=== PATIENT | male | born 1955 | race Caucasian/White ===

== ENCOUNTER 2023-03-21 18:02 | Inpatient (IN) | payer MEDICARE, OTHER ==
[2023-03-21] MEDS ORDERED: HYDROmorphone 0.5 MG/0.5 ML SYRINGE IVP STA (18:25)
--- NOTE | 2023-03-21 18:42 | ED ---
General Adult HPI - General Source: patient, EMS, RN notes reviewed Mode of arrival: EMS <Autumn Monroe - Last Filed: 03/21/23 23:21> <Kwaku Brooks - Last Filed: 03/22/23 00:31> - General Chief complaint: Fall Stated complaint: fall-back pain Time Seen by Provider: 03/21/23 18:05 - History of Present Illness Initial comments: Patient is 67-year-old male presenting to the ER with chief complaint of back pain. Patient states the past couple months she has been having increasing back pain. He states that the pain gets so bad that his legs gave out and he falls to the floor. Patient states he has been having to crawl to get around. He is also reporting weakness and the only way for him to be comfortable is to lay flat on his back. He does report radiating distally. He also reports neuropathy in his feet which is also causing him to fall to the pain. He does have a history of heroin use. Patient does not follow up with a instrument specialist. Patient denies any bowel or bladder incontinence, saddle paresthesias, fevers. (Autumn Monroe) 67-year-old male with a past medical history significant for chronic back pain presenting to the ED with a chief complaint of back pain. Patient states over the past few months has had increasing of his back pain. With history of back pain causing weakness to his lower legs history of neuropathy reports that he falls. States recently with increased pain and weakness to his legs has had even more frequent falls. Does have a history of A. fib however is not on blood thinners. He denies chest pain or shortness of breath. (Kwaku Brooks) - Related Data Home Medications Medication Instructions Recorded Confirmed Albuterol Sulfate [Ventolin HFA] 2 puff INHALATION RT-QID PRN 03/21/23 03/21/23 Aspirin EC [Ecotrin Low Dose] 81 mg PO DAILY 03/21/23 03/21/23 DULoxetine HCL [Cymbalta] 30 mg PO DAILY 03/21/23 03/21/23 Dulaglutide [Trulicity] 0.75 mg SQ TU 03/21/23 03/21/23 Empagliflozin [Jardiance] 10 mg PO DAILY 03/21/23 03/21/23 Furosemide [Lasix] 40 mg PO DAILY 03/21/23 03/21/23 Gabapentin 800 mg PO TID 03/21/23 03/21/23 Ibuprofen [Motrin] 800 mg PO TID 03/21/23 03/21/23 carvediloL [Coreg] 6.25 mg PO BID 03/21/23 03/21/23 lisinopriL [Zestril] 10 mg PO DAILY 03/21/23 03/21/23 metFORMIN HCL 1,000 mg PO BID 03/21/23 03/21/23 Allergies Allergy/AdvReac Type Severity Reaction Status Date / Time No Known Allergies Allergy Verified 03/21/23 23:03 Review of Systems ROS Other: All systems not noted in ROS Statement are negative. <Autumn Monroe - Last Filed: 03/21/23 23:21> ROS Other: All systems not noted in ROS Statement are negative. <Kwaku Brooks - Last Filed: 03/22/23 00:31> ROS Statement: Those systems with pertinent positive or pertinent negative responses have been documented in the HPI. Past Medical History Past Medical History: Atrial Fibrillation, COPD, Diabetes Mellitus, Hypertension Additional Past Medical History / Comment(s): herniated discs, TIA History of Any Multi-Drug Resistant Organisms: None Reported Past Surgical History: Orthopedic Surgery Additional Past Surgical History / Comment(s): Knee surgery Past Psychological History: Depression Smoking Status: Current every day smoker Past Alcohol Use History: Daily Past Drug Use History: Heroin <Autumn Monroe - Last Filed: 03/21/23 23:21> General Exam Limitations: physical limitation General appearance: alert, other (uncomfortable) Head exam: Present: atraumatic, normocephalic, normal inspection Eye exam: Present: normal appearance, PERRL, EOMI. Absent: scleral icterus, conjunctival injection, periorbital swelling Pupils: Present: normal accommodation ENT exam: Present: normal exam, normal oropharynx, mucous membranes moist Neck exam: Present: normal inspection. Absent: tenderness, meningismus, lymphadenopathy Respiratory exam: Present: normal lung sounds bilaterally. Absent: respiratory distress, wheezes, rales, rhonchi, stridor Cardiovascular Exam: Present: regular rate, irregular rhythm, normal heart sounds. Absent: systolic murmur, diastolic murmur, rubs, gallop, clicks GI/Abdominal exam: Present: soft, tenderness (mild generalized), normal bowel sounds. Absent: distended, guarding, rebound, rigid Extremities exam: Present: normal inspection, full ROM, normal capillary refill. Absent: tenderness, pedal edema, joint swelling, calf tenderness Back exam: Present: tenderness (tenderness to lumbar spine. bilaterally weakness to leg hold due to pain. straight leg raise positive bilaterally.) Neurological exam: Present: alert, oriented X3, CN II-XII intact Psychiatric exam: Present: normal affect, normal mood Skin exam: Present: warm, dry, intact, normal color. Absent: rash <Autumn Monroe - Last Filed: 03/21/23 23:21> General appearance: alert, in no apparent distress, obese Neck exam: Present: normal inspection Extremities exam: Present: other (Lower extremities show good DP/PT pulses however poor strength) Neurological exam: Present: alert, oriented X3 Skin exam: Present: warm, dry <Kwaku Brooks - Last Filed: 03/22/23 00:31> Course <Autumn Monroe - Last Filed: 03/21/23 23:21> Vital Signs 03/21/23 03/21/23 18:07 23:34 Temperature 98.1 F Pulse Rate 90 104 H Respiratory 20 18 Rate Blood Pressure 172/105 156/95 O2 Sat by Pulse 98 100 Oximetry - Reevaluation(s) Reevaluation #1: 03/21/23 21:49 On reevaluation, patient states that he has also been having blackouts. He describes waking up in the morning and walking into the kitchen and blacking out. He finds himself waking up to his dogs licking his face. He is unaware of how long he is unconscious or any head injury. He denies any dizziness, lightheadedness, chest pain, shortness of breath prior to these blackouts. (Autumn Monroe) Medical Decision Making - Lab Data Result diagrams: 03/21/23 21:42 03/21/23 21:42 - EKG Data -: EKG Interpreted by Me - Radiology Data Radiology results: report reviewed, image reviewed <Autumn Monroe - Last Filed: 03/21/23 23:21> - Lab Data Result diagrams: 03/21/23 21:42 03/21/23 21:42 <Kwaku Brooks - Last Filed: 03/22/23 00:31> - Medical Decision Making Was pt. sent in by a medical professional or institution (NIKKY Godfrey, HEEL [employer]ITTER, urgent care, hospital, or long-term...) When possible be specific @ -No Did you speak to anyone other than the patient for history (EMS, parent, family, police, friend...)? What history was obtained from this source @ -No Did you review nursing and triage notes (agree or disagree)? Why? @ -I reviewed and agree with nursing and triage notes Were old charts reviewed (outside hosp., previous admission, EMS record, old EKG, old radiological studies, urgent care reports/EKG's, long-term records)? Report findings @ -No old charts were reviewed Differential Diagnosis (chest pain, altered mental status, abdominal pain women, abdominal pain men, vaginal bleeding, weakness, fever, dyspnea, syncope, headache, dizziness, GI bleed, back pain, seizure, CVA, palpatations, mental health, musculoskeletal)? @ -Differential Back Pain: Strain, zoster, cauda equina syndrome, epidural abscess, vertebral osteomyelitis, discitis, fracture, subluxation, disc herniation, DJD, spinal stenosis, dissection, AAA, pancreatitis, peptic ulcer disease, pyelonephritis, kidney stone, this is not meant to be an all-inclusive list. EKG interpreted by me (3pts min.). @ -As above X-rays interpreted by me (1pt min.). @ -None done CT interpreted by me (1pt min.). @ -CT lumbar spine shows multilevel foraminal stenosis. There is also spinal canal stenosis at L3 through 4 secondary to bulging disc, endplate spurring, and facet hypertrophy. Degenerative disc changes L3-4 and L5-S1. CT brain/cspine results pending. U/S interpreted by me (1pt. min.). @ -None done What testing was considered but not performed or refused? (CT, X-rays, U/S, labs)? Why? @ -None What meds were considered but not given or refused? Why? @ -None Did you discuss the management of the patient with other professionals (professionals i.e. NIKKY Godfrey, HEEL [employer] SPLITTER, lab, RT, psych nurse, social worker school, ways operator, teacher, chief operating officer, case reviewer)? Give summary @ -No Was smoking cessation discussed for >3mins.? @ -No Was critical care preformed (if so, how long)? @ -No Were there social determinants of health that impacted care today? How? (Homelessness, low income, unemployed, alcoholism, drug addiction, transportation, low edu. Level, literacy, decrease access to med. care, long term, rehab)? @ -No Was there de-escalation of care discussed even if they declined (Discuss DNR or withdrawal of care, Hospice)? DNR status @ -No What co-morbidities impacted this encounter? (DM, HTN, Smoking, COPD, CAD, Cancer, CVA, ARF, Chemo, Hep., AIDS, mental health diagnosis, sleep apnea, morbid obesity)? @ -atrial fibrillation, COPD, diabetes mellitus, hypertension, herniated disc, dementia Was patient admitted / discharged? Hospital course, mention meds given and route, prescriptions, significant lab abnormalities, going to OR and other pertinent info. @ -Patient is a 67 year old male presenting to the ER via EMS with a chief complaint of back pain. Vitals stable. Physical exam was significant for positive straight leg raise and weakness in leg hold due to pain. Patient does have a history of heroin use. He also reports recently losing consciousness with unknown down time.CT lumbar spine spine shows multilevel foraminal stenosis. There is also spinal canal stenosis at L3 through 4 secondary to bulging disc, endplate spurring, and facet hypertrophy. Degenerative disc changes L3-4 and L5- S1. Labs obtained show JEAN MARIE BUN 36, Cr 1.39, Plt 135, otherwise unremarkable. Cephid negative. UA without signs of infection. EKG shows atrial fibrillation with RVR, ventricular rate 122. CT brain pending. Patient received IV fluids, pain medication, carvedilol. Case signed out to Janusz Brooks PA-C pending ct res ults and admission. (Autumn Monroe) Signed out to me. Patient is a 67-year-old male with a history of back pain. With history of back pain notes weakness with this. Notes history of neuropathy as well. Secondary to worsening back pain and worsening weakness has been having very frequent falls. CT did show multilevel foraminal stenosis. CT brain showed no evidence of bleed or other acute process. Secondary to increasing falls with increasing back pain and weakness patient will be admitted with consults to social worker school for possible placement and consult to orthopedics. Of note, patient was noted to be tachycardic at 110. Did not take his home dose of coreg. This was ordered for the patient. Occasionally review shows no history of blood thinner use the patient denies blood thinner use. Although patient is in A. fib with history of frequent falls felt patient is at high risk of bleed with thinner use. Case discussed with Y[facility]asta who accepted admission for [facility] (Kwaku Brooks) - Lab Data Lab Results 03/21/23 03/21/23 03/21/23 Range/Units 21:42 21:42 21:42 WBC 10.4 (3.8-10.6) k/uL RBC 4.89 (4.30-5.90) m/uL Hgb 15.5 (13.0-17.5) gm/dL Hct 45.7 (39.0-53.0) % MCV 93.5 (80.0-100.0) fL MCH 31.8 (25.0-35.0) pg MCHC 34.0 (31.0-37.0) g/dL RDW 13.0 (11.5-15.5) % Plt Count 135 L (150-450) k/uL MPV 8.7 PT 11.2 (10.0-12.5) sec INR 1.0 (<1.2) APTT 21.0 L (22.0-30.0) sec Sodium 137 (137-145) mmol/L Potassium 4.3 (3.5-5.1) mmol/L Chloride 101 (98-107) mmol/L Carbon Dioxide 18 L (22-30) mmol/L Anion Gap 18 mmol/L BUN 36 H (9-20) mg/dL Creatinine 1.39 H (0.66-1.25) mg/dL Est GFR (CKD-EPI)AfAm 61 (>60 ml/min/1.73 sqM) Est GFR (CKD-EPI)NonAf 53 (>60 ml/min/1.73 sqM) Glucose 131 H (74-99) mg/dL Calcium 9.0 (8.4-10.2) mg/dL Total Bilirubin 1.1 (0.2-1.3) mg/dL AST 21 (17-59) U/L ALT 15 (4-49) U/L Alkaline Phosphatase 80 (38-126) U/L Troponin I (0.000-0.034) ng/mL Total Protein 7.2 (6.3-8.2) g/dL Albumin 3.7 (3.5-5.0) g/dL Urine Color Urine Appearance (Clear) Urine pH (5.0-8.0) Ur Specific [place] (1.001-1.035) Urine Protein (Negative) Urine Glucose (UA) (Negative) Urine Ketones (Negative) Urine Blood (Negative) Urine Nitrite (Negative) Urine Bilirubin (Negative) Urine Urobilinogen (<2.0) mg/dL Ur Leukocyte Esterase (Negative) Influenza Type A (PCR) (Not Detectd) Influenza Type B (PCR) (Not Detectd) RSV (PCR) (Not Detectd) SARS-CoV-2 (PCR) (Not Detectd) 03/21/23 03/21/23 03/21/23 Range/Units 21:42 21:42 21:42 WBC (3.8-10.6) k/uL RBC (4.30-5.90) m/uL Hgb (13.0-17.5) gm/dL Hct (39.0-53.0) % MCV (80.0-100.0) fL MCH (25.0-35.0) pg MCHC (31.0-37.0) g/dL RDW (11.5-15.5) % Plt Count (150-450) k/uL MPV PT (10.0-12.5) sec INR (<1.2) APTT (22.0-30.0) sec Sodium (137-145) mmol/L Potassium (3.5-5.1) mmol/L Chloride (98-107) mmol/L Carbon Dioxide (22-30) mmol/L Anion Gap mmol/L BUN (9-20) mg/dL Creatinine (0.66-1.25) mg/dL Est GFR (CKD-EPI)AfAm (>60 ml/min/1.73 sqM) Est GFR (CKD-EPI)NonAf (>60 ml/min/1.73 sqM) Glucose (74-99) mg/dL Calcium (8.4-10.2) mg/dL Total Bilirubin (0.2-1.3) mg/dL AST (17-59) U/L ALT (4-49) U/L Alkaline Phosphatase (38-126) U/L Troponin I <0.012 (0.000-0.034) ng/mL Total Protein (6.3-8.2) g/dL Albumin (3.5-5.0) g/dL Urine Color Light Yellow Urine Appearance Clear (Clear) Urine pH 5.5 (5.0-8.0) Ur Specific [place] 1.021 (1.001-1.035) Urine Protein Trace H (Negative) Urine Glucose (UA) 4+ H (Negative) Urine Ketones 1+ H (Negative) Urine Blood Negative (Negative) Urine Nitrite Negative (Negative) Urine Bilirubin Negative (Negative) Urine Urobilinogen <2.0 (<2.0) mg/dL Ur Leukocyte Esterase Negative (Negative) Influenza Type A (PCR) Not Detected (Not Detectd) Influenza Type B (PCR) Not Detected (Not Detectd) RSV (PCR) Not Detected (Not Detectd) SARS-CoV-2 (PCR) Not Detected (Not Detectd) - EKG Data EKG Comments: EKG taken at 11:53 shows atrial fibrillation with RVR. Ventricular rate 122, QRS duration 98, QT/QTc to 84/356. (Autumn Monroe) Disposition <Autumn Monroe - Last Filed: 03/21/23 23:21> <Kwaku Brooks - Last Filed: 03/22/23 00:31> Clinical Impression: Falls, Back pain Disposition: ADMITTED IP TO THIS HOSP Referrals: Devon Gurrola MD [Primary Care Provider] - 1-2 days
--- NOTE | 2023-03-21 19:52 | CT ---
EXAMINATION TYPE: CT lumbar spine wo con DATE OF EXAM: 03/21/2023 COMPARISON: None HISTORY: FALL, severe low back pain CT DLP: 2140.6 mGycm CONTRAST: None TECHNIQUE: CT of the lumbar spine is performed on a spiral scan at 3 mm thick sections. Reconstructed images are performed in the coronal and sagittal planes. FINDINGS: T10-T11: No focal disc herniation or significant disc bulge is evident. No spinal canal stenosis or neural foraminal stenosis is present. T11-T12: No focal disc herniation or significant disc bulge is evident. No spinal canal stenosis or neural foraminal stenosis is present. T12-L1: Minimal disc bulges anterior thecal sac flattening. No AP spinal canal stenosis present. Neur al foramen are patent. L1-L2: Broad-based disc bulge with mild anterior thecal sac compression. No AP spinal canal stenosis is present. Neural foramen are patent. Facet hypertrophy is present. L2-L3: Broad-based disc bulge is present with moderate anterior thecal sac flattening. No AP spinal c anal stenosis is present. Moderate right and mild left foraminal narrowing is present. L3-L4: There is loss of disc height with vacuum disc phenomenon present. Endplate spurring and residu al disc material is moderate anterior thecal sac compression. Facet hypertrophy and ligamentum flavum laxity is present. These are contributing to spinal canal narrowing. L4-L5: There is loss of disc height is level. Residual disc bulge is present. Endplate spurring is pr esent slightly greater to the left paracentral region. AP spinal canal narrowing is present. There is severe left and moderate to severe right foraminal stenosis L5-S1: No focal disc herniation or significant disc bulge is evident. No spinal canal stenosis. Sev ere bilateral foraminal narrowing present. Vertebral alignment appears normal. IMPRESSION: 1 Multilevel foraminal stenosis more severe in the lower lumbar spine. 2. Spinal canal stenosis at L3-4 secondary to disc bulge and endplate spurring and facet hypertrophy. 3. Degenerative disc changes L3-4 through L5-S1.
[2023-03-21] MEDS ORDERED: HYDROmorphone 1 MG/ML 1 ML SYRINGE IVP STA (20:02)
[2023-03-21 22:09] LABS: HCT 45.7 % (39.0-53.0); HGB 15.5 gm/dL (13.0-17.5); MCH 31.8 pg (25.0-35.0); MCV 93.5 fL (80.0-100.0); Mean Platelet Volume 8.7; Platelet Count 135 k/uL (150-450); RBC 4.89 m/uL (4.30-5.90); WBC 10.4 k/uL (3.8-10.6)
[2023-03-21 22:32] LABS: ALT 15 U/L (4-49); AST 21 U/L (17-59); African American GFR (CKD) 61 (>60 ml/min/1.73 sqM); Albumin 3.7 g/dL (3.5-5.0); Alkaline Phosphatase 80 U/L (38-126); Anion Gap 18 mmol/L; Blood Urea Nitrogen 36 mg/dL (9-20); Carbon Dioxide 18 mmol/L (22-30); Chloride 101 mmol/L (98-107); Glucose 131 mg/dL (74-99); Non-African American GFR(CKD) 53 (>60 ml/min/1.73 sqM); Potassium 4.3 mmol/L (3.5-5.1); Sodium 137 mmol/L (137-145); Total Bilirubin 1.1 mg/dL (0.2-1.3); Total Protein 7.2 g/dL (6.3-8.2)
[2023-03-21 22:34] LABS: Appearance,Urine Clear (Clear); Bilirubin,Urine Negative (Negative); Blood,Urine Negative (Negative); Color,Urine Light Yellow; Glucose,Urine (UA) 4+ (Negative); Ketones,Urine 1+ (Negative); Leukocyte Esterase,Urine Negative (Negative); Nitrite,Urine Negative (Negative); PH, Urine 5.5 (5.0-8.0); Protein,Urine Trace (Negative); Specific Gravity,Urine 1.021 (1.001-1.035); Urobilinogen,Urine <2.0 mg/dL (<2.0)
[2023-03-21] MEDS ORDERED: SODIUM CHLORIDE 0.9% 1,000 ML IV STA (22:34)
[2023-03-21 22:38] LABS: Prothrombin Time 11.2 sec (10.0-12.5)
[2023-03-21] MEDS ORDERED: carvediloL 6.25 MG TAB PO STA (23:20)
--- NOTE | 2023-03-21 23:44 | CT ---
EXAMINATION TYPE: CT brain maggieine wo con DATE OF EXAM: 03/21/2023 COMPARISON: NONE HISTORY: chronic back pain. Headache and neck pain. CT DLP: 1658.8 mGycm. Automated Exposure Control for Dose Reduction was Utilized. TECHNIQUE: CT scan of the head and cervical spine are performed without contrast. FINDINGS: There is no acute intracranial hemorrhage or midline shift identified. Mild ventricular a nd sulcal prominence. Mild low attenuation in the periventricular white matter. The calvarium is inta ct. Nasal septum is deviated to right of midline. The globes are intact and the visualized sinuses ar e clear. Cervical spine is visualized in its entirety from C1 through upper thoracic levels and demonstrates s atisfactory alignment without evidence of acute fracture or dislocation. Prevertebral soft tissue ap pears within normal limits. The C1-C2 articulation is within normal limits on the coronal images. V ertebral body heights are maintained. Moderate multilevel spurring and disc space narrowing is seen. Multilevel spurring and/or spur disc complexes efface the anterior thecal sac in the cervical spine. Axial images show some multilevel uncovertebral facet degenerative changes. Thyroid gland is somewhat small in size. Lung apices show no evidence of pneumothorax. IMPRESSION: 1. There is no acute fracture or dislocation evident in the cervical spine. 2. No acute intracranial hemorrhage or midline shift is seen.
[2023-03-22] MEDS ORDERED: HYDROmorphone 1 MG/ML 1 ML SYRINGE IVP STA (00:22)
[2023-03-22] MEDS ORDERED: NALOXONE 0.4 MG/ML 1 ML VIAL IV PRN (00:32)
[2023-03-22] MEDS: SODIUM CHLORIDE 0.9% 1,000 ML IV SCH ×3 (00:56→22:37)
[2023-03-22] MEDS: HYDROmorphone 1 MG/ML 1 ML SYRINGE IVP PRN ×6 (03:46→21:59)
[2023-03-22] MEDS ORDERED: FUROSEMIDE 40 MG TAB PO SCH (09:00)
[2023-03-22] MEDS: lisinopriL 10 MG TAB PO SCH (09:14)
[2023-03-22] MEDS: metFORMIN 500 MG TAB PO SCH ×2 (09:14→21:42)
[2023-03-22] MEDS: carvediloL 6.25 MG TAB PO SCH ×2 (09:14→21:42)
[2023-03-22] MEDS: ASPIRIN 81 MG PO SCH (09:14)
[2023-03-22] MEDS: DULoxetine HCL 30 MG CAPSULE.DR PO SCH (09:14)
[2023-03-22] MEDS ORDERED: ACETAMINOPHEN TAB 325 MG TAB PO PRN (10:19)
[2023-03-22] MEDS ORDERED: DEXTROSE 50% SYRINGE 50 ML IVP PRN ×2 (10:25)
[2023-03-22 12:33] LABS: Glucose,Whole Blood 225 mg/dL (70-110)
[2023-03-22] MEDS: INSULIN ASPART (NovoLOG) 100 UNIT/ML VIAL SQ SCH ×3 (12:37→22:03)
[2023-03-22] MEDS: DAPAGLIFLOZIN PROPANEDIOL 5 MG TABLET PO SCH (12:39)
--- NOTE | 2023-03-22 14:32 | P.CNOR ---
History of Present Illness - [facility] Consult date: 03/22/23 Consult reason: low back pain History of present illness: Patient is a 67-year-old male who presented to [facility] evaluation of low back pain. Apparently the patient is been dealing with low ba ck pain for many years, seems to come and go. Over the last 2 weeks, patient is noticed a severe increase in his pain. Patient has had a very difficult time with ambulation. He's been falling quite frequently at home. Patient states that he does live alone. Patient denies any previous surgery to his lumbar spine. He was examined today in the emergency room, he he does look to be in quite a bit of pain on exam. Patient denies any loss of bowel or bladder function at this time. He denies a ny numbness or tingling to the genital or perineal region. He does state he has significant neuropathy which affects the bilateral feet. He occasionally will get numbness and tingling and shooting pain down the back of the legs but nothing consistent. Patient does take gabapentin 800 mg 3 times a day for his neuropathy. He states that he's never been evaluated by an orthopedic surgeon or neurosurgeon with regards to his spine. Computed tomography scan of the lumbar spine has been done, report and images were reviewed with my attending Dr. Zimmerman. Review of Systems Constitutional: Reports as per [facility] Past Medical History Past Medical History: Atrial Fibrillation, COPD, Diabetes Mellitus, Hypertension Additional Past Medical History / Comment(s): herniated discs, TIA History of Any Multi-Drug Resistant Organisms: None Reported Past Surgical History: Orthopedic Surgery Additional Past Surgical History / Comment(s): Knee surgery Past Psychological History: Depression Smoking Status: Current every day smoker Past Alcohol Use History: Daily Past Drug Use History: Heroin Medications and Allergies Home Medications Medication Instructions Recorded Confirmed Type Albuterol Sulfate [Ventolin HFA] 2 puff INHALATION RT-QID PRN 03/21/23 03/21/23 History Aspirin EC [Ecotrin Low Dose] 81 mg PO DAILY 03/21/23 03/21/23 History DULoxetine HCL [Cymbalta] 30 mg PO DAILY 03/21/23 03/21/23 History Dulaglutide [Trulicity] 0.75 mg SQ TU 03/21/23 03/21/23 History Empagliflozin [Jardiance] 10 mg PO DAILY 03/21/23 03/21/23 History Furosemide [Lasix] 40 mg PO DAILY 03/21/23 03/21/23 History Gabapentin 800 mg PO TID 03/21/23 03/21/23 History Ibuprofen [Motrin] 800 mg PO TID 03/21/23 03/21/23 History carvediloL [Coreg] 6.25 mg PO BID 03/21/23 03/21/23 History lisinopriL [Zestril] 10 mg PO DAILY 03/21/23 03/21/23 History metFORMIN HCL 1,000 mg PO BID 03/21/23 03/21/23 History Allergies Allergy/AdvReac Type Severity Reaction Status Date / Time No Known Allergies Allergy Verified 03/21/23 23:03 Physical Examination Gen: AOx3, NAD VSS stable at this time Integument: No obvious open lesions or sores are present throughout the lower thoracic and lumbar spine Palpation: As an irrigant tenderness is appreciated on exam of the paraspinal or midline region of the lower thoracic and lumbar region ROM: Full range of motion in all major muscle groups of bilateral upper extremities, no focal deficits Patient had very difficult time with hip flexion, along with knee extension and knee flexion due to pain reproduced in his back, plantar flexion, dorsiflexion, EHL and FHL are intact Sensory Exam: Senory exam to light touch is intact C5-T1 Senosry exam to light touch is intact L2-S1 Motor: 5/5 strength appreciated in the bilateral upper extremities with shoulder elev ation, shoulder abduction, elbow extension, elbow flexion, wrist extension, wrist flexion, babysitter 3/5 strength of patient's bilateral lower extremities with hip flexion, pain likely causing acute change 3+/5 strength appreciated in the bilateral lower extremities with knee extension and knee flexion pain likely causing acute change 4/5 strength appreciated in the bilateral lower extremities with plantar flexion, FHL 4-/5 strength appreciated in the bilateral lower extremities with dorsiflexion and EHL Reflexes: Negative Tiesha's bilaterally Negative Babinski bilaterally Positive clonus bilaterally, very mild in both lower extremities Special Test: Positive straight leg raise bilateral lower extremities Results - Labs Labs: Abnormal Lab Results - Last 24 Hours (Table) 03/21/23 03/21/23 03/21/23 Range/Units 21:42 21:42 21:42 Plt Count 135 L (150-450) k/uL APTT 21.0 L (22.0-30.0) sec Carbon Dioxide 18 L (22-30) mmol/L BUN 36 H (9-20) mg/dL Creatinine 1.39 H (0.66-1.25) mg/dL Glucose 131 H (74-99) mg/dL POC Glucose (mg/dL) (70-110) mg/dL Urine Protein (Negative) Urine Glucose (UA) (Negative) Urine Ketones (Negative) 03/21/23 03/22/23 Range/Units 21:42 12:31 Plt Count (150-450) k/uL APTT (22.0-30.0) sec Carbon Dioxide (22-30) mmol/L BUN (9-20) mg/dL Creatinine (0.66-1.25) mg/dL Glucose (74-99) mg/dL POC Glucose (mg/dL) 225 H (70-110) mg/dL Urine Protein Trace H (Negative) Urine Glucose (UA) 4+ H (Negative) Urine Ketones 1+ H (Negative) H & H 03/21/23 Range/Units 21:42 Hgb 15.5 (13.0-17.5) gm/dL Hct 45.7 (39.0-53.0) % Coagulation 03/21/23 Range/Units 21:42 INR 1.0 (<1.2) Result Diagrams: 03/21/23 21:42 03/21/23 21:42 - Diagnostic results CT Scan - lumbar: report reviewed, image reviewed Assessment and Plan Assessment: Low back pain Bilateral lower extremity weakness Neuropathy bilateral lower extremities Multilevel lumbar spondylosis Other medical comorbidities Plan: I was able to discuss the case, this including both physical exam findings and imaging studies might attending Dr. Zimmerman. Patient not demonstrating any acute cauda symptoms, he has some slight neuropathic signs with the clonus the lower extremities. Due to the severe pain and lack of strength in the lower extremities, along with findings in the CT scan of the lumbar spine I will order MRI lumbar spine without contrast for further evaluation pain control, recommend restarting patient's gabapentin at this time. Pain control, resume gabapentin, could consider muscle relaxer or narcotic pain medication if needed DVT prophylaxis per medical/cardiology recommendations Weight-bear as tolerated, recommend use of a walker and assistance when ambulating PT/OT Other medical recommendations appreciated. Further recommendations to follow Time with Patient: Less than 30
--- NOTE | 2023-03-22 15:57 | P.HPIM ---
History of Present Illness H&P Date: 03/22/23 Chief Complaint: Back pain syncope * 67-year-old gentleman with past medical history significant for atrial fibrillation, diabetes mellitus, COPD, hypertension, degenerative disks/joint disease presents to the emergency department with complains of increasing back pain. Patient stated his back pain is getting worse to the point he is unable to move around freely and has multiple falls at home he had been complaining of lower extremity weakness and neuropathic pain bilaterally and feet as well. Upon admission patient denies history of bladder or bowel incontinence, den ies fever or perianal numbness * Workup initiated in ER including CT lumbar spine which showed multilevel degenerative changes and stenosis, L3-L4 disc bulge and spinal canal stenosis noted, L5-S1 degenerative disc changes noted * Patient had a CT brain done which was negative for acute fracture or di slocation of cervical spine no intracranial hemorrhage was noted * EKG obtained in ER showed atrial fibrillation with heart rate of 122 and the time of admission * Serum chemistry obtained showed WBC 10.4 hemoglobin 15 platelet count of 135 INR of 1 * Serum chemistry shows sodium 137 potassium 4.2 BU and 36 at 1.39 * Patient tested negative for influenza RSV and Covid * While in ER patient was given 1 dose of oral Coreg IV fluid bolus and IV pain medications and admitted to medical floor with back surgery consultation for evaluation REVIEW OF SYSTEMS: Back pain, lower extremity weakness, syncope CONSTITUTIONAL: No fever, no malaise, no fatigue. HEENT: No recent visual problems or hearing problems. Denied any sore throat. CARDIOVASCULAR: No chest pain, orthopnea, PND, no palpitations, no syncope. PULMONARY: No shortness of breath, no cough, no hemoptysis. GASTROINTESTINAL: No diarrhea, no nausea, no vomiting, no abdominal pain. NEUROLOGICAL: No headaches, no weakness, no numbness. HEMATOLOGICAL: Denies any bleeding or petechiae. GENITOURINARY: Denies any burning micturition, frequency, or urgency. MUSCULOSKELETAL/RHEUMATOLOGICAL: Denies any joint pain, swelling, or any muscle pain. ENDOCRINE: Denies any polyuria or polydipsia. PHYSICAL EXAMINATION: GENERAL: The patient is alert and oriented x3, Well developed, well nourished. HEENT: Pupils are round and equally reacting to light. EOMI. CARDIOVASCULAR: Irregular rhythm, tachycardia PULMONARY: Chest is clear to auscultation, no wheezing or crackles. ABDOMEN: Soft, nontender, nondistended, normoactive bowel sounds. No palpable organomegaly. MUSCULOSKELETAL: No joint swelling or deformity. EXTREMITIES: No cyanosis, clubbing, or pedal edema. NEUROLOGICAL: Gross neurological examination did not reveal any focal deficits. Past Medical History Past Medical History: Atrial Fibrillation, COPD, Diabetes Mellitus, Hypertension Additional Past Medical History / Comment(s): herniated discs, TIA History of Any Multi-Drug Resistant Organisms: None Reported Past Surgical History: Orthopedic Surgery Additional Past Surgical History / Comment(s): Knee surgery Past Psychological History: Depression Smoking Status: Current every day smoker Past Alcohol Use History: Daily Past Drug Use History: Heroin Medications and Allergies Home Medications Medication Instructions Recorded Confirmed Type Albuterol Sulfate [Ventolin HFA] 2 puff INHALATION RT-QID PRN 03/21/23 03/21/23 History Aspirin EC [Ecotrin Low Dose] 81 mg PO DAILY 03/21/23 03/21/23 History DULoxetine HCL [Cymbalta] 30 mg PO DAILY 03/21/23 03/21/23 History Dulaglutide [Trulicity] 0.75 mg SQ TU 03/21/23 03/21/23 History Empagliflozin [Jardiance] 10 mg PO DAILY 03/21/23 03/21/23 History Furosemide [Lasix] 40 mg PO DAILY 03/21/23 03/21/23 History Gabapentin 800 mg PO TID 03/21/23 03/21/23 History Ibuprofen [Motrin] 800 mg PO TID 03/21/23 03/21/23 History carvediloL [Coreg] 6.25 mg PO BID 03/21/23 03/21/23 History lisinopriL [Zestril] 10 mg PO DAILY 03/21/23 03/21/23 History metFORMIN HCL 1,000 mg PO BID 03/21/23 03/21/23 History Allergies Allergy/AdvReac Type Severity Reaction Status Date / Time No Known Allergies Allergy Verified 03/21/23 23:03 Physical Exam Vitals: Vital Signs Temp Pulse Resp BP Pulse Ox 03/22/23 06:00 89 16 125/78 94 L 03/22/23 03:00 98 18 127/74 93 L 03/21/23 23:34 104 H 18 156/95 100 03/21/23 18:07 98.1 F 90 20 172/105 98 Intake and Output 03/21/23 03/22/23 03/22/23 22:59 06:59 14:59 Other: Weight 117.934 kg Results CBC & Chem 7: 03/21/23 21:42 03/21/23 21:42 Labs: Abnormal Lab Results - Last 24 Hours (Table) 03/21/23 03/21/23 03/21/23 Range/Units 21:42 21:42 21:42 Plt Count 135 L (150-450) k/uL APTT 21.0 L (22.0-30.0) sec Carbon Dioxide 18 L (22-30) mmol/L BUN 36 H (9-20) mg/dL Creatinine 1.39 H (0.66-1.25) mg/dL Glucose 131 H (74-99) mg/dL Urine Protein (Negative) Urine Glucose (UA) (Negative) Urine Ketones (Negative) 03/21/23 Range/Units 21:42 Plt Count (150-450) k/uL APTT (22.0-30.0) sec Carbon Dioxide (22-30) mmol/L BUN (9-20) mg/dL Creatinine (0.66-1.25) mg/dL Glucose (74-99) mg/dL Urine Protein Trace H (Negative) Urine Glucose (UA) 4+ H (Negative) Urine Ketones 1+ H (Negative) Thrombosis Risk Factor Assmnt - DVT/VTE Prophylaxis DVT/VTE Prophylaxis: Mechanical Prophylaxis ordered Assessment and Plan Assessment: Assessment and plan * Acute on chronic back pain with lower extremity weakness with degenerative disease of lumbar spine * Atrial fibrillation with rapid ventricular response * Hypertension * Diabetes mellitus type 2 * Acute renal failure with mild metabolic acidosis * In regards to acute and chronic back pain and lower extremity weakness, back surgery consulted, CT lumbar spine reviewed degenerative changes noted spinal stenosis stenosis noted * In regards to atrial fibrillation, cardiology consulted continue Coreg, continue aspirin, * In regards to diabetes mellitus continue patient on Trulicity, continue correctional insulin, continue metformin monitor for hypoglycemia * Regards to hypertension continue patient on Coreg and lisinopril * Physical therapy occupational therapy consulted * CODE STATUS is full code Time with Patient: Greater than 30
[2023-03-22 20:31] LABS: Glucose,Whole Blood 180 mg/dL (70-110)
[2023-03-22] MEDS: HYDROcodone/APAP 5-325MG 1 EACH TAB PO PRN (23:08)
[2023-03-23] MEDS: HYDROmorphone 1 MG/ML 1 ML SYRINGE IVP PRN ×4 (01:09→21:35)
[2023-03-23] MEDS: HYDROcodone/APAP 5-325MG 1 EACH TAB PO PRN ×5 (03:52→22:36)
[2023-03-23 06:10] LABS: Glucose,Whole Blood 200 mg/dL (70-110)
[2023-03-23] MEDS: INSULIN ASPART (NovoLOG) 100 UNIT/ML VIAL SQ SCH ×4 (06:50→21:32)
[2023-03-23] MEDS: SODIUM CHLORIDE 0.9% 1,000 ML IV SCH ×2 (06:51→15:58)
[2023-03-23] MEDS: carvediloL 6.25 MG TAB PO SCH ×2 (08:38→20:23)
[2023-03-23] MEDS: lisinopriL 10 MG TAB PO SCH (08:38)
[2023-03-23] MEDS: DAPAGLIFLOZIN PROPANEDIOL 5 MG TABLET PO SCH (08:38)
[2023-03-23] MEDS: ASPIRIN 81 MG PO SCH (08:38)
[2023-03-23] MEDS: metFORMIN 500 MG TAB PO SCH ×2 (08:38→20:23)
[2023-03-23] MEDS: DULoxetine HCL 30 MG CAPSULE.DR PO SCH (09:33)
[2023-03-23 10:12] LABS: BUN/Creat Ratio 23.94 Ratio (12.00-20.00); Blood Urea Nitrogen 38.3 mg/dL (9.0-27.0); Calcium 8.7 mg/dL (8.7-10.3); Chloride 102 mmol/L (96-109); Glucose 198 mg/dL (70-110); Magnesium 1.7 mg/dL (1.5-2.4); Potassium 4.5 mmol/L (3.5-5.5); Sodium 138 mmol/L (135-145)
[2023-03-23 10:36] LABS: Basophils # (A) 0.04 X 10*3/uL (0.00-0.10); Basophils % (A) 0.6 %; Eosinophils # (A) 0.19 X 10*3/uL (0.04-0.35); Eosinophils % (A) 2.8 %; HCT 41.6 % (39.6-50.0); HGB 13.9 g/dL (13.0-17.0); Lymphocytes # (A) 1.08 X 10*3/uL (0.90-5.00); MCH 31.2 pg (27.0-32.0); MCHC 33.4 g/dL (32.0-37.0); MCV 93.3 FL (80.0-97.0); Mean Platelet Volume 12.1 FL (9.5-12.2); Monocytes # (A) 1.13 X 10*3/uL (0.20-1.00); Monocytes % (A) 16.7 %; NRBC Per 100 WBC 0 X 10*3/uL (0.00-0.01); Neutrophils # (A) 4.29 X 10*3/uL (1.80-7.70); Neutrophils % (A) 63.6 %; Platelet Count 89 X 10*3/uL (140-440); RBC 4.46 X 10*6/uL (4.40-5.60); RBC Morphology Normal (Normal); RDW 12.6 % (11.5-14.5); WBC 6.75 X 10*3/uL (4.50-10.00)
[2023-03-23] MEDS: GABAPENTIN 400 MG CAP PO SCH ×3 (11:44→20:23)
[2023-03-23] MEDS: INSULIN DETEMIR (LEVEMIR) 100 UNIT/ML SYR SQ SCH (11:46)
[2023-03-23 11:48] LABS: Glucose,Whole Blood 232 mg/dL (70-110)
[2023-03-23 12:15] LABS: Amphetamine Screen,Urine Not Detected (NotDetected); Barbiturate Screen,Urine Not Detected (NotDetected); Benzodiazepines Screen,Urine Not Detected (NotDetected); Cocaine Screen,Urine Not Detected (NotDetected); Methadone Screen, Urine Not Detected (NotDetected); Opiate Screen,Urine Detected (NotDetected); Oxycodone Screen, Urine Not Detected (NotDetected); Phencyclidine Screen,Urine Not Detected (NotDetected); Tricyclic Antidepressant,Urine Not Detected (NotDetected); Urn Cannabinoid Scrn Detected (NotDetected)
--- NOTE | 2023-03-23 12:38 | P.CRDCN ---
History of Present Illness Consult date: 03/23/23 Chief complaint: Low back pain History of present illness: The patient is a 67-year-old gentleman who is a somewhat poor historian with a past medical history significant for atrial fibrillation of unknown etiology at this point as well as diabetes and hypertension and dyslipidemia and overweight and low back pain. He presented to the emergency department mainly because of low back pain. He underwent a computed tomography scan of the lower back and that revealed degenerative changes he was seen by orthopedic surgical team and he is in process to get an MRI. We consulted to see the patient because of atrial fibrillation. The patient underwent an EKG and that showed atrial fibrillation. He is not aware of any prior diagnosis of atrial fibrillation currently is not on any oral anticoagulation. No pain in the chest and no shortness of breath and no feeling of heart racing or fluttering and no dizziness or lightheadedness and no presyncope or syncope. On examination he does have an irregular rhythm with distant heart sounds and clear breathing sounds bilaterally and mild bilateral lower extremity edema and tender abdomen as well. The patient is not aware of any prior history of gastrointestinal bleeding and isn't know exactly why he is not on any oral anticoagulation. His vital signs are stable. The atrial fibrillation appeared to be under good control on the current dose of beta parrish. Assessment Lower back pain related to degenerative changes in the back Atrial fibrillation with controlled heart rate. The atrial fibrillation is unknown etiology, paroxysmal versus permanent Multiple comorbid conditions including diabetes and hypertension and dyslipidemia and overweight Plan Rule out intra-abdominal process Rule out gastrointestinal bleeding by speaking with his daughter who is a nurse and knows his medical records according to him Positive starting the patient on heparin IV Further risk stratification including an echocardiogram was Doppler Further recommendation to follow Past Medical History Past Medical History: Atrial Fibrillation, COPD, Diabetes Mellitus, Hypertension Additional Past Medical History / Comment(s): herniated discs, TIA History of Any Multi-Drug Resistant Organisms: None Reported Past Surgical History: Orthopedic Surgery Additional Past Surgical History / Comment(s): Knee surgery Past Psychological History: Depression Smoking Status: Current every day smoker Past Alcohol Use History: Daily Past Drug Use History: Heroin Medications and Allergies Home Medications Medication Instructions Recorded Confirmed Type Albuterol Sulfate [Ventolin HFA] 2 puff INHALATION RT-QID PRN 03/21/23 03/21/23 History Aspirin EC [Ecotrin Low Dose] 81 mg PO DAILY 03/21/23 03/21/23 History DULoxetine HCL [Cymbalta] 30 mg PO DAILY 03/21/23 03/21/23 History Dulaglutide [Trulicity] 0.75 mg SQ TU 03/21/23 03/21/23 History Empagliflozin [Jardiance] 10 mg PO DAILY 03/21/23 03/21/23 History Furosemide [Lasix] 40 mg PO DAILY 03/21/23 03/21/23 History Gabapentin 800 mg PO TID 03/21/23 03/21/23 History Ibuprofen [Motrin] 800 mg PO TID 03/21/23 03/21/23 History carvediloL [Coreg] 6.25 mg PO BID 03/21/23 03/21/23 History lisinopriL [Zestril] 10 mg PO DAILY 03/21/23 03/21/23 History metFORMIN HCL 1,000 mg PO BID 03/21/23 03/21/23 History Allergies Allergy/AdvReac Type Severity Reaction Status Date / Time No Known Allergies Allergy Verified 03/21/23 23:03 Physical Exam Vitals: Vital Signs Temp Pulse Pulse Resp BP BP Pulse Ox 03/23/23 07:00 97.7 F 100 20 158/83 100 03/23/23 01:41 98.3 F 90 16 108/52 92 L 03/22/23 20:00 98.2 F 87 18 131/78 95 03/22/23 18:00 72 18 94/59 98 03/22/23 16:00 72 18 110/72 98 Intake and Output 03/22/23 03/23/23 03/23/23 22:59 06:59 14:59 Output Total 0 400 400 Balance 0 -400 -400 Output: Urine 0 400 400 Other: Voiding Method External Catheter Weight 117.934 kg Results 03/23/23 05:38 03/23/23 05:38 CBC 03/23/23 Range/Units 05:38 WBC 6.75 (4.50-10.00) X 10*3/uL RBC 4.46 (4.40-5.60) X 10*6/uL Hgb 13.9 (13.0-17.0) g/dL Hct 41.6 (39.6-50.0) % Plt Count 89 L (140-440) X 10*3/uL Comprehensive Metabolic Panel 03/23/23 Range/Units 05:38 Sodium 138 (135-145) mmol/L Potassium 4.5 (3.5-5.5) mmol/L Chloride 102 (96-109) mmol/L Carbon Dioxide 26.0 (21.6-31.8) mmol/L BUN 38.3 H (9.0-27.0) mg/dL Creatinine 1.6 H (0.6-1.5) mg/dL Glucose 198 H (70-110) mg/dL Calcium 8.7 (8.7-10.3) mg/dL Current Medications Generic Name Dose Route Start Last Admin Trade Name Freq PRN Reason Stop Dose Admin Acetaminophen 650 mg 03/22/23 10:19 Acetaminophen Tab 325 Mg Tab PO Q6HR PRN Mild Pain or Fever > 100.5 Hydrocodone Bitart/Acetaminophen 1 each 03/22/23 10:19 03/23/23 08:36 Hydrocodone/Apap 5-325mg 1 Each Tab PO 1 each Q4HR PRN Administration Moderate Pain (Scale 4 to 6) Albuterol Sulfate 2.5 mg 03/23/23 10:43 Albuterol Nebulized 2.5 Mg/3 Ml INHALATION RT-QID PRN Shortness Of Breath Aspirin 81 mg 03/22/23 09:00 03/23/23 08:38 Aspirin 81 Mg PO 81 mg DAILY SILKE Administration Carvedilol 6.25 mg 03/22/23 09:00 03/23/23 08:38 Carvedilol 6.25 Mg Tab PO 6.25 mg BID SLIKE Administration Dapagliflozin 5 mg 03/22/23 09:00 03/23/23 08:38 Dapagliflozin Propanediol 5 Mg Tablet PO 5 mg DAILY SILKE Administration Dextrose/Water 25 ml 03/22/23 10:25 Dextrose 50% Syringe 50 Ml IVP PER PROTOCOL PRN Hypoglycemia Protocol Dextrose/Water 50 ml 03/22/23 10:25 Dextrose 50% Syringe 50 Ml IVP PER PROTOCOL PRN Hypoglycemia Protocol Duloxetine HCl 30 mg 03/22/23 09:00 03/23/23 09:33 Duloxetine Hcl 30 Mg Capsule.Dr PO 30 mg DAILY SILKE Administration Gabapentin 800 mg 03/23/23 10:45 03/23/23 11:44 Gabapentin 400 Mg Cap PO 800 mg TID SILKE Administration Hydromorphone HCl 1 mg 03/22/23 00:32 03/23/23 09:33 Hydromorphone 1 Mg/Ml 1 Ml Syringe IVP 1 mg Q3HR PRN Administration Severe Pain (Scale 7 to 10) Hydromorphone HCl 0.5 mg 03/22/23 00:32 Hydromorphone 0.5 Mg/0.5 Ml Syringe IVP Q3HR PRN Moderate Pain (Scale 4 to 6) Sodium Chloride 1,000 mls @ 100 mls/hr 03/22/23 00:45 03/23/23 06:51 Saline 0.9% IV 100 mls/hr .Q10H SILKE Administration Insulin Aspart 0 unit 03/22/23 12:30 03/23/23 06:50 Insulin Aspart (Novolog) 100 Unit/Ml Vial SQ 1 unit ACHS SILKE Administration Protocol Insulin Detemir 10 unit 03/23/23 11:30 03/23/23 11:46 Insulin Detemir (Levemir) 100 Unit/Ml Syr SQ 10 unit DAILY@0700 SILKE Administration Lisinopril 10 mg 03/22/23 09:00 03/23/23 08:38 Lisinopril 10 Mg Tab PO 10 mg DAILY SILKE Administration Metformin HCl 1,000 mg 03/22/23 09:00 03/23/23 08:38 Metformin 500 Mg Tab PO 1,000 mg BID SILKE Administration Naloxone HCl 0.2 mg 03/22/23 00:32 Naloxone 0.4 Mg/Ml 1 Ml Vial IV Q2M PRN Opioid Reversal Non-Formulary Medication 0.75 mg 03/25/23 09:00 Dulaglutide [Trulicity] SQ TU [facility] Ondansetron HCl 4 mg 03/22/23 00:32 Ondansetron 4 Mg/2 Ml Vial IVP Q8HR PRN Nausea And Vomiting Intake and Output 03/22/23 03/23/23 03/23/23 22:59 06:59 14:59 Output Total 0 400 400 Balance 0 -400 -400 Output: Urine 0 400 400 Other: Voiding Method External Catheter Weight 117.934 kg 03/23/23 05:38 03/23/23 05:38
--- NOTE | 2023-03-23 13:09 | P.PN ---
Subjective Progress Note Date: 03/23/23 Principal diagnosis: Back pain Patient was evaluated today at bedside, he is resting in his hospital bed. Patient continues to have significant pain in his low back difficulty with range of motion and strength in the lower extremities. MRI of the lumbar spine has been ordered, this has not been done at this time. He is been followed by other medical specialties at this time. Objective - Vital Signs Vital signs: Vital Signs Temp 97.7 F 03/23/23 07:00 Pulse 100 03/23/23 07:00 Resp 20 03/23/23 07:00 BP 158/83 03/23/23 07:00 Pulse Ox 100 03/23/23 07:00 FiO2 Intake & Output 03/22/23 03/23/23 03/23/23 18:59 06:59 18:59 Output Total 400 400 Balance -400 -400 Weight 117.934 kg Output: Urine 400 400 Other: Voiding Method External Catheter - Exam Gen: AOx3, NAD VSS stable at this time Integument: No obvious open lesions or sores are present throughout the lower thoracic and lumbar spine Palpation: As an irrigant tenderness is appreciated on exam of the paraspinal or midline region of the lower thoracic and lumbar region ROM: Full range of motion in all major muscle groups of bilateral upper extremities, no focal deficits Patient had very difficult time with hip flexion, along with knee extension and knee flexion due to pain reproduced in his back, plantar flexion, dorsiflexion, EHL and FHL are intact Sensory Exam: Senory exam to light touch is intact C5-T1 Senosry exam to light touch is intact L2-S1 Motor: 5/5 strength appreciated in the bilateral upper extremities with shoulder gus vation, shoulder abduction, elbow extension, elbow flexion, wrist extension, wrist flexion, assisted living director 3/5 strength of patient's bilateral lower extremities with hip flexion, pain likely causing acute change 3+/5 strength appreciated in the bilateral lower extremities with knee extension and knee flexion pain likely causing acute change 4/5 strength appreciated in the bilateral lower extremities with plantar flexion, FHL 4-/5 strength appreciated in the bilateral lower extremities with dorsiflexion a nd EHL Reflexes: Negative Tiesha's bilaterally Negative Babinski bilaterally Positive clonus bilaterally, very mild in both lower extremities Special Test: Positive straight leg raise bilateral lower extremities - Labs CBC & Chem 7: 03/23/23 05:38 03/23/23 05:38 Labs: Abnormal Lab Results - Last 24 Hours (Table) 03/22/23 03/23/23 03/23/23 Range/Units 20:30 05:38 05:38 Plt Count 89 L (140-440) X 10*3/uL Monocytes # 1.13 H (0.20-1.00) X 10*3/uL BUN (9.0-27.0) mg/dL Creatinine (0.6-1.5) mg/dL Est GFR (CKD-EPI) (>=60) BUN/Creatinine Ratio (12.00-20.00) Ratio Glucose (70-110) mg/dL POC Glucose (mg/dL) 180 H (70-110) mg/dL Hemoglobin A1c 10.8 H (<=6.0) % Urine Opiates Screen (NotDetected) U Marijuana (THC) Screen (NotDetected) 03/23/23 03/23/23 03/23/23 Range/Units 05:38 06:08 11:33 Plt Count (140-440) X 10*3/uL Monocytes # (0.20-1.00) X 10*3/uL BUN 38.3 H (9.0-27.0) mg/dL Creatinine 1.6 H (0.6-1.5) mg/dL Est GFR (CKD-EPI) 48 L (>=60) BUN/Creatinine Ratio 23.94 H (12.00-20.00) Ratio Glucose 198 H (70-110) mg/dL POC Glucose (mg/dL) 200 H (70-110) mg/dL Hemoglobin A1c (<=6.0) % Urine Opiates Screen Detected H (NotDetected) U Marijuana (THC) Screen Detected H (NotDetected) 03/23/23 Range/Units 11:46 Plt Count (140-440) X 10*3/uL Monocytes # (0.20-1.00) X 10*3/uL BUN (9.0-27.0) mg/dL Creatinine (0.6-1.5) mg/dL Est GFR (CKD-EPI) (>=60) BUN/Creatinine Ratio (12.00-20.00) Ratio Glucose (70-110) mg/dL POC Glucose (mg/dL) 232 H (70-110) mg/dL Hemoglobin A1c (<=6.0) % Urine Opiates Screen (NotDetected) U Marijuana (THC) Screen (NotDetected) Assessment and Plan Assessment: Low back pain Bilateral lower extremity weakness Neuropathy bilateral lower extremities Multilevel lumbar spondylosis Other medical comorbidities Plan: Await MRI lumbar spine results Pain control, resume gabapentin, could consider muscle relaxer or narcotic pain medication if needed DVT prophylaxis per medical/cardiology recommendations Weight-bear as tolerated, recommend use of a walker and assistance when ambulating PT/OT Other medical recommendations appreciated. Further recommendations to follow Time with Patient: Less than 30
[2023-03-23] MEDS: HYDROmorphone 0.5 MG/0.5 ML SYRINGE IVP PRN (15:01)
--- NOTE | 2023-03-23 15:04 | P.PN ---
Subjective Progress Note Date: 03/23/23 * 67-year-old gentleman with past medical history significant for atrial fibrillation, diabetes mellitus, COPD, hypertension, degenerative disks/joint disease presents to the emergency department with complains of increasing back pain. Patient stated his back pain is getting worse to the point he is unable to move around freely and has multiple falls at home he had been complaining of lower extremity weakness and neuropathic pain bilaterally and feet as well. Upon admission patient denies history of bladder or bowel incontinence, denies fever or perianal numbness * Workup initiated in ER including CT lumbar spine which showed multilevel degenerative changes and stenosis, L3-L4 disc bulge and spinal canal stenosis noted, L5-S1 degenerative disc changes noted * Patient had a CT brain done which was negative for acute fracture or dislocation of cervical spine no intracranial hemorrhage was noted * EKG obtained in ER showed atrial fibrillation with heart rate of 122 and the time of admission * Serum chemistry obtained showed WBC 10.4 hemoglobin 15 platelet count of 135 INR of 1 * Serum chemistry shows sodium 137 potassium 4.2 BU and 36 at 1.39 * Patient tested negative for influenza RSV and Covid * While in ER patient was given 1 dose of oral Coreg IV fluid bolus and IV pain medications and admitted to medical floor with back surgery consultation for evaluation 03/23/2023: Patient seen and evaluated at bedside, abdomen examined nontender no episodes of gastrointestinal bleed. Previously patient was on Coumadin patient to be started back on IV heparin low dose continue to monitor while patient is known to be on heparin we will discontinue aspirin continue to monitor H&H while patient is on heparin cardiology recommendations appreciated echocardiogram ordered continue with rate control medication REVIEW OF SYSTEMS: Back pain, lower extremity weakness, syncope CONSTITUTIONAL: No fever, no malaise, no fatigue. HEENT: No recent visual problems or hearing problems. Denied any sore throat. CARDIOVASCULAR: No chest pain, orthopnea, PND, no palpitations, no syncope. PULMONARY: No shortness of breath, no cough, no hemoptysis. GASTROINTESTINAL: No abdominal pain. NEUROLOGICAL: No headaches, no weakness, no numbness. HEMATOLOGICAL: Denies any bleeding or petechiae. GENITOURINARY: Denies any burning micturition, frequency, or urgency. MUSCULOSKELETAL/RHEUMATOLOGICAL: Back pain, lower extremity weakness, syncope ENDOCRINE: Denies any polyuria or polydipsia. PHYSICAL EXAMINATION: GENERAL: The patient is alert and oriented x3, Well developed, well nourished. HEENT: Pupils are round and equally reacting to light. EOMI. CARDIOVASCULAR: Irregular rhythm, rate improved PULMONARY: Chest is clear to auscultation, no wheezing or crackles. ABDOMEN: Soft, nontender, nondistended, normoactive bowel sounds. No palpable organomegaly. MUSCULOSKELETAL: No joint swelling or deformity. EXTREMITIES: No cyanosis, clubbing, or pedal edema. NEUROLOGICAL: Gross neurological examination did not reveal any focal deficits. Objective - Vital Signs Vital signs: Vital Signs Temp 97.7 F 03/23/23 07:00 Pulse 100 03/23/23 07:00 Resp 20 03/23/23 07:00 BP 158/83 03/23/23 07:00 Pulse Ox 100 03/23/23 07:00 FiO2 Intake & Output 03/22/23 03/23/23 03/23/23 18:59 06:59 18:59 Output Total 400 400 Balance -400 -400 Weight 117.934 kg Output: Urine 400 400 Other: Voiding Method External Catheter - Labs CBC & Chem 7: 03/23/23 05:38 03/23/23 05:38 Labs: Abnormal Lab Results - Last 24 Hours (Table) 03/22/23 03/23/23 03/23/23 Range/Units 20:30 05:38 05:38 Plt Count 89 L (140-440) X 10*3/uL Monocytes # 1.13 H (0.20-1.00) X 10*3/uL BUN (9.0-27.0) mg/dL Creatinine (0.6-1.5) mg/dL Est GFR (CKD-EPI) (>=60) BUN/Creatinine Ratio (12.00-20.00) Ratio Glucose (70-110) mg/dL POC Glucose (mg/dL) 180 H (70-110) mg/dL Hemoglobin A1c 10.8 H (<=6.0) % Urine Opiates Screen (NotDetected) U Marijuana (THC) Screen (NotDetected) 03/23/23 03/23/23 03/23/23 Range/Units 05:38 06:08 11:33 Plt Count (140-440) X 10*3/uL Monocytes # (0.20-1.00) X 10*3/uL BUN 38.3 H (9.0-27.0) mg/dL Creatinine 1.6 H (0.6-1.5) mg/dL Est GFR (CKD-EPI) 48 L (>=60) BUN/Creatinine Ratio 23.94 H (12.00-20.00) Ratio Glucose 198 H (70-110) mg/dL POC Glucose (mg/dL) 200 H (70-110) mg/dL Hemoglobin A1c (<=6.0) % Urine Opiates Screen Detected H (NotDetected) U Marijuana (THC) Screen Detected H (NotDetected) 03/23/23 Range/Units 11:46 Plt Count (140-440) X 10*3/uL Monocytes # (0.20-1.00) X 10*3/uL BUN (9.0-27.0) mg/dL Creatinine (0.6-1.5) mg/dL Est GFR (CKD-EPI) (>=60) BUN/Creatinine Ratio (12.00-20.00) Ratio Glucose (70-110) mg/dL POC Glucose (mg/dL) 232 H (70-110) mg/dL Hemoglobin A1c (<=6.0) % Urine Opiates Screen (NotDetected) U Marijuana (THC) Screen (NotDetected) Assessment and Plan Assessment: Assessment and plan * Acute on chronic back pain with lower extremity weakness with degenerative disease of lumbar spine * Atrial fibrillation with rapid ventricular response * Hypertension * Diabetes mellitus type 2 * Acute renal failure with mild metabolic acidosis * Thrombocytopenia * In regards to acute and chronic back pain and lower extremity weakness, back surgery consulted, CT lumbar spine reviewed degenerative changes noted spinal stenosis stenosis noted MRI lumbar spine ordered also team following * In regards to atrial fibrillation, cardiology consulted continue Coreg, aspirin discontinued, started on IV heparin continue to monitor H&H * In regards to diabetes mellitus continue patient on Trulicity, continue correctional insulin, continue Levemir continue metformin monitor for hypoglycemia * Regards to hypertension continue patient on Coreg and lisinopril * Physical therapy occupational therapy consulted * CODE STATUS is full code
[2023-03-23] MEDS ORDERED: HEPARIN SODIUM 1,000 UN/ML (10ML VL) IV ONE (15:15)
[2023-03-23] MEDS: HEPARIN SOD,PORK IN 0.45% NACL 25,000 UNIT in 0.45% NACL 1 250ML.BAG IV SCH (15:55)
[2023-03-23 17:38] LABS: Partial Thromboplastin Time 23.9 sec (22.0-30.0); Prothrombin Time 11.4 sec (10.0-12.5)
[2023-03-23 17:57] LABS: Glucose,Whole Blood 218 mg/dL (70-110)
[2023-03-23] MEDS: ALBUTEROL NEBULIZED 2.5 MG/3 ML INHALATION PRN (18:47)
[2023-03-23 21:00] LABS: Glucose,Whole Blood 215 mg/dL (70-110)
[2023-03-23] MEDS: HEPARIN SODIUM 1,000 UN/ML (10ML VL) IV PRN (22:30)
[2023-03-24] MEDS: HYDROmorphone 1 MG/ML 1 ML SYRINGE IVP PRN ×3 (01:46→09:56)
[2023-03-24] MEDS: INSULIN DETEMIR (LEVEMIR) 100 UNIT/ML SYR SQ SCH (06:08)
[2023-03-24] MEDS: SODIUM CHLORIDE 0.9% 1,000 ML IV SCH ×2 (06:08→14:12)
[2023-03-24 06:35] LABS: Glucose,Whole Blood 188 mg/dL (70-110)
[2023-03-24] MEDS: INSULIN ASPART (NovoLOG) 100 UNIT/ML VIAL SQ SCH ×4 (06:50→20:53)
[2023-03-24] MEDS: ALBUTEROL NEBULIZED 2.5 MG/3 ML INHALATION PRN ×3 (08:16→15:19)
[2023-03-24] MEDS: DULoxetine HCL 30 MG CAPSULE.DR PO SCH (08:45)
[2023-03-24] MEDS: GABAPENTIN 400 MG CAP PO SCH ×3 (08:45→21:05)
[2023-03-24] MEDS: HYDROcodone/APAP 5-325MG 1 EACH TAB PO PRN ×2 (08:45→12:45)
[2023-03-24] MEDS: metFORMIN 500 MG TAB PO SCH ×2 (08:45→20:52)
[2023-03-24] MEDS: lisinopriL 20 MG TAB PO SCH (08:45)
[2023-03-24] MEDS: carvediloL 6.25 MG TAB PO SCH ×2 (08:45→20:52)
[2023-03-24] MEDS: DAPAGLIFLOZIN PROPANEDIOL 5 MG TABLET PO SCH (08:46)
[2023-03-24] MEDS: HEPARIN SODIUM 1,000 UN/ML (10ML VL) IV PRN ×2 (09:07→16:29)
--- NOTE | 2023-03-24 11:02 | MR ---
EXAMINATION TYPE: MR lumbar spine wo con DATE OF EXAM: 03/24/2023 10:47 AM CLINICAL INDICATION:Male, 67 years old with history of lumbar stenosis, lower extremity weakness; PHH , Fall, Pain, leg weakness, hx of lumbar stenosis COMPARISON: 03/21/2023 TECHNIQUE: Multi planar, multi sequence imaging was performed utilizing: T1-weighted, T2-weighted, a nd turbo inversion recovery imaging of the lumbar spine. IV Contrast: (None if empty) FINDINGS: Alignment: The lumbar vertebral bodies have preserved heights and alignment. Cord: The conus medullaris and the distal spinal cord appear unremarkable with regards to their signa l intensity and morphology. Bones/Discs: Multilevel disc degeneration changes with osteophyte formation, disc space narrowing, Sc hmorl's nodes, and facet joint arthropathy. Reactive bony edema of the adjoining endplates most prono unced at L5-S1, L3-L4 and superior endplate of L2. Edema. Intervertebral disc signal is maintained. T12-L1: Right central disc extrusion with 6 mm inferior migration. Spinal canal is patent. The neural foramen are patent. L1-L2: Right foraminal disc extrusion/sequestration series 301 image 11. This results in moderate spi nal canal neural foraminal stenosis. The spinal canal is patent. L2-L3: Disc bulge with disc extrusion with superior migration up to 16 mm. Series 301 image 10. Facet joint arthropathy result in severe spinal canal and moderate bilateral neural foraminal stenosis. L3-L4: Disc bulge and facet joint arthropathy result in moderate to severe spinal canal and moderate to severe bilateral neural foraminal stenosis. L4-L5: Disc bulge and facet joint arthropathy result in moderate to severe spinal canal and moderate to severe bilateral left greater than right. Neural foraminal stenosis. L5-S1: The disc is rounded posterior morphology without significant spinal canal stenosis. Facet join t arthropathy with severe right and moderate to severe left. Neural foraminal stenosis. No significant spinal canal or neural foraminal stenosis in the remainder of the visualized levels. Other findings: None. IMPRESSION: 1. L2-L3 severe spinal canal stenosis secondary to disc bulging with disc extrusion with superior mi gration. 2. L3-L4 moderate to severe spinal canal stenosis secondary disc bulge and facet joint arthropathy. 3. T12-L1 right central disc extrusion with inferior migration up to 6 mm. Sequestered disc material also posterior to the L1 vertebral body near the right foramen of L1-L2.. 4. Moderate to severe degeneration changes throughout the spine with varying degrees of neural zaid inal stenosis as described above.
[2023-03-24 11:24] LABS: BUN/Creat Ratio 21.79 Ratio (12.00-20.00); Blood Urea Nitrogen 30.5 mg/dL (9.0-27.0); Calcium 8.6 mg/dL (8.7-10.3); Carbon Dioxide 23.3 mmol/L (21.6-31.8); Chloride 103 mmol/L (96-109); Glucose 184 mg/dL (70-110); Potassium 4.7 mmol/L (3.5-5.5); Sodium 138 mmol/L (135-145)
[2023-03-24 11:44] LABS: Basophils # (A) 0.03 X 10*3/uL (0.00-0.10); Basophils % (A) 0.4 %; Eosinophils # (A) 0.19 X 10*3/uL (0.04-0.35); Eosinophils % (A) 2.8 %; HCT 41.6 % (39.6-50.0); HGB 13.6 g/dL (13.0-17.0); Immature Platelet Fraction 9.3 % (1.1-6.1); Lymphocytes # (A) 1.17 X 10*3/uL (0.90-5.00); Lymphocytes % (A) 17.3 %; MCHC 32.7 g/dL (32.0-37.0); MCV 94.8 FL (80.0-97.0); Mean Platelet Volume 12.4 FL (9.5-12.2); Monocytes # (A) 0.72 X 10*3/uL (0.20-1.00); Monocytes % (A) 10.6 %; NRBC Per 100 WBC 0 X 10*3/uL (0.00-0.01); Neutrophils # (A) 4.63 X 10*3/uL (1.80-7.70); Neutrophils % (A) 68.5 %; Platelet Count 92 X 10*3/uL (140-440); RBC 4.39 X 10*6/uL (4.40-5.60); RDW 12.5 % (11.5-14.5); WBC 6.77 X 10*3/uL (4.50-10.00)
[2023-03-24 12:12] LABS: Glucose,Whole Blood 205 mg/dL (70-110)
--- NOTE | 2023-03-24 12:25 | P.PN ---
Subjective HISTORY OF PRESENT ILLNESS: The patient is a 67-year-old gentleman who is a somewhat poor historian with a past medical history significant for atrial fibrillation of unknown etiology at this point as well as diabetes and hypertension and dyslipidemia and overweight and low back pain. He presented to the emergency department mainly because of low back pain. He underwent a computed tomography scan of the lower back and that revealed degenerative changes he was seen by orthopedic surgical team and he is in process to get an MRI. We consulted to see the patient because of atrial fibrillation. The patient underwent an EKG and that showed atrial fibrillation. He is not aware of any prior diagnosis of atrial fibrillation currently is not on any oral anticoagulation. No pain in the chest and no shortness of breath and no feeling of heart racing or fluttering and no dizziness or lightheadedness and no presyncope or syncope. On examination he does have an irregular rhythm with distant heart sounds and clear breathing sounds bilaterally and mild bilateral lower extremity edema and tender abdomen as well. The patient is not aware of any prior history of gastrointestinal bleeding and isn't know exactly why he is not on any oral anticoagulation. His vital signs are stable. The atrial fibrillation appeared to be under good control on the current dose of beta parrish. 03/24/2023 Patient examined this morning at the bedside. Patient currently denies chest pain or pressure. He denies shortness of breath. Telemetry reveals atrial fibrillation with controlled ventricular rate. He remains on IV heparin. 2-D echo is currently pending. PHYSICAL EXAM: VITAL SIGNS: Reviewed. GENERAL: Well-developed in no acute distress. NECK: Supple. No JVD or thyromegaly LUNGS: Respirations even and unlabored. Lungs essentially clear to auscultation bilaterally. HEART: Irregular rate and rhythm. S1 and S2 heard. EXTREMITIES: Normal range of motion. No clubbing or cyanosis. Peripheral pulses intact. No lower extremity edema ASSESSMENT: Lower back pain Degenerative disc disease, orthopedics following Atrial fibrillation with controlled ventricular rate, paroxysmal versus permanent Hypertension Hyperlipidemia Diabetes PLAN: 2-D echo has been ordered. Await results Continue IV heparin. If no procedures are scheduled to be performed from consulting providers, switch patient to Eliquis Continue current cardiac medications Continue telemetry monitoring Further recommendations pending patient's course Nurse practitioner note has been reviewed by physician. Signing provider agrees with the documented findings, assessment, and plan of care. Objective - Vital Signs Vital signs: Vital Signs Temp 98.0 F 03/24/23 07:00 Pulse 92 03/24/23 11:28 Resp 18 03/24/23 07:00 BP 157/94 03/24/23 07:00 Pulse Ox 96 03/24/23 07:00 FiO2 Intake & Output 03/23/23 03/24/23 03/24/23 18:59 06:59 18:59 Intake Total 240 65.84 202.288 Output Total 1628 1400 200 Balance -1388 -1334.16 2.288 Intake: Intake, IV Titration 65.84 143.288 Amount Heparin Sod,Pork in 0.45% 65.84 143.288 NaCl 25,000 unit In 0.45 % NaCl 1 250ml.bag @ 8.48 UNITS/KG/HR 10.001 mls/ hr IV .Q24H [facility] Rx#: [id number] Oral 240 59 Output: Urine 1500 1400 200 Post Void Residual 128 Other: Voiding Method Urinal Urinal - Labs CBC & Chem 7: 03/24/23 06:55 03/24/23 06:55 Labs: Abnormal Lab Results - Last 24 Hours (Table) 03/23/23 03/23/23 03/24/23 Range/Units 17:47 20:59 06:33 RBC (4.40-5.60) X 10*6/uL Plt Count (140-440) X 10*3/uL MPV (9.5-12.2) FL Immature Plt Fraction (1.1-6.1) % APTT (22.0-30.0) sec BUN (9.0-27.0) mg/dL Est GFR (CKD-EPI) (>=60) BUN/Creatinine Ratio (12.00-20.00) Ratio Glucose (70-110) mg/dL POC Glucose (mg/dL) 218 H 215 H 188 H (70-110) mg/dL Calcium (8.7-10.3) mg/dL 03/24/23 03/24/23 03/24/23 Range/Units 06:55 06:55 06:55 RBC 4.39 L (4.40-5.60) X 10*6/uL Plt Count 92 L (140-440) X 10*3/uL MPV 12.4 H (9.5-12.2) FL Immature Plt Fraction 9.3 H (1.1-6.1) % APTT 34.4 H (22.0-30.0) sec BUN 30.5 H (9.0-27.0) mg/dL Est GFR (CKD-EPI) 56 L (>=60) BUN/Creatinine Ratio 21.79 H (12.00-20.00) Ratio Glucose 184 H (70-110) mg/dL POC Glucose (mg/dL) (70-110) mg/dL Calcium 8.6 L (8.7-10.3) mg/dL 03/24/23 Range/Units 12:10 RBC (4.40-5.60) X 10*6/uL Plt Count (140-440) X 10*3/uL MPV (9.5-12.2) FL Immature Plt Fraction (1.1-6.1) % APTT (22.0-30.0) sec BUN (9.0-27.0) mg/dL Est GFR (CKD-EPI) (>=60) BUN/Creatinine Ratio (12.00-20.00) Ratio Glucose (70-110) mg/dL POC Glucose (mg/dL) 205 H (70-110) mg/dL Calcium (8.7-10.3) mg/dL
--- NOTE | 2023-03-24 12:48 | P.PN ---
Subjective Progress Note Date: 03/24/23 * 67-year-old gentleman with past medical history significant for atrial fibrillation, diabetes mellitus, COPD, hypertension, degenerative disks/joint disease presents to the emergency department with complains of increasing back pain. Patient stated his back pain is getting worse to the point he is unable to move around freely and has multiple falls at home he had been complaining of lower extremity weakness and neuropathic pain bilaterally and feet as well. Upon admission patient denies history of bladder or bowel incontinence, denies fever or perianal numbness * Workup initiated in ER including CT lumbar spine which showed multilevel degenerative changes and stenosis, L3-L4 disc bulge and spinal canal stenosis noted, L5-S1 degenerative disc changes noted * Patient had a CT brain done which was negative for acute fracture or dislocation of cervical spine no intracranial hemorrhage was noted * EKG obtained in ER showed atrial fibrillation with heart rate of 122 and the time of admission * Serum chemistry obtained showed WBC 10.4 hemoglobin 15 platelet count of 135 INR of 1 * Serum chemistry shows sodium 137 potassium 4.2 BU and 36 at 1.39 * Patient tested negative for influenza RSV and Covid * While in ER patient was given 1 dose of oral Coreg IV fluid bolus and IV pain medications and admitted to medical floor with back surgery consultation for evaluation 03/23/2023: Patient seen and evaluated at bedside, abdomen examined nontender no episodes of gastrointestinal bleed. Previously patient was on Coumadin patient to be started back on IV heparin low dose continue to monitor while patient is known to be on heparin we will discontinue aspirin continue to monitor H&H while patient is on heparin cardiology recommendations appreciated echocardiogram ordered continue with rate control medication 03/24/2023: Patient seen and evaluated bedside, during my evaluation patient is awake and alert patient come back from MRI does complain of back pain moving lower extremities, on IV heparin no blood in stool noted no hematemesis no hematuria. Continue to monitor appreciate input from cardiology REVIEW OF SYSTEMS: Back pain, lower extremity weakness, syncope resolved CONSTITUTIONAL: No fever, no malaise, no fatigue. HEENT: No recent visual problems or hearing problems. Denied any sore throat. CARDIOVASCULAR: No chest pain, orthopnea, PND, no palpitations, no syncope. PULMONARY: No shortness of breath, no cough, no hemoptysis. GASTROINTESTINAL: No abdominal pain. NEUROLOGICAL: No headaches, no weakness, no numbness. HEMATOLOGICAL: Denies any bleeding or petechiae. GENITOURINARY: Denies any burning micturition, frequency, or urgency. MUSCULOSKELETAL/RHEUMATOLOGICAL: Back pain, lower extremity weakness, syncope ENDOCRINE: Denies any polyuria or polydipsia. PHYSICAL EXAMINATION: GENERAL: The patient is alert and oriented x3, Well developed, well nourished. HEENT: Pupils are round and equally reacting to light. EOMI. CARDIOVASCULAR: Irregular rhythm, rate improved PULMONARY: Chest is clear to auscultation, no wheezing or crackles. ABDOMEN: Soft, nontender, nondistended, normoactive bowel sounds. No palpable organomegaly. MUSCULOSKELETAL: No joint swelling or deformity. EXTREMITIES: No cyanosis, clubbing, or pedal edema. NEUROLOGICAL: Gross neurological examination did not reveal any focal deficits. Objective - Vital Signs Vital signs: Vital Signs Temp 98.0 F 03/24/23 07:00 Pulse 92 03/24/23 11:28 Resp 18 03/24/23 07:00 BP 157/94 03/24/23 07:00 Pulse Ox 96 03/24/23 07:00 FiO2 Intake & Output 03/23/23 03/24/23 03/24/23 18:59 06:59 18:59 Intake Total 240 65.84 202.288 Output Total 1628 1400 200 Balance -1388 -1334.16 2.288 Intake: Intake, IV Titration 65.84 143.288 Amount Heparin Sod,Pork in 0.45% 65.84 143.288 NaCl 25,000 unit In 0.45 % NaCl 1 250ml.bag @ 8.48 UNITS/KG/HR 10.001 mls/ hr IV .Q24H [facility] Rx#: [id number] Oral 240 59 Output: Urine 1500 1400 200 Post Void Residual 128 Other: Voiding Method Urinal Urinal - Labs CBC & Chem 7: 03/24/23 06:55 03/24/23 06:55 Labs: Abnormal Lab Results - Last 24 Hours (Table) 03/23/23 03/23/23 03/24/23 Range/Units 17:47 20:59 06:33 RBC (4.40-5.60) X 10*6/uL Plt Count (140-440) X 10*3/uL MPV (9.5-12.2) FL Immature Plt Fraction (1.1-6.1) % APTT (22.0-30.0) sec BUN (9.0-27.0) mg/dL Est GFR (CKD-EPI) (>=60) BUN/Creatinine Ratio (12.00-20.00) Ratio Glucose (70-110) mg/dL POC Glucose (mg/dL) 218 H 215 H 188 H (70-110) mg/dL Calcium (8.7-10.3) mg/dL 03/24/23 03/24/23 03/24/23 Range/Units 06:55 06:55 06:55 RBC 4.39 L (4.40-5.60) X 10*6/uL Plt Count 92 L (140-440) X 10*3/uL MPV 12.4 H (9.5-12.2) FL Immature Plt Fraction 9.3 H (1.1-6.1) % APTT 34.4 H (22.0-30.0) sec BUN 30.5 H (9.0-27.0) mg/dL Est GFR (CKD-EPI) 56 L (>=60) BUN/Creatinine Ratio 21.79 H (12.00-20.00) Ratio Glucose 184 H (70-110) mg/dL POC Glucose (mg/dL) (70-110) mg/dL Calcium 8.6 L (8.7-10.3) mg/dL 03/24/23 Range/Units 12:10 RBC (4.40-5.60) X 10*6/uL Plt Count (140-440) X 10*3/uL MPV (9.5-12.2) FL Immature Plt Fraction (1.1-6.1) % APTT (22.0-30.0) sec BUN (9.0-27.0) mg/dL Est GFR (CKD-EPI) (>=60) BUN/Creatinine Ratio (12.00-20.00) Ratio Glucose (70-110) mg/dL POC Glucose (mg/dL) 205 H (70-110) mg/dL Calcium (8.7-10.3) mg/dL Assessment and Plan Assessment: Assessment and plan * Acute on chronic back pain with lower extremity weakness with degenerative disease of lumbar spine, lumbar spine stenosis L2-L3 with this bulge, L3-L4 T12-L2 * Atrial fibrillation with rapid ventricular response * Hypertension * Diabetes mellitus type 2 * Acute renal failure with mild metabolic acidosis * Thrombocytopenia * In regards to acute and chronic back pain and lower extremity weakness, back surgery consulted, CT lumbar spine reviewed degenerative changes noted spinal stenosis stenosis noted MRI lumbar spine completed., Continue with pain control * In regards to atrial fibrillation, cardiology consulted continue Coreg, aspirin discontinued secondary to thrombocytopenia, started on IV heparin continue to monitor H&H * In regards to diabetes mellitus continue patient on Trulicity, continue correctional insulin, continue Levemir continue metformin monitor for hypoglycemia * Regards to hypertension continue patient on Coreg and lisinopril * Physical therapy occupational therapy consulted * CODE STATUS is full code Time with Patient: Greater than 30
--- NOTE | 2023-03-24 14:11 | P.PN ---
Progress Note - Text Progress Note Date: 03/24/23 Patient will require a walker on discharge in order to manage ADLs assist with walking due to frequent falls and back pain
[2023-03-24] MEDS: HEPARIN SOD,PORK IN 0.45% NACL 25,000 UNIT in 0.45% NACL 1 250ML.BAG IV SCH (14:13)
[2023-03-24 15:30] LABS: INR 1.12 sec (0.93-1.11)
--- NOTE | 2023-03-24 15:50 | P.PN ---
Subjective Progress Note Date: 03/24/23 Principal diagnosis: Back pain Patient was evaluated today at bedside, he is resting in his hospital bed. Patient continues to have significant pain in his low back difficulty with range of motion and strength in the lower extremities. Patient's pain seems a little bit better controlled today. He has not been out of bed working with physical therapy at this time. MRI was done earlier this morning, we were able to review both the images and results. Objective - Vital Signs Vital signs: Vital Signs Temp 97.8 F 03/24/23 15:00 Pulse 86 03/24/23 15:31 Resp 18 03/24/23 15:00 BP 127/78 03/24/23 15:00 Pulse Ox 97 03/24/23 15:00 FiO2 Intake & Output 03/23/23 03/24/23 03/24/23 18:59 06:59 18:59 Intake Total 240 65.84 361.160 Output Total 1628 1400 1050 Balance -1388 -1334.16 -688.840 Intake: Intake, IV Titration 65.84 184.160 Amount Heparin Sod,Pork in 0.45% 65.84 184.160 NaCl 25,000 unit In 0.45 % NaCl 1 250ml.bag @ 8.48 UNITS/KG/HR 10.001 mls/ hr IV .Q24H [facility] Rx#: [id number] Oral 240 177 Output: Urine 1500 1400 1050 Post Void Residual 128 Other: Voiding Method Urinal Urinal - Exam Gen: AOx3, NAD VSS stable at this time Integument: No obvious open lesions or sores are present throughout the lower thoracic and lumbar spine Palpation: As an irrigant tenderness is appreciated on exam of the paraspinal or midline region of the lower thoracic and lumbar region ROM: Full range of motion in all major muscle groups of bilateral upper extremities, no focal deficits Patient had very difficult time with hip flexion, along with knee extension and knee flexion due to pain reproduced in his back, plantar flexion, dorsiflexion, EHL and FHL are intact Sensory Exam: Senory exam to light touch is intact C5-T1 Senosry exam to light touch is intact L2-S1 Motor: 5/5 strength appreciated in the bilateral upper extremities with shoulder elevation, shoulder abduction, elbow extension, elbow flexion, wrist extension, wrist flexion, extension service advisor 3/5 strength of patient's bilateral lower extremities with hip flexion, pain likely causing acute change 3+/5 strength appreciated in the bilateral lower extremities with knee extension and knee flexion pain likely causing acute change 4/5 strength appreciated in the bilateral lower extremities with plantar flexion, FHL 4-/5 strength appreciated in the bilateral lower extremities with dorsiflexion and EHL Reflexes: Negative Tiesha's bilaterally Negative Babinski bilaterally Positive clonus bilaterally, very mild in both lower extremities Special Test: Positive straight leg raise bilateral lower extremities - Labs CBC & Chem 7: 03/24/23 06:55 03/24/23 06:55 Labs: Abnormal Lab Results - Last 24 Hours (Table) 03/23/23 03/23/23 03/24/23 Range/Units 17:47 20:59 06:33 RBC (4.40-5.60) X 10*6/uL Plt Count (140-440) X 10*3/uL MPV (9.5-12.2) FL Immature Plt Fraction (1.1-6.1) % PT (9.9-11.9) sec INR (0.93-1.11) sec APTT (22.0-30.0) sec BUN (9.0-27.0) mg/dL Est GFR (CKD-EPI) (>=60) BUN/Creatinine Ratio (12.00-20.00) Ratio Glucose (70-110) mg/dL POC Glucose (mg/dL) 218 H 215 H 188 H (70-110) mg/dL Calcium (8.7-10.3) mg/dL 03/24/23 03/24/23 03/24/23 Range/Units 06:55 06:55 06:55 RBC 4.39 L (4.40-5.60) X 10*6/uL Plt Count 92 L (140-440) X 10*3/uL MPV 12.4 H (9.5-12.2) FL Immature Plt Fraction 9.3 H (1.1-6.1) % PT 12.0 H (9.9-11.9) sec INR 1.12 H (0.93-1.11) sec APTT (22.0-30.0) sec BUN 30.5 H (9.0-27.0) mg/dL Est GFR (CKD-EPI) 56 L (>=60) BUN/Creatinine Ratio 21.79 H (12.00-20.00) Ratio Glucose 184 H (70-110) mg/dL POC Glucose (mg/dL) (70-110) mg/dL Calcium 8.6 L (8.7-10.3) mg/dL 03/24/23 03/24/23 Range/Units 06:55 12:10 RBC (4.40-5.60) X 10*6/uL Plt Count (140-440) X 10*3/uL MPV (9.5-12.2) FL Immature Plt Fraction (1.1-6.1) % PT (9.9-11.9) sec INR (0.93-1.11) sec APTT 34.4 H (22.0-30.0) sec BUN (9.0-27.0) mg/dL Est GFR (CKD-EPI) (>=60) BUN/Creatinine Ratio (12.00-20.00) Ratio Glucose (70-110) mg/dL POC Glucose (mg/dL) 205 H (70-110) mg/dL Calcium (8.7-10.3) mg/dL Assessment and Plan Assessment: Low back pain Bilateral lower extremity weakness Neuropathy bilateral lower extremities Multilevel lumbar spondylosis Multilevel lumbar neural foraminal and central canal stenosis Other medical comorbidities Plan: MRI results and reports were reviewed with medicine Dr. Zimmerman. Patient has tearing degrees of both neural foraminal and central canal stenosis throughout most the lumbar spine. There are a few areas where this is severe. Dr. Selby will be available to discuss his results and surgical options and further detail on 03/25/2023. We discussed other options, this including more conservative. At this time the patient has a very high risk for surgery due to his medical comorbidities, more specifically his uncontrolled diabetes. A consult will be placed for our pain management team to evaluate him to consider conservative options. PT/OT evaluation Pain control, resume gabapentin, could consider muscle relaxer or narcotic pain medication if needed DVT prophylaxis per medical/cardiology recommendations Weight-bear as tolerated, recommend use of a walker and assistance when ambulating Other medical recommendations appreciated. We'll continue to follow during hospital stay Time with Patient: Less than 30
[2023-03-24] MEDS: SENNOSIDES 8.6 MG TAB PO SCH (16:27)
[2023-03-24] MEDS: HYDROmorphone 0.5 MG/0.5 ML SYRINGE IVP PRN ×2 (16:27→21:37)
[2023-03-24 16:48] VITALS: BMI 35.2
[2023-03-24 17:03] LABS: Glucose,Whole Blood 167 mg/dL (70-110)
[2023-03-24 20:47] LABS: Glucose,Whole Blood 176 mg/dL (70-110)
[2023-03-24] MEDS: MAGNESIUM HYDROXIDE 2,400 MG/30 ML CUP PO SCH (20:52)
[2023-03-25] MEDS: SODIUM CHLORIDE 0.9% 1,000 ML IV SCH ×3 (00:30→17:37)
[2023-03-25] MEDS: HEPARIN SOD,PORK IN 0.45% NACL 25,000 UNIT in 0.45% NACL 1 250ML.BAG IV SCH (02:53)
[2023-03-25] MEDS: HYDROmorphone 0.5 MG/0.5 ML SYRINGE IVP PRN ×3 (02:54→21:56)
[2023-03-25] MEDS: INSULIN ASPART (NovoLOG) 100 UNIT/ML VIAL SQ SCH ×4 (06:07→21:41)
[2023-03-25] MEDS: INSULIN DETEMIR (LEVEMIR) 100 UNIT/ML SYR SQ SCH (06:07)
[2023-03-25 06:23] LABS: Glucose,Whole Blood 165 mg/dL (70-110)
--- NOTE | 2023-03-25 07:38 | CA ---
Transthoracic Echo Report Name: Devon Nails Age: 67 Gender: M : 1955 Exam Date: 03/24/2023 08:49 Exam Location: [place] [facility] Ht (in): 72 Wt (lb): 260 Ordering Physician: Sommer Villalobos MD Attending/Referring Phys: Boat Worker Latrice Roman RDCS Procedure CPT: Indications: afib Cardiac Hx: Technical Quality: Technically difficult study Contrast 1: Definity Total Dose (mL): 2 Contrast 2: Total Dose (mL): MEASUREMENTS (Male / Female) Normal Values 2D ECHO LV Diastolic Diameter PLAX 5.0 cm 4.2 - 5.9 / 3.9 - 5.3 cm LV Systolic Diameter PLAX 2.9 cm IVS Diastolic Thickness 1.5 cm 0.6 - 1.0 / 0.6 - 0.9 cm LVPW Diastolic Thickness 1.4 cm 0.6 - 1.0 / 0.6 - 0.9 cm LV Relative Wall Thickness 0.6 RV Internal Dim ED PLAX 2.9 cm LA Volume 104.2 cm??? 18 - 58 / 22 - 52 cm??? LA Volume Index 41.9 cm???/m??? 16 - 28 cm???/m??? M-MODE Aortic Root Diameter MM 3.8 cm LA Systolic Diameter MM 5.7 cm LA Ao Ratio MM 1.5 AV Cusp Separation MM 2.0 cm DOPPLER AV Peak Velocity 106.7 cm/s AV Peak Gradient 4.6 mmHg AV Mean Velocity 70.0 cm/s AV Mean Gradient 2.2 mmHg AV Velocity Time Integral 18.6 cm LVOT Peak Velocity 57.5 cm/s LVOT Peak Gradient 1.3 mmHg LVOT Velocity Time Integral 11.7 cm MV E' Velocity 9.9 cm/s TR Peak Velocity 165.4 cm/s TR Peak Gradient 10.9 mmHg Right Ventricular Systolic Press 15.9 mmHg FINDINGS Left Ventricle Moderately increased left ventricular wall thickness. Left ventricular cavity size normal. Normal left ventricular systolic function with no obvious regional wall motion abnormalities. Left ventricular ejection fraction is estimated at 55-60 %. Right Ventricle Normal right ventricular size and function. Right ventricular systolic pressure within normal limits. Right Atrium Mild right atrial dilatation. Left Atrium Severely increased left atrial volume. Mildly increased left atrial area. Mitral Valve Structurally normal mitral valve. Mild mitral annular calcification. Mild-to- moderate mitral regurgitation. Aortic Valve No aortic valve stenosis or regurgitation. Tricuspid Valve Structurally normal tricuspid valve. Mild tricuspid regurgitation. Pulmonic Valve Trace pulmonic regurgitation. Pericardium No pericardial effusion. Aorta Normal size aortic root and proximal ascending aorta. CONCLUSIONS Distal septal and apical akinesis Overall LV systolic function is preserved at 55% Previewed by: Dr. Johnie Cook MD (Electronically Signed) Final Date: 25 March 2023 07:38
[2023-03-25] MEDS: ALBUTEROL NEBULIZED 2.5 MG/3 ML INHALATION PRN (08:35)
[2023-03-25 09:02] LABS: HCT 37.9 % (39.6-50.0); HGB 12.6 g/dL (13.0-17.0); MCH 30.9 pg (27.0-32.0); MCHC 33.2 g/dL (32.0-37.0); MCV 92.9 FL (80.0-97.0); Mean Platelet Volume 12.2 FL (9.5-12.2); NRBC Per 100 WBC 0 X 10*3/uL (0.00-0.01); Platelet Count 99 X 10*3/uL (140-440); RBC 4.08 X 10*6/uL (4.40-5.60); RDW 12.6 % (11.5-14.5); WBC 6.64 X 10*3/uL (4.50-10.00)
[2023-03-25] MEDS: DAPAGLIFLOZIN PROPANEDIOL 5 MG TABLET PO SCH (09:51)
[2023-03-25] MEDS: lisinopriL 20 MG TAB PO SCH (09:51)
[2023-03-25] MEDS: HYDROcodone/APAP 5-325MG 1 EACH TAB PO PRN (09:51)
[2023-03-25] MEDS: DULoxetine HCL 30 MG CAPSULE.DR PO SCH (09:51)
[2023-03-25] MEDS: metFORMIN 500 MG TAB PO SCH ×2 (09:51→21:40)
[2023-03-25] MEDS: GABAPENTIN 400 MG CAP PO SCH ×3 (09:52→21:41)
[2023-03-25] MEDS: NON FORMULARY DRUG (Dulaglutide [Trulicity] 0.75 MG/0.5 ML Each) SQ SCH (09:52)
[2023-03-25] MEDS: carvediloL 6.25 MG TAB PO SCH ×2 (09:53→21:40)
--- NOTE | 2023-03-25 10:00 | P.PAINCN ---
History of Present Illness - Reason for Consult Consult date: 03/25/23 - History of Present Illness This is 67 years old male who was admitted to [facility] secondary to severe intractable low back pain, patient reported that he had back pain issues for several years but the intensity of the pain increased since August 2022, denies any initiating event, and he reported that he is not able to ambulate secondary to an intensity of the pain, patient currently on Dilaudid 0.5-1 mg every 3 hours, and [place] 5/325 every 4 hours when necessary, and Neurontin 800 mg 3 times a day and these medication is not helping enough to control the pain he reported that he had severe low back pain with radiation to the lower extremity bilaterally associated with numbness and tingling sensation, after the admission,it found out that the patient had A. fib and he is currently on IV heparin Past Medical History Past Medical History: Atrial Fibrillation, COPD, Diabetes Mellitus, Hypertension Additional Past Medical History / Comment(s): herniated discs, TIA History of Any Multi-Drug Resistant Organisms: None Reported Past Surgical History: Orthopedic Surgery Additional Past Surgical History / Comment(s): Knee surgery Past Psychological History: Depression Smoking Status: Current every day smoker Past Alcohol Use History: Daily Past Drug Use History: Heroin Medications and Allergies Home Medications Medication Instructions Recorded Confirmed Type Albuterol Sulfate [Ventolin HFA] 2 puff INHALATION RT-QID PRN 03/21/23 03/21/23 History Aspirin EC [Ecotrin Low Dose] 81 mg PO DAILY 03/21/23 03/21/23 History DULoxetine HCL [Cymbalta] 30 mg PO DAILY 03/21/23 03/21/23 History Dulaglutide [Trulicity] 0.75 mg SQ TU 03/21/23 03/21/23 History Empagliflozin [Jardiance] 10 mg PO DAILY 03/21/23 03/21/23 History Furosemide [Lasix] 40 mg PO DAILY 03/21/23 03/21/23 History Gabapentin 800 mg PO TID 03/21/23 03/21/23 History Ibuprofen [Motrin] 800 mg PO TID 03/21/23 03/21/23 History carvediloL [Coreg] 6.25 mg PO BID 03/21/23 03/21/23 History lisinopriL [Zestril] 10 mg PO DAILY 03/21/23 03/21/23 History metFORMIN HCL 1,000 mg PO BID 03/21/23 03/21/23 History Allergies Allergy/AdvReac Type Severity Reaction Status Date / Time No Known Allergies Allergy Verified 03/21/23 23:03 Physical Exam Vitals: Vital Signs Temp Pulse Pulse Resp BP Pulse Ox 03/25/23 09:04 84 03/25/23 08:37 83 03/25/23 07:10 98.6 F 83 15 158/89 93 L 03/25/23 02:00 98.2 F 90 16 154/90 94 L 03/24/23 15:31 86 03/24/23 15:19 85 03/24/23 15:00 97.8 F 87 18 127/78 97 03/24/23 11:28 92 03/24/23 11:16 92 Intake and Output 03/24/23 03/25/23 03/25/23 22:59 06:59 14:59 Intake Total 274.992 201.810 Output Total 1000 1999 Balance -725.008 -1798.190 Intake: Intake, IV Titration 38.992 201.810 Amount Heparin Sod,Pork in 0.45% 38.992 201.810 NaCl 25,000 unit In 0.45 % NaCl 1 250ml.bag @ 8.48 UNITS/KG/HR 10.001 mls/ hr IV .Q24H [facility] Rx#: [id number] Oral 236 Output: Urine 1000 2000 Other: Voiding Method Urinal # Bowel Movements 1 Weight 117.934 kg Physical Examinations : -Constitutiona : Cooperative , not in acute distress . -HEENT : nech : supple , no Lymphadenopathy , normal thyroid size . : eyes : no ptosis , no icterus, no photophobia . - neurologic : Cranial nerve II to XII intact , no focal neurological deffecit . -psychatric : alert , oriented X 3 , appropriate affect , intact judgment and insight . -Lymphatic : no Lymphadenopathy . - musculoskeltal : Lumber spine moter stegnth lower extremities ,thigh and legs 3/5 Right side , 3/5 Left side deep tendon reflexes : normal Knee Jerk , normal ankle Jerk lumber facet Loading Test =positive Right , positive Left Range of motion of the lumbar spine Flexion 30 degrees, extension 10 degrees strait leg raising test = positive at 30 degree Fabere test= positive Right , and positive LT . Sever tenderness over the Sacroiliac joint on the Right , and Left sides Results CBC & Chem 7: 03/25/23 05:52 03/24/23 06:55 Labs: Abnormal Lab Results - Last 24 Hours (Table) 03/24/23 03/24/23 03/24/23 Range/Units 06:55 06:55 06:55 RBC 4.39 L (4.40-5.60) X 10*6/uL Hgb (13.0-17.0) g/dL Hct (39.6-50.0) % Plt Count 92 L (140-440) X 10*3/uL MPV 12.4 H (9.5-12.2) FL Immature Plt Fraction 9.3 H (1.1-6.1) % PT 12.0 H (9.9-11.9) sec INR 1.12 H (0.93-1.11) sec APTT (22.0-30.0) sec BUN 30.5 H (9.0-27.0) mg/dL Est GFR (CKD-EPI) 56 L (>=60) BUN/Creatinine Ratio 21.79 H (12.00-20.00) Ratio Glucose 184 H (70-110) mg/dL POC Glucose (mg/dL) (70-110) mg/dL Calcium 8.6 L (8.7-10.3) mg/dL 03/24/23 03/24/23 03/24/23 Range/Units 12:10 15:39 17:01 RBC (4.40-5.60) X 10*6/uL Hgb (13.0-17.0) g/dL Hct (39.6-50.0) % Plt Count (140-440) X 10*3/uL MPV (9.5-12.2) FL Immature Plt Fraction (1.1-6.1) % PT (9.9-11.9) sec INR (0.93-1.11) sec APTT 41.0 H (22.0-30.0) sec BUN (9.0-27.0) mg/dL Est GFR (CKD-EPI) (>=60) BUN/Creatinine Ratio (12.00-20.00) Ratio Glucose (70-110) mg/dL POC Glucose (mg/dL) 205 H 167 H (70-110) mg/dL Calcium (8.7-10.3) mg/dL 03/24/23 03/24/23 03/25/23 Range/Units 20:45 22:14 05:52 RBC 4.08 L (4.40-5.60) X 10*6/uL Hgb 12.6 L (13.0-17.0) g/dL Hct 37.9 L (39.6-50.0) % Plt Count 99 L (140-440) X 10*3/uL MPV (9.5-12.2) FL Immature Plt Fraction (1.1-6.1) % PT (9.9-11.9) sec INR (0.93-1.11) sec APTT 70.4 H (22.0-30.0) sec BUN (9.0-27.0) mg/dL Est GFR (CKD-EPI) (>=60) BUN/Creatinine Ratio (12.00-20.00) Ratio Glucose (70-110) mg/dL POC Glucose (mg/dL) 176 H (70-110) mg/dL Calcium (8.7-10.3) mg/dL 03/25/23 03/25/23 Range/Units 06:01 07:02 RBC (4.40-5.60) X 10*6/uL Hgb (13.0-17.0) g/dL Hct (39.6-50.0) % Plt Count (140-440) X 10*3/uL MPV (9.5-12.2) FL Immature Plt Fraction (1.1-6.1) % PT (9.9-11.9) sec INR (0.93-1.11) sec APTT 69.0 H (22.0-30.0) sec BUN (9.0-27.0) mg/dL Est GFR (CKD-EPI) (>=60) BUN/Creatinine Ratio (12.00-20.00) Ratio Glucose (70-110) mg/dL POC Glucose (mg/dL) 165 H (70-110) mg/dL Calcium (8.7-10.3) mg/dL Comments: MRI of the lumbar spine= severe lumbar canal stenosis and lumbar bulging disc at L2-3 and L3 4 Assessment and Plan Plan: Assessment and plan=1-lumbar spinal stenosis. 2-lumbar radiculopathy. 3-Lumbar degenerative disc disease. 4-lumbar spondylosis with lumbar facet arthropathy. Patient failed conservative treatment. ([place], Neurontin, Dilaudid, Cymbalta ). Physical therapy evaluation and treatment. he could benefit from epidural steroid injection at L4 5. We will hold heparin IV for 4 hours would check PTT if the level within normal limits, we will proceed with the procedure. Time with Patient: Less than 30 PQRS Measure Charge Sheet - Pain Location Lower Back Non-Pharmacological Interventions: Position/Reposition Pharmacological Interventions: Discuss Pain Med Options, PRN Medication Pain Comment: see MAR PQRS Narrative: Blood Pressure [Left Arm] 158/89 Blood Pressure [Right Arm] 145/73 Blood Pressure 94/59 Pain Intensity [Lower Back] 6 Pain Intensity 0 Pain Scale Used Numeric (1 - 10) Scale Used Numeric (1 - 10) Home Medications: Ambulatory Orders Albuterol Sulfate [Ventolin HFA] 2 puff INHALATION RT-QID PRN 03/21/23 Aspirin EC [Ecotrin Low Dose] 81 mg PO DAILY 03/21/23 DULoxetine HCL [Cymbalta] 30 mg PO DAILY 03/21/23 Dulaglutide [Trulicity] 0.75 mg SQ TU 03/21/23 Empagliflozin [Jardiance] 10 mg PO DAILY 03/21/23 Furosemide [Lasix] 40 mg PO DAILY 03/21/23 Gabapentin 800 mg PO TID 03/21/23 Ibuprofen [Motrin] 800 mg PO TID 03/21/23 carvediloL [Coreg] 6.25 mg PO BID 03/21/23 lisinopriL [Zestril] 10 mg PO DAILY 03/21/23 metFORMIN HCL 1,000 mg PO BID 03/21/23
[2023-03-25 11:14] LABS: BUN/Creat Ratio 21.67 Ratio (12.00-20.00); Calcium 8.4 mg/dL (8.7-10.3); Carbon Dioxide 20.2 mmol/L (21.6-31.8); Chloride 104 mmol/L (96-109); Glucose 179 mg/dL (70-110); Potassium 4.3 mmol/L (3.5-5.5); Sodium 137 mmol/L (135-145)
--- NOTE | 2023-03-25 11:21 | P.PN ---
Subjective HISTORY OF PRESENT ILLNESS: The patient is a 67-year-old gentleman who is a somewhat poor historian with a past medical history significant for atrial fibrillation of unknown etiology at this point as well as diabetes and hypertension and dyslipidemia and overweight and low back pain. He presented to the emergency department mainly because of low back pain. He underwent a computed tomography scan of the lower back and that revealed degenerative changes he was seen by orthopedic surgical team and he is in process to get an MRI. We consulted to see the patient because of atrial fibrillation. The patient underwent an EKG and that showed atrial fibrillation. He is not aware of any prior diagnosis of atrial fibrillation currently is not on any oral anticoagulation. No pain in the chest and no shortness of breath and no feeling of heart racing or fluttering and no dizziness or lightheadedness and no presyncope or syncope. On examination he does have an irregular rhythm with distant heart sounds and clear breathing sounds bilaterally and mild bilateral lower extremity edema and tender abdomen as well. The patient is not aware of any prior history of gastrointestinal bleeding and isn't know exactly why he is not on any oral anticoagulation. His vital signs are stable. The atrial fibrillation appeared to be under good control on the current dose of beta parrish. 03/24/2023 Patient examined this morning at the bedside. Patient currently denies chest pain or pressure. He denies shortness of breath. Telemetry reveals atrial fibrillation with controlled ventricular rate. He remains on IV heparin. 2-D echo is currently pending. 03/25/2023 Patient examined this morning at the bedside. Patient denies chest pain or pressure. He denies shortness of breath. Vital signs are stable. He remains in atrial fibrillation with controlled ventricular rate. Echocardiogram compl eted revealing ejection fraction 55-60%, mild to moderate mitral regurgitation, and mild tricuspid regurgitation. PHYSICAL EXAM: VITAL SIGNS: Reviewed. GENERAL: Well-developed in no acute distress. NECK: Supple. No JVD or thyromegaly LUNGS: Respirations even and unlabored. Lungs essentially clear to auscultation bilaterally. HEART: Irregular rate and rhythm. S1 and S2 heard. EXTREMITIES: Normal range of motion. No clubbing or cyanosis. Peripheral pulses intact. No lower extremity edema ASSESSMENT: Lower back pain Degenerative disc disease, orthopedics following Atrial fibrillation with controlled ventricular rate, paroxysmal versus permanent Hypertension Hyperlipidemia Diabetes PLAN: Continue IV heparin. If no procedures are scheduled to be performed from consulting providers, switch patient to Eliquis Continue current cardiac medications Continue telemetry monitoring We will sign off. Please reconsult if needed Nurse practitioner note has been reviewed by physician. Signing provider agrees with the documented findings, assessment, and plan of care. Objective - Vital Signs Vital signs: Vital Signs Temp 98.6 F 03/25/23 07:10 Pulse 84 03/25/23 09:04 Resp 15 03/25/23 07:10 BP 158/89 03/25/23 07:10 Pulse Ox 93 L 03/25/23 07:10 FiO2 Intake & Output 03/24/23 03/25/23 03/25/23 18:59 06:59 18:59 Intake Total 636.152 201.810 122.123 Output Total 1350 2700 Balance -713.848 -2498.190 122.123 Weight 117.934 kg Intake: Intake, IV Titration 223.152 201.810 122.123 Amount Heparin Sod,Pork in 0.45% 223.152 201.810 122.123 NaCl 25,000 unit In 0.45 % NaCl 1 250ml.bag @ 8.48 UNITS/KG/HR 10.001 mls/ hr IV .Q24H [facility] Rx#: [id number] Oral 413 Output: Urine 1350 2700 Other: Voiding Method Urinal Urinal # Bowel Movements 1 - Labs CBC & Chem 7: 03/25/23 05:52 03/25/23 05:52 Labs: Abnormal Lab Results - Last 24 Hours (Table) 03/24/23 03/24/23 03/24/23 Range/Units 06:55 06:55 06:55 RBC 4.39 L (4.40-5.60) X 10*6/uL Hgb (13.0-17.0) g/dL Hct (39.6-50.0) % Plt Count 92 L (140-440) X 10*3/uL MPV 12.4 H (9.5-12.2) FL Immature Plt Fraction 9.3 H (1.1-6.1) % PT 12.0 H (9.9-11.9) sec INR 1.12 H (0.93-1.11) sec APTT (22.0-30.0) sec Carbon Dioxide (21.6-31.8) mmol/L Anion Gap (4.00-12.00) mmol/L BUN 30.5 H (9.0-27.0) mg/dL Est GFR (CKD-EPI) 56 L (>=60) BUN/Creatinine Ratio 21.79 H (12.00-20.00) Ratio Glucose 184 H (70-110) mg/dL POC Glucose (mg/dL) (70-110) mg/dL Calcium 8.6 L (8.7-10.3) mg/dL 03/24/23 03/24/23 03/24/23 Range/Units 12:10 15:39 17:01 RBC (4.40-5.60) X 10*6/uL Hgb (13.0-17.0) g/dL Hct (39.6-50.0) % Plt Count (140-440) X 10*3/uL MPV (9.5-12.2) FL Immature Plt Fraction (1.1-6.1) % PT (9.9-11.9) sec INR (0.93-1.11) sec APTT 41.0 H (22.0-30.0) sec Carbon Dioxide (21.6-31.8) mmol/L Anion Gap (4.00-12.00) mmol/L BUN (9.0-27.0) mg/dL Est GFR (CKD-EPI) (>=60) BUN/Creatinine Ratio (12.00-20.00) Ratio Glucose (70-110) mg/dL POC Glucose (mg/dL) 205 H 167 H (70-110) mg/dL Calcium (8.7-10.3) mg/dL 03/24/23 03/24/23 03/25/23 Range/Units 20:45 22:14 05:52 RBC 4.08 L (4.40-5.60) X 10*6/uL Hgb 12.6 L (13.0-17.0) g/dL Hct 37.9 L (39.6-50.0) % Plt Count 99 L (140-440) X 10*3/uL MPV (9.5-12.2) FL Immature Plt Fraction (1.1-6.1) % PT (9.9-11.9) sec INR (0.93-1.11) sec APTT 70.4 H (22.0-30.0) sec Carbon Dioxide (21.6-31.8) mmol/L Anion Gap (4.00-12.00) mmol/L BUN (9.0-27.0) mg/dL Est GFR (CKD-EPI) (>=60) BUN/Creatinine Ratio (12.00-20.00) Ratio Glucose (70-110) mg/dL POC Glucose (mg/dL) 176 H (70-110) mg/dL Calcium (8.7-10.3) mg/dL 03/25/23 03/25/23 03/25/23 Range/Units 05:52 06:01 07:02 RBC (4.40-5.60) X 10*6/uL Hgb (13.0-17.0) g/dL Hct (39.6-50.0) % Plt Count (140-440) X 10*3/uL MPV (9.5-12.2) FL Immature Plt Fraction (1.1-6.1) % PT (9.9-11.9) sec INR (0.93-1.11) sec APTT 69.0 H (22.0-30.0) sec Carbon Dioxide 20.2 L (21.6-31.8) mmol/L Anion Gap 12.80 H (4.00-12.00) mmol/L BUN (9.0-27.0) mg/dL Est GFR (CKD-EPI) (>=60) BUN/Creatinine Ratio 21.67 H (12.00-20.00) Ratio Glucose 179 H (70-110) mg/dL POC Glucose (mg/dL) 165 H (70-110) mg/dL Calcium 8.4 L (8.7-10.3) mg/dL
[2023-03-25 12:14] LABS: Glucose,Whole Blood 154 mg/dL (70-110)
[2023-03-25] MEDS: methocarbamoL 750 MG TAB PO SCH ×4 (12:59→21:40)
[2023-03-25 13:06] LABS: Basophils % (A) 0 %; Eosinophils # (A) 0.1 k/uL (0-0.7); Eosinophils % (A) 2 %; HCT 38.6 % (39.0-53.0); HGB 13.3 gm/dL (13.0-17.5); Lymphocytes # (A) 0.9 k/uL (1.0-4.8); Lymphocytes % (A) 16 %; MCH 32.5 pg (25.0-35.0); MCHC 34.6 g/dL (31.0-37.0); MCV 93.9 fL (80.0-100.0); Mean Platelet Volume 8.7; Monocytes # (A) 0.4 k/uL (0-1.0); Monocytes % (A) 8 %; Neutrophils # (A) 4.1 k/uL (1.3-7.7); Neutrophils % (A) 72 %; Platelet Count 106 k/uL (150-450); RBC 4.11 m/uL (4.30-5.90); RDW 12.9 % (11.5-15.5); WBC 5.6 k/uL (3.8-10.6)
--- NOTE | 2023-03-25 13:38 | P.PN ---
Subjective Progress Note Date: 03/25/23 * 67-year-old gentleman with past medical history significant for atrial fibrillation, diabetes mellitus, COPD, hypertension, degenerative disks/joint disease presents to the emergency department with complains of increasing back pain. Patient stated his back pain is getting worse to the point he is unable to move around freely and has multiple falls at home he had been complaining of lower extremity weakness and neuropathic pain bilaterally and feet as well. Upon admission patient denies history of bladder or bowel incontinence, denies fever or perianal numbness * Workup initiated in ER including CT lumbar spine which showed multilevel degenerative changes and stenosis, L3-L4 disc bulge and spinal canal stenosis noted, L5-S1 degenerative disc changes noted * Patient had a CT brain done which was negative for acute fracture or dislocation of cervical spine no intracranial hemorrhage was noted * EKG obtained in ER showed atrial fibrillation with heart rate of 122 and the time of admission * Serum chemistry obtained showed WBC 10.4 hemoglobin 15 platelet count of 135 INR of 1 * Serum chemistry shows sodium 137 potassium 4.2 BU and 36 at 1.39 * Patient tested negative for influenza RSV and Covid * While in ER patient was given 1 dose of oral Coreg IV fluid bolus and IV pain medications and admitted to medical floor with back surgery consultation for evaluation 03/23/2023: Patient seen and evaluated at bedside, abdomen examined nontender no episodes of gastrointestinal bleed. Previously patient was on Coumadin patient to be started back on IV heparin low dose continue to monitor while patient is known to be on heparin we will discontinue aspirin continue to monitor H&H while patient is on heparin cardiology recommendations appreciated echocardiogram ordered continue with rate control medication 03/24/2023: Patient seen and evaluated bedside, during my evaluation patient is awake and alert patient come back from MRI does complain of back pain moving lower extremities, on IV heparin no blood in stool noted no hematemesis no hematuria. Continue to monitor appreciate input from cardiology 03/25/2023: Patient seen and evaluated bedside, patient is status post MRI completion does show severe degenerative disease in lumbar spine, orthopedic not planning intervention during this hospitalization hence we'll transition to Eliquis. First dose to be given on 03/25 p.m. IV heparin discontinued patient also started on robaxin and lidocaine patch REVIEW OF SYSTEMS: Back pain, lower extremity weakness, syncope resolved CONSTITUTIONAL: No fever, no malaise, no fatigue. HEENT: No recent visual problems or hearing problems. Denied any sore throat. CARDIOVASCULAR: No chest pain, orthopnea, PND, no palpitations, no syncope. PULMONARY: No shortness of breath, no cough, no hemoptysis. GASTROINTESTINAL: No abdominal pain. NEUROLOGICAL: No headaches, no weakness, no numbness. HEMATOLOGICAL: Denies any bleeding or petechiae. GENITOURINARY: Denies any burning micturition, frequency, or urgency. MUSCULOSKELETAL/RHEUMATOLOGICAL: Back pain, lower extremity weakness, syncope ENDOCRINE: Denies any polyuria or polydipsia. PHYSICAL EXAMINATION: GENERAL: The patient is alert and oriented x3, Well developed, well nourished. HEENT: Pupils are round and equally reacting to light. EOMI. CARDIOVASCULAR: Irregular rhythm, rate improved PULMONARY: Chest is clear to auscultation, no wheezing or crackles. ABDOMEN: Soft, nontender, nondistended, normoactive bowel sounds. No palpable organomegaly. MUSCULOSKELETAL: No joint swelling or deformity. EXTREMITIES: No cyanosis, clubbing, or pedal edema. NEUROLOGICAL: Gross neurological examination did not reveal any focal deficits. Range of motion limited lotion to sit due to back pain Objective - Vital Signs Vital signs: Vital Signs Temp 98.6 F 03/25/23 07:10 Pulse 84 03/25/23 09:04 Resp 15 03/25/23 07:10 BP 158/89 03/25/23 07:10 Pulse Ox 93 L 03/25/23 07:10 FiO2 Intake & Output 03/24/23 03/25/23 03/25/23 18:59 06:59 18:59 Intake Total 636.152 201.810 122.123 Output Total 1350 2700 Balance -713.848 -2498.190 122.123 Weight 117.934 kg Intake: Intake, IV Titration 223.152 201.810 122.123 Amount Heparin Sod,Pork in 0.45% 223.152 201.810 122.123 NaCl 25,000 unit In 0.45 % NaCl 1 250ml.bag @ 8.48 UNITS/KG/HR 10.001 mls/ hr IV .Q24H [facility] Rx#: [id number] Oral 413 Output: Urine 1350 2700 Other: Voiding Method Urinal Urinal Urinal # Bowel Movements 1 - Labs CBC & Chem 7: 03/25/23 12:41 03/25/23 05:52 Labs: Abnormal Lab Results - Last 24 Hours (Table) 03/24/23 03/24/23 03/24/23 Range/Units 06:55 15:39 17:01 RBC (4.40-5.60) X 10*6/uL Hgb (13.0-17.0) g/dL Hct (39.6-50.0) % Plt Count (140-440) X 10*3/uL Lymphocytes # (1.0-4.8) k/uL PT 12.0 H (9.9-11.9) sec INR 1.12 H (0.93-1.11) sec APTT 41.0 H (22.0-30.0) sec Carbon Dioxide (21.6-31.8) mmol/L Anion Gap (4.00-12.00) mmol/L BUN/Creatinine Ratio (12.00-20.00) Ratio Glucose (70-110) mg/dL POC Glucose (mg/dL) 167 H (70-110) mg/dL Calcium (8.7-10.3) mg/dL 03/24/23 03/24/23 03/25/23 Range/Units 20:45 22:14 05:52 RBC 4.08 L (4.40-5.60) X 10*6/uL Hgb 12.6 L (13.0-17.0) g/dL Hct 37.9 L (39.6-50.0) % Plt Count 99 L (140-440) X 10*3/uL Lymphocytes # (1.0-4.8) k/uL PT (9.9-11.9) sec INR (0.93-1.11) sec APTT 70.4 H (22.0-30.0) sec Carbon Dioxide (21.6-31.8) mmol/L Anion Gap (4.00-12.00) mmol/L BUN/Creatinine Ratio (12.00-20.00) Ratio Glucose (70-110) mg/dL POC Glucose (mg/dL) 176 H (70-110) mg/dL Calcium (8.7-10.3) mg/dL 03/25/23 03/25/23 03/25/23 Range/Units 05:52 06:01 07:02 RBC (4.40-5.60) X 10*6/uL Hgb (13.0-17.0) g/dL Hct (39.6-50.0) % Plt Count (140-440) X 10*3/uL Lymphocytes # (1.0-4.8) k/uL PT (9.9-11.9) sec INR (0.93-1.11) sec APTT 69.0 H (22.0-30.0) sec Carbon Dioxide 20.2 L (21.6-31.8) mmol/L Anion Gap 12.80 H (4.00-12.00) mmol/L BUN/Creatinine Ratio 21.67 H (12.00-20.00) Ratio Glucose 179 H (70-110) mg/dL POC Glucose (mg/dL) 165 H (70-110) mg/dL Calcium 8.4 L (8.7-10.3) mg/dL 03/25/23 03/25/23 Range/Units 12:12 12:41 RBC 4.11 L (4.40-5.60) X 10*6/uL Hgb (13.0-17.0) g/dL Hct 38.6 L (39.6-50.0) % Plt Count 106 L (140-440) X 10*3/uL Lymphocytes # 0.9 L (1.0-4.8) k/uL PT (9.9-11.9) sec INR (0.93-1.11) sec APTT (22.0-30.0) sec Carbon Dioxide (21.6-31.8) mmol/L Anion Gap (4.00-12.00) mmol/L BUN/Creatinine Ratio (12.00-20.00) Ratio Glucose (70-110) mg/dL POC Glucose (mg/dL) 154 H (70-110) mg/dL Calcium (8.7-10.3) mg/dL Assessment and Plan Assessment: Assessment and plan * Acute on chronic back pain with lower extremity weakness with degenerative disease of lumbar spine, lumbar spine stenosis L2-L3 with this bulge, L3-L4 T12-L2 * Atrial fibrillation with rapid ventricular response * Hypertension * Diabetes mellitus type 2 * Acute renal failure with mild metabolic acidosis * Thrombocytopenia * In regards to acute and chronic back pain and lower extremity weakness, back surgery consulted, CT lumbar spine reviewed degenerative changes noted spinal stenosis stenosis noted MRI lumbar spine completed., Continue with pain control * In regards to atrial fibrillation, cardiology consulted continue Coreg, aspirin discontinued secondary to thrombocytopenia, IV heparin discontinued transition to Eliquis * In regards to diabetes mellitus continue patient on Trulicity, continue correctional insulin, continue Levemir continue metformin monitor for hypoglycemia * Regards to hypertension continue patient on Coreg and lisinopril * Physical therapy occupational therapy consulted * CODE STATUS is full code
[2023-03-25 14:23] LABS: Glucose,Whole Blood 122 mg/dL (70-110)
[2023-03-25] MEDS ORDERED: IV FLUID CONTINUATION 1,000 ML IV ONE (14:28)
[2023-03-25] MEDS ORDERED: IOPAMIDOL M200 10 ML VIAL ONE (14:41)
[2023-03-25] MEDS ORDERED: methylPREDNISolone ACETATE 40 MG/ML 1 ML VIAL ONE (14:41)
--- NOTE | 2023-03-25 14:50 | P.PCN ---
Date of Procedure: 03/25/23 Procedure(s) Performed: PREOPERATIVE DIAGNOSIS: 1- Lumbar Degenerative Disc Diseases 2-Lumbar spondylosis with Facet arthropathy without myelopathy. 3-lumbar spinal stenosis POSTOPERATIVE DIAGNOSIS: 1-lumbar degenerative disc disease. 2-lumbar spondylosis with facet arthropathy without myelopathy. 3-lumbar spinal stenosis. PROCEDURE 1. Lumbar epidural steroid injection under fluoroscopic guidance at the L4-5 level. (Fluoroscopy imaging was available in radiology department) 2. Lumbar epidurogram. ANESTHESIA: Lidocaine 1% 3 and then only. EBL: Minimal PROCEDURE INDICATION: The patient with low back pain and radiculitis symptoms unresponsive to conservative treatment. Fluoroscopy was used to optimize visualization of the needle placement and to maximize safety. PROCEDURE DESCRIPTION / TECHNIQUE: The patient was seen and identified in the preoperative area. Risks, benefits, complications including but not limited to infections ,bleeding ,allergic reaction to the medications ,nerve damage and not complete pain releife , and alternatives were discussed with the patient. The patient agreed to proceed with the procedure and signed the consent, and vital signs were stable. Patient was taken to the OR and time out was completed. The patient was placed in the prone position on procedure table and a pillow was placed under the abdomen to reduce lumbar lordosis. The lumbosacral area was prepped and draped in the usual sterile fashion.ere closely monitored during the procedure. Vital signs was monitered during the entire procedure. Using anterior-posterior fluoroscopy, the L4-5 interlaminar space was identified and the skin over this site was marked and then infiltrated with 1% lidocaine subcutaneously. Subsequently, a 20-gauge Tuohy epidural needle was inserted and advanced toward the epidural space using the ``Loss of resistance technique and guided by AP and lateral fluoroscopy. The correct needle position in the epidural space was verified with the injection of 2 mL of the water soluble contrast dye Isovue 200 contrast and observing an excellent epidurogram with the epidural spread of the dye, after negative aspiration for blood and CSF and in the absence of paresthesias. Again after negative aspiration, a 6 ml mixture containing 40 mg of Depo-medrol ( Preservetive Free ), and 2 ml of preservative free Normal Saline, and 2 ml of preservative free lidocaine 1% solution was injected and a washout of epidurogram was seen. Needle was withdrawn intact, skin was cleansed, and bandages were applied. COMPLICATIONS: None DISPOSITION / PLANS: The patient was placed in a supine position and transferred to the recovery area in a stable condition for observation. There was no evidence of lower extremity motor or sensory deficit after the procedure. Patient was discharged from the recovery room after meeting discharge criteria. Home discharge instructions were given to the patient by the staff. The patient was reexamined prior to discharge. The patient will schedule a follow up in the clinic in 2-4 weeks.
[2023-03-25] MEDS: APIXABAN 5 MG TAB PO SCH (15:18)
--- NOTE | 2023-03-25 15:49 | FL ---
EXAMINATION TYPE: FL guided pain mgmt statistic Intraoperative/procedural fluoroscopic services were provided. Total fluoroscopy time is 2.1 seconds with a total of 1 submitted images to PACS. Please se e the operative/procedural note for further details. DAP: [id number] mGym2
[2023-03-25 17:24] LABS: Glucose,Whole Blood 145 mg/dL (70-110)
[2023-03-25] MEDS: LIDOCAINE 4% PATCH TOPICAL SCH (17:36)
--- NOTE | 2023-03-25 17:36 | P.PN ---
Subjective Progress Note Date: 03/25/23 Principal diagnosis: Lumbar stenosis Increasing back pain Bilateral lower extremity weakness Patient seen and examined this afternoon. Patient is resting comfortably in bed. Patient reports that he just returned from having lumbar injections performed by pain management. He does report that he notices significant relief of pain. Patient has not been out of bed since the procedure. Discussed the results of the MRI of the lumbar spine, informed patient that he would need surgery due to severe spinal stenosis. Dr. Zimmerman has reviewed the imaging and is recommending an [id number] decompression and fusion. Patient states that he is interested in proceeding with the procedure but it would need to be discussed with his daughter. His daughter, Shira, was called and discussed the surgical intervention and risk and benefits. She reports that she is more concerned at this time that her father is scheduled for oral surgery on , 03/27/2023. She states he has missed this procedure 2 and continues with oral infections. Patient's daughter would like him to follow through with the oral surgery that is scheduled for and follow up in our office on Friday to discuss and schedule surgery. Patient is concerned due to living alone in an apartment and possibly not having help. Daughter states she will be reaching out to case management to discuss her plans. RN was present in room and during all discussion, she did inform the patient is going to start Eliquis due to atrial fibrillation tomorrow 03/26/2023. He has been on a heprin drip. Informed patient he would need to discuss his oral surgery with cardiology. Patient would like to assess his physical activity after receiving his injections today to determine if he is able to be up and about and proceed with his daughter's wishes. He reports that if his pain is not managed he would like to proceed with surgical intervention of the lumbar spine pending medical and cardiac clearance. We will follow up with the patient tomorrow morning. No acute concerns at this time. Objective - Vital Signs Vital signs: Vital Signs Temp 98.1 F 03/25/23 15:00 Pulse 80 03/25/23 15:00 Resp 15 03/25/23 15:00 BP 149/89 03/25/23 15:00 Pulse Ox 95 03/25/23 15:00 FiO2 Intake & Output 03/24/23 03/25/23 03/25/23 18:59 06:59 18:59 Intake Total 636.152 201.810 122.123 Output Total 1350 2700 350 Balance -713.848 -2498.190 -227.877 Weight 117.934 kg Intake: Intake, IV Titration 223.152 201.810 122.123 Amount Heparin Sod,Pork in 0.45% 223.152 201.810 122.123 NaCl 25,000 unit In 0.45 % NaCl 1 250ml.bag @ 8.48 UNITS/KG/HR 10.001 mls/ hr IV .Q24H [facility] Rx#: [id number] Oral 413 Output: Urine 1350 2700 350 Other: Voiding Method Urinal Urinal Urinal # Voids 2 # Bowel Movements 1 - Exam Inspection: Negative for any open fractures, ecchymosis, significant erythema/ulcers. Sensation: Sensation is equal, symmetric, bilaterally intact throughout the upper and lower extremities Palpation: Nontender to palpation throughout bilateral upper and lower extremities and throughout spine exam Range of motion: Patient does have full range of motion bilateral upper and lower extremities on exam Motor: 5/5 in all major motor groups in the bilateral upper extremities 3+/5 strength of patient's bilateral lower extremities with hip flexion 4/5 strength appreciated in the bilateral lower extremities with knee extension and knee flexion 4/5 strength appreciated in the bilateral lower extremities with plantar flexion, FHL 4-/5 strength appreciated in the bilateral lower extremities with dorsiflexion and EHL Special tests: Negative Homans bilaterally. Negative Tiesha bilaterally. Negative clonus bilaterally. Neurovascular: Radial pulse intact, 2+ bilaterally. Cap refill under 3 seconds in digits upper extremities. - Labs CBC & Chem 7: 03/25/23 12:41 03/25/23 05:52 Labs: Abnormal Lab Results - Last 24 Hours (Table) 03/24/23 03/24/23 03/25/23 Range/Units 20:45 22:14 05:52 RBC 4.08 L (4.40-5.60) X 10*6/uL Hgb 12.6 L (13.0-17.0) g/dL Hct 37.9 L (39.6-50.0) % Plt Count 99 L (140-440) X 10*3/uL Lymphocytes # (1.0-4.8) k/uL APTT 70.4 H (22.0-30.0) sec Carbon Dioxide (21.6-31.8) mmol/L Anion Gap (4.00-12.00) mmol/L BUN/Creatinine Ratio (12.00-20.00) Ratio Glucose (70-110) mg/dL POC Glucose (mg/dL) 176 H (70-110) mg/dL Calcium (8.7-10.3) mg/dL 03/25/23 03/25/23 03/25/23 Range/Units 05:52 06:01 07:02 RBC (4.40-5.60) X 10*6/uL Hgb (13.0-17.0) g/dL Hct (39.6-50.0) % Plt Count (140-440) X 10*3/uL Lymphocytes # (1.0-4.8) k/uL APTT 69.0 H (22.0-30.0) sec Carbon Dioxide 20.2 L (21.6-31.8) mmol/L Anion Gap 12.80 H (4.00-12.00) mmol/L BUN/Creatinine Ratio 21.67 H (12.00-20.00) Ratio Glucose 179 H (70-110) mg/dL POC Glucose (mg/dL) 165 H (70-110) mg/dL Calcium 8.4 L (8.7-10.3) mg/dL 03/25/23 03/25/23 03/25/23 Range/Units 12:12 12:41 14:21 RBC 4.11 L (4.40-5.60) X 10*6/uL Hgb (13.0-17.0) g/dL Hct 38.6 L (39.6-50.0) % Plt Count 106 L (140-440) X 10*3/uL Lymphocytes # 0.9 L (1.0-4.8) k/uL APTT (22.0-30.0) sec Carbon Dioxide (21.6-31.8) mmol/L Anion Gap (4.00-12.00) mmol/L BUN/Creatinine Ratio (12.00-20.00) Ratio Glucose (70-110) mg/dL POC Glucose (mg/dL) 154 H 122 H (70-110) mg/dL Calcium (8.7-10.3) mg/dL Assessment and Plan Assessment: Low back pain Bilateral lower extremity weakness Neuropathy bilateral lower extremities Severe lumbar spondylosis Multilevel lumbar neural foraminal and central canal stenosis Other medical comorbidities Plan: At this time we do recommend surgical intervention of [id number] decompression and fusion. We will follow up with patient tomorrow morning to discuss his options again and discuss his decision. 2. Appreciate medical management 3. Continue with pain management, oral medication of [place], gabapentin, and methocarbomal 4. PT/OT - weightbearing as tolerated with a walker as needed. 7. Appreciate consult
[2023-03-25 21:30] LABS: Glucose,Whole Blood 205 mg/dL (70-110)
[2023-03-25] MEDS: SENNOSIDES 8.6 MG TAB PO SCH (21:40)
[2023-03-25] MEDS: MAGNESIUM HYDROXIDE 2,400 MG/30 ML CUP PO SCH (21:40)
[2023-03-26 06:16] LABS: Glucose,Whole Blood 205 mg/dL (70-110)
[2023-03-26] MEDS: INSULIN ASPART (NovoLOG) 100 UNIT/ML VIAL SQ SCH ×4 (06:38→22:00)
[2023-03-26] MEDS: INSULIN DETEMIR (LEVEMIR) 100 UNIT/ML SYR SQ SCH (06:38)
[2023-03-26] MEDS: SODIUM CHLORIDE 0.9% 1,000 ML IV SCH ×2 (06:41→20:09)
[2023-03-26] MEDS: APIXABAN 5 MG TAB PO SCH (08:38)
[2023-03-26] MEDS: HYDROmorphone 0.5 MG/0.5 ML SYRINGE IVP PRN ×2 (08:39→13:42)
[2023-03-26] MEDS: carvediloL 6.25 MG TAB PO SCH ×2 (08:40→20:10)
[2023-03-26] MEDS: GABAPENTIN 400 MG CAP PO SCH ×3 (08:41→21:59)
[2023-03-26] MEDS: DAPAGLIFLOZIN PROPANEDIOL 5 MG TABLET PO SCH (08:41)
[2023-03-26] MEDS: DULoxetine HCL 30 MG CAPSULE.DR PO SCH (08:41)
[2023-03-26] MEDS: LIDOCAINE 4% PATCH TOPICAL SCH (08:41)
[2023-03-26] MEDS: methocarbamoL 750 MG TAB PO SCH ×4 (08:42→21:59)
[2023-03-26] MEDS: lisinopriL 20 MG TAB PO SCH (08:42)
[2023-03-26] MEDS: metFORMIN 500 MG TAB PO SCH ×2 (08:42→22:00)
[2023-03-26 08:51] LABS: HCT 39.7 % (39.6-50.0); HGB 13.6 g/dL (13.0-17.0); MCHC 34.3 g/dL (32.0-37.0); MCV 90.4 FL (80.0-97.0); Mean Platelet Volume 11.4 FL (9.5-12.2); NRBC Per 100 WBC 0 X 10*3/uL (0.00-0.01); Platelet Count 127 X 10*3/uL (140-440); RBC 4.39 X 10*6/uL (4.40-5.60); RDW 12.4 % (11.5-14.5); WBC 7.15 X 10*3/uL (4.50-10.00)
[2023-03-26 09:02] LABS: BUN/Creat Ratio 25.83 Ratio (12.00-20.00); Calcium 8.8 mg/dL (8.7-10.3); Carbon Dioxide 19.2 mmol/L (21.6-31.8); Chloride 104 mmol/L (96-109); Glucose 226 mg/dL (70-110); Potassium 4.7 mmol/L (3.5-5.5); Sodium 135 mmol/L (135-145)
--- NOTE | 2023-03-26 09:49 | P.PN ---
Subjective Progress Note Date: 03/26/23 Principal diagnosis: Lumbar stenosis Increasing back pain Bilateral lower extremity weakness Patient seen and examined this morning. Patient is resting in bed. Patient did have injections performed by pain management yesterday, he reports that he had immediate relief of his symptoms at that time. Patient continues to report significant low back pain with inability to ambulate. Patient states that he would like to move forward with surgical intervention of the lumbar spine. He states that he will reach out to his daughter to inform her of this. Informed patient that he has been scheduled for surgical procedure for 03/28/2023. Risks and benefits have been discussed and patient verbalizes understanding and would like to proceed. Continue to encourage patient to perform bed exercises and use of incentive spirometer. Objective - Vital Signs Vital signs: Vital Signs Temp 97.8 F 03/26/23 08:00 Pulse 83 03/26/23 08:00 Resp 16 03/26/23 08:00 BP 172/97 03/26/23 08:00 Pulse Ox 95 03/26/23 08:00 FiO2 Intake & Output 03/25/23 03/26/23 03/26/23 18:59 06:59 18:59 Intake Total 240.123 Output Total 350 1250 Balance -109.877 -1250 Intake: Intake, IV Titration 122.123 Amount Heparin Sod,Pork in 0.45% 122.123 NaCl 25,000 unit In 0.45 % NaCl 1 250ml.bag @ 8.48 UNITS/KG/HR 10.001 mls/ hr IV .Q24H [facility] Rx#: [id number] Oral 118 Output: Urine 350 1250 Other: Voiding Method Urinal Urinal # Voids 4 # Bowel Movements 1 - Exam Inspection: Negative for any open fractures, ecchymosis, significant erythema/ulcers. Sensation: Sensation is equal, symmetric, bilaterally intact throughout the upp er and lower extremities Palpation: Nontender to palpation throughout bilateral upper and lower ext remities and throughout spine exam Range of motion: Patient does have full range of motion bilateral upper and lower extremities on exam Motor: 5/5 in all major motor groups in the bilateral upper extremities 3+/5 strength of patient's bilateral lower extremities with hip flexion 4/5 strength appreciated in the bilateral lower extremities with knee extension and knee flexion 4/5 strength appreciated in the bilateral lower extremities with plantar flexion, FHL 4-/5 strength appreciated in the bilateral lower extremities with dorsiflexion and EHL Special tests: Negative Homans bilaterally. Negative Tiesha bilaterally. Negative clonus bilaterally. Neurovascular: Radial pulse intact, 2+ bilaterally. Cap refill under 3 seconds in digits upper extremities. - Labs CBC & Chem 7: 03/26/23 06:06 03/26/23 06:06 Labs: Abnormal Lab Results - Last 24 Hours (Table) 03/25/23 03/25/23 03/25/23 Range/Units 05:52 05:52 12:12 RBC 4.08 L (4.40-5.60) X 10*6/uL Hgb 12.6 L (13.0-17.0) g/dL Hct 37.9 L (39.6-50.0) % Plt Count 99 L (140-440) X 10*3/uL Lymphocytes # (1.0-4.8) k/uL Carbon Dioxide 20.2 L (21.6-31.8) mmol/L Anion Gap 12.80 H (4.00-12.00) mmol/L BUN/Creatinine Ratio 21.67 H (12.00-20.00) Ratio Glucose 179 H (70-110) mg/dL POC Glucose (mg/dL) 154 H (70-110) mg/dL Calcium 8.4 L (8.7-10.3) mg/dL 03/25/23 03/25/23 03/25/23 Range/Units 12:41 14:21 17:22 RBC 4.11 L (4.40-5.60) X 10*6/uL Hgb (13.0-17.0) g/dL Hct 38.6 L (39.6-50.0) % Plt Count 106 L (140-440) X 10*3/uL Lymphocytes # 0.9 L (1.0-4.8) k/uL Carbon Dioxide (21.6-31.8) mmol/L Anion Gap (4.00-12.00) mmol/L BUN/Creatinine Ratio (12.00-20.00) Ratio Glucose (70-110) mg/dL POC Glucose (mg/dL) 122 H 145 H (70-110) mg/dL Calcium (8.7-10.3) mg/dL 03/25/23 03/26/23 03/26/23 Range/Units 21:29 06:06 06:12 RBC 4.39 L (4.40-5.60) X 10*6/uL Hgb (13.0-17.0) g/dL Hct (39.6-50.0) % Plt Count 127 L (140-440) X 10*3/uL Lymphocytes # (1.0-4.8) k/uL Carbon Dioxide (21.6-31.8) mmol/L Anion Gap (4.00-12.00) mmol/L BUN/Creatinine Ratio (12.00-20.00) Ratio Glucose (70-110) mg/dL POC Glucose (mg/dL) 205 H 205 H (70-110) mg/dL Calcium (8.7-10.3) mg/dL Assessment and Plan Assessment: Low back pain Bilateral lower extremity weakness Neuropathy bilateral lower extremities Severe lumbar spondylosis Multilevel lumbar neural foraminal and central canal stenosis Other medical comorbidities Plan: At this time we do recommend surgical intervention of L1-S1 decompressive laminectomy with possible fusion, this has been scheduled for 03/28/2023 pending medical and cardiac clearance. 2. Appreciate medical management 3. Anticoagulation per cardiology, hold prior to procedure. 3. Continue with pain management, oral medication of [place], gabapentin, and methocarbomal 4. PT/OT - weightbearing as tolerated with a walker as needed. 7. Appreciate consult
[2023-03-26] MEDS: ALBUTEROL NEBULIZED 2.5 MG/3 ML INHALATION PRN ×2 (11:56→20:23)
[2023-03-26 12:29] LABS: Glucose,Whole Blood 214 mg/dL (70-110)
--- NOTE | 2023-03-26 13:00 | P.PN ---
Subjective Progress Note Date: 03/26/23 * 67-year-old gentleman with past medical history significant for atrial fibrillation, diabetes mellitus, COPD, hypertension, degenerative disks/joint disease presents to the emergency department with complains of increasing back pain. Patient stated his back pain is getting worse to the point he is unable to move around freely and has multiple falls at home he had been complaining of lower extremity weakness and neuropathic pain bilaterally and feet as well. Upon admission patient denies history of bladder or bowel incontinence, denies fever or perianal numbness * Workup initiated in ER including CT lumbar spine which showed multilevel degenerative changes and stenosis, L3-L4 disc bulge and spinal canal stenosis noted, L5-S1 degenerative disc changes noted * Patient had a CT brain done which was negative for acute fracture or dislocation of cervical spine no intracranial hemorrhage was noted * EKG obtained in ER showed atrial fibrillation with heart rate of 122 and the time of admission * Serum chemistry obtained showed WBC 10.4 hemoglobin 15 platelet count of 135 INR of 1 * Serum chemistry shows sodium 137 potassium 4.2 BU and 36 at 1.39 * Patient tested negative for influenza RSV and Covid * While in ER patient was given 1 dose of oral Coreg IV fluid bolus and IV pain medications and admitted to medical floor with back surgery consultation for evaluation 03/23/2023: Patient seen and evaluated at bedside, abdomen examined nontender no episodes of gastrointestinal bleed. Previously patient was on Coumadin patient to be started back on IV heparin low dose continue to monitor while patient is known to be on heparin we will discontinue aspirin continue to monitor H&H while patient is on heparin cardiology recommendations appreciated echocardiogram ordered continue with rate control medication 03/24/2023: Patient seen and evaluated bedside, during my evaluation patient is awake and alert patient come back from MRI does complain of back pain moving lower extremities, on IV heparin no blood in stool noted no hematemesis no hematuria. Continue to monitor appreciate input from cardiology 03/25/2023: Patient seen and evaluated bedside, patient is status post MRI completion does show severe degenerative disease in lumbar spine, orthopedic not planning intervention during this hospitalization hence we'll transition to Eliquis. First dose to be given on 03/25 p.m. IV heparin discontinued patient also started on robaxin and lidocaine patch 03/26/2023: Patient seen and evaluated bedside, patient had lumbar LIANNE, does state pain has improved. Patient still undecided about surgery. Patient has been tentatively scheduled for 03/28 for 24 for lumbar spine intervention. We will continue to hold Lantus coagulation anticipation of surgery REVIEW OF SYSTEMS: Back pain, lower extremity weakness, syncope resolved CONSTITUTIONAL: No fever, no malaise, no fatigue. HEENT: No recent visual problems or hearing problems. Denied any sore throat. CARDIOVASCULAR: No chest pain, orthopnea, PND, no palpitations, no syncope. PULMONARY: No shortness of breath, no cough, no hemoptysis. GASTROINTESTINAL: No abdominal pain. NEUROLOGICAL: No headaches, no weakness, no numbness. HEMATOLOGICAL: Denies any bleeding or petechiae. GENITOURINARY: Denies any burning micturition, frequency, or urgency. MUSCULOSKELETAL/RHEUMATOLOGICAL: Back pain, lower extremity weakness, syncope ENDOCRINE: Denies any polyuria or polydipsia. PHYSICAL EXAMINATION: GENERAL: The patient is alert and oriented x3, Well developed, well nourished. HEENT: Pupils are round and equally reacting to light. EOMI. CARDIOVASCULAR: Irregular rhythm, rate improved PULMONARY: Chest is clear to auscultation, no wheezing or crackles. ABDOMEN: Soft, nontender, nondistended, normoactive bowel sounds. No palpable organomegaly. MUSCULOSKELETAL: No joint swelling or deformity. EXTREMITIES: No cyanosis, clubbing, or pedal edema. NEUROLOGICAL: Gross neurological examination did not reveal any focal deficits. Range of motion limited lotion to sit due to back pain Objective - Vital Signs Vital signs: Vital Signs Temp 97.8 F 03/26/23 08:00 Pulse 82 03/26/23 12:10 Resp 16 03/26/23 08:00 BP 172/97 03/26/23 08:00 Pulse Ox 95 03/26/23 08:00 FiO2 Intake & Output 03/25/23 03/26/23 03/26/23 18:59 06:59 18:59 Intake Total 240.123 500 Output Total 350 1250 300 Balance -109.877 -1250 200 Intake: Intake, IV Titration 122.123 Amount Heparin Sod,Pork in 0.45% 122.123 NaCl 25,000 unit In 0.45 % NaCl 1 250ml.bag @ 8.48 UNITS/KG/HR 10.001 mls/ hr IV .Q24H [facility] Rx#: [id number] Oral 118 500 Output: Urine 350 1250 300 Other: Voiding Method Urinal Urinal # Voids 4 # Bowel Movements 1 1 - Labs CBC & Chem 7: 03/26/23 06:06 03/26/23 06:06 Labs: Abnormal Lab Results - Last 24 Hours (Table) 03/25/23 03/25/23 03/25/23 Range/Units 12:41 14:21 17:22 RBC 4.11 L (4.30-5.90) m/uL Hct 38.6 L (39.0-53.0) % Plt Count 106 L (150-450) k/uL Lymphocytes # 0.9 L (1.0-4.8) k/uL Carbon Dioxide (21.6-31.8) mmol/L BUN (9.0-27.0) mg/dL BUN/Creatinine Ratio (12.00-20.00) Ratio Glucose (70-110) mg/dL POC Glucose (mg/dL) 122 H 145 H (70-110) mg/dL 03/25/23 03/26/23 03/26/23 Range/Units 21:29 06:06 06:06 RBC 4.39 L (4.30-5.90) m/uL Hct (39.0-53.0) % Plt Count 127 L (150-450) k/uL Lymphocytes # (1.0-4.8) k/uL Carbon Dioxide 19.2 L (21.6-31.8) mmol/L BUN 31.0 H (9.0-27.0) mg/dL BUN/Creatinine Ratio 25.83 H (12.00-20.00) Ratio Glucose 226 H (70-110) mg/dL POC Glucose (mg/dL) 205 H (70-110) mg/dL 03/26/23 03/26/23 Range/Units 06:12 12:27 RBC (4.30-5.90) m/uL Hct (39.0-53.0) % Plt Count (150-450) k/uL Lymphocytes # (1.0-4.8) k/uL Carbon Dioxide (21.6-31.8) mmol/L BUN (9.0-27.0) mg/dL BUN/Creatinine Ratio (12.00-20.00) Ratio Glucose (70-110) mg/dL POC Glucose (mg/dL) 205 H 214 H (70-110) mg/dL Assessment and Plan Assessment: Assessment and plan * Acute on chronic back pain with lower extremity weakness with degenerative disease of lumbar spine, lumbar spine stenosis L2-L3 with this bulge, L3-L4 T12-L2 * Atrial fibrillation with rapid ventricular response * Status post lumbar LIANNE * Hypertension * Diabetes mellitus type 2 * Acute renal failure with mild metabolic acidosis * Thrombocytopenia * In regards to acute and chronic back pain and lower extremity weakness, back surgery consulted, CT lumbar spine reviewed degenerative changes noted spinal stenosis stenosis noted MRI lumbar spine completed., Continue with pain control * In regards to atrial fibrillation, cardiology consulted continue Coreg, a spirin discontinued secondary to thrombocytopenia, IV heparin discontinued , holding Eliquis since patient scheduled for surgery 03/28/23 * In regards to diabetes mellitus continue patient on Trulicity, continue correctional insulin, continue Levemir continue metformin monitor for hypoglycemia * Regards to hypertension continue patient on Coreg and lisinopril * Physical therapy occupational therapy consulted * CODE STATUS is full code Time with Patient: Greater than 30
[2023-03-26 17:35] LABS: Glucose,Whole Blood 182 mg/dL (70-110)
[2023-03-26] MEDS: HYDROmorphone 1 MG/ML 1 ML SYRINGE IVP PRN ×2 (18:59→22:12)
[2023-03-26] MEDS: MAGNESIUM HYDROXIDE 2,400 MG/30 ML CUP PO SCH (20:11)
[2023-03-26] MEDS: HYDROcodone/APAP 5-325MG 1 EACH TAB PO PRN (20:15)
[2023-03-26] MEDS: SENNOSIDES 8.6 MG TAB PO SCH (20:16)
[2023-03-26 21:00] LABS: Glucose,Whole Blood 243 mg/dL (70-110)
[2023-03-26] MEDS ORDERED: hydrALAZINE HCL 25 MG TAB PO STA (21:36)
[2023-03-27 06:14] LABS: Glucose,Whole Blood 202 mg/dL (70-110)
[2023-03-27] MEDS: SODIUM CHLORIDE 0.9% 1,000 ML IV SCH ×3 (06:20→19:48)
[2023-03-27] MEDS: INSULIN DETEMIR (LEVEMIR) 100 UNIT/ML SYR SQ SCH (06:21)
[2023-03-27] MEDS: INSULIN ASPART (NovoLOG) 100 UNIT/ML VIAL SQ SCH ×4 (06:21→21:02)
--- NOTE | 2023-03-27 08:14 | P.PN ---
Subjective Progress Note Date: 03/27/23 Principal diagnosis: Lumbar stenosis Increasing back pain Bilateral lower extremity weakness Patient seen and examined this morning. Patient is resting in bed. Patient continues to report significant aching and sharp low back pain that is exacerbated with any activity. Patient states that he spoke with his daughter yesterday and discussed the surgical intervention, he states that he is in agreement with this plan and is looking forward to his progress and recovery. Informed patient that he will be NPO at [facility]. Continue to encourage patient use of incentive spirometer. Objective - Vital Signs Vital signs: Vital Signs Temp 97.7 F 03/27/23 07:14 Pulse 83 03/27/23 07:14 Resp 21 03/27/23 07:14 BP 136/84 03/27/23 07:14 Pulse Ox 95 03/27/23 07:14 FiO2 Intake & Output 03/26/23 03/27/23 03/27/23 18:59 06:59 18:59 Intake Total 500 Output Total 1700 1050 Balance -1200 -1050 Intake: Oral 500 Output: Urine 1700 1050 Other: Voiding Method Urinal # Bowel Movements 3 - Exam Inspection: Negative for any open fractures, ecchymosis, significant erythema/ulcers. Sensation: Sensation is equal, symmetric, bilaterally intact throughout the upper and lower extremities Palpation: Nontender to palpation throughout bilateral upper and lower extremities and throughout spine exam Range of motion: Patient does have full range of motion bilateral upper and lower extremities on exam Motor: 5/5 in all major motor groups in the bilateral upper extremities 3+/5 strength of patient's bilateral lower extremities with hip flexion 4/5 strength appreciated in the bilateral lower extremities with knee extension and knee flexion 4/5 strength appreciated in the bilateral lower extremities with plantar flexion, FHL 4-/5 strength appreciated in the bilateral lower extremities with dorsiflexion and EHL Special tests: Negative Homans bilaterally. Negative Tiesha bilaterally. Negative clonus bilaterally. Neurovascular: Radial pulse intact, 2+ bilaterally. Cap refill under 3 seconds in digits upper extremities. - Labs CBC & Chem 7: 03/26/23 06:06 03/26/23 06:06 Labs: Abnormal Lab Results - Last 24 Hours (Table) 03/26/23 03/26/23 03/26/23 Range/Units 06:06 06:06 12:27 RBC 4.39 L (4.40-5.60) X 10*6/uL Plt Count 127 L (140-440) X 10*3/uL Carbon Dioxide 19.2 L (21.6-31.8) mmol/L BUN 31.0 H (9.0-27.0) mg/dL BUN/Creatinine Ratio 25.83 H (12.00-20.00) Ratio Glucose 226 H (70-110) mg/dL POC Glucose (mg/dL) 214 H (70-110) mg/dL 03/26/23 03/26/23 03/27/23 Range/Units 17:33 20:59 06:11 RBC (4.40-5.60) X 10*6/uL Plt Count (140-440) X 10*3/uL Carbon Dioxide (21.6-31.8) mmol/L BUN (9.0-27.0) mg/dL BUN/Creatinine Ratio (12.00-20.00) Ratio Glucose (70-110) mg/dL POC Glucose (mg/dL) 182 H 243 H 202 H (70-110) mg/dL Assessment and Plan Assessment: Low back pain Bilateral lower extremity weakness Neuropathy bilateral lower extremities Severe lumbar spondylosis Multilevel lumbar neural foraminal and central canal stenosis Other medical comorbidities Plan: Surgical intervention of L1-S1 decompressive laminectomy with possible fusion, this has been scheduled for 03/28/2023 pending medical and cardiac clearance. 1. NPO at [facility] 2. Appreciate medical management 3. Anticoagulation per cardiology, hold prior to procedure. 3. Continue with pain management, oral medication of [place], gabapentin, and methocarbomal 4. PT/OT - weightbearing as tolerated with a walker as needed. 7. Appreciate consult
[2023-03-27 08:55] LABS: HCT 38.6 % (39.6-50.0); MCH 30.7 pg (27.0-32.0); MCHC 33.7 g/dL (32.0-37.0); MCV 91.3 FL (80.0-97.0); Mean Platelet Volume 10.9 FL (9.5-12.2); NRBC Per 100 WBC 0 X 10*3/uL (0.00-0.01); Platelet Count 141 X 10*3/uL (140-440); RBC 4.23 X 10*6/uL (4.40-5.60); RDW 12.6 % (11.5-14.5)
[2023-03-27] MEDS: HYDROmorphone 1 MG/ML 1 ML SYRINGE IVP PRN ×4 (09:07→19:45)
[2023-03-27] MEDS: methocarbamoL 750 MG TAB PO SCH ×4 (09:07→21:02)
[2023-03-27] MEDS: carvediloL 6.25 MG TAB PO SCH ×2 (09:07→19:46)
[2023-03-27] MEDS: lisinopriL 20 MG TAB PO SCH (09:07)
[2023-03-27] MEDS: DAPAGLIFLOZIN PROPANEDIOL 5 MG TABLET PO SCH (09:08)
[2023-03-27] MEDS: metFORMIN 500 MG TAB PO SCH ×2 (09:08→19:47)
[2023-03-27] MEDS: DULoxetine HCL 30 MG CAPSULE.DR PO SCH (09:08)
[2023-03-27] MEDS: GABAPENTIN 400 MG CAP PO SCH ×3 (09:08→21:01)
[2023-03-27 09:44] LABS: BUN/Creat Ratio 30.64 Ratio (12.00-20.00); Blood Urea Nitrogen 33.7 mg/dL (9.0-27.0); Calcium 8.9 mg/dL (8.7-10.3); Carbon Dioxide 18.8 mmol/L (21.6-31.8); Chloride 104 mmol/L (96-109); Glucose 216 mg/dL (70-110); Potassium 4.5 mmol/L (3.5-5.5); Sodium 136 mmol/L (135-145)
[2023-03-27] MEDS: LIDOCAINE 4% PATCH TOPICAL SCH (09:52)
[2023-03-27] MEDS: ALBUTEROL NEBULIZED 2.5 MG/3 ML INHALATION PRN (11:46)
[2023-03-27 12:22] LABS: Glucose,Whole Blood 207 mg/dL (70-110)
--- NOTE | 2023-03-27 13:28 | P.PN ---
Subjective Progress Note Date: 03/27/23 * 67-year-old gentleman with past medical history significant for atrial fibrillation, diabetes mellitus, COPD, hypertension, degenerative disks/joint disease presents to the emergency department with complains of increasing back pain. Patient stated his back pain is getting worse to the point he is unable to move around freely and has multiple falls at home he had been complaining of lower extremity weakness and neuropathic pain bilaterally and feet as well. Upon admission patient denies history of bladder or bowel incontinence, denies fever or perianal numbness * Workup initiated in ER including CT lumbar spine which showed multilevel degenerative changes and stenosis, L3-L4 disc bulge and spinal canal stenosis noted, L5-S1 degenerative disc changes noted * Patient had a CT brain done which was negative for acute fracture or dislocation of cervical spine no intracranial hemorrhage was noted * EKG obtained in ER showed atrial fibrillation with heart rate of 122 and the time of admission * Serum chemistry obtained showed WBC 10.4 hemoglobin 15 platelet count of 135 INR of 1 * Serum chemistry shows sodium 137 potassium 4.2 BU and 36 at 1.39 * Patient tested negative for influenza RSV and Covid * While in ER patient was given 1 dose of oral Coreg IV fluid bolus and IV pain medications and admitted to medical floor with back surgery consultation for evaluation 03/23/2023: Patient seen and evaluated at bedside, abdomen examined nontender no episodes of gastrointestinal bleed. Previously patient was on Coumadin patient to be started back on IV heparin low dose continue to monitor while patient is known to be on heparin we will discontinue aspirin continue to monitor H&H while patient is on heparin cardiology recommendations appreciated echocardiogram ordered continue with rate control medication 03/24/2023: Patient seen and evaluated bedside, during my evaluation patient is awake and alert patient come back from MRI does complain of back pain moving lower extremities, on IV heparin no blood in stool noted no hematemesis no hematuria. Continue to monitor appreciate input from cardiology 03/25/2023: Patient seen and evaluated bedside, patient is status post MRI completion does show severe degenerative disease in lumbar spine, orthopedic not planning intervention during this hospitalization hence we'll transition to Eliquis. First dose to be given on 03/25 p.m. IV heparin discontinued patient also started on robaxin and lidocaine patch 03/26/2023: Patient seen and evaluated bedside, patient had lumbar LIANNE, does state pain has improved. Patient still undecided about surgery. Patient has been tentatively scheduled for 03/28 for 24 for lumbar spine intervention. We will continue to hold Lantus coagulation anticipation of surgery 03/27/2023: Patient seen and evaluated bedside, patient continued to complain of back pain, going for surgery tomorrow, patient was resting comfortably on my assessment, requesting more pain medications. Patient explained the risk of excessive use of pain medication. Seen by cardiology continue to hold anticoagulation in anticipation of surgery REVIEW OF SYSTEMS: Back pain intermittent improved, lower extremity weakness, syncope resolved CONSTITUTIONAL: No fever, no malaise, no fatigue. HEENT: No recent visual problems or hearing problems. Denied any sore throat. CARDIOVASCULAR: No chest pain, orthopnea, PND, no palpitations, no syncope. PULMONARY: No shortness of breath, no cough, no hemoptysis. GASTROINTESTINAL: No abdominal pain. NEUROLOGICAL: No headaches, no weakness, no numbness. HEMATOLOGICAL: Denies any bleeding or petechiae. GENITOURINARY: Denies any burning micturition, frequency, or urgency. MUSCULOSKELETAL/RHEUMATOLOGICAL: Back pain, lower extremity weakness, syncope ENDOCRINE: Denies any polyuria or polydipsia. PHYSICAL EXAMINATION: GENERAL: The patient is alert and oriented x3, Well developed, well nourished. HEENT: Pupils are round and equally reacting to light. EOMI. CARDIOVASCULAR: Irregular rhythm, rate improved PULMONARY: Chest is clear to auscultation, no wheezing or crackles. ABDOMEN: Soft, nontender, nondistended, normoactive bowel sounds. No palpable organomegaly. MUSCULOSKELETAL: No joint swelling or deformity. EXTREMITIES: No cyanosis, clubbing, or pedal edema. NEUROLOGICAL: Gross neurological examination did not reveal any focal deficits. Range of motion limited lotion to sit due to back pain Objective - Vital Signs Vital signs: Vital Signs Temp 97.7 F 03/27/23 07:14 Pulse 80 03/27/23 11:56 Resp 21 03/27/23 07:14 BP 136/84 03/27/23 07:14 Pulse Ox 95 03/27/23 07:14 FiO2 Intake & Output 03/26/23 03/27/23 03/27/23 18:59 06:59 18:59 Intake Total 500 118 Output Total 1700 1050 Balance -1200 -1050 118 Intake: Oral 500 118 Output: Urine 1700 1050 Other: Voiding Method Urinal # Bowel Movements 3 - Labs CBC & Chem 7: 03/27/23 04:53 03/27/23 04:53 Labs: Abnormal Lab Results - Last 24 Hours (Table) 03/26/23 03/26/23 03/27/23 Range/Units 17:33 20:59 04:53 RBC 4.23 L (4.40-5.60) X 10*6/uL Hct 38.6 L (39.6-50.0) % Carbon Dioxide (21.6-31.8) mmol/L Anion Gap (4.00-12.00) mmol/L BUN (9.0-27.0) mg/dL BUN/Creatinine Ratio (12.00-20.00) Ratio Glucose (70-110) mg/dL POC Glucose (mg/dL) 182 H 243 H (70-110) mg/dL 03/27/23 03/27/23 03/27/23 Range/Units 04:53 06:11 12:19 RBC (4.40-5.60) X 10*6/uL Hct (39.6-50.0) % Carbon Dioxide 18.8 L (21.6-31.8) mmol/L Anion Gap 13.20 H (4.00-12.00) mmol/L BUN 33.7 H (9.0-27.0) mg/dL BUN/Creatinine Ratio 30.64 H (12.00-20.00) Ratio Glucose 216 H (70-110) mg/dL POC Glucose (mg/dL) 202 H 207 H (70-110) mg/dL Assessment and Plan Assessment: Assessment and plan * Acute on chronic back pain with lower extremity weakness with degenerative disease of lumbar spine, lumbar spine stenosis L2-L3 with this bulge, L3-L4 T12-L2 * Atrial fibrillation with rapid ventricular response * Status post lumbar LIANNE * Hypertension * Diabetes mellitus type 2 * Acute renal failure with mild metabolic acidosis * Thrombocytopenia * In regards to acute and chronic back pain and lower extremity weakness, back surgery consulted, CT lumbar spine reviewed degenerative changes noted spinal stenosis stenosis noted MRI lumbar spine completed., Continue with pain control, patient scheduled for surgery 03/28/23 * In regards to atrial fibrillation, cardiology consulted continue Coreg, aspirin discontinued secondary to thrombocytopenia, IV heparin discontinued , holding Eliquis since patient scheduled for surgery 03/28/23 * In regards to diabetes mellitus continue patient on Trulicity, continue correctional insulin, continue Levemir continue metformin monitor for hypoglycemia * Regards to hypertension continue patient on Coreg and lisinopril * Physical therapy occupational therapy consulted, will need postoperative assessment patient will likely need to be discharged to rehab * CODE STATUS is full code
[2023-03-27 17:21] LABS: Glucose,Whole Blood 173 mg/dL (70-110)
[2023-03-27] MEDS: SENNOSIDES 8.6 MG TAB PO SCH (19:47)
[2023-03-27] MEDS: MAGNESIUM HYDROXIDE 2,400 MG/30 ML CUP PO SCH (19:47)
[2023-03-27 20:15] LABS: Glucose,Whole Blood 195 mg/dL (70-110)
[2023-03-28] MEDS: HYDROmorphone 1 MG/ML 1 ML SYRINGE IVP PRN ×4 (01:38→22:51)
[2023-03-28 06:07] LABS: Glucose,Whole Blood 214 mg/dL (70-110)
[2023-03-28] MEDS: INSULIN ASPART (NovoLOG) 100 UNIT/ML VIAL SQ SCH ×5 (06:14→23:27)
[2023-03-28] MEDS: methocarbamoL 750 MG TAB PO SCH ×4 (08:21→23:26)
[2023-03-28] MEDS: DAPAGLIFLOZIN PROPANEDIOL 5 MG TABLET PO SCH (08:22)
[2023-03-28] MEDS: GABAPENTIN 400 MG CAP PO SCH ×3 (08:22→23:26)
[2023-03-28] MEDS: DULoxetine HCL 30 MG CAPSULE.DR PO SCH (08:22)
[2023-03-28] MEDS: lisinopriL 20 MG TAB PO SCH (08:22)
[2023-03-28] MEDS: INSULIN DETEMIR (LEVEMIR) 100 UNIT/ML SYR SQ SCH (08:23)
[2023-03-28] MEDS: metFORMIN 500 MG TAB PO SCH ×2 (08:24→23:26)
[2023-03-28] MEDS: carvediloL 6.25 MG TAB PO SCH (08:27)
[2023-03-28] MEDS: LIDOCAINE 4% PATCH TOPICAL SCH (08:27)
[2023-03-28] MEDS: SODIUM CHLORIDE 0.9% 1,000 ML IV SCH ×3 (08:27→17:41)
[2023-03-28 09:10] LABS: HCT 38.5 % (39.6-50.0); HGB 13.2 g/dL (13.0-17.0); MCH 31.3 pg (27.0-32.0); MCHC 34.3 g/dL (32.0-37.0); MCV 91.2 FL (80.0-97.0); Mean Platelet Volume 10.9 FL (9.5-12.2); NRBC Per 100 WBC 0 X 10*3/uL (0.00-0.01); Platelet Count 157 X 10*3/uL (140-440); RBC 4.22 X 10*6/uL (4.40-5.60); RDW 12.7 % (11.5-14.5); WBC 7.67 X 10*3/uL (4.50-10.00)
[2023-03-28 10:20] LABS: Blood Urea Nitrogen 33.8 mg/dL (9.0-27.0); Calcium 9.2 mg/dL (8.7-10.3); Carbon Dioxide 21.5 mmol/L (21.6-31.8); Chloride 106 mmol/L (96-109); Glucose 208 mg/dL (70-110); Potassium 4.4 mmol/L (3.5-5.5); Sodium 137 mmol/L (135-145)
[2023-03-28 12:26] LABS: Glucose,Whole Blood 142 mg/dL (70-110)
--- NOTE | 2023-03-28 12:33 | P.PN ---
Subjective Progress Note Date: 03/28/23 * 67-year-old gentleman with past medical history significant for atrial fibrillation, diabetes mellitus, COPD, hypertension, degenerative disks/joint disease presents to the emergency department with complains of increasing back pain. Patient stated his back pain is getting worse to the point he is unable to move around freely and has multiple falls at home he had been complaining of lower extremity weakness and neuropathic pain bilaterally and feet as well. Upon admission patient denies history of bladder or bowel incontinence, denies fever or perianal numbness * Workup initiated in ER including CT lumbar spine which showed multilevel degenerative changes and stenosis, L3-L4 disc bulge and spinal canal stenosis noted, L5-S1 degenerative disc changes noted * Patient had a CT brain done which was negative for acute fracture or dislocation of cervical spine no intracranial hemorrhage was noted * EKG obtained in ER showed atrial fibrillation with heart rate of 122 and the time of admission * Serum chemistry obtained showed WBC 10.4 hemoglobin 15 platelet count of 135 INR of 1 * Serum chemistry shows sodium 137 potassium 4.2 BU and 36 at 1.39 * Patient tested negative for influenza RSV and Covid * While in ER patient was given 1 dose of oral Coreg IV fluid bolus and IV pain medications and admitted to medical floor with back surgery consultation for evaluation 03/23/2023: Patient seen and evaluated at bedside, abdomen examined nontender no episodes of gastrointestinal bleed. Previously patient was on Coumadin patient to be started back on IV heparin low dose continue to monitor while patient is known to be on heparin we will discontinue aspirin continue to monitor H&H while patient is on heparin cardiology recommendations appreciated echocardiogram ordered continue with rate control medication 03/24/2023: Patient seen and evaluated bedside, during my evaluation patient is awake and alert patient come back from MRI does complain of back pain moving lower extremities, on IV heparin no blood in stool noted no hematemesis no hematuria. Continue to monitor appreciate input from cardiology 03/25/2023: Patient seen and evaluated bedside, patient is status post MRI completion does show severe degenerative disease in lumbar spine, orthopedic not planning intervention during this hospitalization hence we'll transition to Eliquis. First dose to be given on 03/25 p.m. IV heparin discontinued patient also started on robaxin and lidocaine patch 03/26/2023: Patient seen and evaluated bedside, patient had lumbar LIANNE, does state pain has improved. Patient still undecided about surgery. Patient has been tentatively scheduled for 03/28 for 24 for lumbar spine intervention. We will continue to hold Lantus coagulation anticipation of surgery 03/27/2023: Patient seen and evaluated bedside, patient continued to complain of back pain, going for surgery tomorrow, patient was resting comfortably on my assessment, requesting more pain medications. Patient explained the risk of excessive use of pain medication. Seen by cardiology continue to hold anticoagulation in anticipation of surgery 03/28/2023: Patient seen and evaluated bedside, patient alert and oriented 3, patient moving forward to surgery does complain of off lower extremity weakness prior to surgery as well as back pain. Patient was explained he will need to go to rehab after surgery REVIEW OF SYSTEMS: Back pain intermittent improved, lower extremity weakness, syncope resolved CONSTITUTIONAL: No fever, no malaise, no fatigue. HEENT: No recent visual problems or hearing problems. Denied any sore throat. CARDIOVASCULAR: No chest pain, orthopnea, PND, no palpitations, no syncope. PULMONARY: No shortness of breath, no cough, no hemoptysis. GASTROINTESTINAL: No abdominal pain. NEUROLOGICAL: No headaches, no weakness, no numbness. HEMATOLOGICAL: Denies any bleeding or petechiae. GENITOURINARY: Denies any burning micturition, frequency, or urgency. MUSCULOSKELETAL/RHEUMATOLOGICAL: Back pain, lower extremity weakness, syncope ENDOCRINE: Denies any polyuria or polydipsia. PHYSICAL EXAMINATION: GENERAL: The patient is alert and oriented x3, Well developed, well nourished. HEENT: Pupils are round and equally reacting to light. EOMI. CARDIOVASCULAR: Irregular rhythm, rate improved PULMONARY: Chest is clear to auscultation, no wheezing or crackles. ABDOMEN: Soft, nontender, nondistended, normoactive bowel sounds. No palpable organomegaly. MUSCULOSKELETAL: No joint swelling or deformity. EXTREMITIES: No cyanosis, clubbing, or pedal edema. NEUROLOGICAL: Motor strength is about 3/4 x 5 bilateral lower extremity, Range of motion limited due to back pain Objective - Vital Signs Vital signs: Vital Signs Temp 97.5 F L 03/28/23 07:10 Pulse 81 03/28/23 07:10 Resp 18 03/28/23 08:27 BP 165/92 03/28/23 07:10 Pulse Ox 96 03/28/23 07:10 FiO2 Intake & Output 03/27/23 03/28/23 03/28/23 18:59 06:59 18:59 Intake Total 752 Output Total 1650 1200 Balance 752 -1650 -1200 Intake: Oral 752 Output: Urine 1650 1200 Other: Voiding Method Urinal Urinal # Voids 5 - Labs CBC & Chem 7: 03/28/23 05:45 03/28/23 05:45 Labs: Abnormal Lab Results - Last 24 Hours (Table) 03/27/23 03/27/23 03/28/23 Range/Units 17:20 20:13 05:45 RBC 4.22 L (4.40-5.60) X 10*6/uL Hct 38.5 L (39.6-50.0) % Carbon Dioxide (21.6-31.8) mmol/L BUN (9.0-27.0) mg/dL BUN/Creatinine Ratio (12.00-20.00) Ratio Glucose (70-110) mg/dL POC Glucose (mg/dL) 173 H 195 H (70-110) mg/dL 03/28/23 03/28/23 03/28/23 Range/Units 05:45 06:05 12:14 RBC (4.40-5.60) X 10*6/uL Hct (39.6-50.0) % Carbon Dioxide 21.5 L (21.6-31.8) mmol/L BUN 33.8 H (9.0-27.0) mg/dL BUN/Creatinine Ratio 26.00 H (12.00-20.00) Ratio Glucose 208 H (70-110) mg/dL POC Glucose (mg/dL) 214 H 142 H (70-110) mg/dL Assessment and Plan Assessment: Assessment and plan * Acute on chronic back pain with lower extremity weakness with degenerative disease of lumbar spine, lumbar spine stenosis L2-L3 with this bulge, L3-L4 T12-L2 * Atrial fibrillation with rapid ventricular response * Status post lumbar LIANNE * Hypertension * Diabetes mellitus type 2 * Acute renal failure with mild metabolic acidosis * Thrombocytopenia * In regards to acute and chronic back pain and lower extremity weakness, back surgery consulted, CT lumbar spine reviewed degenerative changes noted spinal stenosis stenosis noted MRI lumbar spine completed., Continue with pain control, patient scheduled for surgery 03/28/23 * In regards to atrial fibrillation, cardiology consulted continue Coreg, aspirin discontinued secondary to thrombocytopenia, IV heparin discontinued , holding Eliquis since patient scheduled for surgery 03/28/23 * In regards to diabetes mellitus continue patient on Trulicity, continue correctional insulin, continue Levemir continue metformin monitor for hypoglycemia * Regards to hypertension continue patient on Coreg and lisinopril * Physical therapy occupational therapy consulted, will need postoperative assessment patient will likely need to be discharged to rehab * CODE STATUS is full code
[2023-03-28] MEDS: ONDANSETRON 4 MG/2 ML VIAL IVP PRN (14:54)
[2023-03-28] MEDS ORDERED: MIDAZOLAM 2 MG/2 ML VIAL IVP ONE (15:30)
[2023-03-28] MEDS ORDERED: TRANEXAMIC 1,000 MG/100ML-NACL PREMIX BAG ONE (17:38)
[2023-03-28] MEDS ORDERED: fentaNYL (PF) 50 MCG/ML 2 ML AMP ONE (17:38)
[2023-03-28] MEDS ORDERED: ROCURONIUM 10 MG/ML (5 ML VIAL) IV ONE (17:38)
[2023-03-28] MEDS ORDERED: PHENYLEPHRINE-0.9% NACL SYG 1,000 MCG/10 ML SYRINGE ONE (17:38)
[2023-03-28] MEDS ORDERED: MIDAZOLAM 2 MG/2 ML VIAL ONE (17:38)
[2023-03-28] MEDS ORDERED: KETAMINE HCL IN 0.9 % NACL 50 MG/5 ML SYRINGE ONE (17:38)
[2023-03-28] MEDS ORDERED: HYDROmorphone (PF) 1 MG/ML ONE (17:38)
[2023-03-28] MEDS ORDERED: PROPOFOL 10 MG/ML 20 ML VIAL IV ONE (17:38)
[2023-03-28] MEDS ORDERED: SUCCINYLCHOLINE CHLORIDE 200 MG/10 ML VIAL IV ONE (17:38)
[2023-03-28] MEDS ORDERED: LACTATED RINGERS 1,000 ML IV ONE ×2 (17:41→20:30)
[2023-03-28] MEDS ORDERED: SENNOSIDES-DOCUSATE SODIUM 1 EACH TAB PO PRN (17:56)
[2023-03-28] MEDS ORDERED: CYCLOBENZAPRINE 5 MG TAB PO PRN (17:56)
[2023-03-28] MEDS ORDERED: GELATIN SPONGE,ABSORB (SMALL) 1 EACH SPONGE TOPICAL ONE (18:29)
[2023-03-28] MEDS ORDERED: THROMBIN (BOVINE) 5,000 UNIT VIAL TOPICAL ONE ×2 (18:30)
[2023-03-28] MEDS ORDERED: TRANEXAMIC 1,000 MG/100ML-NACL 1,000 MG in SALINE 1 100ML.BAG IVPB PRN (18:42)
[2023-03-28] MEDS ORDERED: VANCOMYCIN 1,000 MG VIAL MISCELLANE ONE (21:05)
--- NOTE | 2023-03-28 21:22 | XR ---
EXAMINATION TYPE: XR lumbar spine 2 or 3V DATE OF EXAM: 03/28/2023 CLINICAL HISTORY: pain TECHNIQUE: Multiple fluoroscopic images are submitted. COMPARISON: None. L1-S1 decompression laminectomy. FL time 45.6 seconds. 7 images sent, 3 images scanned into PACS. Dr Zimmerman.
[2023-03-28 21:38] LABS: Glucose,Whole Blood 175 mg/dL (70-110)
[2023-03-28] MEDS: HYDROmorphone 0.5 MG/0.5 ML SYRINGE IVP PRN (22:05)
[2023-03-28 22:39] LABS: Glucose,Whole Blood 204 mg/dL (70-110)
--- NOTE | 2023-03-28 23:01 | XR ---
EXAMINATION TYPE: XR chest 1V portable DATE OF EXAM: 03/28/2023 CLINICAL HISTORY: Central line placement. TECHNIQUE: Single AP portable semiupright view of the chest is obtained. COMPARISON: None FINDINGS: There is right internal jugular central venous catheter terminating in the proximal SVC. N o pneumothorax seen after central line insertion. There is left basilar increased opacity and small t o tiny left pleural effusion. Right lung is clear. Cardiac silhouette size is upper limits of normal with atherosclerotic thoracic aorta. Degenerative change bilateral glenohumeral joints is seen. IMPRESSION: There is right internal jugular central venous catheter terminating in proximal SVC. No p neumothorax is seen. There is small to tiny left pleural effusion with left basilar atelectasis and/o r developing acute infiltrate noted.
[2023-03-28] MEDS: SENNOSIDES 8.6 MG TAB PO SCH (23:26)
[2023-03-28] MEDS: MAGNESIUM HYDROXIDE 2,400 MG/30 ML CUP PO SCH (23:26)
[2023-03-29] MEDS: HYDROcodone/APAP 10-325MG 1 EACH TAB PO PRN ×3 (01:29→16:30)
[2023-03-29] MEDS: carvediloL 6.25 MG TAB PO SCH ×3 (01:29→19:52)
[2023-03-29] MEDS: ONDANSETRON 4 MG/2 ML VIAL IVP PRN (02:01)
[2023-03-29] MEDS: SODIUM CHLORIDE 0.9% 1,000 ML IV SCH ×3 (03:40→20:58)
[2023-03-29] MEDS: HYDROmorphone 1 MG/ML 1 ML SYRINGE IVP PRN ×6 (05:08→23:31)
[2023-03-29 05:43] LABS: Basophils % (A) 0 %; Eosinophils # (A) 0.1 k/uL (0-0.7); Eosinophils % (A) 1 %; HCT 39.5 % (39.0-53.0); Lymphocytes # (A) 0.8 k/uL (1.0-4.8); Lymphocytes % (A) 7 %; MCH 31.5 pg (25.0-35.0); MCHC 32.9 g/dL (31.0-37.0); MCV 95.8 fL (80.0-100.0); Monocytes # (A) 0.9 k/uL (0-1.0); Monocytes % (A) 7 %; Neutrophils # (A) 10.2 k/uL (1.3-7.7); Neutrophils % (A) 84 %; RBC 4.12 m/uL (4.30-5.90); RDW 13.3 % (11.5-15.5); WBC 12.1 k/uL (3.8-10.6)
[2023-03-29 05:46] LABS: Platelet Count 186 k/uL (150-450)
[2023-03-29 06:35] LABS: African American GFR (CKD) >90 (>60 ml/min/1.73 sqM); Anion Gap 5 mmol/L; Blood Urea Nitrogen 29 mg/dL (9-20); Calcium 8.6 mg/dL (8.4-10.2); Carbon Dioxide 20 mmol/L (22-30); Chloride 109 mmol/L (98-107); Glucose 173 mg/dL (74-99); Non-African American GFR(CKD) 81 (>60 ml/min/1.73 sqM); Potassium 4.5 mmol/L (3.5-5.1); Sodium 134 mmol/L (137-145)
[2023-03-29 07:13] LABS: Glucose,Whole Blood 195 mg/dL (70-110)
[2023-03-29] MEDS: INSULIN ASPART (NovoLOG) 100 UNIT/ML VIAL SQ SCH ×4 (07:16→20:00)
[2023-03-29] MEDS: lisinopriL 20 MG TAB PO SCH (08:01)
[2023-03-29] MEDS: GABAPENTIN 400 MG CAP PO SCH ×3 (08:01→19:52)
[2023-03-29] MEDS: metFORMIN 500 MG TAB PO SCH ×2 (08:01→19:52)
[2023-03-29] MEDS: methocarbamoL 750 MG TAB PO SCH ×4 (08:41→20:58)
[2023-03-29] MEDS: DAPAGLIFLOZIN PROPANEDIOL 5 MG TABLET PO SCH (08:41)
[2023-03-29] MEDS: DULoxetine HCL 30 MG CAPSULE.DR PO SCH (08:41)
[2023-03-29] MEDS: INSULIN DETEMIR (LEVEMIR) 100 UNIT/ML SYR SQ SCH (08:49)
--- NOTE | 2023-03-29 09:40 | CT ---
EXAMINATION TYPE: CT lumbar spine wo con DATE OF EXAM: 03/29/2023 9:14 AM COMPARISON: Preoperative CT lumbar spine dated 03/21/2023 HISTORY: post surgical lumbar fusion CT DLP: 2304.6 mGycm Automated exposure control for dose reduction was used. Unenhanced CT of the lumbar spine was performed. Bone and soft tissue window settings are submitted as well as coronal and sagittal reconstructions. Findings: There are recent postsurgical changes of posterior metallic lumbar fusion and laminectomy from L2 thr ough S1. There is intradisc fusion of L5-S1 as well. There is mild disc space narrowing at the L3-4 a nd L4-5 levels. There are multiple soft tissue elizabeth in the midline lumbar region with small droplets of subcutaneo us air indicating recent surgery. There are multiple small droplets of air in the epidural space at the L3-4, L4-5 and L5-S1 level. The integrity of the thecal sac throughout the surgical region from L to 3 through L5-S1 is difficult to evaluate due to metallic artifact. The possibility of abnormal epidural fluid collection/hematoma , inflammation or disc bulge constricting the thecal sac through the surgical region cannot be exclu ded with this technique. The sacrum and SI joints are normal. IMPRESSION: 1. Extensive recent postsurgical changes of laminectomy and lumbar fusion from L2 through S1. 2. Limited evaluation of the thecal sac throughout the surgical region as described above.
--- NOTE | 2023-03-29 09:50 | P.PN ---
Progress Note - Text Progress Note Date: 03/29/23 Diagnosis: Low back pain Bilateral lower extremity weakness Neuropathy bilateral lower extremities Severe lumbar spondylosis Multilevel lumbar neural foraminal and central canal stenosis Other medical comorbidities Subjective: Patient was seen at bedside this morning in ICU lying semirecumbent position drain and dressing in place on low back. Patient says he is in a lot of pain currently as he just got back from CT. Lopez is in place. Patient denies any chest pain, fever, shortness breath, nausea, vomiting, change in vision, loss of bowel/bladder control. Objective: Incision appears to be clean, dry, intact. Dressing is in place elizabeth well aligned and intact. Drain is in place with moderate serosanguineous output. Sensation is equal, symmetric, bilaterally intact at the upper and lower extremities on exam. There is moderate tenderness to palpation diffusely throughout the lumbar spine and midline and paravertebral region. Nontender to palpation throughout rest exam. Patient has limited range of motion the bilateral lower extremities on exam secondary to referred pain in the low back. Patient has good range of motion throughout bilateral upper extremities on exam. 4-/5 in bilateral lower extremities. 4+/5 in all major motor groups in bilateral upper extremities. Radial pulses intact, 2+ bilaterally. Cap refill under 3 seconds in digits of upper extremities. Negative Homans bilaterally . Negative Clonus bilaterally. Negative Tiesha bilaterally. Assessment: Low back pain Bilateral lower extremity weakness Neuropathy bilateral lower extremities Severe lumbar spondylosis Multilevel lumbar neural foraminal and central canal stenosis Other medical comorbidities - Postop day 1 status post [id number] decompression and fusion Plan: 1. Low back pain; bilateral lower extremity weakness; neuropathy bilateral lower extremities; severe lumbar spondylosis; lumbar neural foraminal and central canal stenosis - surgery performed yesterday, Friday, 03/28/[id number] decompression fusion. Patient stable at bedside this morning in ICU. Just says she was computed tomography scan. Pain medication as needed. Plan to work with therapy this weekend. We'll continue to follow patient during stay in hospital. 2. Appreciate medical management 3. Pain management - [facility]; gabapentin; Flexeril; Dilaudid 4. DVT prophylaxis - mechanical 5. GI prophylaxis - senna 6. PT/OT - weightbearing as tolerated with walker and assistance as needed 7. Encourage incentive spirometer use
[2023-03-29 11:35] LABS: Glucose,Whole Blood 201 mg/dL (70-110)
[2023-03-29] MEDS: HYDROcodone/APAP 5-325MG 1 EACH TAB PO PRN (11:47)
[2023-03-29] MEDS: HYDROmorphone 0.5 MG/0.5 ML SYRINGE IVP PRN (11:47)
[2023-03-29] MEDS: LIDOCAINE 4% PATCH TOPICAL SCH (16:31)
[2023-03-29 16:40] LABS: Glucose,Whole Blood 179 mg/dL (70-110)
--- NOTE | 2023-03-29 19:02 | P.PN ---
Progress Note - Text Progress Note Date: 03/29/23 * 67-year-old gentleman with past medical history significant for atrial fibrillation, diabetes mellitus, COPD, hypertension, degenerative disks/joint disease presents to the emergency department with complains of increasing back pain. Patient stated his back pain is getting worse to the point he is unable to move around freely and has multiple falls at home he had been complaining of lower extremity weakness and neuropathic pain bilaterally and feet as well. Upon admission patient denies history of bladder or bowel incontinence, denies fever or perianal numbness * Workup initiated in ER including CT lumbar spine which showed multilevel degenerative changes and stenosis, L3-L4 disc bulge and spinal canal stenosis noted, L5-S1 degenerative disc changes noted * Patient had a CT brain done which was negative for acute fracture or dislocation of cervical spine no intracranial hemorrhage was noted * EKG obtained in ER showed atrial fibrillation with heart rate of 122 and the time of admission * Serum chemistry obtained showed WBC 10.4 hemoglobin 15 platelet count of 135 INR of 1 * Serum chemistry shows sodium 137 potassium 4.2 BU and 36 at 1.39 * Patient tested negative for influenza RSV and Covid * While in ER patient was given 1 dose of oral Coreg IV fluid bolus and IV pain medications and admitted to medical floor with back surgery consultation for evaluation 03/23/2023: Patient seen and evaluated at bedside, abdomen examined nontender no episodes of gastrointestinal bleed. Previously patient was on Coumadin patient to be started back on IV heparin low dose continue to monitor while patient is known to be on heparin we will discontinue aspirin continue to monitor H&H while patient is on heparin cardiology recommendations appreciated echocardiogram ordered continue with rate control medication 03/24/2023: Patient seen and evaluated bedside, during my evaluation patient is awake and alert patient come back from MRI does complain of back pain moving lower extremities, on IV heparin no blood in stool noted no hematemesis no hematuria. Continue to monitor appreciate input from cardiology 03/25/2023: Patient seen and evaluated bedside, patient is status post MRI completion does show severe degenerative disease in lumbar spine, orthopedic not planning intervention during this hospitalization hence we'll transition to Eliquis. First dose to be given on 03/25 p.m. IV heparin discontinued patient also started on robaxin and lidocaine patch 03/26/2023: Patient seen and evaluated bedside, patient had lumbar LIANNE, does state pain has improved. Patient still undecided about surgery. Patient has been tentatively scheduled for 03/28 for lumbar spine intervention. We will continue to hold Lantus coagulation anticipation of surgery 03/27/2023: Patient seen and evaluated bedside, patient continued to complain of back pain, going for surgery tomorrow, patient was resting comfortably on my assessment, requesting more pain medications. Patient explained the risk of excessive use of pain medication. Seen by cardiology continue to hold anticoagulation in anticipation of surgery 03/28/2023: Patient seen and evaluated bedside, patient alert and oriented 3, patient moving forward to surgery does complain of off lower extremity weakness prior to surgery as well as back pain. Patient was explained he will need to go to rehab after surgery 03/29/2023: ICU. Underwent surgery yesterday. Hemovac in place. 220 mL output in last 8 hours. Atrial fibrillation rate without 100. On IV Ancef. Significant lower back pain. Tolerating diet. She feels a bit heavy in the legs. Active Medications Acetaminophen (Acetaminophen Tab 325 Mg Tab) 650 mg PO Q6HR PRN PRN Reason: Mild Pain or Fever > 100.5 Hydrocodone Bitart/Acetaminophen (Hydrocodone/Apap 5-325mg 1 Each Tab) 1 each PO Q4HR PRN PRN Reason: Moderate Pain (Scale 4 to 6) Last Admin: 03/29/23 11:47 Dose: 1 each Hydrocodone Bitart/Acetaminophen (Hydrocodone/Apap 10-325mg 1 Each Tab) 1 each PO Q6H PRN PRN Reason: Pain Scale 7 - 10 Last Admin: 03/29/23 16:30 Dose: 1 each Albuterol Sulfate (Albuterol Nebulized 2.5 Mg/3 Ml) 2.5 mg INHALATION RT-QID PRN PRN Reason: Shortness Of Breath Last Admin: 03/27/23 11:46 Dose: 2.5 mg Carvedilol (Carvedilol 6.25 Mg Tab) 6.25 mg PO BID [facility] Last Admin: 03/29/23 08:01 Dose: 6.25 mg Cyclobenzaprine HCl (Cyclobenzaprine 5 Mg Tab) 5 mg PO TID PRN PRN Reason: Muscle Spasm Dapagliflozin (Dapagliflozin Propanediol 5 Mg Tablet) 5 mg PO DAILY [facility] Last Admin: 03/29/23 08:41 Dose: 5 mg Dextrose/Water (Dextrose 50% Syringe 50 Ml) 25 ml IVP PER PROTOCOL PRN; Protocol PRN Reason: Hypoglycemia Dextrose/Water (Dextrose 50% Syringe 50 Ml) 50 ml IVP PER PROTOCOL PRN; Protocol PRN Reason: Hypoglycemia Duloxetine HCl (Duloxetine Hcl 30 Mg Capsule.Dr) 30 mg PO DAILY [facility] Last Admin: 03/29/23 08:41 Dose: 30 mg Gabapentin (Gabapentin 400 Mg Cap) 800 mg PO TID [facility] Last Admin: 03/29/23 16:39 Dose: 800 mg Hydromorphone HCl (Hydromorphone 1 Mg/Ml 1 Ml Syringe) 1 mg IVP Q3HR PRN PRN Reason: Severe Pain (Scale 7 to 10) Last Admin: 03/29/23 17:14 Dose: 1 mg Hydromorphone HCl (Hydromorphone 0.5 Mg/0.5 Ml Syringe) 0.5 mg IVP Q3HR PRN PRN Reason: Moderate Pain (Scale 4 to 6) Last Admin: 03/29/23 11:47 Dose: 0.5 mg Sodium Chloride (Saline 0.9%) 1,000 mls @ 100 mls/hr IV .Q10H [facility] Last Admin: 03/29/23 16:32 Dose: 100 mls/hr Insulin Aspart (Insulin Aspart (Novolog) 100 Unit/Ml Vial) 0 unit SQ ACHS [facility]; Protocol Last Admin: 03/29/23 16:44 Dose: 1 unit Insulin Detemir (Insulin Detemir (Levemir) 100 Unit/Ml Syr) 10 unit SQ DAILY@0700 [facility] Last Admin: 03/29/23 08:49 Dose: 10 unit Lidocaine (Lidocaine 4% Patch) 1 patch TOPICAL DAILY [facility]; Protocol Last Admin: 03/29/23 16:31 Dose: Not Given Lisinopril (Lisinopril 20 Mg Tab) 20 mg PO DAILY [facility] Last Admin: 03/29/23 08:01 Dose: 20 mg Magnesium Hydroxide (Magnesium Hydroxide 2,400 Mg/30 Ml Cup) 2,400 mg PO HS [facility] Last Admin: 03/28/23 23:26 Dose: Not Given Metformin HCl (Metformin 500 Mg Tab) 1,000 mg PO BID [facility] Last Admin: 03/29/23 08:01 Dose: 1,000 mg Methocarbamol (Methocarbamol 750 Mg Tab) 750 mg PO QID [facility] Last Admin: 03/29/23 17:01 Dose: Not Given Naloxone HCl (Naloxone 0.4 Mg/Ml 1 Ml Vial) 0.2 mg IV Q2M PRN PRN Reason: Opioid Reversal Non-Formulary Medication (Dulaglutide [Trulicity]) 0.75 mg SQ TU [facility] Last Admin: 03/25/23 09:52 Dose: Not Given Ondansetron HCl (Ondansetron 4 Mg/2 Ml Vial) 4 mg IVP Q8HR PRN PRN Reason: Nausea And Vomiting Last Admin: 03/29/23 02:01 Dose: 4 mg Senna (Sennosides 8.6 Mg Tab) 8.6 mg PO HS [facility] Last Admin: 03/28/23 23:26 Dose: Not Given Senna/Docusate Sodium (Sennosides-Docusate Sodium 1 Each Tab) 2 each PO DAILY PRN PRN Reason: Constipation On examination: VITAL SIGNS: [98.4, 94, 20, 1 3881, 90% on room air] GENERAL APPEARANCE: BMI 35, declining but awake slightly uncomfortable HEENT: Normal external appearance of nose and ear. Oral cavity normal EYES: Pupils equal. Conjunctiva normal. NECK: JVD not raised. Mass not palpable. RESPIRATORY: Respiratory effort normal. Lungs decreased breath sounds CARDIOVASCULAR: Sounds irregular No edema. ABDOMEN: Soft. Liver and spleen not palpable. No tenderness. No mass palpable. PSYCHIATRY: Alert and oriented x3. Mood and affect anxious MUSCULAR skeletal: Hemovac in place. Dressing in place. INVESTIGATIONS, reviewed in the clinical context: 03/29/2023: White count 12.1 hemoglobin 13 potassium 4.5 BUN 29 creatinine 0.98 Assessment and plan * Acute on chronic back pain with lower extremity weakness with degenerative disease of lumbar spine, lumbar spine stenosis L2-L3 with this bulge, L3-L4 T12-L2 * Persistent Atrial fibrillation currently rate controlled. Hold anticoagulation because of postop. Coreg * Status post lumbar LIANNE * Essential Hypertension: Coreg. Zestril. * Diabetes mellitus type 2 on oral hypoglycemic. Levemir. Follow Accu-Cheks and sliding scale. Glucophage. Trulicity. * Acute renal failure with mild metabolic acidosis: Corrected * Thrombocytopenia: Resolved -COPD in a current smoker: DuoNeb 3 times a day -Obesity BMI 35.0: Weight loss measures
[2023-03-29] MEDS: SENNOSIDES 8.6 MG TAB PO SCH (19:52)
[2023-03-29 20:01] LABS: Glucose,Whole Blood 217 mg/dL (70-110)
[2023-03-29] MEDS: IPRATROPIUM-ALBUTEROL 3 ML NEB INHALATION SCH (20:30)
[2023-03-29] MEDS: MAGNESIUM HYDROXIDE 2,400 MG/30 ML CUP PO SCH (21:23)
[2023-03-30 05:36] LABS: Glucose,Whole Blood 259 mg/dL (70-110)
[2023-03-30] MEDS: INSULIN ASPART (NovoLOG) 100 UNIT/ML VIAL SQ SCH ×4 (06:41→20:38)
[2023-03-30] MEDS: ONDANSETRON 4 MG/2 ML VIAL IVP PRN (06:42)
[2023-03-30] MEDS: HYDROmorphone 1 MG/ML 1 ML SYRINGE IVP PRN ×4 (06:42→20:39)
[2023-03-30 06:56] LABS: Basophils % (A) 0 %; Eosinophils # (A) 0.1 k/uL (0-0.7); Eosinophils % (A) 1 %; HCT 38.6 % (39.0-53.0); HGB 12.7 gm/dL (13.0-17.5); Lymphocytes # (A) 1.1 k/uL (1.0-4.8); Lymphocytes % (A) 10 %; MCH 31.7 pg (25.0-35.0); MCV 95.9 fL (80.0-100.0); Mean Platelet Volume 8.5; Monocytes # (A) 0.7 k/uL (0-1.0); Monocytes % (A) 7 %; Neutrophils # (A) 9.1 k/uL (1.3-7.7); Neutrophils % (A) 82 %; Platelet Count 154 k/uL (150-450); RBC 4.03 m/uL (4.30-5.90); RDW 13.1 % (11.5-15.5); WBC 11.1 k/uL (3.8-10.6)
[2023-03-30] MEDS: INSULIN DETEMIR (LEVEMIR) 100 UNIT/ML SYR SQ SCH (06:56)
[2023-03-30 07:10] LABS: African American GFR (CKD) 69 (>60 ml/min/1.73 sqM); Anion Gap 4 mmol/L; Blood Urea Nitrogen 32 mg/dL (9-20); Calcium 8.7 mg/dL (8.4-10.2); Carbon Dioxide 24 mmol/L (22-30); Chloride 109 mmol/L (98-107); Glucose 228 mg/dL (74-99); Magnesium 1.6 mg/dL (1.6-2.3); Non-African American GFR(CKD) 59 (>60 ml/min/1.73 sqM); Potassium 4.6 mmol/L (3.5-5.1); Sodium 137 mmol/L (137-145)
[2023-03-30] MEDS: IPRATROPIUM-ALBUTEROL 3 ML NEB INHALATION SCH ×3 (08:15→21:52)
[2023-03-30] MEDS: HYDROcodone/APAP 10-325MG 1 EACH TAB PO PRN (09:03)
[2023-03-30] MEDS: GABAPENTIN 400 MG CAP PO SCH ×3 (09:15→20:37)
[2023-03-30] MEDS: LIDOCAINE 4% PATCH TOPICAL SCH ×2 (09:15→09:16)
[2023-03-30] MEDS: carvediloL 6.25 MG TAB PO SCH ×2 (09:15→20:38)
[2023-03-30] MEDS: lisinopriL 20 MG TAB PO SCH (09:15)
[2023-03-30] MEDS: metFORMIN 500 MG TAB PO SCH ×2 (09:15→20:37)
[2023-03-30] MEDS: methocarbamoL 750 MG TAB PO SCH ×4 (10:07→20:38)
[2023-03-30] MEDS: DAPAGLIFLOZIN PROPANEDIOL 5 MG TABLET PO SCH (10:07)
[2023-03-30] MEDS: DULoxetine HCL 30 MG CAPSULE.DR PO SCH (10:07)
--- NOTE | 2023-03-30 10:52 | P.PN ---
Progress Note - Text Progress Note Date: 03/30/23 Diagnosis: Low back pain Bilateral lower extremity weakness Neuropathy bilateral lower extremities Severe lumbar spondylosis Multilevel lumbar neural foraminal and central canal stenosis Other medical comorbidities Subjective: Patient was seen at bedside this morning on 4S lying semirecumbent position with drain and dressing in place on low back. Patient says he is still having a lot of pain to low back. Cronin is in place. Patient denies any chest pain, fever, shortness breath, nausea, vomiting, change in vision, loss of bowel/bladder control. Objective: Incision appears to be clean, dry, intact. Dressing is in place elizabeth well aligned and intact. Drain is in place with moderate serosanguineous output. Sensation is equal, symmetric, bilaterally intact at the upper and lower extremities on exam. There is moderate tenderness to palpation diffusely throughout the lumbar spine and midline and paravertebral region. Nontender to palpation throughout rest exam. Patient has limited range of motion the bilateral lower extremities on exam secondary to referred pain in the low back. Patient has good range of motion throughout bilateral upper extremities on exam. 4-/5 in bilateral lower extremities. 4+/5 in all major motor groups in bilateral upper extremities. Radial pulses intact, 2+ bilaterally. Cap refill under 3 seconds in digits of upper extremities. Negative Homans bilaterally . Negative Clonus bilaterally. Negative Tiesha bilaterally. Assessment: Low back pain Bilateral lower extremity weakness Neuropathy bilateral lower extremities Severe lumbar spondylosis Multilevel lumbar neural foraminal and central canal stenosis Other medical comorbidities - Postop day 2 status post [id number] decompression and fusion Plan: 1. Low back pain; bilateral lower extremity weakness; neuropathy bilateral lower extremities; severe lumbar spondylosis; lumbar neural foraminal and central canal stenosis - surgery performed Friday, 03/28/[id number] decompression fusion. Patient stable at bedside this morning on 4S. Pain m edication as needed. maintain drain to suction. continue cronin. Plan to work with therapy today. We'll continue to follow patient during stay in hospital. 2. Appreciate medical management 3. Pain management - [place]; gabapentin; Flexeril; Dilaudid 4. DVT prophylaxis - mechanical 5. GI prophylaxis - senna 6. PT/OT - weightbearing as tolerated with walker and assistance as needed 7. Encourage incentive spirometer use
[2023-03-30] MEDS: SODIUM CHLORIDE 0.9% 1,000 ML IV SCH ×3 (12:02→22:31)
[2023-03-30 12:03] LABS: Glucose,Whole Blood 185 mg/dL (70-110)
--- NOTE | 2023-03-30 14:31 | FL ---
EXAMINATION TYPE: FL guidance operating room DATE OF EXAM: 03/28/2023 9:16 PM CLINICAL INDICATION:Male, 67 years old with history of PLDF; [facility] COMPARISON: None TECHNIQUE: FL guidance operating room , no images are available on PACS.. FINDINGS: Fluoroscopic guidance was provided in the operating room for the referring clinician. Fluoroscopy time 45.6 seconds, DAP [id number] Please refer to operative note for full details. IMPRESSION: Documentation of fluoroscopy.
[2023-03-30 16:52] LABS: Glucose,Whole Blood 247 mg/dL (70-110)
[2023-03-30 20:14] LABS: Glucose,Whole Blood 295 mg/dL (70-110)
[2023-03-30] MEDS: MAGNESIUM HYDROXIDE 2,400 MG/30 ML CUP PO SCH (20:37)
[2023-03-30] MEDS: SENNOSIDES 8.6 MG TAB PO SCH (20:38)
--- NOTE | 2023-03-30 21:33 | P.PN ---
Progress Note - Text Progress Note Date: 03/30/23 67-year-old gentleman with past medical history significant for atrial fibrillation, diabetes mellitus, COPD, hypertension, degenerative disks/joint disease presents to the emergency department with complains of increasing back pain. Patient stated his back pain is getting worse to the point he is unable to move around freely and has multiple falls at home he had been complaining of lower extremity weakness and neuropathic pain bilaterally and feet as well. Upon admission patient denies history of bladder or bowel incontinence, denies fever or perianal numbness * Workup initiated in ER including CT lumbar spine which showed multilevel degenerative changes and stenosis, L3-L4 disc bulge and spinal canal stenosis noted, L5-S1 degenerative disc changes noted * Patient had a CT brain done which was negative for acute fracture or dislocation of cervical spine no intracranial hemorrhage was noted * EKG obtained in ER showed atrial fibrillation with heart rate of 122 and the time of admission * Serum chemistry obtained showed WBC 10.4 hemoglobin 15 platelet count of 135 INR of 1 * Serum chemistry shows sodium 137 potassium 4.2 BU and 36 at 1.39 * Patient tested negative for influenza RSV and Covid * While in ER patient was given 1 dose of oral Coreg IV fluid bolus and IV pain medications and admitted to medical floor with back surgery consultation for evaluation 03/23/2023: Patient seen and evaluated at bedside, abdomen examined nontender no episodes of gastrointestinal bleed. Previously patient was on Coumadin patient to be started back on IV heparin low dose continue to monitor while patient is known to be on heparin we will discontinue aspirin continue to monitor H&H while patient is on heparin cardiology recommendations appreciated echocardiogram ordered continue with rate control medication 03/24/2023: Patient seen and evaluated bedside, during my evaluation patient is a wake and alert patient come back from MRI does complain of back pain moving lower extremities, on IV heparin no blood in stool noted no hematemesis no hematuria. Continue to monitor appreciate input from cardiology 03/25/2023: Patient seen and evaluated bedside, patient is status post MRI completion does show severe degenerative disease in lumbar spine, orthopedic not planning intervention during this hospitalization hence we'll transition to Eliquis. First dose to be given on 03/25 p.m. IV heparin discontinued patient also started on robaxin and lidocaine patch 03/26/2023: Patient seen and evaluated bedside, patient had lumbar LIANNE, does state pain has improved. Patient still undecided about surgery. Patient has been tentatively scheduled for 03/28 for lumbar spine intervention. We will continue to hold Lantus coagulation anticipation of surgery 03/27/2023: Patient seen and evaluated bedside, patient continued to complain of back pain, going for surgery tomorrow, patient was resting comfortably on my assessment, requesting more pain medications. Patient explained the risk of excessive use of pain medication. Seen by cardiology continue to hold anticoagulation in anticipation of surgery 03/28/2023: Patient seen and evaluated bedside, patient alert and oriented 3, patient moving forward to surgery does complain of off lower extremity weakness prior to surgery as well as back pain. Patient was explained he will need to go to rehab after surgery 03/29/2023: ICU. Underwent surgery yesterday. Hemovac in place. 220 mL output in last 8 hours. Atrial fibrillation rate without 100. On IV Ancef. Significant lower back pain. Tolerating diet. She feels a bit heavy in the legs. 03/30/2023: Hemovac in place. Lopez catheter. Had a bowel movement yesterday. Back pain persist. Blood pressure running on the lower side. Some bump in creatinine. Hold lisinopril. Active Medications Acetaminophen (Acetaminophen Tab 325 Mg Tab) 650 mg PO Q6HR PRN PRN Reason: Mild Pain or Fever > 100.5 Hydrocodone Bitart/Acetaminophen (Hydrocodone/Apap 5-325mg 1 Each Tab) 1 each PO Q4HR PRN PRN Reason: Moderate Pain (Scale 4 to 6) Last Admin: 03/29/23 11:47 Dose: 1 each Hydrocodone Bitart/Acetaminophen (Hydrocodone/Apap 10-325mg 1 Each Tab) 1 each PO Q6H PRN PRN Reason: Pain Scale 7 - 10 Last Admin: 03/30/23 09:03 Dose: 1 each Albuterol Sulfate (Albuterol Nebulized 2.5 Mg/3 Ml) 2.5 mg INHALATION RT-QID PRN PRN Reason: Shortness Of Breath Last Admin: 03/27/23 11:46 Dose: 2.5 mg Albuterol/Ipratropium (Ipratropium-Albuterol 3 Ml Neb) 3 ml INHALATION TID [place] Last Admin: 03/30/23 15:26 Dose: 3 ml Carvedilol (Carvedilol 6.25 Mg Tab) 6.25 mg PO BID [facility] Last Admin: 03/30/23 20:38 Dose: 6.25 mg Cyclobenzaprine HCl (Cyclobenzaprine 5 Mg Tab) 5 mg PO TID PRN PRN Reason: Muscle Spasm Dapagliflozin (Dapagliflozin Propanediol 5 Mg Tablet) 5 mg PO DAILY [facility] Last Admin: 03/30/23 10:07 Dose: 5 mg Dextrose/Water (Dextrose 50% Syringe 50 Ml) 25 ml IVP PER PROTOCOL PRN; Protocol PRN Reason: Hypoglycemia Dextrose/Water (Dextrose 50% Syringe 50 Ml) 50 ml IVP PER PROTOCOL PRN; Protocol PRN Reason: Hypoglycemia Duloxetine HCl (Duloxetine Hcl 30 Mg Capsule.Dr) 30 mg PO DAILY [facility] Last Admin: 03/30/23 10:07 Dose: 30 mg Gabapentin (Gabapentin 400 Mg Cap) 800 mg PO TID [facility] Last Admin: 03/30/23 20:37 Dose: 800 mg Hydromorphone HCl (Hydromorphone 1 Mg/Ml 1 Ml Syringe) 1 mg IVP Q3HR PRN PRN Reason: Severe Pain (Scale 7 to 10) Last Admin: 03/30/23 20:39 Dose: 1 mg Hydromorphone HCl (Hydromorphone 0.5 Mg/0.5 Ml Syringe) 0.5 mg IVP Q3HR PRN PRN Reason: Moderate Pain (Scale 4 to 6) Last Admin: 03/29/23 11:47 Dose: 0.5 mg Sodium Chloride (Saline 0.9%) 1,000 mls @ 100 mls/hr IV .Q10H [facility] Last Admin: 03/30/23 19:56 Dose: Not Given Insulin Aspart (Insulin Aspart (Novolog) 100 Unit/Ml Vial) 0 unit SQ ACHS [facility]; Protocol Last Admin: 03/30/23 20:38 Dose: 3 unit Insulin Detemir (Insulin Detemir (Levemir) 100 Unit/Ml Syr) 10 unit SQ DAILY@0700 [facility] Last Admin: 03/30/23 06:56 Dose: 10 unit Lidocaine (Lidocaine 4% Patch) 1 patch TOPICAL DAILY [facility]; Protocol Last Admin: 03/30/23 09:16 Dose: Not Given Lisinopril (Lisinopril 20 Mg Tab) 20 mg PO DAILY [facility] Last Admin: 03/30/23 09:15 Dose: 20 mg Magnesium Hydroxide (Magnesium Hydroxide 2,400 Mg/30 Ml Cup) 2,400 mg PO [facility] Last Admin: 03/30/23 20:37 Dose: 2,400 mg Metformin HCl (Metformin 500 Mg Tab) 1,000 mg PO BID [facility] Last Admin: 03/30/23 20:37 Dose: 1,000 mg Methocarbamol (Methocarbamol 750 Mg Tab) 750 mg PO QID [facility] Last Admin: 03/30/23 20:38 Dose: 750 mg Naloxone HCl (Naloxone 0.4 Mg/Ml 1 Ml Vial) 0.2 mg IV Q2M PRN PRN Reason: Opioid Reversal Non-Formulary Medication (Dulaglutide [Trulicity]) 0.75 mg SQ TU [facility] Last Admin: 03/25/23 09:52 Dose: Not Given Ondansetron HCl (Ondansetron 4 Mg/2 Ml Vial) 4 mg IVP Q8HR PRN PRN Reason: Nausea And Vomiting Last Admin: 03/30/23 06:42 Dose: 4 mg Senna (Sennosides 8.6 Mg Tab) 8.6 mg PO [facility] Last Admin: 03/30/23 20:38 Dose: 8.6 mg Senna/Docusate Sodium (Sennosides-Docusate Sodium 1 Each Tab) 2 each PO DAILY PRN PRN Reason: Constipation On examination: VITAL SIGNS: [97.5, 92, 18, 11 7 x 68, 97% on 2 L] GENERAL APPEARANCE: BMI 35, laying in bed but awake slightly uncomfortable HEENT: Normal external appearance of nose and ear. Oral cavity normal EYES: Pupils equal. Conjunctiva normal. NECK: JVD not raised. Mass not palpable. RESPIRATORY: Respiratory effort normal. Lungs decreased breath sounds CARDIOVASCULAR: Sounds irregular No edema. ABDOMEN: Soft. Liver and spleen not palpable. No tenderness. No mass palpable. PSYCHIATRY: Alert and oriented x3. Mood and affect anxious MUSCULAR skeletal: Hemovac in place. Dressing in place. INVESTIGATIONS, reviewed in the clinical context: 03/30/2023: White count 9.1 in globin 12.7 potassium 4.6 BUN 32 creatinine 1.26 03/29/2023: White count 12.1 hemoglobin 13 potassium 4.5 BUN 29 creatinine 0.98 Assessment and plan * Acute on chronic back pain with lower extremity weakness with degenerative disease of lumbar spine, lumbar spine stenosis L2-L3 with this bulge, L3-L4 T12-L2 * Persistent Atrial fibrillation currently rate controlled. Hold anticoagulation because of postop. Coreg * Status post lumbar LIANNE * Essential Hypertension: Coreg. Zestril. * Diabetes mellitus type 2 on oral hypoglycemic. Levemir. Follow Accu-Cheks and sliding scale. Glucophage. Trulicity. * Acute renal failure with mild metabolic acidosis: Corrected * Thrombocytopenia: Resolved -COPD in a current smoker: DuoNeb 3 times a day -Obesity BMI 35.0: Weight loss measures
[2023-03-31] MEDS: HYDROmorphone 1 MG/ML 1 ML SYRINGE IVP PRN ×4 (01:43→22:04)
[2023-03-31 06:06] LABS: Glucose,Whole Blood 213 mg/dL (70-110)
[2023-03-31] MEDS: INSULIN DETEMIR (LEVEMIR) 100 UNIT/ML SYR SQ SCH (06:14)
[2023-03-31] MEDS: INSULIN ASPART (NovoLOG) 100 UNIT/ML VIAL SQ SCH ×4 (06:14→22:03)
[2023-03-31 06:33] LABS: African American GFR (CKD) 68 (>60 ml/min/1.73 sqM); Anion Gap 3 mmol/L; Blood Urea Nitrogen 33 mg/dL (9-20); Calcium 8.8 mg/dL (8.4-10.2); Carbon Dioxide 24 mmol/L (22-30); Chloride 108 mmol/L (98-107); Glucose 199 mg/dL (74-99); Non-African American GFR(CKD) 58 (>60 ml/min/1.73 sqM); Potassium 4.5 mmol/L (3.5-5.1); Sodium 135 mmol/L (137-145)
[2023-03-31] MEDS: IPRATROPIUM-ALBUTEROL 3 ML NEB INHALATION SCH ×3 (08:01→21:45)
[2023-03-31] MEDS: metFORMIN 500 MG TAB PO SCH ×2 (08:45→22:02)
[2023-03-31] MEDS: DULoxetine HCL 30 MG CAPSULE.DR PO SCH (08:45)
[2023-03-31] MEDS: LIDOCAINE 4% PATCH TOPICAL SCH (08:45)
[2023-03-31] MEDS: HYDROcodone/APAP 10-325MG 1 EACH TAB PO PRN ×2 (08:45→18:24)
[2023-03-31] MEDS: GABAPENTIN 400 MG CAP PO SCH ×3 (08:45→22:03)
[2023-03-31] MEDS: carvediloL 6.25 MG TAB PO SCH ×2 (08:45→22:03)
[2023-03-31] MEDS: DAPAGLIFLOZIN PROPANEDIOL 5 MG TABLET PO SCH (08:46)
[2023-03-31] MEDS: methocarbamoL 750 MG TAB PO SCH ×4 (08:46→22:03)
[2023-03-31 11:19] LABS: Glucose,Whole Blood 280 mg/dL (70-110)
[2023-03-31] MEDS: SODIUM CHLORIDE 0.9% 1,000 ML IV SCH ×2 (12:15→23:13)
--- NOTE | 2023-03-31 14:45 | P.PN ---
Progress Note - Text Progress Note Date: 03/31/23 Diagnosis: Low back pain Bilateral lower extremity weakness Neuropathy bilateral lower extremities Severe lumbar spondylosis Multilevel lumbar neural foraminal and central canal stenosis Other medical comorbidities Subjective: Patient was seen at bedside this morning on 4S lying semirecumbent position with drain and dressing in place on low back. Patient says he is still having a lot of pain to low back. Cronin is in place. Patient denies any chest pain, fever, shortness breath, nausea, vomiting, change in vision, loss of bowel/bladder control. Objective: Dressing is in place and saturation present. elizabeth well aligned and intact. New dressign placed over incision. Drain is in place with moderate serosanguineous output. Sensation is equal, symmetric, bilaterally intact at the upper and lower extremities on exam. There is moderate tenderness to palp ation diffusely throughout the lumbar spine and midline and paravertebral region. Nontender to palpation throughout rest exam. Patient has limited range of motion the bilateral lower extremities on exam secondary to referred pain in the low back. Patient has good range of motion throughout bilateral upper extremities on exam. 4-/5 in bilateral lower extremities. 4+/5 in all major motor groups in bilateral upper extremities. Radial pulses intact, 2+ bilaterally. Cap refill under 3 seconds in digits of upper extremities. Negative Homans bilaterally . Negative Clonus bilaterally. Negative Tiesha bilaterally. Assessment: Low back pain Bilateral lower extremity weakness Neuropathy bilateral lower extremities Severe lumbar spondylosis Multilevel lumbar neural foraminal and central canal stenosis Other medical comorbidities - Postop day 3 status post [id number] decompression and fusion Plan: 1. Low back pain; bilateral lower extremity weakness; neuropathy bilateral lower extremities; severe lumbar spondylosis; lumbar neural foraminal and central canal stenosis - surgery performed Friday, 03/28/[id number] decompression fusion. Patient stable at bedside this morning on 4S. New dressing placed over incision. Pain medication as needed. maintain drain to suction. continue cronin. Plan to work with therapy today. We'll continue to follow patient during stay in hospital. 2. Appreciate medical management 3. Pain management - [place]; gabapentin; Flexeril; Dilaudid 4. DVT prophylaxis - mechanical 5. GI prophylaxis - senna 6. PT/OT - weightbearing as tolerated with walker and assistance as needed 7. Encourage incentive spirometer use
--- NOTE | 2023-03-31 16:39 | P.PN ---
Progress Note - Text Progress Note Date: 03/31/23 67-year-old gentleman with past medical history significant for atrial fibrillation, diabetes mellitus, COPD, hypertension, degenerative disks/joint disease presents to the emergency department with complains of increasing back pain. Patient stated his back pain is getting worse to the point he is unable to move around freely and has multiple falls at home he had been complaining of lower extremity weakness and neuropathic pain bilaterally and feet as well. Upon admission patient denies history of bladder or bowel incontinence, denies fever or perianal numbness * Workup initiated in ER including CT lumbar spine which showed multilevel degenerative changes and stenosis, L3-L4 disc bulge and spinal canal stenosis noted, L5-S1 degenerative disc changes noted * Patient had a CT brain done which was negative for acute fracture or dislocation of cervical spine no intracranial hemorrhage was noted * EKG obtained in ER showed atrial fibrillation with heart rate of 122 and the time of admission * Serum chemistry obtained showed WBC 10.4 hemoglobin 15 platelet count of 135 INR of 1 * Serum chemistry shows sodium 137 potassium 4.2 BU and 36 at 1.39 * Patient tested negative for influenza RSV and Covid * While in ER patient was given 1 dose of oral Coreg IV fluid bolus and IV pain medications and admitted to medical floor with back surgery consultation for evaluation 03/23/2023: Patient seen and evaluated at bedside, abdomen examined nontender no episodes of gastrointestinal bleed. Previously patient was on Coumadin patient to be started back on IV heparin low dose continue to monitor while patient is known to be on heparin we will discontinue aspirin continue to monitor H&H while patient is on heparin cardiology recommendations appreciated echocardiogram ordered continue with rate control medication 03/24/2023: Patient seen and evaluated bedside, during my evaluation patient is a wake and alert patient come back from MRI does complain of back pain moving lower extremities, on IV heparin no blood in stool noted no hematemesis no hematuria. Continue to monitor appreciate input from cardiology 03/25/2023: Patient seen and evaluated bedside, patient is status post MRI completion does show severe degenerative disease in lumbar spine, orthopedic not planning intervention during this hospitalization hence we'll transition to Eliquis. First dose to be given on 03/25 p.m. IV heparin discontinued patient also started on robaxin and lidocaine patch 03/26/2023: Patient seen and evaluated bedside, patient had lumbar LIANNE, does state pain has improved. Patient still undecided about surgery. Patient has been tentatively scheduled for 03/28 for 24 for lumbar spine intervention. We will continue to hold Lantus coagulation anticipation of surgery 03/27/2023: Patient seen and evaluated bedside, patient continued to complain of back pain, going for surgery tomorrow, patient was resting comfortably on my assessment, requesting more pain medications. Patient explained the risk of excessive use of pain medication. Seen by cardiology continue to hold anticoagulation in anticipation of surgery 03/28/2023: Patient seen and evaluated bedside, patient alert and oriented 3, patient moving forward to surgery does complain of off lower extremity weakness prior to surgery as well as back pain. Patient was explained he will need to go to rehab after surgery 03/29/2023: ICU. Underwent surgery yesterday. Hemovac in place. 220 mL output in last 8 hours. Atrial fibrillation rate without 100. On IV Ancef. Significant lower back pain. Tolerating diet. She feels a bit heavy in the legs. 03/30/2023: Hemovac in place. Lopez catheter. Had a bowel movement yesterday. Back pain persist. Blood pressure running on the lower side. Some bump in creatinine. Hold lisinopril. March 31, 2023: Good appetite. Pain still present. Has been out of bed. Had a bowel movement yesterday. Patient is concerned about falls. Hemovac put out about 70 cc in the last shift. Active Medications Acetaminophen (Acetaminophen Tab 325 Mg Tab) 650 mg PO Q6HR PRN PRN Reason: Mild Pain or Fever > 100.5 Hydrocodone Bitart/Acetaminophen (Hydrocodone/Apap 5-325mg 1 Each Tab) 1 each PO Q4HR PRN PRN Reason: Moderate Pain (Scale 4 to 6) Last Admin: 03/29/23 11:47 Dose: 1 each Hydrocodone Bitart/Acetaminophen (Hydrocodone/Apap 10-325mg 1 Each Tab) 1 each PO Q4H PRN PRN Reason: Pain Scale 7 - 10 Albuterol Sulfate (Albuterol Nebulized 2.5 Mg/3 Ml) 2.5 mg INHALATION RT-QID PRN PRN Reason: Shortness Of Breath Last Admin: 03/27/23 11:46 Dose: 2.5 mg Albuterol/Ipratropium (Ipratropium-Albuterol 3 Ml Neb) 3 ml INHALATION TID [facility] Last Admin: 03/31/23 15:55 Dose: 3 ml Carvedilol (Carvedilol 6.25 Mg Tab) 6.25 mg PO BID [facility] Last Admin: 03/31/23 08:45 Dose: 6.25 mg Cyclobenzaprine HCl (Cyclobenzaprine 10 Mg Tab) 10 mg PO TID PRN PRN Reason: Muscle Spasm Dapagliflozin (Dapagliflozin Propanediol 5 Mg Tablet) 5 mg PO DAILY [facility] Last Admin: 03/31/23 08:46 Dose: 5 mg Dextrose/Water (Dextrose 50% Syringe 50 Ml) 25 ml IVP PER PROTOCOL PRN; Protocol PRN Reason: Hypoglycemia Dextrose/Water (Dextrose 50% Syringe 50 Ml) 50 ml IVP PER PROTOCOL PRN; Protocol PRN Reason: Hypoglycemia Duloxetine HCl (Duloxetine Hcl 30 Mg Capsule.Dr) 30 mg PO DAILY [facility] Last Admin: 03/31/23 08:45 Dose: 30 mg Gabapentin (Gabapentin 400 Mg Cap) 800 mg PO TID [facility] Last Admin: 03/31/23 15:09 Dose: 800 mg Hydromorphone HCl (Hydromorphone 1 Mg/Ml 1 Ml Syringe) 1 mg IVP Q3HR PRN PRN Reason: Severe Pain (Scale 7 to 10) Last Admin: 03/31/23 11:06 Dose: 1 mg Hydromorphone HCl (Hydromorphone 0.5 Mg/0.5 Ml Syringe) 0.5 mg IVP Q3HR PRN PRN Reason: Moderate Pain (Scale 4 to 6) Last Admin: 03/29/23 11:47 Dose: 0.5 mg Sodium Chloride (Saline 0.9%) 1,000 mls @ 100 mls/hr IV .Q10H [facility] Last Admin: 03/31/23 12:15 Dose: Not Given Insulin Aspart (Insulin Aspart (Novolog) 100 Unit/Ml Vial) 0 unit SQ ACHS [facility]; Protocol Last Admin: 03/31/23 12:06 Dose: 3 unit Insulin Detemir (Insulin Detemir (Levemir) 100 Unit/Ml Syr) 10 unit SQ [place] Y@0700 [facility] Last Admin: 03/31/23 06:14 Dose: 10 unit Lidocaine (Lidocaine 4% Patch) 1 patch TOPICAL DAILY [facility]; Protocol Last Admin: 03/31/23 08:45 Dose: 1 patch Magnesium Hydroxide (Magnesium Hydroxide 2,400 Mg/30 Ml Cup) 2,400 mg PO [facility] Last Admin: 03/30/23 20:37 Dose: 2,400 mg Metformin HCl (Metformin 500 Mg Tab) 1,000 mg PO BID [facility] Last Admin: 03/31/23 08:45 Dose: 1,000 mg Methocarbamol (Methocarbamol 750 Mg Tab) 750 mg PO QID [facility] Last Admin: 03/31/23 12:05 Dose: 750 mg Naloxone HCl (Naloxone 0.4 Mg/Ml 1 Ml Vial) 0.2 mg IV Q2M PRN PRN Reason: Opioid Reversal Non-Formulary Medication (Dulaglutide [Trulicity]) 0.75 mg SQ TU [facility] Last Admin: 03/25/23 09:52 Dose: Not Given Ondansetron HCl (Ondansetron 4 Mg/2 Ml Vial) 4 mg IVP Q8HR PRN PRN Reason: Nausea And Vomiting Last Admin: 03/30/23 06:42 Dose: 4 mg Senna (Sennosides 8.6 Mg Tab) 8.6 mg PO [facility] Last Admin: 03/30/23 20:38 Dose: 8.6 mg Senna/Docusate Sodium (Sennosides-Docusate Sodium 1 Each Tab) 2 each PO DAILY PRN PRN Reason: Constipation On examination: VITAL SIGNS: 98.3, 96, 18, 110% 1, 95% on 2 L GENERAL APPEARANCE: Sitting up in bed, eating lunch HEENT: Normal external appearance of nose and ear. Oral cavity normal EYES: Pupils equal. Conjunctiva normal. NECK: JVD not raised. Mass not palpable. RESPIRATORY: Respiratory effort normal. Lungs decreased breath sounds CARDIOVASCULAR: Sounds irregular No edema. ABDOMEN: Soft. Liver and spleen not palpable. No tenderness. No mass palpable. PSYCHIATRY: Alert and oriented x3. Mood and affect anxious MUSCULAR skeletal: Hemovac in place. Dressing in place. INVESTIGATIONS, reviewed in the clinical context: March 31, 2023: Potassium 4.5 creatinine 1.28 03/30/2023: White count 9.1 in globin 12.7 potassium 4.6 BUN 32 creatinine 1.26 03/29/2023: White count 12.1 hemoglobin 13 potassium 4.5 BUN 29 creatinine 0.98 Assessment and plan * Acute on chronic back pain with lower extremity weakness with degenerative disease of lumbar spine, lumbar spine stenosis L2-L3 with this bulge, L3-L4 T12-L2 Significant pain present. Has been out of bed. Follow-up with Ortho. * Persistent Atrial fibrillation currently rate controlled. Start Eliquis if okay with Ortho. Coreg * Status post lumbar LIANNE * Essential Hypertension: Coreg. * Diabetes mellitus type 2 on oral hypoglycemic. Levemir. Follow Accu-Cheks and sliding scale. Glucophage. Trulicity-we will check with pharmacy fees getting this from home. * Acute renal failure with mild metabolic acidosis: Corrected * Evaluated for CK D Ultrasound. UA. * Thrombocytopenia: Resolved -COPD in a current smoker: DuoNeb 3 times a day -Obesity BMI 35.0: Weight loss measures
[2023-03-31 16:42] LABS: Glucose,Whole Blood 198 mg/dL (70-110)
--- NOTE | 2023-03-31 18:47 | US ---
EXAMINATION TYPE: US kidneys/renal and bladder DATE OF EXAM: 03/31/2023 COMPARISON: NONE CLINICAL INDICATION: Male, 67 years old with history of Evaluate for CK D; Eval for CKD Limited due to pt sitting upright and unable to roll onto either side EXAM MEASUREMENTS: Right Kidney: 10.2 x 6.0 x 5.7 cm Left Kidney: 12.2 x 7.0 x 6.4 cm Right Kidney: No hydronephrosis or masses seen Left Kidney: Hyperechoic focus seen measuring 1.8cm at mid pole Bladder: Appears wnl Bilateral Jets seen: Not seen due to bladder being mostly contracted and gas artifact Vessels adjacent to spleen appear dilated and tortuous. IMPRESSION: 1. No evidence of renal atrophy or medical renal disease. 2. No solid renal mass or hydronephrosis. 3. Cannot exclude left mid pole calculus.
[2023-03-31 20:29] LABS: Glucose,Whole Blood 223 mg/dL (70-110)
[2023-03-31 20:57] LABS: Appearance,Urine Clear (Clear); Bilirubin,Urine Negative (Negative); Blood,Urine Negative (Negative); Color,Urine Colorless; Glucose,Urine (UA) 4+ (Negative); Ketones,Urine Negative (Negative); Leukocyte Esterase,Urine Negative (Negative); Nitrite,Urine Negative (Negative); PH, Urine 5.5 (5.0-8.0); Protein,Urine Negative (Negative); Specific Gravity,Urine 1.021 (1.001-1.035); Urobilinogen,Urine <2.0 mg/dL (<2.0)
[2023-03-31] MEDS: MAGNESIUM HYDROXIDE 2,400 MG/30 ML CUP PO SCH (22:02)
[2023-03-31] MEDS: SENNOSIDES 8.6 MG TAB PO SCH (22:03)
[2023-04-01] MEDS: HYDROmorphone 1 MG/ML 1 ML SYRINGE IVP PRN (02:21)
[2023-04-01 06:08] LABS: Glucose,Whole Blood 236 mg/dL (70-110)
[2023-04-01] MEDS: INSULIN DETEMIR (LEVEMIR) 100 UNIT/ML SYR SQ SCH (06:22)
[2023-04-01] MEDS: INSULIN ASPART (NovoLOG) 100 UNIT/ML VIAL SQ SCH ×4 (06:22→21:27)
[2023-04-01] MEDS: HYDROcodone/APAP 10-325MG 1 EACH TAB PO PRN ×4 (06:23→22:58)
[2023-04-01 06:51] LABS: Basophils % (A) 0 %; Eosinophils # (A) 0.3 k/uL (0-0.7); Eosinophils % (A) 3 %; HCT 37.3 % (39.0-53.0); HGB 12.2 gm/dL (13.0-17.5); Lymphocytes # (A) 1.1 k/uL (1.0-4.8); Lymphocytes % (A) 12 %; MCH 31.6 pg (25.0-35.0); MCHC 32.7 g/dL (31.0-37.0); MCV 96.7 fL (80.0-100.0); Mean Platelet Volume 8.6; Monocytes # (A) 0.6 k/uL (0-1.0); Monocytes % (A) 6 %; Neutrophils # (A) 7.4 k/uL (1.3-7.7); Neutrophils % (A) 78 %; Platelet Count 178 k/uL (150-450); RBC 3.86 m/uL (4.30-5.90); RDW 13.3 % (11.5-15.5); WBC 9.5 k/uL (3.8-10.6)
[2023-04-01 07:08] LABS: African American GFR (CKD) 64 (>60 ml/min/1.73 sqM); Anion Gap 5 mmol/L; Blood Urea Nitrogen 33 mg/dL (9-20); Carbon Dioxide 26 mmol/L (22-30); Chloride 105 mmol/L (98-107); Glucose 217 mg/dL (74-99); Non-African American GFR(CKD) 56 (>60 ml/min/1.73 sqM); Potassium 4.8 mmol/L (3.5-5.1); Sodium 136 mmol/L (137-145)
[2023-04-01] MEDS: NON FORMULARY DRUG (Dulaglutide [Trulicity] 0.75 MG/0.5 ML Each) SQ SCH (07:56)
[2023-04-01] MEDS: LIDOCAINE 4% PATCH TOPICAL SCH (08:02)
[2023-04-01] MEDS: carvediloL 6.25 MG TAB PO SCH ×2 (08:02→20:10)
[2023-04-01] MEDS: metFORMIN 500 MG TAB PO SCH ×2 (08:02→20:09)
[2023-04-01] MEDS: GABAPENTIN 400 MG CAP PO SCH ×3 (08:02→21:27)
[2023-04-01] MEDS: DAPAGLIFLOZIN PROPANEDIOL 5 MG TABLET PO SCH (08:03)
[2023-04-01] MEDS: methocarbamoL 750 MG TAB PO SCH ×4 (08:03→21:27)
[2023-04-01] MEDS: DULoxetine HCL 30 MG CAPSULE.DR PO SCH (08:03)
[2023-04-01] MEDS: SODIUM CHLORIDE 0.9% 1,000 ML IV SCH ×2 (08:04→23:20)
[2023-04-01] MEDS: CYCLOBENZAPRINE 10 MG TAB PO PRN ×2 (08:07→20:09)
[2023-04-01] MEDS: IPRATROPIUM-ALBUTEROL 3 ML NEB INHALATION SCH ×3 (08:51→20:53)
--- NOTE | 2023-04-01 10:40 | P.PN ---
Progress Note - Text Progress Note Date: 04/01/23 Diagnosis: Low back pain Bilateral lower extremity weakness Neuropathy bilateral lower extremities Severe lumbar spondylosis Multilevel lumbar neural foraminal and central canal stenosis Other medical comorbidities Subjective: Patient was seen at bedside this morning on 4S sitting up in chair with drain and dressing in place on low back. Patient says he is still having a lot of pain to low back. Patient denies any chest pain, fever, shortness breath, nausea, vomiting, change in vision, loss of bowel/bladder control. Objective: Dressing is in place with minimal spotting. elizabeth well aligned and intact. Drain is in place with moderate serosanguineous output. drain removed at bedside. Sensation is equal, symmetric, bilaterally intact at the upper and lower extremities on exam. There is moderate tenderness to palpation diffusely throughout the lumbar spine and midline and paravertebral region. Nontender to palpation throughout rest exam. Patient has limited range of motion the bilateral lower extremities on exam secondary to referred pain in the low back. Patient has good range of motion throughout bilateral upper extremities on exam. 4-/5 in bilateral lower extremities. 4+/5 in all major motor groups in bilateral upper extremities. Radial pulses intact, 2+ bilaterally. Cap refill under 3 seconds in digits of upper extremities. Negative Homans bilaterally . Negative Clonus bilaterally. Negative Tiesha bilaterally. Assessment: Low back pain Bilateral lower extremity weakness Neuropathy bilateral lower extremities Severe lumbar spondylosis Multilevel lumbar neural foraminal and central canal stenosis Other medical comorbidities - Postop day 4 status post [id number] decompression and fusion Plan: 1. Low back pain; bilateral lower extremity weakness; neuropathy bilateral lower extremities; severe lumbar spondylosis; lumbar neural foraminal and central canal stenosis - surgery performed Friday, 03/28/[id number] decompression fusion. Patient stable at bedside this morning on 4S. drain removed at bedside. dressing placed over drain incision. Pain medication as needed. Plan to work with therapy today. Patient stable from ortho standpoint for discharge to [facility]. We'll continue to follow patient during stay in hospital. 2. Appreciate medical management 3. Pain management - Taswell; gabapentin; Flexeril; wean off dilaudid 4. DVT prophylaxis - mechanical 5. GI prophylaxis - senna 6. PT/OT - weightbearing as tolerated with walker and assistance as needed 7. Encourage incentive spirometer use
[2023-04-01 11:16] LABS: Glucose,Whole Blood 209 mg/dL (70-110)
[2023-04-01] MEDS: HYDROmorphone 0.5 MG/0.5 ML SYRINGE IVP PRN (12:15)
[2023-04-01 16:19] LABS: Glucose,Whole Blood 180 mg/dL (70-110)
--- NOTE | 2023-04-01 16:33 | P.PN ---
Progress Note - Text Progress Note Date: 04/01/23 67-year-old gentleman with past medical history significant for atrial fibrillation, diabetes mellitus, COPD, hypertension, degenerative disks/joint disease presents to the emergency department with complains of increasing back pain. Patient stated his back pain is getting worse to the point he is unable to move around freely and has multiple falls at home he had been complaining of lower extremity weakness and neuropathic pain bilaterally and feet as well. Upon admission patient denies history of bladder or bowel incontinence, denies fever or perianal numbness * Workup initiated in ER including CT lumbar spine which showed multilevel degenerative changes and stenosis, L3-L4 disc bulge and spinal canal stenosis noted, L5-S1 degenerative disc changes noted * Patient had a CT brain done which was negative for acute fracture or dislocation of cervical spine no intracranial hemorrhage was noted * EKG obtained in ER showed atrial fibrillation with heart rate of 122 and the time of admission * Serum chemistry obtained showed WBC 10.4 hemoglobin 15 platelet count of 135 INR of 1 * Serum chemistry shows sodium 137 potassium 4.2 BU and 36 at 1.39 * Patient tested negative for influenza RSV and Covid * While in ER patient was given 1 dose of oral Coreg IV fluid bolus and IV pain medications and admitted to medical floor with back surgery consultation for evaluation 03/23/2023: Patient seen and evaluated at bedside, abdomen examined nontender no episodes of gastrointestinal bleed. Previously patient was on Coumadin patient to be started back on IV heparin low dose continue to monitor while patient is known to be on heparin we will discontinue aspirin continue to monitor H&H while patient is on heparin cardiology recommendations appreciated echocardiogram ordered continue with rate control medication 03/24/2023: Patient seen and evaluated bedside, during my evaluation patient is a wake and alert patient come back from MRI does complain of back pain moving lower extremities, on IV heparin no blood in stool noted no hematemesis no hematuria. Continue to monitor appreciate input from cardiology 03/25/2023: Patient seen and evaluated bedside, patient is status post MRI completion does show severe degenerative disease in lumbar spine, orthopedic not planning intervention during this hospitalization hence we'll transition to Eliquis. First dose to be given on 03/25 p.m. IV heparin discontinued patient also started on robaxin and lidocaine patch 03/26/2023: Patient seen and evaluated bedside, patient had lumbar LIANNE, does state pain has improved. Patient still undecided about surgery. Patient has been tentatively scheduled for 03/28 for 24 for lumbar spine intervention. We will continue to hold Lantus coagulation anticipation of surgery 03/27/2023: Patient seen and evaluated bedside, patient continued to complain of back pain, going for surgery tomorrow, patient was resting comfortably on my assessment, requesting more pain medications. Patient explained the risk of excessive use of pain medication. Seen by cardiology continue to hold anticoagulation in anticipation of surgery 03/28/2023: Patient seen and evaluated bedside, patient alert and oriented 3, patient moving forward to surgery does complain of off lower extremity weakness prior to surgery as well as back pain. Patient was explained he will need to go to rehab after surgery 03/29/2023: ICU. Underwent surgery yesterday. Hemovac in place. 220 mL output in last 8 hours. Atrial fibrillation rate without 100. On IV Ancef. Significant lower back pain. Tolerating diet. She feels a bit heavy in the legs. 03/30/2023: Hemovac in place. Lopez catheter. Had a bowel movement yesterday. Back pain persist. Blood pressure running on the lower side. Some bump in creatinine. Hold lisinopril. March 31, 2023: Good appetite. Pain still present. Has been out of bed. Had a bowel movement yesterday. Patient is concerned about falls. Hemovac put out about 70 cc in the last shift. April 01, 2023: Patient sat in the chair for about 2 hours. Up to the bathroom with therapy. Hemovac was discontinued. Eating well. Pain better. Per orthopedics bertrand Torre today. Active Medications Acetaminophen (Acetaminophen Tab 325 Mg Tab) 650 mg PO Q6HR PRN PRN Reason: Mild Pain or Fever > 100.5 Hydrocodone Bitart/Acetaminophen (Hydrocodone/Apap 5-325mg 1 Each Tab) 1 each PO Q4HR PRN PRN Reason: Moderate Pain (Scale 4 to 6) Last Admin: 03/29/23 11:47 Dose: 1 each Hydrocodone Bitart/Acetaminophen (Hydrocodone/Apap 10-325mg 1 Each Tab) 1 each PO Q4H PRN PRN Reason: Pain Scale 7 - 10 Last Admin: 04/01/23 09:59 Dose: 1 each Albuterol Sulfate (Albuterol Nebulized 2.5 Mg/3 Ml) 2.5 mg INHALATION RT-QID PRN PRN Reason: Shortness Of Breath Last Admin: 03/27/23 11:46 Dose: 2.5 mg Albuterol/Ipratropium (Ipratropium-Albuterol 3 Ml Neb) 3 ml INHALATION TID [facility] Last Admin: 04/01/23 08:51 Dose: 3 ml Carvedilol (Carvedilol 6.25 Mg Tab) 6.25 mg PO BID [facility] Last Admin: 04/01/23 08:02 Dose: 6.25 mg Cyclobenzaprine HCl (Cyclobenzaprine 10 Mg Tab) 10 mg PO TID PRN PRN Reason: Muscle Spasm Last Admin: 04/01/23 08:07 Dose: 10 mg Dapagliflozin (Dapagliflozin Propanediol 5 Mg Tablet) 5 mg PO DAILY [facility] Last Admin: 04/01/23 08:03 Dose: 5 mg Dextrose/Water (Dextrose 50% Syringe 50 Ml) 25 ml IVP PER PROTOCOL PRN; Protocol PRN Reason: Hypoglycemia Dextrose/Water (Dextrose 50% Syringe 50 Ml) 50 ml IVP PER PROTOCOL PRN; Protocol PRN Reason: Hypoglycemia Duloxetine HCl (Duloxetine Hcl 30 Mg Capsule.Dr) 30 mg PO DAILY [facility] Last Admin: 04/01/23 08:03 Dose: 30 mg Gabapentin (Gabapentin 400 Mg Cap) 800 mg PO TID [facility] Last Admin: 04/01/23 08:02 Dose: 800 mg Hydromorphone HCl (Hydromorphone 0.5 Mg/0.5 Ml Syringe) 0.5 mg IVP Q4HR PRN PRN Reason: Pain Scale 7 to 10 Last Admin: 04/01/23 12:15 Dose: 0.5 mg Sodium Chloride (Saline 0.9%) 1,000 mls @ 100 mls/hr IV .Q10H [facility] Last Admin: 04/01/23 08:04 Dose: Not Given Insulin Aspart (Insulin Aspart (Novolog) 100 Unit/Ml Vial) 0 unit SQ ACHS [facility]; Protocol Last Admin: 04/01/23 12:07 Dose: 2 unit Insulin Detemir (Insulin Detemir (Levemir) 100 Unit/Ml Syr) 10 unit SQ DAILY@0700 [facility] Last Admin: 04/01/23 06:22 Dose: 10 unit Lidocaine (Lidocaine 4% Patch) 1 patch TOPICAL DAILY [facility]; Protocol Last Admin: 04/01/23 08:02 Dose: 1 patch Magnesium Hydroxide (Magnesium Hydroxide 2,400 Mg/30 Ml Cup) 2,400 mg PO [facility] Last Admin: 03/31/23 22:02 Dose: 2,400 mg Metformin HCl (Metformin 500 Mg Tab) 1,000 mg PO BID [facility] Last Admin: 04/01/23 08:02 Dose: 1,000 mg Methocarbamol (Methocarbamol 750 Mg Tab) 750 mg PO QID [facility] Last Admin: 04/01/23 12:06 Dose: 750 mg Naloxone HCl (Naloxone 0.4 Mg/Ml 1 Ml Vial) 0.2 mg IV Q2M PRN PRN Reason: Opioid Reversal Non-Formulary Medication (Dulaglutide [Trulicity]) 0.75 mg SQ TU [facility] Last Admin: 04/01/23 07:56 Dose: Not Given Ondansetron HCl (Ondansetron 4 Mg/2 Ml Vial) 4 mg IVP Q8HR PRN PRN Reason: Nausea And Vomiting Last Admin: 03/30/23 06:42 Dose: 4 mg Senna (Sennosides 8.6 Mg Tab) 8.6 mg PO [facility] Last Admin: 03/31/23 22:03 Dose: 8.6 mg Senna/Docusate Sodium (Sennosides-Docusate Sodium 1 Each Tab) 2 each PO DAILY PRN PRN Reason: Constipation On examination: VITAL SIGNS: 98.2, 89, 19, 1 one 6 x 76, 94% room air GENERAL APPEARANCE: Sitting up in bed, comfortable HEENT: Normal external appearance of nose and ear. Oral cavity normal EYES: Pupils equal. Conjunctiva normal. NECK: JVD not raised. Mass not palpable. RESPIRATORY: Respiratory effort normal. Lungs decreased breath sounds CARDIOVASCULAR: Sounds irregular No edema. ABDOMEN: Soft. Liver and spleen not palpable. No tenderness. No mass palpable. PSYCHIATRY: Alert and oriented x3. Mood and affect anxious MUSCULAR skeletal: Hemovac discontinued. Dressing in place. INVESTIGATIONS, reviewed in the clinical context: Renal ultrasound: No evidence of renal atrophy of medical renal disease. Right kidney 10.2 x 6 x 5.7 cm. Left kidney 12.2 x 7 x 6.4 cm. UA: Glucose 4+. Negative for protein April 01: White count 9.5 hemoglobin 12.2 March 31, 2023: Potassium 4.5 creatinine 1.28 03/30/2023: White count 9.1 in globin 12.7 potassium 4.6 BUN 32 creatinine 1.26 03/29/2023: White count 12.1 hemoglobin 13 potassium 4.5 BUN 29 creatinine 0.98 Assessment and plan * Acute on chronic back pain with lower extremity weakness with degenerative disease of lumbar spine, lumbar spine stenosis L2-L3 with this bulge, L3-L4 T12-L2 Significant pain present. Sit to sit up in the chair for 2 hours and up to the bathroom with therapy.. Follow-up with Ortho. * Persistent Atrial fibrillation currently rate controlled. Per orthopedics Eliquis to start today.. Coreg * Status post lumbar LIANNE * Essential Hypertension: Coreg. * Diabetes mellitus type 2 on oral hypoglycemic. Levemir. Follow Accu-Cheks and sliding scale. Glucophage. Trulicity-we will check with pharmacy fees getting this from home. * Acute renal failure with mild metabolic acidosis: Corrected * Probable CKD, likely nephrosclerosis. Stage II Ultrasound and UA. Unremarkable. Patient to follow-up with nephrology outpatient * Thrombocytopenia: Resolved -COPD in a current smoker: DuoNeb 3 times a day -Obesity BMI 35.0: Weight loss measures Discussed with patient. Start Eliquis today-okay per Ortho. DC IV fluids
[2023-04-01] MEDS: MAGNESIUM HYDROXIDE 2,400 MG/30 ML CUP PO SCH (20:09)
[2023-04-01] MEDS: APIXABAN 5 MG TAB PO SCH (20:09)
[2023-04-01] MEDS: SENNOSIDES 8.6 MG TAB PO SCH (20:09)
[2023-04-01 21:03] LABS: Glucose,Whole Blood 166 mg/dL (70-110)
[2023-04-02] MEDS: HYDROmorphone 0.5 MG/0.5 ML SYRINGE IVP PRN (01:21)
[2023-04-02] MEDS: SODIUM CHLORIDE 0.9% 1,000 ML IV SCH ×2 (02:22→17:28)
[2023-04-02 05:57] LABS: Glucose,Whole Blood 192 mg/dL (70-110)
[2023-04-02] MEDS: HYDROcodone/APAP 10-325MG 1 EACH TAB PO PRN (06:31)
[2023-04-02] MEDS: INSULIN ASPART (NovoLOG) 100 UNIT/ML VIAL SQ SCH ×4 (06:31→21:38)
[2023-04-02] MEDS: CYCLOBENZAPRINE 10 MG TAB PO PRN (06:31)
[2023-04-02] MEDS: INSULIN DETEMIR (LEVEMIR) 100 UNIT/ML SYR SQ SCH (06:31)
[2023-04-02] MEDS: IPRATROPIUM-ALBUTEROL 3 ML NEB INHALATION SCH ×3 (07:51→21:26)
[2023-04-02] MEDS: methocarbamoL 750 MG TAB PO SCH ×4 (09:03→21:36)
[2023-04-02] MEDS: carvediloL 6.25 MG TAB PO SCH ×2 (09:03→21:37)
[2023-04-02] MEDS: GABAPENTIN 400 MG CAP PO SCH ×3 (09:03→21:36)
[2023-04-02] MEDS: DAPAGLIFLOZIN PROPANEDIOL 5 MG TABLET PO SCH (09:03)
[2023-04-02] MEDS: LIDOCAINE 4% PATCH TOPICAL SCH (09:04)
[2023-04-02] MEDS: DULoxetine HCL 30 MG CAPSULE.DR PO SCH (09:04)
[2023-04-02] MEDS: metFORMIN 500 MG TAB PO SCH ×2 (09:04→21:37)
[2023-04-02] MEDS: APIXABAN 5 MG TAB PO SCH ×2 (09:04→21:37)
[2023-04-02] MEDS: HYDROcodone/APAP 10-325MG 1 EACH TAB PO SCH ×4 (09:08→21:37)
--- NOTE | 2023-04-02 09:44 | P.PN ---
Subjective Progress Note Date: 04/02/23 Principal diagnosis: Lumbar stenosis Increasing back pain Bilateral lower extremity weakness Patient seen and examined this morning. Patient is resting comfortably in bed. He does have report of increased pain with movement, medications have been adjusted. Surgical incision to the lumbar spine, dressing is clean dry and intact. Patient needs strong encouragement to be up in chair with all meals and to be working with physical therapy. Patient needs to be ambulating to restroom only using urinal if needed. Prescription for LSO brace has been placed in chart. Patient denies any radicular symptoms or numbness/tingling to the bilateral lower extremities. Patient progressing towards discharge to [facility]. Objective - Vital Signs Vital signs: Vital Signs Temp 98 F 04/02/23 02:00 Pulse 96 04/02/23 02:00 Resp 16 04/02/23 02:00 BP 151/89 04/02/23 02:00 Pulse Ox 96 04/02/23 02:00 FiO2 Intake & Output 04/01/23 04/02/23 04/02/23 18:59 06:59 18:59 Intake Total 550 Output Total 600 850 Balance -50 -850 Intake: Oral 550 Output: Urine 600 850 Other: Voiding Method Urinal # Voids 4 - Exam Inspection: Surgical incision to the lumbar spine, dressing is CDI. Sensation: Sensation is equal, symmetric, bilaterally intact throughout the upper and lower extremities Palpation: Nontender to palpation throughout bilateral upper and lower extremities and throughout spine exam Range of motion: Patient does have full range of motion bilateral upper and lower extremities on exam Motor: 5/5 in all major motor groups in the bilateral upper extremities 4-/5 strength of patient's bilateral lower extremities with hip flexion 4/5 strength appreciated in the bilateral lower extremities with knee extension and knee flexion 4/5 strength appreciated in the bilateral lower extremities with plantar flexion, FHL 4-/5 strength appreciated in the bilateral lower extremities with dorsiflexion and EHL Special tests: Negative Homans bilaterally. Negative Tiesha bilaterally. Negative clonus bilaterally. Neurovascular: Radial pulse intact, 2+ bilaterally. Cap refill under 3 seconds in digits upper extremities. - Labs CBC & Chem 7: 04/01/23 05:59 04/01/23 05:59 Labs: Abnormal Lab Results - Last 24 Hours (Table) 04/01/23 04/01/23 04/01/23 Range/Units 05:59 11:14 16:18 Sodium 136 L (137-145) mmol/L BUN 33 H (9-20) mg/dL Creatinine 1.34 H (0.66-1.25) mg/dL Glucose 217 H (74-99) mg/dL POC Glucose (mg/dL) 209 H 180 H (70-110) mg/dL 04/01/23 04/02/23 Range/Units 21:01 05:55 Sodium (137-145) mmol/L BUN (9-20) mg/dL Creatinine (0.66-1.25) mg/dL Glucose (74-99) mg/dL POC Glucose (mg/dL) 166 H 192 H (70-110) mg/dL Assessment and Plan Assessment: Postop day 4: [id number] decompression and fusion Low back pain Bilateral lower extremity weakness Neuropathy bilateral lower extremities Severe lumbar spondylosis Multilevel lumbar neural foraminal and central canal stenosis Other medical comorbidities Plan: -Appreciate campaign consultant and team management. -Prescription for LSO brace placed in chart. -Activity: Ambulate QID, OOB all meals, up and about, limit lifting bending twisting to less than 5 lbs. Use walker or cane if needed for stability. -Daily PT/OT, increase ambulation strength and balance. -Brace when up and about, not needed in bed or chair -Pain control: Adequate at this time -Meds: reviewed -GI ppx: senna, Miralax -DVT PPX: Eliquis -Hygiene: Shower today. Maintain dressing clean and dry. Meticulous cleaning after BMs away from the incision site -Encourage IS 10x/hr -Dispo: Anticipate discharge to [facility] within the next 24hrs *I reviewed and discussed this case with my attending Dr. Zimmerman, whom has reviewed this chart and films and is in agreement with assessment and plan of care as outlined above. I have personally seen and examined the patient, performed the documentation and the assessment and plan as written. Number of minutes spent on the visit: 20m.
[2023-04-02 11:09] LABS: Glucose,Whole Blood 231 mg/dL (70-110)
[2023-04-02 16:01] LABS: Glucose,Whole Blood 190 mg/dL (70-110)
--- NOTE | 2023-04-02 16:19 | P.PN ---
Progress Note - Text Progress Note Date: 04/02/23 67-year-old gentleman with past medical history significant for atrial fibrillation, diabetes mellitus, COPD, hypertension, degenerative disks/joint disease presents to the emergency department with complains of increasing back pain. Patient stated his back pain is getting worse to the point he is unable to move around freely and has multiple falls at home he had been complaining of lower extremity weakness and neuropathic pain bilaterally and feet as well. Upon admission patient denies history of bladder or bowel incontinence, denies fever or perianal numbness * Workup initiated in ER including CT lumbar spine which showed multilevel degenerative changes and stenosis, L3-L4 disc bulge and spinal canal stenosis noted, L5-S1 degenerative disc changes noted * Patient had a CT brain done which was negative for acute fracture or dislocation of cervical spine no intracranial hemorrhage was noted * EKG obtained in ER showed atrial fibrillation with heart rate of 122 and the time of admission * Serum chemistry obtained showed WBC 10.4 hemoglobin 15 platelet count of 135 INR of 1 * Serum chemistry shows sodium 137 potassium 4.2 BU and 36 at 1.39 * Patient tested negative for influenza RSV and Covid * While in ER patient was given 1 dose of oral Coreg IV fluid bolus and IV pain medications and admitted to medical floor with back surgery consultation for evaluation 03/23/2023: Patient seen and evaluated at bedside, abdomen examined nontender no episodes of gastrointestinal bleed. Previously patient was on Coumadin patient to be started back on IV heparin low dose continue to monitor while patient is known to be on heparin we will discontinue aspirin continue to monitor H&H while patient is on heparin cardiology recommendations appreciated echocardiogram ordered continue with rate control medication 03/24/2023: Patient seen and evaluated bedside, during my evaluation patient is a wake and alert patient come back from MRI does complain of back pain moving lower extremities, on IV heparin no blood in stool noted no hematemesis no hematuria. Continue to monitor appreciate input from cardiology 03/25/2023: Patient seen and evaluated bedside, patient is status post MRI completion does show severe degenerative disease in lumbar spine, orthopedic not planning intervention during this hospitalization hence we'll transition to Eliquis. First dose to be given on 03/25 p.m. IV heparin discontinued patient also started on robaxin and lidocaine patch 03/26/2023: Patient seen and evaluated bedside, patient had lumbar LIANNE, does state pain has improved. Patient still undecided about surgery. Patient has been tentatively scheduled for 03/28 for 24 for lumbar spine intervention. We will continue to hold Lantus coagulation anticipation of surgery 03/27/2023: Patient seen and evaluated bedside, patient continued to complain of back pain, going for surgery tomorrow, patient was resting comfortably on my assessment, requesting more pain medications. Patient explained the risk of excessive use of pain medication. Seen by cardiology continue to hold anticoagulation in anticipation of surgery 03/28/2023: Patient seen and evaluated bedside, patient alert and oriented 3, patient moving forward to surgery does complain of off lower extremity weakness prior to surgery as well as back pain. Patient was explained he will need to go to rehab after surgery 03/29/2023: ICU. Underwent surgery yesterday. Hemovac in place. 220 mL output in last 8 hours. Atrial fibrillation rate without 100. On IV Ancef. Significant lower back pain. Tolerating diet. She feels a bit heavy in the legs. 03/30/2023: Hemovac in place. Lopez catheter. Had a bowel movement yesterday. Back pain persist. Blood pressure running on the lower side. Some bump in creatinine. Hold lisinopril. March 31, 2023: Good appetite. Pain still present. Has been out of bed. Had a bowel movement yesterday. Patient is concerned about falls. Hemovac put out about 70 cc in the last shift. April 01, 2023: Patient sat in the chair for about 2 hours. Up to the bathroom with therapy. Hemovac was discontinued. Eating well. Pain better. Per orthopedics start Eliquis today. April 02, 2023: Sitting up in a chair. Pain still present. Did walk with some therapy. On Eliquis. Active Medications Acetaminophen (Acetaminophen Tab 325 Mg Tab) 650 mg PO Q6HR PRN PRN Reason: Mild Pain or Fever > 100.5 Hydrocodone Bitart/Acetaminophen (Hydrocodone/Apap 5-325mg 1 Each Tab) 1 each PO Q4HR PRN PRN Reason: Moderate Pain (Scale 4 to 6) Last Admin: 03/29/23 11:47 Dose: 1 each Hydrocodone Bitart/Acetaminophen (Hydrocodone/Apap 10-325mg 1 Each Tab) 1 each PO Q4H [facility] Last Admin: 04/02/23 13:19 Dose: 1 each Albuterol Sulfate (Albuterol Nebulized 2.5 Mg/3 Ml) 2.5 mg INHALATION RT-QID PRN PRN Reason: Shortness Of Breath Last Admin: 03/27/23 11:46 Dose: 2.5 mg Albuterol/Ipratropium (Ipratropium-Albuterol 3 Ml Neb) 3 ml INHALATION TID [facility] Last Admin: 04/02/23 12:46 Dose: 3 ml Apixaban (Apixaban 5 Mg Tab) 5 mg PO BID [facility]; Protocol Last Admin: 04/02/23 09:04 Dose: 5 mg Carvedilol (Carvedilol 6.25 Mg Tab) 6.25 mg PO BID [facility] Last Admin: 04/02/23 09:03 Dose: 6.25 mg Cyclobenzaprine HCl (Cyclobenzaprine 10 Mg Tab) 10 mg PO TID PRN PRN Reason: Muscle Spasm Last Admin: 04/02/23 06:31 Dose: 10 mg Dapagliflozin (Dapagliflozin Propanediol 5 Mg Tablet) 5 mg PO DAILY [facility] Last Admin: 04/02/23 09:03 Dose: 5 mg Dextrose/Water (Dextrose 50% Syringe 50 Ml) 25 ml IVP PER PROTOCOL PRN; Protocol PRN Reason: Hypoglycemia Dextrose/Water (Dextrose 50% Syringe 50 Ml) 50 ml IVP PER PROTOCOL PRN; Protocol PRN Reason: Hypoglycemia Duloxetine HCl (Duloxetine Hcl 30 Mg Capsule.Dr) 30 mg PO DAILY [facility] Last Admin: 04/02/23 09:04 Dose: 30 mg Gabapentin (Gabapentin 400 Mg Cap) 800 mg PO TID [facility] Last Admin: 04/02/23 09:03 Dose: 800 mg Sodium Chloride (Saline 0.9%) 1,000 mls @ 100 mls/hr IV .Q10H [facility] Last Admin: 04/02/23 02:22 Dose: Not Given Insulin Aspart (Insulin Aspart (Novolog) 100 Unit/Ml Vial) 0 unit SQ ACHS [facility]; Protocol Last Admin: 04/02/23 12:27 Dose: 2 unit Insulin Detemir (Insulin Detemir (Levemir) 100 Unit/Ml Syr) 10 unit SQ DAILY@0700 [facility] Last Admin: 04/02/23 06:31 Dose: 10 unit Lidocaine (Lidocaine 4% Patch) 1 patch TOPICAL DAILY [facility]; Protocol Last Admin: 04/02/23 09:04 Dose: 1 patch Magnesium Hydroxide (Magnesium Hydroxide 2,400 Mg/30 Ml Cup) 2,400 mg PO [facility] Last Admin: 04/01/23 20:09 Dose: 2,400 mg Metformin HCl (Metformin 500 Mg Tab) 1,000 mg PO BID [facility] Last Admin: 04/02/23 09:04 Dose: 1,000 mg Methocarbamol (Methocarbamol 750 Mg Tab) 750 mg PO QID [facility] Last Admin: 04/02/23 12:26 Dose: 750 mg Naloxone HCl (Naloxone 0.4 Mg/Ml 1 Ml Vial) 0.2 mg IV Q2M PRN PRN Reason: Opioid Reversal Non-Formulary Medication (Dulaglutide [Trulicity]) 0.75 mg SQ TU [facility] Last Admin: 04/01/23 07:56 Dose: Not Given Ondansetron HCl (Ondansetron 4 Mg/2 Ml Vial) 4 mg IVP Q8HR PRN PRN Reason: Nausea And Vomiting Last Admin: 03/30/23 06:42 Dose: 4 mg Senna (Sennosides 8.6 Mg Tab) 8.6 mg PO [facility] Last Admin: 04/01/23 20:09 Dose: 8.6 mg Senna/Docusate Sodium (Sennosides-Docusate Sodium 1 Each Tab) 2 each PO DAILY PRN PRN Reason: Constipation On examination: VITAL SIGNS: 98.2, 87, 19, 108 x 73, 96% room air GENERAL APPEARANCE: Sitting up in bed, comfortable HEENT: Normal external appearance of nose and ear. Oral cavity normal EYES: Pupils equal. Conjunctiva normal. NECK: JVD not raised. Mass not palpable. RESPIRATORY: Respiratory effort normal. Lungs decreased breath sounds CARDIOVASCULAR: Sounds irregular No edema. ABDOMEN: Soft. Liver and spleen not palpable. No tenderness. No mass palpable. PSYCHIATRY: Alert and oriented x3. Mood and affect anxious MUSCULAR skeletal: Dressing in place. INVESTIGATIONS, reviewed in the clinical context: Renal ultrasound: No evidence of renal atrophy of medical renal disease. Right kidney 10.2 x 6 x 5.7 cm. Left kidney 12.2 x 7 x 6.4 cm. UA: Glucose 4+. Negative for protein April 01: White count 9.5 hemoglobin 12.2 March 31, 2023: Potassium 4.5 creatinine 1.28 03/30/2023: White count 9.1 in globin 12.7 potassium 4.6 BUN 32 creatinine 1.26 03/29/2023: White count 12.1 hemoglobin 13 potassium 4.5 BUN 29 creatinine 0.98 Assessment and plan * Acute on chronic back pain with lower extremity weakness with degenerative disease of lumbar spine, lumbar spine stenosis L2-L3 with this bulge, L3-L4 T12-L2 Significant pain present. Increase activity as per Ortho. Follow-up with Ortho. * Persistent Atrial fibrillation currently rate controlled. Eliquis.. Coreg * Status post lumbar LIANNE * Essential Hypertension: Coreg. * Diabetes mellitus type 2 on oral hypoglycemic. Levemir. Follow Accu-Cheks and sliding scale. Glucophage. Trulicity- * Acute renal failure with mild metabolic acidosis: Corrected * Probable CKD, likely nephrosclerosis. Stage II Ultrasound and UA. Unremarkable. Patient to follow-up with nephrology outpatient * Thrombocytopenia: Resolved -COPD in a current smoker: DuoNeb 3 times a day -Obesity BMI 35.0: Weight loss measures Continue current medication treatment plan.
[2023-04-02 19:46] LABS: Glucose,Whole Blood 181 mg/dL (70-110)
[2023-04-02] MEDS: SENNOSIDES 8.6 MG TAB PO SCH (21:38)
[2023-04-02] MEDS: MAGNESIUM HYDROXIDE 2,400 MG/30 ML CUP PO SCH (21:38)
[2023-04-03] MEDS: HYDROcodone/APAP 10-325MG 1 EACH TAB PO SCH ×6 (01:01→20:44)
[2023-04-03] MEDS: CYCLOBENZAPRINE 10 MG TAB PO PRN ×2 (01:01→13:09)
[2023-04-03 06:04] LABS: Glucose,Whole Blood 215 mg/dL (70-110)
[2023-04-03] MEDS: INSULIN ASPART (NovoLOG) 100 UNIT/ML VIAL SQ SCH ×4 (06:11→20:43)
[2023-04-03] MEDS: INSULIN DETEMIR (LEVEMIR) 100 UNIT/ML SYR SQ SCH (06:12)
[2023-04-03] MEDS: APIXABAN 5 MG TAB PO SCH ×2 (09:02→20:43)
[2023-04-03] MEDS: metFORMIN 500 MG TAB PO SCH ×2 (09:03→20:43)
[2023-04-03] MEDS: methocarbamoL 750 MG TAB PO SCH ×4 (09:03→20:43)
[2023-04-03] MEDS: DAPAGLIFLOZIN PROPANEDIOL 5 MG TABLET PO SCH (09:04)
[2023-04-03] MEDS: GABAPENTIN 400 MG CAP PO SCH ×3 (09:04→20:44)
[2023-04-03] MEDS: DULoxetine HCL 30 MG CAPSULE.DR PO SCH (09:04)
[2023-04-03] MEDS: carvediloL 6.25 MG TAB PO SCH ×2 (09:04→20:43)
[2023-04-03] MEDS: LIDOCAINE 4% PATCH TOPICAL SCH (09:08)
[2023-04-03] MEDS: IPRATROPIUM-ALBUTEROL 3 ML NEB INHALATION SCH ×3 (09:47→20:55)
--- NOTE | 2023-04-03 10:03 | P.PN ---
Subjective Progress Note Date: 04/03/23 Principal diagnosis: Lumbar stenosis Increasing back pain Bilateral lower extremity weakness Patient seen and examined this morning. Patient is resting comfortably in bed. He continues to have complaint of low back pain. Surgical incision to the lumbar spine, edges are well approximated with elizabeth intact. New dressing applied. Patient needs strong encouragement to be up in chair with all meals. Patient needs to be ambulating to restroom only using urinal if needed. Prescription for LSO brace is in chart. Patient denies any radicular symptoms or numbness/tingling to the bilateral lower extremities. Patient is cleared from Orthopedic standpoint for discharge when bed available. Objective - Vital Signs Vital signs: Vital Signs Temp 97.6 F 04/03/23 08:00 Pulse 84 04/03/23 08:00 Resp 18 04/03/23 08:00 BP 117/77 04/03/23 08:00 Pulse Ox 95 04/03/23 08:00 FiO2 Intake & Output 04/02/23 04/03/23 04/03/23 18:59 06:59 18:59 Intake Total 100 800 Output Total 780 Balance -680 800 Intake: Intake, IV Titration 100 Amount Sodium Chloride 0.9% 1, 100 000 ml @ 100 mls/hr IV . Q10H [facility] Rx#:[id number] Oral 800 Output: Urine 780 Other: # Voids 1,000 - Exam Inspection: Surgical incision to the lumbar spine, edges are well approximated with elizabeth intact. New dressing applied. Sensation: Sensation is equal, symmetric, bilaterally intact throughout the upper and lower extremities Palpation: Nontender to palpation throughout bilateral upper and lower extremities and throughout spine exam Range of motion: Patient does have full range of motion bilateral upper and lower extremities on exam Motor: 5/5 in all major motor groups in the bilateral upper extremities 4-/5 strength of patient's bilateral lower extremities with hip flexion 4/5 strength appreciated in the bilateral lower extremities with knee extension and knee flexion 4/5 strength appreciated in the bilateral lower extremities with plantar flexion, FHL 4-/5 strength appreciated in the bilateral lower extremities with dorsiflexion and EHL Special tests: Negative Homans bilaterally. Negative Tiesha bilaterally. Negative clonus bilaterally. Neurovascular: Radial pulse intact, 2+ bilaterally. Cap refill under 3 seconds in digits upper extremities. - Labs CBC & Chem 7: 04/01/23 05:59 04/01/23 05:59 Labs: Abnormal Lab Results - Last 24 Hours (Table) 04/02/23 04/02/23 04/02/23 Range/Units 11:07 15:59 19:38 POC Glucose (mg/dL) 231 H 190 H 181 H (70-110) mg/dL 04/03/23 Range/Units 06:03 POC Glucose (mg/dL) 215 H (70-110) mg/dL Assessment and Plan Assessment: Postop day 5: [id number] decompression and fusion Low back pain Bilateral lower extremity weakness Neuropathy bilateral lower extremities Severe lumbar spondylosis Multilevel lumbar neural foraminal and central canal stenosis Other medical comorbidities Plan: -Appreciate enterprise resource planning consultant and team management. -Prescription for LSO brace is in chart. -Activity: Ambulate QID, OOB all meals, up and about, limit lifting bending twisting to less than 5 lbs. Use walker or cane if needed for stability. -Daily PT/OT, increase ambulation strength and balance. -Brace when up and about, not needed in bed or chair -Pain control: Adequate at this time -Meds: reviewed -GI ppx: senna, Miralax -DVT PPX: Eliquis -Hygiene: Shower today. Maintain dressing clean and dry. Meticulous cleaning after BMs away from the incision site -Encourage IS 10x/hr -Dispo: Patient is cleared from Orthopedic standpoint for discharge to [facility] when bed available. *I reviewed and discussed this case with my attending Dr. Zimmerman, whom has reviewed this chart and films and is in agreement with assessment and plan of care as outlined above. I have personally seen and examined the patient, performed the documentation and the assessment and plan as written. Number of minutes spent on the visit: 20m.
[2023-04-03 11:12] LABS: Glucose,Whole Blood 182 mg/dL (70-110)
--- NOTE | 2023-04-03 16:51 | P.PN ---
Progress Note - Text Progress Note Date: 04/03/23 67-year-old gentleman with past medical history significant for atrial fibrillation, diabetes mellitus, COPD, hypertension, degenerative disks/joint disease presents to the emergency department with complains of increasing back pain. Patient stated his back pain is getting worse to the point he is unable to move around freely and has multiple falls at home he had been complaining of lower extremity weakness and neuropathic pain bilaterally and feet as well. Upon admission patient denies history of bladder or bowel incontinence, denies fever or perianal numbness * Workup initiated in ER including CT lumbar spine which showed multilevel degenerative changes and stenosis, L3-L4 disc bulge and spinal canal stenosis noted, L5-S1 degenerative disc changes noted * Patient had a CT brain done which was negative for acute fracture or dislocation of cervical spine no intracranial hemorrhage was noted * EKG obtained in ER showed atrial fibrillation with heart rate of 122 and the time of admission * Serum chemistry obtained showed WBC 10.4 hemoglobin 15 platelet count of 135 INR of 1 * Serum chemistry shows sodium 137 potassium 4.2 BU and 36 at 1.39 * Patient tested negative for influenza RSV and Covid * While in ER patient was given 1 dose of oral Coreg IV fluid bolus and IV pain medications and admitted to medical floor with back surgery consultation for evaluation 03/23/2023: Patient seen and evaluated at bedside, abdomen examined nontender no episodes of gastrointestinal bleed. Previously patient was on Coumadin patient to be started back on IV heparin low dose continue to monitor while patient is known to be on heparin we will discontinue aspirin continue to monitor H&H while patient is on heparin cardiology recommendations appreciated echocardiogram ordered continue with rate control medication 03/24/2023: Patient seen and evaluated bedside, during my evaluation patient is a wake and alert patient come back from MRI does complain of back pain moving lower extremities, on IV heparin no blood in stool noted no hematemesis no hematuria. Continue to monitor appreciate input from cardiology 03/25/2023: Patient seen and evaluated bedside, patient is status post MRI completion does show severe degenerative disease in lumbar spine, orthopedic not planning intervention during this hospitalization hence we'll transition to Eliquis. First dose to be given on 03/25 p.m. IV heparin discontinued patient also started on robaxin and lidocaine patch 03/26/2023: Patient seen and evaluated bedside, patient had lumbar LIANNE, does state pain has improved. Patient still undecided about surgery. Patient has been tentatively scheduled for 03/28 for 24 for lumbar spine intervention. We will continue to hold Lantus coagulation anticipation of surgery 03/27/2023: Patient seen and evaluated bedside, patient continued to complain of back pain, going for surgery tomorrow, patient was resting comfortably on my assessment, requesting more pain medications. Patient explained the risk of excessive use of pain medication. Seen by cardiology continue to hold anticoagulation in anticipation of surgery 03/28/2023: Patient seen and evaluated bedside, patient alert and oriented 3, patient moving forward to surgery does complain of off lower extremity weakness prior to surgery as well as back pain. Patient was explained he will need to go to rehab after surgery 03/29/2023: ICU. Underwent surgery yesterday. Hemovac in place. 220 mL output in last 8 hours. Atrial fibrillation rate without 100. On IV Ancef. Significant lower back pain. Tolerating diet. She feels a bit heavy in the legs. 03/30/2023: Hemovac in place. Lopez catheter. Had a bowel movement yesterday. Back pain persist. Blood pressure running on the lower side. Some bump in creatinine. Hold lisinopril. March 31, 2023: Good appetite. Pain still present. Has been out of bed. Had a bowel movement yesterday. Patient is concerned about falls. Hemovac put out about 70 cc in the last shift. April 01, 2023: Patient sat in the chair for about 2 hours. Up to the bathroom with therapy. Hemovac was discontinued. Eating well. Pain better. Per orthopedics start Eliquis today. April 02, 2023: Sitting up in a chair. Pain still present. Did walk with some therapy. On Eliquis. April 03, 2023: Still complaining of pain. Tolerating diet. Had a bowel movement. Making urine. Plan for patient to go to subacute rehab. Active Medications Acetaminophen (Acetaminophen Tab 325 Mg Tab) 650 mg PO Q6HR PRN PRN Reason: Mild Pain or Fever > 100.5 Hydrocodone Bitart/Acetaminophen (Hydrocodone/Apap 5-325mg 1 Each Tab) 1 each PO Q4HR PRN PRN Reason: Moderate Pain (Scale 4 to 6) Last Admin: 03/29/23 11:47 Dose: 1 each Hydrocodone Bitart/Acetaminophen (Hydrocodone/Apap 10-325mg 1 Each Tab) 1 each PO Q4H [facility] Last Admin: 04/03/23 13:07 Dose: 1 each Albuterol Sulfate (Albuterol Nebulized 2.5 Mg/3 Ml) 2.5 mg INHALATION RT-QID PRN PRN Reason: Shortness Of Breath Last Admin: 03/27/23 11:46 Dose: 2.5 mg Albuterol/Ipratropium (Ipratropium-Albuterol 3 Ml Neb) 3 ml INHALATION TID [facility] Last Admin: 04/03/23 15:09 Dose: 3 ml Apixaban (Apixaban 5 Mg Tab) 5 mg PO BID [facility]; Protocol Last Admin: 04/03/23 09:02 Dose: 5 mg Carvedilol (Carvedilol 6.25 Mg Tab) 6.25 mg PO BID [facility] Last Admin: 04/03/23 09:04 Dose: 6.25 mg Cyclobenzaprine HCl (Cyclobenzaprine 10 Mg Tab) 10 mg PO TID PRN PRN Reason: Muscle Spasm Last Admin: 04/03/23 13:09 Dose: 10 mg Dapagliflozin (Dapagliflozin Propanediol 5 Mg Tablet) 5 mg PO DAILY [facility] Last Admin: 04/03/23 09:04 Dose: 5 mg Dextrose/Water (Dextrose 50% Syringe 50 Ml) 25 ml IVP PER PROTOCOL PRN; Shana col PRN Reason: Hypoglycemia Dextrose/Water (Dextrose 50% Syringe 50 Ml) 50 ml IVP PER PROTOCOL PRN; Protocol PRN Reason: Hypoglycemia Duloxetine HCl (Duloxetine Hcl 30 Mg Capsule.Dr) 30 mg PO DAILY [facility] Last Admin: 04/03/23 09:04 Dose: 30 mg Gabapentin (Gabapentin 400 Mg Cap) 800 mg PO TID [facility] Last Admin: 04/03/23 09:04 Dose: 800 mg Insulin Aspart (Insulin Aspart (Novolog) 100 Unit/Ml Vial) 0 unit SQ ACHS [facility]; Protocol Last Admin: 04/03/23 12:24 Dose: 1 unit Insulin Detemir (Insulin Detemir (Levemir) 100 Unit/Ml Syr) 10 unit SQ DAILY@0700 [facility] Last Admin: 04/03/23 06:12 Dose: 10 unit Lidocaine (Lidocaine 4% Patch) 1 patch TOPICAL DAILY [facility]; Protocol Last Admin: 04/03/23 09:08 Dose: 1 patch Magnesium Hydroxide (Magnesium Hydroxide 2,400 Mg/30 Ml Cup) 2,400 mg PO [facility] Last Admin: 04/02/23 21:38 Dose: 2,400 mg Metformin HCl (Metformin 500 Mg Tab) 1,000 mg PO BID [facility] Last Admin: 04/03/23 09:03 Dose: 500 mg Methocarbamol (Methocarbamol 750 Mg Tab) 750 mg PO QID [facility] Last Admin: 04/03/23 12:24 Dose: 750 mg Naloxone HCl (Naloxone 0.4 Mg/Ml 1 Ml Vial) 0.2 mg IV Q2M PRN PRN Reason: Opioid Reversal Non-Formulary Medication (Dulaglutide [Trulicity]) 0.75 mg SQ TU [facility] Last Admin: 04/01/23 07:56 Dose: Not Given Ondansetron HCl (Ondansetron 4 Mg/2 Ml Vial) 4 mg IVP Q8HR PRN PRN Reason: Nausea And Vomiting Last Admin: 03/30/23 06:42 Dose: 4 mg Senna (Sennosides 8.6 Mg Tab) 8.6 mg PO [facility] Last Admin: 04/02/23 21:38 Dose: 8.6 mg Senna/Docusate Sodium (Sennosides-Docusate Sodium 1 Each Tab) 2 each PO DAILY PRN PRN Reason: Constipation On examination: VITAL SIGNS: 97.9, 84, 18, 149 x 77, 93% room air GENERAL APPEARANCE: Sitting up in chair. HEENT: Normal external appearance of nose and ear. Oral cavity normal EYES: Pupils equal. Conjunctiva normal. NECK: JVD not raised. Mass not palpable. RESPIRATORY: Respiratory effort normal. Lungs decreased breath sounds CARDIOVASCULAR: Sounds irregular No edema. ABDOMEN: Soft. Liver and spleen not palpable. No tenderness. No mass palpable. PSYCHIATRY: Alert and oriented x3. Mood and affect anxious MUSCULAR skeletal: Dressing in place. INVESTIGATIONS, reviewed in the clinical context: Renal ultrasound: No evidence of renal atrophy of medical renal disease. Right kidney 10.2 x 6 x 5.7 cm. Left kidney 12.2 x 7 x 6.4 cm. UA: Glucose 4+. Negative for protein April 01: White count 9.5 hemoglobin 12.2 March 31, 2023: Potassium 4.5 creatinine 1.28 03/30/2023: White count 9.1 in globin 12.7 potassium 4.6 BUN 32 creatinine 1.26 03/29/2023: White count 12.1 hemoglobin 13 potassium 4.5 BUN 29 creatinine 0.98 Assessment and plan * Acute on chronic back pain with lower extremity weakness with degenerative disease of lumbar spine, lumbar spine stenosis L2-L3 with this bulge, L3-L4 T12-L2 Significant pain present. Increase activity as per Ortho. Follow-up with Ortho. * Persistent Atrial fibrillation currently rate controlled. Eliquis.. Coreg * Status post lumbar LIANNE * Essential Hypertension: Coreg. * Diabetes mellitus type 2 on oral hypoglycemic. Levemir. Follow Accu-Cheks and sliding scale. Glucophage. Trulicity- * Acute renal failure with mild metabolic acidosis: Corrected * Probable CKD, likely nephrosclerosis. Stage II Ultrasound and UA. Unremarkable. Patient to follow-up with nephrology outpatient * Thrombocytopenia: Resolved -COPD in a current smoker: DuoNeb 3 times a day -Obesity BMI 35.0: Weight loss measures Pending discharge to subacute rehab. Pain medications being adjusted by orthopedics. Repeat labs tomorrow.
[2023-04-03 17:09] LABS: Glucose,Whole Blood 206 mg/dL (70-110)
[2023-04-03 20:32] LABS: Glucose,Whole Blood 156 mg/dL (70-110)
[2023-04-03] MEDS: MAGNESIUM HYDROXIDE 2,400 MG/30 ML CUP PO SCH (20:44)
[2023-04-03] MEDS: SENNOSIDES 8.6 MG TAB PO SCH (20:44)
[2023-04-04] MEDS: HYDROcodone/APAP 10-325MG 1 EACH TAB PO SCH ×4 (01:15→15:15)
[2023-04-04] MEDS: CYCLOBENZAPRINE 10 MG TAB PO PRN ×2 (01:16→11:31)
[2023-04-04 06:16] LABS: Glucose,Whole Blood 198 mg/dL (70-110)
[2023-04-04] MEDS: INSULIN ASPART (NovoLOG) 100 UNIT/ML VIAL SQ SCH ×2 (06:24→12:54)
[2023-04-04] MEDS: INSULIN DETEMIR (LEVEMIR) 100 UNIT/ML SYR SQ SCH (06:24)
[2023-04-04 06:28] LABS: Basophils % (A) 0 %; Eosinophils # (A) 0.2 k/uL (0-0.7); Eosinophils % (A) 2 %; HCT 35.8 % (39.0-53.0); HGB 11.7 gm/dL (13.0-17.5); Lymphocytes # (A) 0.9 k/uL (1.0-4.8); Lymphocytes % (A) 11 %; MCHC 32.7 g/dL (31.0-37.0); MCV 94.8 fL (80.0-100.0); Mean Platelet Volume 8.1; Monocytes # (A) 0.6 k/uL (0-1.0); Monocytes % (A) 7 %; Neutrophils # (A) 6.6 k/uL (1.3-7.7); Neutrophils % (A) 79 %; Platelet Count 194 k/uL (150-450); RBC 3.78 m/uL (4.30-5.90); RDW 13.1 % (11.5-15.5); WBC 8.4 k/uL (3.8-10.6)
[2023-04-04 06:38] LABS: African American GFR (CKD) 66 (>60 ml/min/1.73 sqM); Anion Gap 6 mmol/L; Blood Urea Nitrogen 33 mg/dL (9-20); Calcium 9.2 mg/dL (8.4-10.2); Carbon Dioxide 25 mmol/L (22-30); Chloride 102 mmol/L (98-107); Glucose 197 mg/dL (74-99); Non-African American GFR(CKD) 57 (>60 ml/min/1.73 sqM); Potassium 4.4 mmol/L (3.5-5.1); Sodium 133 mmol/L (137-145)
--- NOTE | 2023-04-04 07:20 | P.OP ---
Date of Procedure: 03/28/23 Preoperative Diagnosis: M48.062 Spinal stenosis, lumbar region with neurogenic claudication M48.08 Spinal stenosis, sacral and sacrococcygeal region M47.26 Other spondylosis with radiculopathy, lumbar region M47.27 Other spondylosis with radiculopathy, lumbosacral region M62.59 Muscle wasting and atrophy, not elsewhere classified, multiple sites Postoperative Diagnosis: M48.062 Spinal stenosis, lumbar region with neurogenic claudication M48.08 Spinal stenosis, sacral and sacrococcygeal region M47.26 Other spondylosis with radiculopathy, lumbar region M47.27 Other spondylosis with radiculopathy, lumbosacral region M62.59 Muscle wasting and atrophy, not elsewhere classified, multiple sites Procedure(s) Performed: 1. L5-S1 POSTERIOLATERAL AND INTERBODY FUSION 2. L4-5 POSTERIOLATERAL INSTRUMENTED FUSION 3. L3-4 POSTERIOLATERAL INSTRUMENTED FUSION 4. L3-4 BILATERAL LAMINECTOMY, COMPLETE FACETECTOMY AND FORAMINOTOMY 5. L4-5 BILATERAL LAMINECTOMY, COMPLETE FACETECTOMY AND FORAMINOTOMY 6. L5-S1 BILATERAL LAMINECTOMY, COMPLETE FACETECTOMY AND FORAMINOTOMY FOR DECOMPRESSION AND CAGE PLACEMENT 7. L2-3 BILATERAL LAMINECTOMY, PARTIAL MEDIAL FACETECTOMY AND FORAMINOTOMY 8. L3-S1 SEGMENTAL INSTRUMENTATION 9. L5-S1 INSERTION OF BIOMECHANICAL INTERBODY DEVICE 10. USE OF [employer] NAVIGATION FOR SCREW PLACEMENT USE OF [facility] CPTMOD 22 THIS CASE TOOK 75% LONGER THAN EXPECTED DUE TO CORMORBID CONDITIONS, HIGH BMI >35, EXTENT OF LUMBAR DISEASE AND HIGH TECHNICALITY OF THE CASE. 75490, 49929/59, 94239, 83671, 77354, 49306, 52173/59; 90007, 33978, 84006 Implants: -[employer] AND SCREW SYSTEM -GLOBUS SABLE CAGE 8 DEG, LONG 12 MM 9-16 -MAGNATOS, VENTRIS ALLOCELL, CONTOUR, IFACTOR, AUTOGRAFT Anesthesia: GETA Surgeon: Gregory Zimmerman Compounding Pharmacy Technician #1: Jc Wilkerson (WAS PRESENT AND ASSISTED WITH ALL ASPECTS OF THE CASE FROM POSITION TO CLOSURE. ) Estimated Blood Loss (ml): 400 IV fluids (ml): 1,700 Urine output (ml): 450 Pathology: none sent Condition: stable Disposition: PACU Indications for Procedure: Spine Surgery Clinical and Risk Review Devon Nails is a 67-year-old male presenting for evaluation of bilateral lower extremity weakness severe low back pain progressive neurologic demise. It was my pleasure to have seen and examined Devon Nails . In our visit today we have had a chance to go over subjective complaints, physic al examination findings and treatments including the natural course history without intervention and various interventional options. The patients imaging demonstrates severe spinal stenosis lumbar L2 through S1 severe spondylosis L3 through S1. Grade 1 spondylolisthesis L3 4 L4 5. Retrolisthesis L5-S1.. On physical exam, Devon Nails demonstrates acute progressive lower extremity weakness paresthesias and radiculopathy with severe low back pain limiting his range of motion and ability to ambulate and current condition. I have explained to the patient that as their condition progresses it will cause further neurological deficits and eventual paralysis. Based on the patients imaging, physical exam, and the rapid progression and disabling nature of their symptoms, at this time I recommend surgery in the form or a: L2 to S1 decompression with L3 to S1 fusion. I discussed the risk and benefits of this procedure at length with Devon Nails . The patient agreed to considered pursuing the procedure abovementioned. Prior to surgery, she should follow up with her PCP (Cardio, ID, IM etc) for clearance. Questions were invited and answered, and the patient wishes to proceed as outlined below. Currently, I am recommendin. L2 S1 decompression with L3 to S1 fusion 2. Follow up with PCP for surgical clearance 3. Review of surgical risks and benefits as well as an educational packet on the proposed surgical procedure. Risks: All surgical procedures come with inherent risks, including those related to positioning, anesthesia, intraoperative findings, and postoperative complications. It is important to understand that surgery does not come with any guarantee of a successful outcome as complications and adverse events are always possible. The patient was given a handout in office today discussing the surgical procedure and risks associated with the intervention, both of which were discussed with the patient. These risks include but are not limited to the following: * Experiencing same, different or even worse symptoms in back, neck, arms, or legs compared to before surgery. * Requiring further surgery or other forms of treatment presently or at some time in the future at same or other levels of the intended spine surgery. * On an extreme but fortunately relatively rare basis severe complication such as blindness, stroke, heart attack, temporary and/or permanent nerve injury, paralysis, coma, or may occur, sometimes without known explanation. * Surgical complications may include but are not limited to risk of infection, fluid accumulation in the surgical dissection site, including a seroma or hematoma, that requires additional surgery, wound drainage, bleeding, new numbness or weakness, vision changes/loss, spinal fluid leakage, non-healing and/or infected incision, headaches, difficulty or inability to swallow, hoarseness, hemopneumothorax, pneumothorax, impotence, retrograde ejaculation, vaginal dryness; injury to nerves, spinal cord, blood vessels, lymphatics or other vital organs (i.e., bowel injury, injury to the great vessels); heterotopic bone formation; complications related to the hardware such as screws, rods, cages including misplaced hardware, device failure, instrumentation at the wrong spine level, hardware fracture/breakage, or hardware loosening; vertebral failure of the spinal column above or below the newly placed hardware; retained surgical instrumentations or devices and the need for further surgery. * Medical risks of the planned spine surgery include but are not limited to generalized Infections to the whole body or local areas outside of the surgical site (sepsis), heart attack, bleeding, anaphylaxis, meningitis, seizure, epilepsy, hearing loss, burn jasso, laceration of the head or other areas of the body, bruising, hypersensitivity of the skin, bladder over distension; allergic reaction; shoulder injury related to positioning; fat, blood and air clots to other areas of the body like heart, lungs, brain; failure of internal organs such as lungs, kidneys, liver and excessive bleeding. If blood transfusions are necessary, note that transfusions may cause intolerance reactions such as anaphylaxis or other complex reactions. * Despite best efforts, the results of spine surgery might not heal in terms of bone, soft tissues such as skin, fascia, ligaments, and joints. Additionally, in order to achieve best possible results, spine surgery may be carried out beyond the initially planned levels and involve decompression, fusion including insertion of hardware at levels other than the original intended area of surgical interest change some portions of the procedure in order to ensure the best possible outcomes. * With spine surgery and spinal fusion, there are different off label uses of instrumentation (devices, implants and hardware) as well as biological substances (bone morphogenic proteins, demineralized bone matrix) as well as using extra bone from allograft sources (i.e. cadaver bone) or autograft (iliac crest bone, ribs, or the spine itself). The patient has been given information about these practices and their inherent risks and benefits. The patient has had a chance to review all the listed information, has been given print outs detailing this information, and has had all his/her questions answered to their satisfaction. It was my pleasure to have seen and examined Devon Nails . In our visit to day we have had a chance to go over my understanding of our patient's current condition, the natural course history without intervention and various interventional options. Questions were invited and answered, and the patient wishes to proceed as outlined above. I have seen and examined the patient for 25 minutes and we have spent more than 50% of the time in repeat and detailed counseling about the patient's condition, its natural course history with out and as much as can be predicted with surgery and re-review of various surgical treatment options. In conclusion,Devon Nails requested we proceed with the above suggested surgery and are willing to accept risks and limitations of the suggested surgery as nature of the disease process and our best attempts at treatment for the condition. Thank you again for allowing us to be part of your patient's care. Please don't hesitate to contact me if you have any further questions. Signed and authenticated by: Gregory Arce [facility] [address] [place] [id number] Description of Procedure: The patient was seen and examined in the preoperative area. All preoperative protocols were followed. Informed consent was obtained risks and benefits of the procedure were discussed at length. Risks including bleeding infection damage to the surrounding tissue and risk of reoperation were discussed with the patient. Risk of anesthesia up to and including was a discussed with the patient. These are outlined in the risk review. They were willing to accept these risks and all of the risks of surgery. The patient was given a weight- based dose of antibiotics in the form of 2 g Ancef and 1 g of TX a. The patient was seen and evaluated by the anesthesia team who deemed them fit for surgery. The site was marked, the patient was willing to proceed with the procedure. The patient was transferred to the operative suite by the Department of anesthesia. They were then drifted off to sleep by the department anesthesia and GETA was performed. The patient tolerated this well. [Lopez catheter was placed by nursing staff, atraumatically]. Once confirmation of lines and ventilation the patient was transferred to a [prone Biju table very carefully]. All bony prominences including wrists, elbows, axilla, chest, hips, and thighs, and feet were padded very well. Special attention was paid to the genitalia and these were padded accordingly. SCDs were placed on bilateral lower extremities and were connected. Arms were well padded and placed [on arm boards up and out in the 90/90 position]. Once in position, again we confirmed good ventilation capabilities and that lines were running appropriately. The patient's lumbosacral spine was then exposed. 1010s were placed outlining the incision site. Standard alcohol was used to clean the incision site and allowed to dry. C-arm was used to biomark the patient and confirm level for incision which was marked with a skin marker. Operative briefing was performed with all teams and everyone in agreement to proceed. The patient was then prepped and draped in a normal sterile fashion. Timeout was then performed and all parties were in agreement with the procedure to be performed. Midline skin incision was made over the previously bowel marked area and dissection taken down midline to the fascia which was identified and cleaned with a Jacinto. Midline fascia was then made over the area of L2 through S1. Subperiosteal dissection was taken out over the lamina of L1 through S1 exposing the facet joints and TPs from L2 through S1. Once exposure was completed we confirmed levels with a [place] 4 placed at the level of L4-L5 and took a lateral image which confirmed. We then placed the spinous process tracker for the [employer] navigation system on S1. A 3-D intraoperative computed tomography scan was then taken and registered. Once it was registered was confirmed to be accurate once confirmed we then placed screws using [place] navigation. A navigated bur all tapped and screwdriver were used to place screws. Navigated bur was used to make a airplane pilot photogrammetry hole followed by a navigated all tapped followed by a navigated and measured screw. A ball-tipped probe in between each step confirmed within the pedicle. Screws were placed bilaterally then from L3 through S1. Once they replaced there were confirmed to be in good position on AP and lateral fluoroscopy. The wound was copiously irrigated we turned our attention to decompression. At L5-S1 I lateral laminectomy complete facetectomy and foraminotomies were performed using high-speed bur Kerrison rongeur and curette. Thecal sac and neural elements were identified and protected. Foraminal stenosis was severe at this level with exuberant amounts of scar tissue and excess bony formation which were removed. Once this was accomplished we protected neural elements and access the disc space using an osteotome followed by a Raptor osteotome. Sequential shaving was then performed including complete discectomy was performed using down-biting curet and pituitaries tiffanie and osteotome. This was all done under lateral fluoroscopic guidance. Once this was accomplished graft was selected and packed anteriorly within the disc space. Good bleeding endplates were noted. Cage was then selected and impacted into place while pr otecting neural elements. Once in good position the cage was expanded to meet the endplates and good expansion in height and lordosis were restored. The case was tested and was stable. Cage was then backfilled with graft. The knot bumper was removed. Area was meticulously inspected and hemostasis was achieved. We then turned our attention to decompression at other levels bilateral laminectomy complete facetectomy and foraminotomies were performed at L3 4 and L4 5 as well for complete decompression in this area. At L2-L3 bilateral laminectomy partial medial facetectomy and foraminotomies were performed as well for decompression in this area. Once this was accomplished the wound was copiously irrigated. We confirmed on AP and lateral hardware placement. High-speed bur was then used to decorticate TPs of L3 through S1. This was done bilaterally. We then sized and selected rods for the area rods were then bent accordingly and placed. There placed bilaterally and S1 and sequentially reduced into L3 to provide reduction of listhesis evangelical of lordosis and height. Set screws were final tightened cross-link was selected and placed and final tightened. Meticulous hemostasis was performed. The wound was then copiously irrigated with 3 L of Ancef solution followed by 3 L of gentamicin irrigation followed by 3 L of normal sterile saline. Surgicel was placed over the dura. In the posterior lateral gutters magna toss was placed along with autograft allograft. The deep drain was placed and secured to the skin with a stitch 2 g of vancomycin powder placed deep within the wound. Checklist was run in all steps of been completed. We then turned to closure layered closure was performed first in the deep fascia with #1 PDS followed by a #1 PDS strata fix in a running fashion. 0 Vicryl was then placed in the deep subcu tissue followed by an 0 PDS strata fix in the subdermal tissue. Skin edges were then approximated with elizabeth. The wound edges approximated very well. The drain held good suction. The wound was then cleaned and dressed sterilely with an operative foam dressing drain sponge and Tegaderm. The patient was transferred back to their hospital bed atraumatically. [Drain continued to hold suction and were in good position]. Patient was then awakened and extubated by the department of anesthesia having tolerated the procedure very well with no complications. They were transferred to the postoperative care unit in stable condition.
[2023-04-04 08:13] VITALS: BP 124/78; PULSE 84; RESP 18; TEMP 98.3
[2023-04-04] MEDS: GABAPENTIN 400 MG CAP PO SCH ×2 (08:48→15:15)
[2023-04-04] MEDS: DULoxetine HCL 30 MG CAPSULE.DR PO SCH (08:48)
[2023-04-04] MEDS: carvediloL 6.25 MG TAB PO SCH (08:48)
[2023-04-04] MEDS: LIDOCAINE 4% PATCH TOPICAL SCH (08:48)
[2023-04-04] MEDS: APIXABAN 5 MG TAB PO SCH (08:48)
[2023-04-04] MEDS: metFORMIN 500 MG TAB PO SCH (08:48)
[2023-04-04] MEDS: DAPAGLIFLOZIN PROPANEDIOL 5 MG TABLET PO SCH (08:48)
[2023-04-04] MEDS: methocarbamoL 750 MG TAB PO SCH (08:48)
[2023-04-04] MEDS: IPRATROPIUM-ALBUTEROL 3 ML NEB INHALATION SCH ×2 (08:54→16:40)
[2023-04-04 11:25] LABS: Glucose,Whole Blood 244 mg/dL (70-110)
--- NOTE | 2023-04-04 13:24 | P.DS ---
Providers Date of admission: 03/24/23 09:22 Expected date of discharge: 04/04/23 Attending physician: Zacarias Liu Consults: 03/22/23 00:32 Consult Physician Urgent Consulting Provider: Gregory Zimmerman Consult Reason/Comments: Lumbar stenosis. Increasing pain and weakness Do you want consulting provider notified?: Yes 03/24/23 15:56 Consult Physician Routine Consulting Provider: Guy Sparks Consult Reason/Comments: Pain management, possible LIANNE Do you want consulting provider notified?: Yes 03/28/23 23:19 Consult Physician Stat Consulting Provider: Gregory Zimmerman Consult Reason/Comments: post op Do you want consulting provider notified?: Already Contacted Primary care physician: [facility] Course: 67-year-old gentleman with past medical history significant for atrial fibrillation, diabetes mellitus, COPD, hypertension, degenerative disks/joint disease presents to the emergency department with complains of increasing back pain. Patient stated his back pain is getting worse to the point he is unable to move around freely and has multiple falls at home he had been complaining of lower extremity weakness and neuropathic pain bilaterally and feet as well. Upon admission patient denies history of bladder or bowel incontinence, denies fever or perianal numbness * Workup initiated in ER including CT lumbar spine which showed multilevel degenerative changes and stenosis, L3-L4 disc bulge and spinal canal stenosis noted, L5-S1 degenerative disc changes noted * Patient had a CT brain done which was negative for acute fracture or di slocation of cervical spine no intracranial hemorrhage was noted * EKG obtained in ER showed atrial fibrillation with heart rate of 122 and the time of admission * Serum chemistry obtained showed WBC 10.4 hemoglobin 15 platelet count of 135 INR of 1 * Serum chemistry shows sodium 137 potassium 4.2 BU and 36 at 1.39 * Patient tested negative for influenza RSV and Covid * While in ER patient was given 1 dose of oral Coreg IV fluid bolus and IV pain medications and admitted to medical floor with back surgery consultation for evaluation 03/23/2023: Patient seen and evaluated at bedside, abdomen examined nontender no episodes of gastrointestinal bleed. Previously patient was on Coumadin patient to be started back on IV heparin low dose continue to monitor while patient is known to be on heparin we will discontinue aspirin continue to monitor H&H while patient is on heparin cardiology recommendations appreciated echocardiogram ordered continue with rate control medication 03/24/2023: Patient seen and evaluated bedside, during my evaluation patient is awake and alert patient come back from MRI does complain of back pain moving lower extremities, on IV heparin no blood in stool noted no hematemesis no hematuria. Continue to monitor appreciate input from cardiology 03/25/2023: Patient seen and evaluated bedside, patient is status post MRI completion does show severe degenerative disease in lumbar spine, orthopedic not planning intervention during this hospitalization hence we'll transition to Eliquis. First dose to be given on 03/25 p.m. IV heparin discontinued patient also started on robaxin and lidocaine patch 03/26/2023: Patient seen and evaluated bedside, patient had lumbar LIANNE, does state pain has improved. Patient still undecided about surgery. Patient has been tentatively scheduled for 03/28 for 24 for lumbar spine intervention. We will continue to hold Lantus coagulation anticipation of surgery 03/27/2023: Patient seen and evaluated bedside, patient continued to complain of back pain, going for surgery tomorrow, patient was resting comfortably on my assessment, requesting more pain medications. Patient explained the risk of excessive use of pain medication. Seen by cardiology continue to hold anticoagulation in anticipation of surgery 03/28/2023: Patient seen and evaluated bedside, patient alert and oriented 3, patient moving forward to surgery does complain of off lower extremity weakness prior to surgery as well as back pain. Patient was explained he will need to go to rehab after surgery 03/29/2023: ICU. Underwent surgery yesterday. Hemovac in place. 220 mL output in last 8 hours. Atrial fibrillation rate without 100. On IV Ancef. Significant lower back pain. Tolerating diet. She feels a bit heavy in the legs. 03/30/2023: Hemovac in place. Lopez catheter. Had a bowel movement yesterday. Back pain persist. Blood pressure running on the lower side. Some bump in creatinine. Hold lisinopril. March 31, 2023: Good appetite. Pain still present. Has been out of bed. Had a bowel movement yesterday. Patient is concerned about falls. Hemovac put out about 70 cc in the last shift. April 01, 2023: Patient sat in the chair for about 2 hours. Up to the bathroom with therapy. Hemovac was discontinued. Eating well. Pain better. Per orthopedics start Eliquis today. April 02, 2023: Sitting up in a chair. Pain still present. Did walk with some therapy. On Eliquis. April 03, 2023: Still complaining of pain. Tolerating diet. Had a bowel movement. Making urine. Plan for patient to go to subacute rehab. April 04, 2023: Patient sitting in the edge of the bed. Some improvement in pain though still significant pain present. Seen by orthopedics Dr. Zimmerman's team and cleared for discharge. Patient advised tolerating a diet. Pain medications per Ortho. Discussion and discharge planning more than 35 minutes On examination: VITAL SIGNS: 98.3, 84, 18, 120/78, 94% room air GENERAL APPEARANCE: Sitting at the edge of the bed, HEENT: Normal external appearance of nose and ear. Oral cavity normal EYES: Pupils equal. Conjunctiva normal. NECK: JVD not raised. Mass not palpable. RESPIRATORY: Respiratory effort normal. Lungs decreased breath sounds CARDIOVASCULAR: Sounds irregular No edema. ABDOMEN: Soft. Liver and spleen not palpable. No tenderness. No mass palpable. PSYCHIATRY: Alert and oriented x3. Mood and affect anxious MUSCULAR skeletal: Dressing in place. INVESTIGATIONS, reviewed in the clinical context: April 04: White count 8.4 hemoglobin 9.7 platelets 194 potassium 4.4 BUN 33 creatinine 1.3 Renal ultrasound: No evidence of renal atrophy of medical renal disease. Right kidney 10.2 x 6 x 5.7 cm. Left kidney 12.2 x 7 x 6.4 cm. UA: Glucose 4+. Negative for protein April 01: White count 9.5 hemoglobin 12.2 March 31, 2023: Potassium 4.5 creatinine 1.28 03/30/2023: White count 9.1 in globin 12.7 potassium 4.6 BUN 32 creatinine 1.26 03/29/2023: White count 12.1 hemoglobin 13 potassium 4.5 BUN 29 creatinine 0.98 Assessment and plan * Acute on chronic back pain with lower extremity weakness with degenerative disease of lumbar spine, lumbar spine stenosis L2-L3 with this bulge, L3-L4 T12-L2 Significant pain present. Increase activity as per Ortho. Follow-up with Dr. Zimmerman-2 weeks * Persistent Atrial fibrillation currently rate controlled. Eliquis.. Coreg * Status post lumbar LIANNE * Essential Hypertension: Coreg. * Diabetes mellitus type 2 on oral hypoglycemic. Levemir. Follow Accu-Cheks and sliding scale. Glucophage. Trulicity- * Acute renal failure with mild metabolic acidosis: Corrected * Probable CKD, likely nephrosclerosis. Stage II Ultrasound and UA. Unremarkable. Patient to follow-up with Dr. Pritchett outpatient * Thrombocytopenia: Resolved -COPD in a current smoker: Albuterol as needed -Obesity BMI 35.0: Weight loss measures Disposition: Subacute rehab at [facility] Labs: CBC BMP: 4 days Plan - Discharge Summary Discharge Rx Participant: No New Discharge Prescriptions: New HYDROcodone/APAP 10-325MG [Erie 10-325] 1 tab PO Q4-6H PRN #42 tab PRN Reason: Pain cefaDROXiL [Duricef] 500 mg PO Q12HR #20 cap Cyclobenzaprine [Flexeril] 10 mg PO TID PRN #40 tab PRN Reason: Muscle Spasm INSULIN ASPART (NovoLOG) [NovoLOG (formulary)] 0 unit SQ ACHS each Gabapentin 800 mg PO TID #24 tab Sennosides/Docusate Sodium [Senna Plus 8.6-50 mg Softgel] 1 each PO DAILY PRN #20 capsule PRN Reason: Constipation Apixaban [Eliquis] 5 mg PO BID tab Insulin Detemir (Levemir) [Levemir] 10 unit SQ DAILY@0700 each Continue Gabapentin 800 mg PO TID #9 tab Aspirin EC [Ecotrin Low Dose] 81 mg PO DAILY Albuterol Sulfate [Ventolin HFA] 2 puff INHALATION RT-QID PRN PRN Reason: Shortness Of Breath carvediloL [Coreg] 6.25 mg PO BID Dulaglutide [Trulicity] 0.75 mg SQ TU DULoxetine HCL [Cymbalta] 30 mg PO DAILY Empagliflozin [Jardiance] 10 mg PO DAILY Discontinued lisinopriL [Zestril] 10 mg PO DAILY metFORMIN HCL 1,000 mg PO BID Ibuprofen [Motrin] 800 mg PO TID Furosemide [Lasix] 40 mg PO DAILY Discharge Medication List Albuterol Sulfate [Ventolin HFA] 2 puff INHALATION RT-QID PRN 03/21/23 [History] Aspirin EC [Ecotrin Low Dose] 81 mg PO DAILY 03/21/23 [History] DULoxetine HCL [Cymbalta] 30 mg PO DAILY 03/21/23 [History] Dulaglutide [Trulicity] 0.75 mg SQ TU 03/21/23 [History] Empagliflozin [Jardiance] 10 mg PO DAILY 03/21/23 [History] carvediloL [Coreg] 6.25 mg PO BID 03/21/23 [History] Gabapentin 800 mg PO TID #24 tab 04/01/23 [Rx] Cyclobenzaprine [Flexeril] 10 mg PO TID PRN #40 tab 04/03/23 [Rx] HYDROcodone/APAP 10-325MG [Erie 10-325] 1 tab PO Q4-6H PRN #42 tab 04/03/23 [R x] Sennosides/Docusate Sodium [Senna Plus 8.6-50 mg Softgel] 1 each PO DAILY PRN #20 capsule 04/03/23 [Rx] cefaDROXiL [Duricef] 500 mg PO Q12HR #20 cap 04/03/23 [Rx] Apixaban [Eliquis] 5 mg PO BID tab 04/04/23 [Rx] Gabapentin 800 mg PO TID #9 tab 04/04/23 [Rx] INSULIN ASPART (NovoLOG) [NovoLOG (formulary)] 0 unit SQ ACHS each 04/04/23 [Rx] Insulin Detemir (Levemir) [Levemir] 10 unit SQ DAILY@0700 each 04/04/23 [Rx] Follow up Appointment(s)/Referral(s): Sarah Pritchett MD [STAFF PHYSICIAN] - 2 Weeks [facility], [NON-STAFF] - 1 Week Devon Gurrola MD [Primary Care Provider] - 1-2 days Gregory Zimmerman DO [Doctor of Osteopathic Medicine] - 2 Weeks Activity/Diet/Wound Care/Special Instructions: Spine Discharge and Recovery Instructions Date of Surgery: 03/28/2023 Diagnosis: Low back pain Bilateral lower extremity weakness Neuropathy bilateral lower extremities Severe lumbar spondylosis Multilevel lumbar neural foraminal and central canal stenosis Other medical comorbidities Procedure: [id number] decompression and fusion Medications: See medication list All medication refills should be obtained through your primary care doctor or your clinic spine surgeon. Please discuss prescription refills at your follow up appointment. Do not call the hospital for medication refills. Dressing: Leave your dressing in place for a total of 5 days post operatively. Then you may remove your dressing and leave open to air. Keep the area clean and if not able to keep area clean, then cover with sterile gauze and tape. Showering: You may shower 3 days after your procedure allowing soap and water to run over incision. Do not scrub. Do not soak. Blot dry. Follow up: Please confirm a follow up appointment with your surgeon 3 weeks post operatively. Please make an appointment to follow up with your PCP in 1-2 weeks after surgery for evaluation 3 phase, 3-week plan POST OP WEEKS 1-3 1. Lifting/carrying/pushing/pulling limited to less than 5 pounds. 2. Do not sit for longer than 15 minutes at one time. Get up and walk around. Prolonged sitting is NOT advised. If you lay down, see if you can tolerate laying down on you front (belly side) 3. Walk for periods of 15 minutes = 1 mile but no longer; do it multiple times times each day. 4. Ice your low back after activity. POST OP WEEKS 3-6 1. Lifting limited to less than 20 pounds. 2. Do not sit for longer than 30 minutes at a time. Frequently change positions. Use a sit-to stand workstation or take frequent breaks from sitting if you have returned to work. 3. Walk for 30 minutes each day. If possible, do these three or more times a day POST OP WEEKS 6+ At your 6-week appointment we will give you a physical therapy referral to focus on a core stabilization and strengthening program. You should also work on leg & buttock strengthening, hamstring & quadriceps stretching, and continue a low impact aerobic activity program such as swimming, walking, or riding a stationary bicycle. During the initial 6 weeks after your surgery, you are at the highest risk of re-injuring your spine. You should generally avoid BLTs (bending, lifting and twisting combination motions) and follow the above guidelines to reduce the chance of reinjury. You can anticipate post op appointments in our office at approximately 3 weeks and 6 weeks after your surgery. INCISION CARE: If your incision is not draining you do NOT need to cover it with a dressing. Keep your incision clean, dry and intact. In most cases, we apply skin glue, eliazbeth or sutures to the incision at the time of surgery. This will be like a crust or have the appearance of a scab and will fall off in time on its own. The stitches or elizabeth need to be removed at 3 weeks post op appointment. You may begin to shower 3 days after surgery (this allows the glue to kelly well). However, please avoid scrubbing the incision site or peeling off any of the skin glue. This will ensure optimal healing of your incision. Also, during this time avoid soaking the incision area in water - this includes swimming pools, hot tubs or baths. No ointments, lotions or oils on the incision until your surgeon allows. Leave elizabeth, sutures or glue in place. Neurological dysfunction that comes on suddenly can also be a sign of a stroke. Below some common symptoms of a stroke are listed: B - balance difficulty such as sudden onset walking or leaning to one side - NEW E - eye problem such as sudden double vision or trouble seeing on one side - NEW F - Facial weakness or numbness on one side - NEW A - Arm or leg weakness or numbness on one side - NEW S - Slurred speech or difficulty with word finding - NEW T - Time is BRAIN! Call 911 as soon as you recognize these symptoms Diet: Consume a regular diet rich in vegetables and lean protein such as chicken or fish. You should consume in a ratio of approximately 20% fats|40% carbohydrates|40%protein. Vegetables, sweet potatoes, brown rice or quinoa are examples of good carbohydrates. Chips, white bread, cookies and sweets/sugar are examples of bad carbohydrates. Limit your bad carbs, go wild with good carbs. "Life's Simple 7" Guidelines as per [place] [employer] These will help you reclaim your life after surgery and stretcher helper in your recovery, keeping in mind your restrictions. (1) Get Active. Physical activity can help people lose weight, control high blood pressure and cholesterol, feel emotionally better, and sleep better. (2) Control Cholesterol. Avoid a diet high in saturated fat, trans fat, & c holesterol. Limit whole milk & cream, ice cream, butter, egg yolks, processed meats (like sausage and hot dogs), and fatty meats. Choose healthy foods that are low in saturated fat, trans fat and cholesterol which include: Fruits and vegetables, fiber rich grain products (like whole grain pasta and brown rice), lean meat such as chicken, fish, nuts, seeds, and legumes. (3) Eat Better. Eat small portions. Shop at the grocery with a list and do not stray from it. Tips for a healthy diet include: Limit sodium intake to less than 1500mg daily, avoid prepackaged, processed, and fast foods, choose a diet rich in fruits, vegetables, and whole grain, high fiber foods, and limit saturated & cholesterol in your diet. (4) Manage Blood Pressure. If you have high blood pressure, you should have a cuff at home so that you can check your blood pressure regularly. Be sure you have a good cuff. An arm one is generally better than a wrist one. Bring the cuff to a doctor's appointment to validate that the measurements that your cuff are taking are accurate. Take your blood pressure twice daily when you are sitting down and relaxing. Record the numbers in a log and bring this log with you to your doctors' appointments. (5) Lose Weight if your BMI is above 25. A healthy BMI is between 19-25. To calculate Your BMI, you may use a Standard BMI Calculator on the NIH BMI we bsite: <www.nhlbi.nih.gov/guidelines/obesity/BMI/bmicalc.htm>. Weigh oneself daily. If you are overweight, set a goal to lose weight. A pound a week loss if needed is a good target. (6) Reduce Blood Sugar. Limit foods and liquids with "added sugars." (Added sugars include sucrose, fructose, glucose, maltose, dextrose, high fructose corn syrup, corn syrup, concentrated fruit juice and honey). (7) Stop Smoking. If you smoke, quitting smoking is one of the best things that you can do for your health. Smoking increases your risk of heart attack, stroke, and peripheral vascular disease, which is a build-up of plaque in your arteries. Please discard all the cigarettes and lighters in your house. Have a plan for what you will do when you have the urge to smoke. Direct and second- hand smoke shortens your life as well as the lives of your family, friends and others around you. For your health and the health of those around you, please consider quitting! Proper Bending Body Mechanics: Maintain a wide stance with one foot slightly in front of the other. Keep your back straight. Bend utilizing the strength in your hips and knees. Do not bend at the waist. Maintain the lifted object at your waist-level close to your body. Avoid lifting weight that causes immediately pain or pain anywhere in the body afterwards. Smoking/Nicotine If there was ever one thing that you could do to increase your overall health, decrease your risk of cardiovascular problems by about 39% the second you make the choice, it is to STOP SMOKING. Your body's most instant gratification is the second you stop smoking. We have all heard the studies, read the articles but it is true, smoking is extremely bad for your overall health, and moreover it is detrimental to your bone health. Nicotine, IN ANY FORM, kills bone cells, prevents your body from healing fractures, and significantly prolongs healing after surgery. In spine surgery specifically, it increases your risk of not healing your bones to create a fusion and increases your risk of having a revision surgery due to this up to 60%. I know it is hard. I know it feels impossible. But there are ways. Take control of your life. We are here to help you through it. And when you are ready, ask us and we can direct you to help if you desire. Use the START Plan to Quit Smoking (please visit the Helpguide.org website listed below for more information): S = Set a quit date. Choose a date within the next 2 weeks, so you have enough time to prepare without losing your motivation to quit. If you mainly smoke at work, quit on the weekend, so you have a few days to adjust to the change. T = Tell family, friends, and co-workers that you plan to quit. Let your friends and family in on your plan to quit smoking and tell them you need their support and encouragement to stop. Look for a quit [place] who wants to stop smoking as well. You can help each other get through the rough times. A = Anticipate and plan for the challenges you'll face while quitting. Most people who begin smoking again do so within the first 3 months. You can help yourself make it through by preparing ahead for common challenges, such as nicotine withdrawal and cigarette cravings. R = Remove cigarettes and other tobacco products from your home, car, and work. Throw away all your cigarettes (no emergency pack!), lighters, ashtrays, and matches. Wash your clothes and freshen up anything that smells like smoke. Shampoo your car, clean your drapes and carpet, and steam your furniture. T = Talk to your doctor about getting help to quit. Your doctor can prescribe medication to help with withdrawal and suggest other alternatives. If you can't see a doctor, you can get many products over the counter at your local pharmacy or grocery store, including the nicotine patch, nicotine lozenges, and nicotine gum. Resources for Quitting Smoking: <https://www.[place].gov/documents/[facility]/Quit_Tobacco_Resources_for_patients_313 480_7.pdf> Supplementation: Take recommended dosages of Vitamin D and Calcium to help fortify your bones and help them to heal. See your health maintenance packet for dosages and recommended levels. DVT/VTE prophylaxis: You will be given compression stockings from the hospital. Wear these daily for the first two weeks after surgery. You may take them off at night. You may be prescribed a medication to help thin your blood. Take this as directed. If you are not prescribed this medication, early and frequent ambulation has been shown to be the best prophylaxis to deep vein thrombosis and sequelae related to this event. Discharge/Stand Alone Forms: Anes Pain/[facility]mer Instructions Discharge Disposition: TRANSFER TO SNF/ECF
== END 2023-04-04 16:40 | DRG 454 ==
LOC: EC 18:02 → 6NMEDSUR 03-22 00:31 → OBSVTOIN 03-24 09:22 → 6NMEDSUR 03-24 22:16 → 2SICU 03-28 19:35 → 4SSUR 03-30 00:40
PROVIDERS: ADMIT Hospitalist; ATTEND Hospitalist
PROC: 3E0R33Z Introduction of Anti-inflammatory into Spinal Canal, Percutaneous Approach (ICD-10-PCS; 2023-03-25)
PROC: B01B1ZZ Fluoroscopy of Spinal Cord using Low Osmolar Contrast (ICD-10-PCS; 2023-03-25)
PROC: 0SG1071 Fusion of 2 or more Lumbar Vertebral Joints with Autologous Tissue Substitute, Posterior Approach, Posterior Column, Open Approach (ICD-10-PCS; 2023-03-28)
PROC: 0SG30AJ Fusion of Lumbosacral Joint with Interbody Fusion Device, Posterior Approach, Anterior Column, Open Approach (ICD-10-PCS; 2023-03-28)
PROC: 0SG3071 Fusion of Lumbosacral Joint with Autologous Tissue Substitute, Posterior Approach, Posterior Column, Open Approach (ICD-10-PCS; 2023-03-28)
PROC: 01NB0ZZ Release Lumbar Nerve, Open Approach (ICD-10-PCS; 2023-03-28)
PROC: 01NR0ZZ Release Sacral Nerve, Open Approach (ICD-10-PCS; 2023-03-28)
PROC: 0ST40ZZ Resection of Lumbosacral Disc, Open Approach (ICD-10-PCS; 2023-03-28)
PROC: 8E0WXBZ Computer Assisted Procedure of Trunk Region (ICD-10-PCS; 2023-03-28)
PROC: 0SG10AJ Fusion of 2 or more Lumbar Vertebral Joints with Interbody Fusion Device, Posterior Approach, Anterior Column, Open Approach (ICD-10-PCS; principal; 2023-03-28 07:30)
DX: M43.16 Spondylolisthesis, lumbar region (principal); E87.20 Acidosis, unspecified; I48.19 Other persistent atrial fibrillation; N17.9 Acute kidney failure, unspecified; D69.6 Thrombocytopenia, unspecified; E11.42 Type 2 diabetes mellitus with diabetic polyneuropathy; E11.22 Type 2 diabetes mellitus with diabetic chronic kidney disease; J44.9 Chronic obstructive pulmonary disease, unspecified; E66.9 Obesity, unspecified; I12.9 Hypertensive chronic kidney disease with stage 1 through stage 4 chronic kidney disease, or unspecified chronic kidney disease; Z68.35 Body mass index [BMI] 35.0-35.9, adult; M51.16 Intervertebral disc disorders with radiculopathy, lumbar region; M47.26 Other spondylosis with radiculopathy, lumbar region; M48.062 Spinal stenosis, lumbar region with neurogenic claudication; M47.27 Other spondylosis with radiculopathy, lumbosacral region; M62.59 Muscle wasting and atrophy, not elsewhere classified, multiple sites; R29.6 Repeated falls; F11.90 Opioid use, unspecified, uncomplicated; F17.210 Nicotine dependence, cigarettes, uncomplicated; M51.25 Other intervertebral disc displacement, thoracolumbar region; M51.24 Other intervertebral disc displacement, thoracic region; E78.5 Hyperlipidemia, unspecified; W18.30XA Fall on same level, unspecified, initial encounter; N18.2 Chronic kidney disease, stage 2 (mild); G89.29 Other chronic pain; Y92.009 Unspecified place in unspecified non-institutional (private) residence as the place of occurrence of the external cause; Z91.81 History of falling; Z79.84 Long term (current) use of oral hypoglycemic drugs; Z79.899 Other long term (current) drug therapy; Z79.82 Long term (current) use of aspirin; Z79.85 Long-term (current) use of injectable non-insulin antidiabetic drugs; Z79.1 Long term (current) use of non-steroidal anti-inflammatories (NSAID); Z86.73 Personal history of transient ischemic attack (TIA), and cerebral infarction without residual deficits; Z11.52 Encounter for screening for COVID-19
CPT/HCPCS: 36415; 62323; 70450; 71045; 72100; 72125; 72131; 72148; 76770; 80048; 80053; 80306; 81003; 83036; 83735; 84484; 85025; 85027; 85610; 85730; 86850; 86900; 86901; 87636; 93005; 93306; 94640; 96361; 96374; 96376; 99285

== ENCOUNTER 2023-04-11 10:48 | Inpatient (IN) | payer MEDICARE, OTHER ==
[2023-04-11 11:14] LABS: Glucose,Whole Blood 207 mg/dL (70-110)
[2023-04-11 11:24] LABS: Basophils % (A) 0 %; Eosinophils # (A) 0.1 k/uL (0-0.7); Eosinophils % (A) 1 %; HCT 38.5 % (39.0-53.0); HGB 12.8 gm/dL (13.0-17.5); Lymphocytes # (A) 0.7 k/uL (1.0-4.8); Lymphocytes % (A) 6 %; MCH 30.4 pg (25.0-35.0); MCHC 33.1 g/dL (31.0-37.0); MCV 91.6 fL (80.0-100.0); Mean Platelet Volume 8.1; Monocytes # (A) 0.9 k/uL (0-1.0); Monocytes % (A) 8 %; Neutrophils # (A) 9.5 k/uL (1.3-7.7); Neutrophils % (A) 84 %; Platelet Count 301 k/uL (150-450); RBC 4.21 m/uL (4.30-5.90); RDW 13.2 % (11.5-15.5); WBC 11.3 k/uL (3.8-10.6)
[2023-04-11 11:44] LABS: ALT 18 U/L (4-49); AST 26 U/L (17-59); African American GFR (CKD) 61 (>60 ml/min/1.73 sqM); Albumin 3.2 g/dL (3.5-5.0); Alkaline Phosphatase 98 U/L (38-126); Anion Gap 13 mmol/L; Blood Urea Nitrogen 41 mg/dL (9-20); Calcium 10.1 mg/dL (8.4-10.2); Carbon Dioxide 18 mmol/L (22-30); Chloride 104 mmol/L (98-107); Glucose 207 mg/dL (74-99); Magnesium 1.9 mg/dL (1.6-2.3); Non-African American GFR(CKD) 53 (>60 ml/min/1.73 sqM); Potassium 4.9 mmol/L (3.5-5.1); Sodium 135 mmol/L (137-145); Total Bilirubin 1.2 mg/dL (0.2-1.3); Total Protein 6.8 g/dL (6.3-8.2)
--- NOTE | 2023-04-11 11:49 | XR ---
EXAMINATION TYPE: XR chest 2V DATE OF EXAM: 04/11/2023 COMPARISON: 03/28/2023 HISTORY: Shortness of breath TECHNIQUE: Frontal and lateral views of the chest are obtained. FINDINGS: Scattered senescent parenchymal changes noted. Hyperinflation compatible with COPD. No evidence for infiltrate. No evidence for atelectasis. Heart size is stable. Mediastinal structures are stable and grossly unremarkable. No evidence for hilar prominence. Degenerative changes dorsal spine. IMPRESSION: 1. No evidence for acute pulmonary disease.
[2023-04-11 11:58] LABS: INR 1.2 (<1.2); Prothrombin Time 13.1 sec (10.0-12.5)
--- NOTE | 2023-04-11 12:05 | CT ---
EXAMINATION TYPE: CT brain wo con DATE OF EXAM: 04/11/2023 COMPARISON: 03/21/2023 HISTORY: 67-year-old male confusion, altered mental status TECHNIQUE: Examination was done in axial plane without intravenous contrast. Coronal and sagittal r econstructions performed. CT DLP: 1212.4 mGycm Automated exposure control for dose reduction was used. FINDINGS: There is no evidence of acute intracranial hemorrhage, acute ischemic changes, mass, mass-effect, or extra-axial fluid collection. There is no effacement of cerebral sulci or basal subarachnoid cister ns. Similar mild ventriculomegaly likely due to central cerebral atrophy. Warner ratio calculated at 0.35. Mild patchy periventricular white matter hypodensity is also redemonstrated. There is no midline shift. Moreira-white matter distinction is preserved. Paranasal sinuses and mastoid air cells well pneumatized. Rightward nasal septal deviation. IMPRESSION: Similar mild ventriculomegaly likely due to central cerebral atrophy. Correlate to exclude a componen t of NPH. Mild burden of chronic small vessel ischemic disease. No acute intracranial abnormality see n.
[2023-04-11 12:32] LABS: Appearance,Urine Cloudy (Clear); Bacteria,Urine Rare /hpf; Bilirubin,Urine Negative (Negative); Blood,Urine Large (Negative); Color,Urine Yellow; Glucose,Urine (UA) 4+ (Negative); Ketones,Urine Trace (Negative); Leukocyte Esterase,Urine Negative (Negative); Mucus,Urine Rare /hpf; Nitrite,Urine Negative (Negative); Protein,Urine Trace (Negative); RBC,Urine >182 /hpf (0-5); Specific Gravity,Urine 1.027 (1.001-1.035); Squamous Epithelial Cell,Urine <1 /hpf (0-4); Urobilinogen,Urine <2.0 mg/dL (<2.0)
--- NOTE | 2023-04-11 13:10 | CT ---
EXAMINATION TYPE: CT abdomen pelvis wo con DATE OF EXAM: 04/11/2023 COMPARISON: None HISTORY: 67-year-old male hematuria. Recent back surgery, back pain. CT DLP: 1253.2 mGycm. Automated exposure control for dose reduction was used. TECHNIQUE: Contiguous axial scanning of the abdomen and pelvis without IV contrast. Coronal and sagit leona reconstructions performed. FINDINGS: Heart upper limits of normal in size without pericardial effusion. Lung bases clear without pleural e ffusion. Nodular hepatic contour suggesting underlying cirrhosis. This should be correlated clinically especia lly if no established diagnosis. No abnormal gallbladder distention. Adrenal glands, right kidney, spleen, and pancreas within normal limits. 1.1 cm nonobstructive stone right kidney. There is a 1.5 cm cortical hypodensity posterior mid left k idney probably a renal cyst. No dilated small bowel, free fluid, or free air. No mesenteric or retroperitoneal adenopathy. Normal appendix. Mild stool burden. Scattered left-sided colonic diverticulosis. No pericolonic infla mmatory change. Bladder is urine distended. Prostate gland is small at 3.7 cm wide. No abnormal fluid collection in t he pelvis or pelvic lymphadenopathy. Bones: Evidence of patient's recent L3-S1 posterior lumbar fusion with laminectomies. Prominent posterior so ft tissue swelling with foci of air along the laminectomy bed and some residual foci of air in the do rsal epidural space. Suspect a fluid collection measuring 5.5 cm wide in the superior aspect of the l aminectomy bed, axial image 57 at the L2 level. Small focal fluid and air collection just deep to the skin elizabeth superiorly measuring 3.1 cm wide., Axial image 29 and sagittal image 76. IMPRESSION: 1. A 1.1 cm nonobstructive left renal stone. No hydronephrosis on either side. 2. Contour nodularity of the liver. Correlate for any known diagnosis of underlying cirrhosis. GI ref erral if no established diagnosis. 3. Recent L3-S1 posterior lumbar fusion changes with laminectomies extending up to the L2 level. Here at the L2 level, there appears to be a fluid collection measuring 5.5 cm wide within the laminectomy bed, possible postoperative seroma. Follow-up as clinically indicated. Other fluid collection not ex cluded at this time. 4. An additional small fluid and air collection measuring 2.1 cm just deep to the superiormost skin s taples within the subcutaneous fat layer.
[2023-04-11] MEDS ORDERED: NALOXONE 0.4 MG/ML 1 ML VIAL IV PRN (14:01)
[2023-04-11] MEDS ORDERED: ONDANSETRON 4 MG/2 ML VIAL IVP PRN (14:01)
--- NOTE | 2023-04-11 14:05 | ED ---
Weakness HPI - General Chief complaint: Weakness Stated complaint: Dehydration Time Seen by Provider: 04/11/23 11:01 Source: patient, RN notes reviewed, Caregiver Mode of arrival: wheelchair Limitations: altered mental status, physical limitation - History of Present Illness Initial comments: 67-year-old male presents emergency department chief complaint of confusion. Caregiver states that he has been having some issues when he receives medications in the morning but symptoms are worse today per staff. She states she does not know him very well but was transporting him to orthopedics for recheck of his recent back surgery. Patient is at halfway for rehab. Patient is confused but does have periods of time of clearing thoughts. Patient denies headache dizziness chest pain shortness of breath no recent vomiting or reports of fever no URI symptoms. Patient was admitted for extensive period time related to back pain and weakness. - Related Data Home Medications Medication Instructions Recorded Confirmed Albuterol Sulfate [Ventolin HFA] 2 puff INHALATION RT-QID PRN 03/21/23 04/11/23 Aspirin EC [Ecotrin Low Dose] 81 mg PO DAILY 03/21/23 04/11/23 DULoxetine HCL [Cymbalta] 30 mg PO DAILY 03/21/23 04/11/23 Dulaglutide [Trulicity] 0.75 mg SQ TU 03/21/23 04/11/23 Empagliflozin [Jardiance] 10 mg PO DAILY 03/21/23 04/11/23 carvediloL [Coreg] 6.25 mg PO BID 03/21/23 04/11/23 Gabapentin 800 mg PO Q8HR@0000,0800,1600 04/11/23 04/11/23 HYDROcodone/APAP 10-325MG [[place] 1 tab PO Q8H PRN 04/11/23 04/11/23 10-325] INSULIN ASPART (NovoLOG) [NovoLOG See Protocol SQ ACHS 04/11/23 04/11/23 (formulary)] Insulin Glargine,Hum.rec.anlog 10 units SQ DAILY@0800 04/11/23 04/11/23 [Lantus Solostar Pen] Sennosides/Docusate Sodium [Senna 1 cap PO DAILY PRN 04/11/23 04/11/23 Plus 8.6-50 mg Softgel] methocarbamoL [Robaxin-750] 750 mg PO TID@0800,1200,1600 04/11/23 04/11/23 oxyCODONE ER [OxyCONTIN] 10 mg PO BID@0800,2000 04/11/23 04/11/23 Previous Rx's Medication Instructions Recorded cefaDROXiL [Duricef] 500 mg PO Q12HR #20 cap 04/03/23 Apixaban [Eliquis] 5 mg PO BID tab 04/04/23 Ferrous Sulfate [Feosol] 325 mg PO BID #1 tab 04/04/23 Allergies Allergy/AdvReac Type Severity Reaction Status Date / Time No Known Allergies Allergy Verified 04/11/23 12:37 Review of Systems ROS Statement: Those systems with pertinent positive or pertinent negative responses have been documented in the HPI. ROS Other: All systems not noted in ROS Statement are negative. Past Medical History Past Medical History: Atrial Fibrillation, COPD, Diabetes Mellitus, Hypertension Additional Past Medical History / Comment(s): herniated discs, TIA History of Any Multi-Drug Resistant Organisms: None Reported Past Surgical History: Orthopedic Surgery Additional Past Surgical History / Comment(s): Knee surgery Past Psychological History: Depression Smoking Status: Current some day smoker Past Alcohol Use History: Daily Past Drug Use History: None Reported, Heroin General Exam Limitations: altered mental status General appearance: alert, in no apparent distress Head exam: Present: atraumatic, normocephalic, normal inspection Eye exam: Present: normal appearance, PERRL, EOMI. Absent: scleral icterus, conjunctival injection, periorbital swelling ENT exam: Present: mucous membranes dry. Absent: normal exam, normal oropharynx, mucous membranes moist Neck exam: Present: normal inspection, full ROM. Absent: tenderness, meningismus, lymphadenopathy Respiratory exam: Present: normal lung sounds bilaterally. Absent: respiratory distress, wheezes, rales, rhonchi, stridor Cardiovascular Exam: Present: normal rhythm, irregular rhythm, normal heart sounds. Absent: regular rate, systolic murmur, diastolic murmur, rubs, gallop, clicks GI/Abdominal exam: Present: soft, normal bowel sounds. Absent: distended, tenderness, guarding, rebound, rigid Neurological exam: Present: alert. Absent: oriented X3 Course Vital Signs 04/11/23 04/11/23 04/11/23 10:50 11:13 12:07 Temperature 98.8 F Pulse Rate 94 72 92 Respiratory 18 18 18 Rate Blood Pressure 148/79 110/100 155/92 O2 Sat by Pulse 96 94 L 94 L Oximetry 04/11/23 14:03 Temperature Pulse Rate 99 Respiratory 18 Rate Blood Pressure 151/107 O2 Sat by Pulse 94 L Oximetry EKG Findings - EKG Comments: EKG Findings:: EKG performed at 11: 26 A-fib rate of 97 QRS 92 QT/QTc 343/397 - EKG Results: EKG: interpreted by DOLLY Medical Decision Making - Medical Decision Making Was pt. sent in by a medical professional or institution (, PA, CONTRACTS OFFICER, urgent care, hospital, or halfway...) When possible be specific @ -Physician Did you speak to anyone other than the patient for history (EMS, parent, family, police, friend...)? What history was obtained from this source @ -Caregiver in the room providing recent history, medication list] Did you review nursing and triage notes (agree or disagree)? Why? @ -I reviewed and agree with nursing and triage notes Were old charts reviewed (outside hosp., previous admission, EMS record, old EKG, old radiological studies, urgent care reports/EKG's, halfway records)? Report findings @ -No old charts were reviewed Differential Diagnosis (chest pain, altered mental status, abdominal pain women, abdominal pain men, vaginal bleeding, weakness, fever, dyspnea, syncope, headache, dizziness, GI bleed, back pain, seizure, CVA, palpatations, mental health, musculoskeletal)? @ -Differential Altered Mental Status: Hypoglycemia, DKA, hypercapnia, ETOH, overdose, CO poisoning, trauma, myxedema coma, HTN encephalopathy, infection, encephalitis, psychosis, intercranial hemorrhage, hepatic encephalopathy, meningitis, CVA, this is not meant to be an all-inclusive list EKG interpreted by me (3pts min.). @ -As above X-rays interpreted by me (1pt min.). @ -None done CT interpreted by me (1pt min.). @ -[CT brain showing no acute intracranial hemorrhage, mass effect or acute abnormality CT of the abdomen pelvis showing postsurgical seroma lumbar spine, liver cirrhosis type changes, U/S interpreted by me (1pt. min.). @ -None done What testing was considered but not performed or refused? (CT, X-rays, U/S, labs)? Why? @ -None What meds were considered but not given or refused? Why? @ -None Did you discuss the management of the patient with other professionals (professionals i.e. , PA, CONTRACTS OFFICER, lab, RT, psych nurse, aids social worker, outpatient dietitian, teacher, pharmaceutical officer, director case management)? Give summary @ -[dr sellers for admission with consult to neurology Was smoking cessation discussed for >3mins.? @ -No Was critical care preformed (if so, how long)? @ -No Were there social determinants of health that impacted care today? How? (Homelessness, low income, unemployed, alcoholism, drug addiction, transportation, low edu. Level, literacy, decrease access to med. care, long-term, rehab)? @ -No Was there de-escalation of care discussed even if they declined (Discuss DNR or withdrawal of care, Hospice)? DNR status @ -No What co-morbidities impacted this encounter? (DM, HTN, Smoking, COPD, CAD, Can cer, CVA, ARF, Chemo, Hep., AIDS, mental health diagnosis, sleep apnea, morbid obesity)? @ -None Was patient admitted / discharged? Hospital course, mention meds given and route, prescriptions, significant lab abnormalities, going to OR and other pertinent info. @ -[Admitted for further workup including neurology, consult to orthopedic surgeon. Patient's initial CT, which her studies reveal no specific acute findings. Discussed this may related to drug-induced confusion. Undiagnosed new problem with uncertain prognosis? @ -No Drug Therapy requiring intensive monitoring for toxicity (Heparin, Nitro, Insulin, Cardizem)? @ -No Were any procedures done? @ -No Diagnosis/symptom? @ -[Altered mental status Acute, or Chronic, or Acute on Chronic? @ -Acute Uncomplicated (without systemic symptoms) or Complicated (systemic symptoms)? @ -[complicated Side effects of treatment? @ -[No Exacerbation, Progression, or Severe Exacerbation? @ -No Poses a threat to life or bodily function? How? (Chest pain, USA, MT, pneumonia, PE, COPD, DKA, ARF, appy, cholecystitis, CVA, Diverticulitis, Homicidal, S uicidal, threat to staff... and all critical care pts) @ -No - Lab Data Result diagrams: 04/11/23 11:15 04/11/23 11:15 Lab Results 04/11/23 04/11/23 04/11/23 Range/Units 11:12 11:15 11:15 WBC 11.3 H (3.8-10.6) k/uL RBC 4.21 L (4.30-5.90) m/uL Hgb 12.8 L (13.0-17.5) gm/dL Hct 38.5 L (39.0-53.0) % MCV 91.6 (80.0-100.0) fL MCH 30.4 (25.0-35.0) pg MCHC 33.1 (31.0-37.0) g/dL RDW 13.2 (11.5-15.5) % Plt Count 301 (150-450) k/uL MPV 8.1 Neutrophils % 84 % Lymphocytes % 6 % Monocytes % 8 % Eosinophils % 1 % Basophils % 0 % Neutrophils # 9.5 H (1.3-7.7) k/uL Lymphocytes # 0.7 L (1.0-4.8) k/uL Monocytes # 0.9 (0-1.0) k/uL Eosinophils # 0.1 (0-0.7) k/uL Basophils # 0.0 (0-0.2) k/uL PT 13.1 H (10.0-12.5) sec INR 1.2 H (<1.2) APTT 27.0 (22.0-30.0) sec Sodium (137-145) mmol/L Potassium (3.5-5.1) mmol/L Chloride (98-107) mmol/L Carbon Dioxide (22-30) mmol/L Anion Gap mmol/L BUN (9-20) mg/dL Creatinine (0.66-1.25) mg/dL Est GFR (CKD-EPI)AfAm (>60 ml/min/1.73 sqM) Est GFR (CKD-EPI)NonAf (>60 ml/min/1.73 sqM) Glucose (74-99) mg/dL POC Glucose (mg/dL) 207 H (70-110) mg/dL POC Glu Leather Polisher ID Toro, Yazan Plasma Lactic Acid [place] (0.7-2.0) mmol/L Calcium (8.4-10.2) mg/dL Magnesium (1.6-2.3) mg/dL Total Bilirubin (0.2-1.3) mg/dL AST (17-59) U/L ALT (4-49) U/L Alkaline Phosphatase (38-126) U/L Troponin I (0.000-0.034) ng/mL Total Protein (6.3-8.2) g/dL Albumin (3.5-5.0) g/dL Urine Color Urine Appearance (Clear) Urine pH (5.0-8.0) Ur Specific [place] (1.001-1.035) Urine Protein (Negative) Urine Glucose (UA) (Negative) Urine Ketones (Negative) Urine Blood (Negative) Urine Nitrite (Negative) Urine Bilirubin (Negative) Urine Urobilinogen (<2.0) mg/dL Ur Leukocyte Esterase (Negative) Urine RBC (0-5) /hpf Ur Squamous Epith Cells (0-4) /hpf Urine Bacteria (None) /hpf Urine Mucus (None) /hpf 04/11/23 04/11/23 04/11/23 Range/Units 11:15 11:15 11:15 WBC (3.8-10.6) k/uL RBC (4.30-5.90) m/uL Hgb (13.0-17.5) gm/dL Hct (39.0-53.0) % MCV (80.0-100.0) fL MCH (25.0-35.0) pg MCHC (31.0-37.0) g/dL RDW (11.5-15.5) % Plt Count (150-450) k/uL MPV Neutrophils % % Lymphocytes % % Monocytes % % Eosinophils % % Basophils % % Neutrophils # (1.3-7.7) k/uL Lymphocytes # (1.0-4.8) k/uL Monocytes # (0-1.0) k/uL Eosinophils # (0-0.7) k/uL Basophils # (0-0.2) k/uL PT (10.0-12.5) sec INR (<1.2) APTT (22.0-30.0) sec Sodium 135 L (137-145) mmol/L Potassium 4.9 (3.5-5.1) mmol/L Chloride 104 (98-107) mmol/L Carbon Dioxide 18 L (22-30) mmol/L Anion Gap 13 mmol/L BUN 41 H (9-20) mg/dL Creatinine 1.40 H (0.66-1.25) mg/dL Est GFR (CKD-EPI)AfAm 61 (>60 ml/min/1.73 sqM) Est GFR (CKD-EPI)NonAf 53 (>60 ml/min/1.73 sqM) Glucose 207 H (74-99) mg/dL POC Glucose (mg/dL) (70-110) mg/dL POC Glu Leather Polisher ID Plasma Lactic Acid [place] 1.5 (0.7-2.0) mmol/L Calcium 10.1 (8.4-10.2) mg/dL Magnesium 1.9 (1.6-2.3) mg/dL Total Bilirubin 1.2 (0.2-1.3) mg/dL AST 26 (17-59) U/L ALT 18 (4-49) U/L Alkaline Phosphatase 98 (38-126) U/L Troponin I (0.000-0.034) ng/mL Total Protein 6.8 (6.3-8.2) g/dL Albumin 3.2 L (3.5-5.0) g/dL Urine Color Yellow Urine Appearance Cloudy (Clear) Urine pH 5.0 (5.0-8.0) Ur Specific [place] 1.027 (1.001-1.035) Urine Protein Trace H (Negative) Urine Glucose (UA) 4+ H (Negative) Urine Ketones Trace H (Negative) Urine Blood Large H (Negative) Urine Nitrite Negative (Negative) Urine Bilirubin Negative (Negative) Urine Urobilinogen <2.0 (<2.0) mg/dL Ur Leukocyte Esterase Negative (Negative) Urine RBC >182 H (0-5) /hpf Ur Squamous Epith Cells <1 (0-4) /hpf Urine Bacteria Rare H (None) /hpf Urine Mucus Rare H (None) /hpf 04/11/23 Range/Units 11:15 WBC (3.8-10.6) k/uL RBC (4.30-5.90) m/uL Hgb (13.0-17.5) gm/dL Hct (39.0-53.0) % MCV (80.0-100.0) fL MCH (25.0-35.0) pg MCHC (31.0-37.0) g/dL RDW (11.5-15.5) % Plt Count (150-450) k/uL MPV Neutrophils % % Lymphocytes % % Monocytes % % Eosinophils % % Basophils % % Neutrophils # (1.3-7.7) k/uL Lymphocytes # (1.0-4.8) k/uL Monocytes # (0-1.0) k/uL Eosinophils # (0-0.7) k/uL Basophils # (0-0.2) k/uL PT (10.0-12.5) sec INR (<1.2) APTT (22.0-30.0) sec Sodium (137-145) mmol/L Potassium (3.5-5.1) mmol/L Chloride (98-107) mmol/L Carbon Dioxide (22-30) mmol/L Anion Gap mmol/L BUN (9-20) mg/dL Creatinine (0.66-1.25) mg/dL Est GFR (CKD-EPI)AfAm (>60 ml/min/1.73 sqM) Est GFR (CKD-EPI)NonAf (>60 ml/min/1.73 sqM) Glucose (74-99) mg/dL POC Glucose (mg/dL) (70-110) mg/dL POC Glu Leather Polisher ID Plasma Lactic Acid [place] (0.7-2.0) mmol/L Calcium (8.4-10.2) mg/dL Magnesium (1.6-2.3) mg/dL Total Bilirubin (0.2-1.3) mg/dL AST (17-59) U/L ALT (4-49) U/L Alkaline Phosphatase (38-126) U/L Troponin I <0.012 (0.000-0.034) ng/mL Total Protein (6.3-8.2) g/dL Albumin (3.5-5.0) g/dL Urine Color Urine Appearance (Clear) Urine pH (5.0-8.0) Ur Specific [place] (1.001-1.035) Urine Protein (Negative) Urine Glucose (UA) (Negative) Urine Ketones (Negative) Urine Blood (Negative) Urine Nitrite (Negative) Urine Bilirubin (Negative) Urine Urobilinogen (<2.0) mg/dL Ur Leukocyte Esterase (Negative) Urine RBC (0-5) /hpf Ur Squamous Epith Cells (0-4) /hpf Urine Bacteria (None) /hpf Urine Mucus (None) /hpf Disposition Clinical Impression: Altered mental status, Weakness, Status post lumbar surgery Disposition: ADMITTED IP TO THIS HOSP Condition: Fair Referrals: Lise Anguiano DO [Primary Care Provider] - 1-2 days Time of Disposition: 14:05
[2023-04-11] MEDS: SODIUM CHLORIDE 0.9% 1,000 ML IV SCH (14:14)
[2023-04-11] MEDS ORDERED: SENNOSIDES-DOCUSATE SODIUM 1 EACH TAB PO PRN (15:28)
[2023-04-11] MEDS: carvediloL 6.25 MG TAB PO SCH (17:26)
[2023-04-11 19:41] LABS: Glucose,Whole Blood 271 mg/dL (70-110)
[2023-04-11] MEDS ORDERED: DEXTROSE 50% SYRINGE 50 ML IVP PRN ×2 (20:14)
[2023-04-11] MEDS: APIXABAN 5 MG TAB PO SCH (21:47)
[2023-04-11] MEDS: FERROUS SULFATE 325 MG TAB PO SCH (21:47)
[2023-04-11] MEDS: INSULIN ASPART (NovoLOG) 100 UNIT/ML VIAL SQ SCH (21:48)
[2023-04-12] MEDS: ACETAMINOPHEN TAB 325 MG TAB PO PRN (02:20)
[2023-04-12 05:58] LABS: Glucose,Whole Blood 174 mg/dL (70-110)
[2023-04-12] MEDS: HYDROcodone/APAP 5-325MG 1 EACH TAB PO PRN (06:24)
[2023-04-12] MEDS: DULoxetine HCL 30 MG CAPSULE.DR PO SCH (09:03)
[2023-04-12] MEDS: DAPAGLIFLOZIN PROPANEDIOL 5 MG TABLET PO SCH (09:03)
[2023-04-12] MEDS: ASPIRIN 81 MG PO SCH (09:03)
[2023-04-12] MEDS: INSULIN DETEMIR (LEVEMIR) 100 UNIT/ML SYR SQ SCH (09:03)
[2023-04-12 09:06] LABS: Potassium 4.3 mmol/L (3.5-5.1)
[2023-04-12 09:39] LABS: HGB 11.2 g/dL (13.0-17.0); MCH 30.4 pg (27.0-32.0); MCHC 32.9 g/dL (32.0-37.0); MCV 92.4 FL (80.0-97.0); NRBC Per 100 WBC 0 X 10*3/uL (0.00-0.01); Platelet Count 250 X 10*3/uL (140-440); RBC 3.68 X 10*6/uL (4.40-5.60); RDW 12.8 % (11.5-14.5); WBC 7.32 X 10*3/uL (4.50-10.00)
[2023-04-12 10:39] LABS: African American GFR (CKD) 63 (>60 ml/min/1.73 sqM); Anion Gap 8 mmol/L; Blood Urea Nitrogen 45 mg/dL (9-20); Calcium 9.6 mg/dL (8.4-10.2); Carbon Dioxide 21 mmol/L (22-30); Chloride 107 mmol/L (98-107); Glucose 177 mg/dL (74-99); Non-African American GFR(CKD) 55 (>60 ml/min/1.73 sqM); Sodium 136 mmol/L (137-145)
[2023-04-12 11:55] LABS: Glucose,Whole Blood 148 mg/dL (70-110)
[2023-04-12 12:26] VITALS: BMI 22.4
--- NOTE | 2023-04-12 14:34 | P.PN ---
Subjective Progress Note Date: 04/12/23 Principal diagnosis: recent lumbar surgery (L3-S1 decompression and fusion) Patient seen and examined this morning. Patient is resting comfortably in bed. Patient is much more alert today than yesterday. Patient is able to answer all questions appropriately. He is alert and oriented x 3. Patient does have complaint of low back pain, [place] 5/325 mg had been ordered. Discussed in length with patient about his altered mental status change and that we need to monitor him closely with pain medications. Patient verbalizes understanding. Patient does state that he cannot recall his activity level at [facility]. Surgical incision to the lumbar spine, edges are well-approximated with elizabeth intact. No active drainage. New surgical dressing applied. Patient does need to be repositioned on his side to eliminate pressure over the incision. Patient was repositioned with 2 pillows onto his right side. Patient continues to deny any numbness or tingling to the bilateral lower extremities. He does report weakness when he attempts to stand. Encouraged patient that he needs to work with physical therapy and to be getting up in the chair for all meals. LSO brace is present at bedside. Patient denies any fever/chills, nausea/vomiting, or chest pain. Objective - Vital Signs Vital signs: Vital Signs Temp 97.8 F 04/12/23 07:40 Pulse 103 H 04/12/23 07:40 Resp 18 04/12/23 07:40 BP 134/81 04/12/23 07:40 Pulse Ox 94 L 04/12/23 07:40 FiO2 Intake & Output 04/11/23 04/12/23 04/12/23 18:59 06:59 18:59 Output Total 850 450 Balance -850 -450 Weight 77.111 kg 77.111 kg Output: Urine 850 450 Other: Voiding Method Urinal - Exam Inspection: Negative for any open fractures. Large bruise noted over the left forearm and elbow. Surgical incision to the lumbar spine, edges are well-approx imated with elizabeth intact. No active drainage, new surgical dressing applied. Sensation: Sensation is equal, symmetric, bilaterally intact throughout the upper and lower extremities Palpation: Nontender to palpation throughout bilateral upper and lower extremities and throughout spine exam Range of motion: Patient does have full range of motion bilateral upper and lower extremities on exam Motor: 5/5 in all major motor groups in the bilateral upper and 4/5 in lower extremities Special tests: Negative Homans bilaterally. Negative Tiesha bilaterally. Negative clonus bilaterally. Neurovascular: Radial pulse intact, 2+ bilaterally. Cap refill under 3 seconds in digits upper extremities. - Labs CBC & Chem 7: 04/12/23 05:59 04/12/23 05:59 Labs: Abnormal Lab Results - Last 24 Hours (Table) 04/11/23 04/11/23 04/12/23 Range/Units 11:15 19:40 05:57 RBC (4.40-5.60) X 10*6/uL Hgb (13.0-17.0) g/dL Hct (39.6-50.0) % Sodium (137-145) mmol/L Carbon Dioxide (22-30) mmol/L BUN (9-20) mg/dL Creatinine (0.66-1.25) mg/dL Glucose (74-99) mg/dL POC Glucose (mg/dL) 271 H 174 H (70-110) mg/dL Hemoglobin A1c (<=6.0) % Urine Protein Trace H (Negative) Urine Glucose (UA) 4+ H (Negative) Urine Ketones Trace H (Negative) Urine Blood Large H (Negative) Urine RBC >182 H (0-5) /hpf Urine Bacteria Rare H (None) /hpf Urine Mucus Rare H (None) /hpf 04/12/23 04/12/23 04/12/23 Range/Units 05:59 05:59 05:59 RBC 3.68 L (4.40-5.60) X 10*6/uL Hgb 11.2 L (13.0-17.0) g/dL Hct 34.0 L (39.6-50.0) % Sodium 136 L (137-145) mmol/L Carbon Dioxide 21 L (22-30) mmol/L BUN 45 H (9-20) mg/dL Creatinine 1.35 H (0.66-1.25) mg/dL Glucose 177 H (74-99) mg/dL POC Glucose (mg/dL) (70-110) mg/dL Hemoglobin A1c 10.1 H (<=6.0) % Urine Protein (Negative) Urine Glucose (UA) (Negative) Urine Ketones (Negative) Urine Blood (Negative) Urine RBC (0-5) /hpf Urine Bacteria (None) /hpf Urine Mucus (None) /hpf 04/12/23 Range/Units 11:54 RBC (4.40-5.60) X 10*6/uL Hgb (13.0-17.0) g/dL Hct (39.6-50.0) % Sodium (137-145) mmol/L Carbon Dioxide (22-30) mmol/L BUN (9-20) mg/dL Creatinine (0.66-1.25) mg/dL Glucose (74-99) mg/dL POC Glucose (mg/dL) 148 H (70-110) mg/dL Hemoglobin A1c (<=6.0) % Urine Protein (Negative) Urine Glucose (UA) (Negative) Urine Ketones (Negative) Urine Blood (Negative) Urine RBC (0-5) /hpf Urine Bacteria (None) /hpf Urine Mucus (None) /hpf Assessment and Plan Assessment: Recent L3-S1 decompression and fusion Altered mental status Generalized weakness Complex medical comorbidities Plan: At this time we do not recommend any emergent/urgent orthopedic surgical intervention, we will evaluate when patient is medically stable. We may obtain advanced imaging regarding possible seroma when patient is medically stable. 2. Appreciate medical management 3. Pain management - continue with conservative treatment, Tylenol and [place]. 4. GI prophylaxis - senna 5. DVT prophylaxis -Eliquis 6. PT/OT - weightbearing as tolerated with a walker as needed. 7. Appreciate consult I reviewed and discussed this case with my attending Dr. Zimmerman, whom has reviewed this chart and films and is in agreement with assessment and plan of care as outlined above. I have personally seen and examined the patient, performed the documentation and the assessment and plan as written. Number of minutes spent on the visit: 20m.
--- NOTE | 2023-04-12 15:09 | P.CNNES ---
History of Present Illness Consult date: 04/12/23 Requesting physician: Saúl Marin Reason for Consult: ams History of Present Illness: This is a 67-year-old gentleman with recent L3 to S1 decompression and fusion presented emergency department because of confusion. Some of the history is obtained from medical record. It seems that the patient was at a nursing rehab facility and he had the confusion. Patient had a recent lumbar decompression and fusion and this seems she is a significant facility and is documented that the caregiver states he has been having some issues receiving medication the morning and symptoms were worse yesterday per the staff. Per the ED and the team's note. He was confused but does have periods of time of clearing thoughts. Patient does not recall what transpired but states he is having significant lower back pain and states that his legs gave out. He denies any bladder or bowel issues. He feels his hip his pain mostly left more than the right and he could not come there is any radiation. He was having some numbness in the feet. Denies any history of stroke or seizures in the past. Denies of any fevers. Patient is on oxycodone, Robaxin, Cymbalta. Patient is on eliquis as well as aspirin as no medication. Some of the workup during this hospital visit consisted of: Initial white blood cells 11.13 thousand that normalized. The glucose has been in the range of initially on presentation was in the 200s and currently it's in the 140s to 170s. Odium was 136, creatinine is 1.35, BUN is 45, hemoglobin A1c 10.1 Plasma lactic acid venous 1.5. Ammonia is 44. EKG is reported as age are fibrillation. Left axis deviation. CT of the head is reported as similar mild intra-or megaly likely due to central cerebral atrophy. Correlate to exclude component of NPH. Mild burden of chronic small vessel ischemic disease. No acute intracranial abnormality seen. I personally reviewed the CT the head and I feel there is no acute subacute ischemia. There is no bleed. I agree that cerebral atrophy seems more due to the cerebral atrophy. CT abdomen and pelvis is reported as 1.1 cm nonobstructive the left renal stone. 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 nodularity of the liver. Correlate for any known diagnosis of underlying cirrhosis. GI referral if not established diagnosis. Recent L3-S1 posterior lumbar fusion changes with laminectomies extending up to the L2 level. Here the L2 level there appears to be fluid collection measuring 5.5 wide within the laminectomy bed, possible postoperative seroma. Follow-up as clinically indicated. Other fluid collection not excluded this time. An additional small fluid and air collection measuring 2.1 just deep to the superimposed skin elizabeth within the subcutaneous fat layer. Review of Systems The positive and negative as per HPI. Past Medical History Past Medical History: Atrial Fibrillation, COPD, Diabetes Mellitus, Hypertension Additional Past Medical History / Comment(s): herniated discs, TIA History of Any Multi-Drug Resistant Organisms: None Reported Past Surgical History: Orthopedic Surgery Additional Past Surgical History / Comment(s): Knee surgery Past Anesthesia/Blood Transfusion Reactions: Unable to Obtain Past Psychological History: Depression Smoking Status: Current some day smoker Past Alcohol Use History: Daily Past Drug Use History: None Reported, Heroin Medications and Allergies Home Medications Medication Instructions Recorded Confirmed Type Albuterol Sulfate [Ventolin HFA] 2 puff INHALATION RT-QID PRN 03/21/23 04/11/23 History Aspirin EC [Ecotrin Low Dose] 81 mg PO DAILY 03/21/23 04/11/23 History DULoxetine HCL [Cymbalta] 30 mg PO DAILY 03/21/23 04/11/23 History Dulaglutide [Trulicity] 0.75 mg SQ TU 03/21/23 04/11/23 History Empagliflozin [Jardiance] 10 mg PO DAILY 03/21/23 04/11/23 History carvediloL [Coreg] 6.25 mg PO BID 03/21/23 04/11/23 History cefaDROXiL [Duricef] 500 mg PO Q12HR #20 cap 04/03/23 04/11/23 Rx Apixaban [Eliquis] 5 mg PO BID tab 04/04/23 04/11/23 Rx Ferrous Sulfate [Feosol] 325 mg PO BID #1 tab 04/04/23 04/11/23 Rx Gabapentin 800 mg PO Q8HR@0000,0800,1600 04/11/23 04/11/23 History HYDROcodone/APAP 10-325MG [[place] 1 tab PO Q8H PRN 04/11/23 04/11/23 History 10-325] INSULIN ASPART (NovoLOG) [NovoLOG See Protocol SQ ACHS 04/11/23 04/11/23 History (formulary)] Insulin Glargine,Hum.rec.anlog 10 units SQ DAILY@0800 04/11/23 04/11/23 History [Lantus Solostar Pen] Sennosides/Docusate Sodium [Senna 1 cap PO DAILY PRN 04/11/23 04/11/23 History Plus 8.6-50 mg Softgel] methocarbamoL [Robaxin-750] 750 mg PO TID@0800,1200,1600 04/11/23 04/11/23 History oxyCODONE ER [OxyCONTIN] 10 mg PO BID@0800,2000 04/11/23 04/11/23 History Allergies Allergy/AdvReac Type Severity Reaction Status Date / Time No Known Allergies Allergy Verified 04/11/23 12:37 Physical Examination - Vital Signs Vital Signs: Vital Signs Temp Pulse Pulse Resp BP BP BP 04/12/23 07:40 97.8 F 103 H 18 134/81 04/12/23 02:00 97.7 F 86 15 113/75 04/11/23 20:00 99.3 F 101 H 16 04/11/23 18:23 98.9 F 106 H 18 118/100 04/11/23 17:00 112 H 20 131/75 04/11/23 15:55 101 H 18 149/75 BP Pulse Ox 04/12/23 07:40 94 L 04/12/23 02:00 94 L 04/11/23 20:00 138/88 95 04/11/23 18:23 95 04/11/23 17:00 96 04/11/23 15:55 96 Intake and Output 04/11/23 04/12/23 04/12/23 22:59 06:59 14:59 Output Total 850 450 Balance -850 -450 Output: Urine 850 450 Other: Voiding Method Urinal Urinal Weight 77.111 kg 77.111 kg GENERAL: The patient is lying in bed and is in mild to moderate acute distress. I NEUROLOGICAL: Higher mental function: The patient is awake, alert, oriented to self, place. He correctly stated the current year but stated month was May. Patient is following commands. No aphasia and no neglect. Cranial nerves: The pupils are round, equal and reactive to light and accommodation. Visual lamas are full to confrontation throughout. Extraocular movement is intact no nystagmus is noted. Facial sensation is normal to touch throughout. The facial strength is normal throughout. Hearing is normal bilaterally to hand rub. Tongue is midline and moved [id number] without any difficulty. No dysarthria is noted. Shoulder shrug is normal bilaterally. Motor: The strength is limited in assessment in upper and lowers because of pain but mostly lowers. He is able to lift bilateral uppers above gravity and seems symetrical but upon putting resistance he was having pain in back and hip. While lowers he had difficulty moving because of pain but able to have antigravity in ankle. Normal bulk. Cerebellum: Normal finger to nose bilaterally. Sensation: Sensation is normal to touch throughout. Reflexes (right/left): 2+ uppers while knees has knee replacement and 0 and limited because of pain. Plantars are mute bilaterally. Results - Laboratory Findings CBC and BMP: 04/12/23 05:59 04/12/23 05:59 Abnormal Lab Findings: Abnormal Labs 04/11/23 04/11/23 04/11/23 11:12 11:15 11:15 WBC 11.3 H RBC 4.21 L Hgb 12.8 L Hct 38.5 L Neutrophils # 9.5 H Lymphocytes # 0.7 L PT 13.1 H INR 1.2 H Sodium Carbon Dioxide BUN Creatinine Glucose POC Glucose (mg/dL) 207 H Hemoglobin A1c Ammonia Albumin Urine Protein Urine Glucose (UA) Urine Ketones Urine Blood Urine RBC Urine Bacteria Urine Mucus 04/11/23 04/11/23 04/11/23 11:15 11:15 19:40 WBC RBC Hgb Hct Neutrophils # Lymphocytes # PT INR Sodium 135 L Carbon Dioxide 18 L BUN 41 H Creatinine 1.40 H Glucose 207 H POC Glucose (mg/dL) 271 H Hemoglobin A1c Ammonia Albumin 3.2 L Urine Protein Trace H Urine Glucose (UA) 4+ H Urine Ketones Trace H Urine Blood Large H Urine RBC >182 H Urine Bacteria Rare H Urine Mucus Rare H 04/12/23 04/12/23 04/12/23 05:57 05:59 05:59 WBC RBC 3.68 L Hgb 11.2 L Hct 34.0 L Neutrophils # Lymphocytes # PT INR Sodium Carbon Dioxide BUN Creatinine Glucose POC Glucose (mg/dL) 174 H Hemoglobin A1c 10.1 H Ammonia Albumin Urine Protein Urine Glucose (UA) Urine Ketones Urine Blood Urine RBC Urine Bacteria Urine Mucus 04/12/23 04/12/23 04/12/23 05:59 11:54 12:29 WBC RBC Hgb Hct Neutrophils # Lymphocytes # PT INR Sodium 136 L Carbon Dioxide 21 L BUN 45 H Creatinine 1.35 H Glucose 177 H POC Glucose (mg/dL) 148 H Hemoglobin A1c Ammonia 44 H Albumin Urine Protein Urine Glucose (UA) Urine Ketones Urine Blood Urine RBC Urine Bacteria Urine Mucus Assessment and Plan Assessment: This is a 67-year-old gentleman with recent L3 to S1 decompression and fusion who is having confusion at the nursing facility. It seems of the patient's was reported to have some issues receiving medication the morning. Patient is on oxycodone, Robaxin, Cymbalta. He does not recall what transpired and was told he was confused according to patient. Patient has elevated ammonia of 44, uncontrolled diabetes with acute kidney insufficiency. Altered mental status seems toxic metabolic encephalopathy. Has elevated amm onia with JEAN MARIE. Also culprit of his confusion could be medication dose since he is on oxycodone Cymbalta and Robaxin. Currently confusion improved Lower back pain as well as left hip pain History of recent L3 to S1 decompression and fusion Elevated ammoni 44 Uncontrolled diabetes Mellitus 10.1 Acute kidney insuffiency Atrial fibrillation on eliqiuis Plan: I ordered vitamin B12, folate, TSH, routine EEG because of his confusion. I do not think this is a seizure and there is any discharges I ordered CT lumbar spine Ordered MRI of the brain to rule out any ischemic or subacute ischemic stroke. Has history of history fibrillation on eliquis. Every 4 hours neuro checks Orthopedic surgery team is consulted and we'll defer the management to them PT OT are consulted We'll defer the management of elevated ammonia to primary team. Also recommend GI consultation as well as recommended on CT abd/pelvis because of nodularity of liver. We'll defer the rest of the medical management to primary team The plan is discussed with patient and his nurse. Thank you for the consultation. Time with Patient: Greater than 30
[2023-04-12 16:52] LABS: Glucose,Whole Blood 284 mg/dL (70-110)
--- NOTE | 2023-04-12 17:50 | CT ---
EXAMINATION TYPE: CT lumbar spine wo con DATE OF EXAM: 04/12/2023 5:36 PM COMPARISON: 03/29/2023 HISTORY: Chronic lower back pain CT DLP: 1712.6 mGycm Automated exposure control for dose reduction was used. Unenhanced CT of the lumbar spine was performed. Bone and soft tissue window settings are submitted as well as coronal and sagittal reconstructions. Findings: There are recent postsurgical changes of wide laminectomy from L2 through S1 with posterior metallic fusion of L3-S1 and intradiscal fusion at the L5-S1 level. There is scattered droplets of air in the subcutaneous soft tissues posterior to the lumbar spine. Se condary to metallic artifact, evaluation of the thecal sac is limited with this technique but there i s increasing gas bubbles posterior to the thecal sac at the L3-4 and L4-5 levels compared to the prio r study. The possibility of abscess in this region cannot be in occluded with this technique. The lumbar vertebral segment are normal in alignment. There is been interval development of a mild anterior and superior compression deformity of L3. IMPRESSION: 1. Extensive postsurgical changes as described above. 2. Interval development of a mild anterior wedge compression impression fracture of L3. 3. Limited evaluation of the soft tissues with this technique given the lack of contrast and metallic artifact however there is increasing gas in the region of the thecal sac and epidural space at the L 3-4 and L4-5 levels compared to previous. The possibility of developing infectious process cannot be excluded.
--- NOTE | 2023-04-12 19:08 | P.HPIM ---
History of Present Illness H&P Date: 04/11/23 Chief Complaint: Weakness 67-year-old gentleman with recent L3 to S1 decompression and fusion presented emergency department because of confusion. Some of the history is obtained from medical record. It seems that the patient was at a nursing rehab facility and he had the confusion. Patient had a recent lumbar decompression and fusion and this seems she is a significant facility and is documented that the caregiver states he has been having some issues receiving medication the morning and symptoms were worse yesterday per the staff. Per the ED and the team's note. He was confused but does have periods of time of clearing thoughts. Patient does not recall what transpired but states he is having significant lower back pain and states that his legs gave out. He denies any bladder or bowel issues. He feels his hip his pain mostly left more than the right and he could not come there is any radiation. He was having some numbness in the feet. Denies any history of stroke or seizures in the past. Denies of any fevers. Patient is on oxycodone, Robaxin, Cymbalta. Patient is on eliquis as well as aspirin as no medication. Initial white blood cells 11.13 thousand that normalized. The glucose has been in the range of initially on presentation was in the 200s and currently it's in the 140s to 170s. Odium was 136, creatinine is 1.35, BUN is 45, hemoglobin A1c 10.1 Plasma lactic acid venous 1.5. Ammonia is 44. EKG is reported as age are fibrillation. Left axis deviation. CT of the head is reported as similar mild intra-or megaly likely due to central cerebral atrophy. Correlate to exclude component of NPH. Mild burden of chronic small vessel ischemic disease. No acute intracranial abnormality seen. I personally reviewed the CT the head and I feel there is no acute subacute ischemia. There is no bleed. I agree that cerebral atrophy seems more due to the cerebral atrophy. CT abdomen and pelvis is reported as 1.1 cm nonobstructive the left renal stone. 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 nodularity of the liver. Correlate for any known diagnosis of underlying cirrhosis. GI referral if not established diagnosis. Recent L3-S1 posterior lumbar fusion changes with laminectomies extending up to the L2 level. Here the L2 level there appears to be fluid collection measuring 5.5 wide within the laminectomy bed, possible postoperative seroma. Follow-up as clinically indicated. Other fluid collection not excluded this time. An additional small fluid and air collection measuring 2.1 just deep to the superimposed skin elizabeth within the subcutaneous fat layer. Review of Systems ROS unobtainable: due to mental status Past Medical History Past Medical History: Atrial Fibrillation, COPD, Diabetes Mellitus, Hypertension Additional Past Medical History / Comment(s): herniated discs, TIA History of Any Multi-Drug Resistant Organisms: None Reported Past Surgical History: Orthopedic Surgery Additional Past Surgical History / Comment(s): Knee surgery Past Psychological History: Depression Smoking Status: Current some day smoker Past Alcohol Use History: Daily Past Drug Use History: None Reported, Heroin Medications and Allergies Home Medications Medication Instructions Recorded Confirmed Type Albuterol Sulfate [Ventolin HFA] 2 puff INHALATION RT-QID PRN 03/21/23 04/11/23 History Aspirin EC [Ecotrin Low Dose] 81 mg PO DAILY 03/21/23 04/11/23 History DULoxetine HCL [Cymbalta] 30 mg PO DAILY 03/21/23 04/11/23 History Dulaglutide [Trulicity] 0.75 mg SQ TU 03/21/23 04/11/23 History Empagliflozin [Jardiance] 10 mg PO DAILY 03/21/23 04/11/23 History carvediloL [Coreg] 6.25 mg PO BID 03/21/23 04/11/23 History cefaDROXiL [Duricef] 500 mg PO Q12HR #20 cap 04/03/23 04/11/23 Rx Apixaban [Eliquis] 5 mg PO BID tab 04/04/23 04/11/23 Rx Ferrous Sulfate [Feosol] 325 mg PO BID #1 tab 04/04/23 04/11/23 Rx Gabapentin 800 mg PO Q8HR@0000,0800,1600 04/11/23 04/11/23 History HYDROcodone/APAP 10-325MG [[place] 1 tab PO Q8H PRN 04/11/23 04/11/23 History 10-325] INSULIN ASPART (NovoLOG) [NovoLOG See Protocol SQ ACHS 04/11/23 04/11/23 History (formulary)] Insulin Glargine,Hum.rec.anlog 10 units SQ DAILY@0800 04/11/23 04/11/23 History [Lantus Solostar Pen] Sennosides/Docusate Sodium [Senna 1 cap PO DAILY PRN 04/11/23 04/11/23 History Plus 8.6-50 mg Softgel] methocarbamoL [Robaxin-750] 750 mg PO TID@0800,1200,1600 04/11/23 04/11/23 History oxyCODONE ER [OxyCONTIN] 10 mg PO BID@0800,2000 04/11/23 04/11/23 History Allergies Allergy/AdvReac Type Severity Reaction Status Date / Time No Known Allergies Allergy Verified 04/11/23 12:37 Physical Exam Vitals: Vital Signs Temp Pulse Resp BP Pulse Ox 04/11/23 14:03 99 18 151/107 94 L 04/11/23 12:07 92 18 155/92 94 L 04/11/23 11:13 72 18 110/100 94 L 04/11/23 10:50 98.8 F 94 18 148/79 96 Intake and Output 04/11/23 04/11/23 04/11/23 06:59 14:59 22:59 Other: Weight 77.111 kg Limitations: altered mental status General appearance: alert, in no apparent distress Head exam: Present: atraumatic, normocephalic, normal inspection Eye exam: Present: normal appearance, PERRL, EOMI. Absent: scleral icterus, conjunctival injection, periorbital swelling ENT exam: Present: mucous membranes dry. Absent: normal exam, normal oropharynx, mucous membranes moist Neck exam: Present: normal inspection, full ROM. Absent: tenderness, meningismus, lymphadenopathy Respiratory exam: Present: normal lung sounds bilaterally. Absent: respiratory distress, wheezes, rales, rhonchi, stridor Cardiovascular Exam: Present: normal rhythm, irregular rhythm, normal heart sounds. Absent: regular rate, systolic murmur, diastolic murmur, rubs, gallop, clicks GI/Abdominal exam: Present: soft, normal bowel sounds. Absent: distended, t enderness, guarding, rebound, rigid Neurological exam: Present: alert and restless; does not follow any commands Results CBC & Chem 7: 04/12/23 05:59 04/12/23 05:59 Labs: Abnormal Lab Results - Last 24 Hours (Table) 04/11/23 04/11/23 04/11/23 Range/Units 11:12 11:15 11:15 WBC 11.3 H (3.8-10.6) k/uL RBC 4.21 L (4.30-5.90) m/uL Hgb 12.8 L (13.0-17.5) gm/dL Hct 38.5 L (39.0-53.0) % Neutrophils # 9.5 H (1.3-7.7) k/uL Lymphocytes # 0.7 L (1.0-4.8) k/uL PT 13.1 H (10.0-12.5) sec INR 1.2 H (<1.2) Sodium (137-145) mmol/L Carbon Dioxide (22-30) mmol/L BUN (9-20) mg/dL Creatinine (0.66-1.25) mg/dL Glucose (74-99) mg/dL POC Glucose (mg/dL) 207 H (70-110) mg/dL Albumin (3.5-5.0) g/dL Urine Protein (Negative) Urine Glucose (UA) (Negative) Urine Ketones (Negative) Urine Blood (Negative) Urine RBC (0-5) /hpf Urine Bacteria (None) /hpf Urine Mucus (None) /hpf 04/11/23 04/11/23 Range/Units 11:15 11:15 WBC (3.8-10.6) k/uL RBC (4.30-5.90) m/uL Hgb (13.0-17.5) gm/dL Hct (39.0-53.0) % Neutrophils # (1.3-7.7) k/uL Lymphocytes # (1.0-4.8) k/uL PT (10.0-12.5) sec INR (<1.2) Sodium 135 L (137-145) mmol/L Carbon Dioxide 18 L (22-30) mmol/L BUN 41 H (9-20) mg/dL Creatinine 1.40 H (0.66-1.25) mg/dL Glucose 207 H (74-99) mg/dL POC Glucose (mg/dL) (70-110) mg/dL Albumin 3.2 L (3.5-5.0) g/dL Urine Protein Trace H (Negative) Urine Glucose (UA) 4+ H (Negative) Urine Ketones Trace H (Negative) Urine Blood Large H (Negative) Urine RBC >182 H (0-5) /hpf Urine Bacteria Rare H (None) /hpf Urine Mucus Rare H (None) /hpf Assessment and Plan Assessment: 1. Altered mental status; likely toxic metabolic encephalopathy related to JEAN MARIE, hyperammonemia --Polypharmacy including oxycodone, Robaxin and Cymbalta -- All medications have been placed on hold -- Patient remains on IV fluid hydration -Neurology is consulted for further recommendations 2. Lower back pain; patient has history of recent L3-S1 decompression and fusion -- CT reveals some fluid collection measuring 5.5 cm wide within the laminectomy bed, likely seroma -- Orthopedic surgery is consulted 3. Acute renal injury; BUNs/creatinine elevated at 45/1.35 upon admission -- Patient has been placed on IV fluid hydration; monitor strict EDU's, daily weights, renal function electrolytes -Avoid nephrotoxins and hypotension 4. Hyperglycemia without acidosis/diabetes mellitus with long-term insulin use -- We will monitor Accu-Cheks before every meal and at bedtime with insulin sliding scale -Resume home dose of Lantus 10 units subcu daily once oral intake is established 5. Atrial fibrillation; continue with rate control with Coreg 6.25 mg twice daily; continue with current anticoagulation therapy 6. Hypertension; Coreg 6.25 mg twice daily 7. Peripheral neuropathy; patient takes gabapentin 800 mg every 8 hours which has been placed on hold due to altered mental status and JEAN MARIE DVT prophylaxis; SCDs/anticoagulation CODE STATUS; full code
[2023-04-12 20:15] LABS: Glucose,Whole Blood 319 mg/dL (70-110)
[2023-04-13 05:40] LABS: Glucose,Whole Blood 284 mg/dL (70-110)
[2023-04-13 10:24] LABS: Blood Urea Nitrogen 35.4 mg/dL (9.0-27.0); Calcium 9.5 mg/dL (8.7-10.3); Carbon Dioxide 22.6 mmol/L (21.6-31.8); Chloride 105 mmol/L (96-109); Glucose 150 mg/dL (70-110); Potassium 4.7 mmol/L (3.5-5.5); Sodium 137 mmol/L (135-145)
--- NOTE | 2023-04-13 10:44 | P.PN ---
Subjective Progress Note Date: 04/13/23 Principal diagnosis: recent lumbar surgery (L3-S1 decompression and fusion) Patient seen and examined this morning. Patient is resting comfortably in bed. Patient is alert and oriented x3. Patient does have complaint of low back pain. Surgical incision to the lumbar spine,dressing CDI. Patient does need to be repositioned on his side to eliminate pressure over the incision. Patient continues to deny any numbness or tingling to the bilateral lower extremities. He does report weakness when he attempts to stand. Encouraged patient that he needs to work with physical therapy and to be getting up in the chair for all meals. LSO brace is present at bedside. Patient denies any fever/chills, nausea/vomiting, or chest pain. Objective - Vital Signs Vital signs: Vital Signs Temp 98.1 F 04/13/23 07:02 Pulse 81 04/13/23 07:02 Resp 19 04/13/23 07:02 BP 134/89 04/13/23 07:02 Pulse Ox 96 04/13/23 07:02 FiO2 Intake & Output 04/12/23 04/13/23 04/13/23 18:59 06:59 18:59 Intake Total 900 Output Total 900 1000 525 Balance -900 -100 -525 Weight 77.111 kg Intake: Oral 900 Output: Urine 900 1000 525 Other: Voiding Method Urinal Urinal - Exam Inspection: Negative for any open fractures. Large bruise noted over the left forearm and elbow. Surgical incision to the lumbar spine, edges are well- approximated with elizabeth intact. No active drainage, new surgical dressing applied. Sensation: Sensation is equal, symmetric, bilaterally intact throughout the upper and lower extremities Palpation: Nontender to palpation throughout bilateral upper and lower extremities and throughout spine exam Range of motion: Patient does have full range of motion bilateral upper and lower extremities on exam Motor: 5/5 in all major motor groups in the bilateral upper and 4/5 in lower extremities, RLE 4-/5 plantar flexion Special tests: Negative Homans bilaterally. Negative Tiesha bilaterally. N egative clonus bilaterally. Neurovascular: Radial pulse intact, 2+ bilaterally. Cap refill under 3 seconds in digits upper extremities. - Labs CBC & Chem 7: 04/12/23 05:59 04/13/23 06:04 Labs: Abnormal Lab Results - Last 24 Hours (Table) 04/12/23 04/12/23 04/12/23 Range/Units 05:59 11:54 12:29 Sodium 136 L (137-145) mmol/L Carbon Dioxide 21 L (22-30) mmol/L BUN 45 H (9-20) mg/dL Creatinine 1.35 H (0.66-1.25) mg/dL BUN/Creatinine Ratio (12.00-20.00) Ratio Glucose 177 H (74-99) mg/dL POC Glucose (mg/dL) 148 H (70-110) mg/dL Ammonia 44 H (<30) umol/L 04/12/23 04/12/23 04/13/23 Range/Units 16:50 20:13 05:39 Sodium (137-145) mmol/L Carbon Dioxide (22-30) mmol/L BUN (9-20) mg/dL Creatinine (0.66-1.25) mg/dL BUN/Creatinine Ratio (12.00-20.00) Ratio Glucose (74-99) mg/dL POC Glucose (mg/dL) 284 H 319 H 284 H (70-110) mg/dL Ammonia (<30) umol/L 04/13/23 Range/Units 06:04 Sodium (137-145) mmol/L Carbon Dioxide (22-30) mmol/L BUN 35.4 H (9-20) mg/dL Creatinine (0.66-1.25) mg/dL BUN/Creatinine Ratio 29.50 H (12.00-20.00) Ratio Glucose 150 H (74-99) mg/dL POC Glucose (mg/dL) (70-110) mg/dL Ammonia (<30) umol/L Assessment and Plan Assessment: Recent L3-S1 decompression and fusion Altered mental status Generalized weakness Complex medical comorbidities Plan: At this time we do not recommend any emergent/urgent orthopedic surgical intervention. CT of the Lumbar spine demonstrates increasing gas in the region of the thecal sac and epidural space at the L3-4 and L4-5 levels compared to previous. The possibility of developing infectious process cannot be excluded. MRI of the Lumbar spine will be ordered for further evaluation. 2. Appreciate medical management 3. Pain management - continue with conservative treatment, Tylenol and [place]. 4. GI prophylaxis - senna 5. DVT prophylaxis -Eliquis 6. PT/OT - weightbearing as tolerated with a walker as needed. 7. Appreciate consult I reviewed and discussed this case with my attending Dr. Zimmerman, whom has reviewed this chart and films and is in agreement with assessment and plan of care as outlined above. I have personally seen and examined the patient, performed the documentation and the assessment and plan as written. Number of minutes spent on the visit: 20m.
[2023-04-13 11:08] LABS: HGB 11.5 g/dL (13.0-17.0); MCH 29.9 pg (27.0-32.0); MCHC 32.9 g/dL (32.0-37.0); MCV 90.9 FL (80.0-97.0); Mean Platelet Volume 10.2 FL (9.5-12.2); NRBC Per 100 WBC 0 X 10*3/uL (0.00-0.01); Platelet Count 243 X 10*3/uL (140-440); RBC 3.85 X 10*6/uL (4.40-5.60); RDW 12.8 % (11.5-14.5); WBC 6.27 X 10*3/uL (4.50-10.00)
[2023-04-13 11:52] LABS: Glucose,Whole Blood 141 mg/dL (70-110)
[2023-04-13] MEDS: INSULIN ASPART (NovoLOG) 100 UNIT/ML VIAL SQ SCH (12:04)
--- NOTE | 2023-04-13 14:42 | P.PN ---
Subjective Progress Note Date: 04/13/23 I am following-up with patient and he feels about the same. Continues to have pain in the back region. No further confusion. Objective - Vital Signs Vital signs: Vital Signs Temp 98.1 F 04/13/23 07:02 Pulse 81 04/13/23 07:02 Resp 19 04/13/23 07:02 BP 134/89 04/13/23 07:02 Pulse Ox 96 04/13/23 07:02 FiO2 Intake & Output 04/12/23 04/13/23 04/13/23 18:59 06:59 18:59 Intake Total 900 Output Total 900 1000 725 Balance -900 -100 -725 Weight 77.111 kg Intake: Oral 900 Output: Urine 900 1000 725 Other: Voiding Method Urinal Urinal Urinal # Bowel Movements 1 - Exam GENERAL: The patient is sitting in a chair and is in mild to moderate acute distress. NEUROLOGICAL: Higher mental function: The patient is awake, alert, oriented to self, place. He correctly stated the current year but stated month was May. Patient is following commands. No aphasia and no neglect. Cranial nerves: The pupils are round, equal and reactive to light and accommodation. Visual lamas are full to confrontation throughout. Extraocular movement is intact no nystagmus is noted. Facial sensation is normal to touch throughout. The facial strength is normal throughout. Hearing is normal bilaterally to hand rub. Tongue is midline and moved [id number] without any difficulty. No dysarthria is noted. Shoulder shrug is normal bilaterally. Motor: The strength is limited in assessment in upper and lowers because of pain but mostly lowers. He is able to lift bilateral uppers above gravity and seems symetrical but upon putting resistance he was having pain in back and hip. While lowers he had difficulty moving because of pain but able to have antigravity in ankle. Normal bulk. Cerebellum: Normal finger to nose bilaterally. Sensation: Sensation is normal to touch throughout. Some of the workup during this hospital visit consisted of: Initial white blood cells 11.13 thousand that normalized. The glucose has been in the range of initially on presentation was in the 200s and currently it's in the 140s to 170s. SOdium was 136, creatinine is 1.35, BUN is 45, hemoglobin A1c 10.1 Plasma lactic acid venous 1.5. Ammonia is 44. Folate: 11.6 Vitamin B12: 717 EKG is reported as age are fibrillation. Left axis deviation. U/a: does not seem suggestive of UTI. CT of the head is reported as similar mild intra-or megaly likely due to central cerebral atrophy. Correlate to exclude component of NPH. Mild burden of chronic small vessel ischemic disease. No acute intracranial abnormality seen. I personally reviewed the CT the head and I feel there is no acute subacute ischemia. There is no bleed. I agree that cerebral atrophy seems more due to the cerebral atrophy. CT abdomen and pelvis is reported as 1.1 cm nonobstructive the left renal stone. 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 nodularity of the liver. Correlate for any known diagnosis of underlying cirrhosis. GI referral if not established diagnosis. Recent L3-S1 posterior lumbar fusion changes with laminectomies extending up to the L2 level. Here the L2 level there appears to be fluid collection measuring 5.5 wide within the laminectomy bed, possible postoperative seroma. Follow-up as clinically indicated. Other fluid collection not excluded this time. An additional small fluid and air collection measuring 2.1 just deep to the superimposed skin elizabeth within the subcutaneous fat layer. CT lumbar: It is reported as extensive postsurgical changes as described above. Interval development of mild anterior wedge compression impression fracture of L3. Limited evaluation of the soft tissue with that techniques and given the lack of contrast and metallic artifact however there is increased gas in the region of the thecal sac and epidural space at the L3-L4 and L4-L5 levels compared to the previous. The possibility of developing infection process cannot be excluded. - Labs CBC & Chem 7: 04/13/23 06:04 04/13/23 06:04 Labs: Abnormal Lab Results - Last 24 Hours (Table) 04/12/23 04/12/23 04/13/23 Range/Units 16:50 20:13 05:39 RBC (4.40-5.60) X 10*6/uL Hgb (13.0-17.0) g/dL Hct (39.6-50.0) % BUN (9.0-27.0) mg/dL BUN/Creatinine Ratio (12.00-20.00) Ratio Glucose (70-110) mg/dL POC Glucose (mg/dL) 284 H 319 H 284 H (70-110) mg/dL 04/13/23 04/13/23 04/13/23 Range/Units 06:04 06:04 11:50 RBC 3.85 L (4.40-5.60) X 10*6/uL Hgb 11.5 L (13.0-17.0) g/dL Hct 35.0 L (39.6-50.0) % BUN 35.4 H (9.0-27.0) mg/dL BUN/Creatinine Ratio 29.50 H (12.00-20.00) Ratio Glucose 150 H (70-110) mg/dL POC Glucose (mg/dL) 141 H (70-110) mg/dL Assessment and Plan Assessment: This is a 67-year-old gentleman with recent L3 to S1 decompression and fusion who is having confusion at the nursing facility. It seems of the patient's was reported to have some issues receiving medication the morning. Patient is on oxycodone, Robaxin, Cymbalta. He does not recall what transpired and was told he was confused according to patient. Patient has elevated ammonia of 44, uncontrolled diabetes with acute kidney insufficiency. Altered mental status seems toxic metabolic encephalopathy. Has elevated ammonia with JEAN MARIE. Also culprit of his confusion could be medication dose since he is on oxycodone Cymbalta and Robaxin. Currently confusion improved Lower back pain as well as left hip pain History of recent L3 to S1 decompression and fusion Elevated ammoni 44 Uncontrolled diabetes Mellitus 10.1 Acute kidney insuffiency Atrial fibrillation on eliqiuis Plan: Pending routine EEG because of his confusion. I highly doubt this is a seizure. Pending MRI Brain. Has history of history fibrillation on eliquis. CT lumbar: It is reported as extensive postsurgical changes as described above. Interval development of mild anterior wedge compression impression fracture of L3. Limited evaluation of the soft tissue with that techniques and given the lack of contrast and metallic artifact however there is increased gas in the region of the thecal sac and epidural space at the L3-L4 and L4-L5 levels compared to the previous. The possibility of developing infection process c annot be excluded. I spoke with [facility] and they will pursue with MRI Lumbar region. Every 4 hours neuro checks Orthopedic surgery team is consulted and we'll defer the management to them PT OT are consulted We'll defer the management of elevated ammonia to primary team. Also recommend GI consultation as well as recommended on CT abd/pelvis because of nodularity of liver. We'll defer the rest of the medical management to primary team The plan is discussed with patient, Orthopedic team and his nurse. Dr. Moreno will resume neurology service tomorrow A.M. Time with Patient: Less than 30
[2023-04-13 16:23] LABS: Glucose,Whole Blood 285 mg/dL (70-110)
--- NOTE | 2023-04-13 17:00 | P.PN ---
Subjective Progress Note Date: 04/13/23 67-year-old gentleman with recent L3 to S1 decompression and fusion presented emergency department because of confusion. Some of the history is obtained from medical record. It seems that the patient was at a nursing rehab facility and he had the confusion. Patient had a recent lumbar decompression and fusion and this seems she is a significant facility and is documented that the caregiver states he has been having some issues receiving medication the morning and symptoms were worse yesterday per the staff. Per the ED and the team's note. He was confused but does have periods of time of clearing thoughts. Patient does not recall what transpired but states he is having significant lower back pain and states that his legs gave out. He denies any bladder or bowel issues. He feels his hip his pain mostly left more than the right and he could not come there is any radiation. He was having some numbness in the feet. Denies any history of stroke or seizures in the past. Denies of any fevers. Patient is on oxycodone, Robaxin, Cymbalta. Patient is on eliquis as well as aspirin as no medication. Initial white blood cells 11.13 thousand that normalized. The glucose has been in the range of initially on presentation was in the 200s and currently it's in the 140s to 170s. Odium was 136, creatinine is 1.35, BUN is 45, hemoglobin A1c 10.1 Plasma lactic acid venous 1.5. Ammonia is 44. EKG is reported as age are fibrillation. Left axis deviation. CT of the head is reported as similar mild intra-or megaly likely due to central cerebral atrophy. Correlate to exclude component of NPH. Mild burden of chronic small vessel ischemic disease. No acute intracranial abnormality seen. I personally reviewed the CT the head and I feel there is no acute subacute ischemia. There is no bleed. I agree that cerebral atrophy seems more due to the cerebral atrophy. CT abdomen and pelvis is reported as 1.1 cm nonobstructive the left renal stone. 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 nodularity of the liver. Correlate for any known diagnosis of underlying cirrhosis. GI referral if not established diagnosis. Recent L3-S1 posterior lumbar fusion changes with laminectomies extending up to the L2 level. Here the L2 level there appears to be fluid collection measuring 5.5 wide within the laminectomy bed, possible postoperative seroma. Follow-up as clinically indicated. Other fluid collection not excluded this time. An additional small fluid and air collection measuring 2.1 just deep to the superimposed skin elizabeth within the subcutaneous fat layer. 04/13/2023 Patient is seen and evaluated resting in bed; continues to report uncontrolled pain Vital signs are reviewed and are stable with temperature of 98, pulse 81, respiration 19, blood pressure 134/89 and O2 saturation 96% on room air Labs revealed WBC 6.27, hemoglobin 11.5 and platelet count of 243, sodium 137, potassium 4.7, BUN 35.4, creatinine 1.2, blood glucose ranging between 1 42-84 --We will add NovoLog 5 units subcu with each meal -Patient has been evaluated by orthopedic surgery and MRI of the spine is recommended -- PT OT consulted Objective - Vital Signs Vital signs: Vital Signs Temp 98.1 F 04/13/23 07:02 Pulse 81 04/13/23 07:02 Resp 19 04/13/23 07:02 BP 134/89 04/13/23 07:02 Pulse Ox 96 04/13/23 07:02 FiO2 Intake & Output 04/12/23 04/13/23 04/13/23 18:59 06:59 18:59 Intake Total 900 Output Total 900 1000 525 Balance -900 -100 -525 Weight 77.111 kg Intake: Oral 900 Output: Urine 900 1000 525 Other: Voiding Method Urinal Urinal - Exam Limitations: altered mental status General appearance: alert, in no apparent distress Head exam: Present: atraumatic, normocephalic, normal inspection Eye exam: Present: normal appearance, PERRL, EOMI. Absent: scleral icterus, conjunctival injection, periorbital swelling ENT exam: Present: mucous membranes dry. Absent: normal exam, normal oropharynx, mucous membranes moist Neck exam: Present: normal inspection, full ROM. Absent: tenderness, meningismus, lymphadenopathy Respiratory exam: Present: normal lung sounds bilaterally. Absent: respiratory distress, wheezes, rales, rhonchi, stridor Cardiovascular Exam: Present: normal rhythm, irregular rhythm, normal heart sounds. Absent: regular rate, systolic murmur, diastolic murmur, rubs, gallop, clicks GI/Abdominal exam: Present: soft, normal bowel sounds. Absent: distended, tenderness, guarding, rebound, rigid Neurological exam: Present: alert and restless; does not follow any commands - Labs CBC & Chem 7: 04/13/23 06:04 04/13/23 06:04 Labs: Abnormal Lab Results - Last 24 Hours (Table) 04/12/23 04/12/23 04/12/23 Range/Units 11:54 12:29 16:50 BUN (9.0-27.0) mg/dL BUN/Creatinine Ratio (12.00-20.00) Ratio Glucose (70-110) mg/dL POC Glucose (mg/dL) 148 H 284 H (70-110) mg/dL Ammonia 44 H (<30) umol/L 04/12/23 04/13/23 04/13/23 Range/Units 20:13 05:39 06:04 BUN 35.4 H (9.0-27.0) mg/dL BUN/Creatinine Ratio 29.50 H (12.00-20.00) Ratio Glucose 150 H (70-110) mg/dL POC Glucose (mg/dL) 319 H 284 H (70-110) mg/dL Ammonia (<30) umol/L Assessment and Plan Assessment: 1. Altered mental status; likely toxic metabolic encephalopathy related to JEAN MARIE, hyperammonemia --Polypharmacy including oxycodone, Robaxin and Cymbalta -- All medications have been placed on hold -- Patient remains on IV fluid hydration -Neurology is consulted for further recommendations 2. Lower back pain; patient has history of recent L3-S1 decompression and f usion -- CT reveals some fluid collection measuring 5.5 cm wide within the laminectomy bed, likely seroma -- Orthopedic surgery is consulted 3. Acute renal injury; BUNs/creatinine elevated at 45/1.35 upon admission -- Patient has been placed on IV fluid hydration; monitor strict EDU's, daily weights, renal function electrolytes -Avoid nephrotoxins and hypotension 4. Hyperglycemia without acidosis/diabetes mellitus with long-term insulin use -- We will monitor Accu-Cheks before every meal and at bedtime with insulin sliding scale -Resume home dose of Lantus 10 units subcu daily once oral intake is established 5. Atrial fibrillation; continue with rate control with Coreg 6.25 mg twice da emperatriz; continue with current anticoagulation therapy 6. Hypertension; Coreg 6.25 mg twice daily 7. Peripheral neuropathy; patient takes gabapentin 800 mg every 8 hours which has been placed on hold due to altered mental status and JEAN MARIE DVT prophylaxis; SCDs/anticoagulation CODE STATUS; full code
[2023-04-13 20:19] LABS: Glucose,Whole Blood 187 mg/dL (70-110)
[2023-04-14 06:17] LABS: Glucose,Whole Blood 182 mg/dL (70-110)
--- NOTE | 2023-04-14 08:59 | P.PN ---
Subjective Progress Note Date: 04/14/23 Principal diagnosis: recent lumbar surgery (L3-S1 decompression and fusion) Patient seen and examined this morning. Patient is resting comfortably in bed. Patient is alert and oriented x3. Patient does have complaint of low back pain. Surgical incision to the lumbar spine,dressing CDI. Patient continues to be repositioned on his side to eliminate pressure over the incision. Patient continues to deny any numbness or tingling to the bilateral lower extremities. Encouraged patient that he needs to work with physical therapy and to be getting up in the chair for all meals. LSO brace is present at bedside. Patient denies any fever/chills, nausea/vomiting, or chest pain. MRI of the lumbar spine has been order for today. Objective - Vital Signs Vital signs: Vital Signs Temp 98.0 F 04/14/23 02:28 Pulse 70 04/14/23 02:28 Resp 21 04/14/23 02:28 BP 106/68 04/14/23 02:28 Pulse Ox 93 L 04/14/23 02:28 FiO2 Intake & Output 04/13/23 04/14/23 04/14/23 18:59 06:59 18:59 Intake Total 500 Output Total 1200 1000 Balance -1200 -500 Intake: Oral 500 Output: Urine 1200 1000 Other: Voiding Method Urinal Urinal # Voids 3 # Bowel Movements 1 - Exam Inspection: Negative for any open fractures. Large bruise noted over the left forearm and elbow. Surgical incision to the lumbar spine, edges are well- approximated with elizabeth intact. No active drainage, new surgical dressing applied. Sensation: Sensation is equal, symmetric, bilaterally intact throughout the upper and lower extremities Palpation: Nontender to palpation throughout bilateral upper and lower extremities and throughout spine exam Range of motion: Patient does have full range of motion bilateral upper and lower extremities on exam Motor: 5/5 in all major motor groups in the bilateral upper and 4/5 in lower extremities, RLE 4-/5 plantar flexion Special tests: Negative Homans bilaterally. Negative Tiesha bilaterally. Negative clonus bilaterally. Neurovascular: Radial pulse intact, 2+ bilaterally. Cap refill under 3 seconds in digits upper extremities. - Labs CBC & Chem 7: 04/13/23 06:04 04/13/23 06:04 Labs: Abnormal Lab Results - Last 24 Hours (Table) 04/13/23 04/13/23 04/13/23 Range/Units 06:04 06:04 11:50 RBC 3.85 L (4.40-5.60) X 10*6/uL Hgb 11.5 L (13.0-17.0) g/dL Hct 35.0 L (39.6-50.0) % BUN 35.4 H (9.0-27.0) mg/dL BUN/Creatinine Ratio 29.50 H (12.00-20.00) Ratio Glucose 150 H (70-110) mg/dL POC Glucose (mg/dL) 141 H (70-110) mg/dL 04/13/23 04/13/23 04/14/23 Range/Units 16:21 20:17 06:16 RBC (4.40-5.60) X 10*6/uL Hgb (13.0-17.0) g/dL Hct (39.6-50.0) % BUN (9.0-27.0) mg/dL BUN/Creatinine Ratio (12.00-20.00) Ratio Glucose (70-110) mg/dL POC Glucose (mg/dL) 285 H 187 H 182 H (70-110) mg/dL Assessment and Plan Assessment: Recent L3-S1 decompression and fusion Altered mental status Generalized weakness Complex medical comorbidities Plan: MRI of the Lumbar spine has been ordered for further evaluation. 2. Appreciate medical management 3. Pain management - continue with conservative treatment, Tylenol and [place]. 4. GI prophylaxis - senna 5. DVT prophylaxis -Eliquis 6. PT/OT - weightbearing as tolerated with a walker as needed. 7. Appreciate consult I reviewed and discussed this case with my attending Dr. Zimmerman, whom has reviewed this chart and films and is in agreement with assessment and plan of care as outlined above. I have personally seen and examined the patient, performed the documentation and the assessment and plan as written. Number of minutes spent on the visit: 20m.
[2023-04-14 09:13] LABS: BUN/Creat Ratio 24.45 Ratio (12.00-20.00); Blood Urea Nitrogen 26.9 mg/dL (9.0-27.0); Calcium 9.4 mg/dL (8.7-10.3); Carbon Dioxide 22.7 mmol/L (21.6-31.8); Chloride 106 mmol/L (96-109); Glucose 179 mg/dL (70-110); Potassium 4.2 mmol/L (3.5-5.5); Sodium 139 mmol/L (135-145)
[2023-04-14] MEDS: HYDROcodone/APAP 10-325MG 1 EACH TAB PO ONE (10:55)
[2023-04-14] MEDS: CYCLOBENZAPRINE 5 MG TAB PO SCH (10:55)
--- NOTE | 2023-04-14 11:28 | EEG ---
ELECTROENCEPHALOGRAM REPORT PREAMBLE: This is a 67-year-old male, came with confusion, rule out seizure. The patient came to the hospital for confusion, had recent fusion at L3-S1. No history of seizure or stroke. The patient has history of atrial fibrillation, COPD, diabetes and hypertension. CURRENT MEDICATIONS: 1. Eliquis. 2. Coreg. 3. Aspirin. 4. Farxiga. 5. Cymbalta. 6. [place]. 7. NovoLog. EEG FINDINGS: This is a 21-channel digital EEG recorded with video component, utilizing 10/20 international system with referential and bipolar montages. The background consists of moderately well-developed and regulated, mixed frequencies of 8-9 hertz alpha, with some sporadic theta activity seen in bihemispheric region. Background is posterior dominant and seems to be reactive to eye opening and closing. Some drowsiness was seen with appearance of bilaterally symmetric theta frequency rhythm. Deeper stages of sleep were not seen. No focal or generalized epileptiform activity was seen. IMPRESSION: This is a normal EEG during wakefulness and drowsiness. No focal, lateralized, or epileptiform activity was seen. MMODL / IJN: [id number] /
[2023-04-14 11:38] LABS: Glucose,Whole Blood 215 mg/dL (70-110)
--- NOTE | 2023-04-14 14:34 | CDI ---
Documentation Clarification Form Date: 04/14/2023 02:19:03 PM From: Alethea Becerra RN, CCDS Phone: [phone] Admit Date: 04/11/2023 02:19:00 PM Patient Name: Devon Nails Visit Number: [id number] Discharge Date: ATTENTION: The Clinical Documentation Specialists (CDI) and [facility] Coding Staff appreciate your assistance in clarifying documentation. Please respond to the clarification below the line at the bottom and electronically sign. The CDI & [facility] Coding staff will review the response and follow-up if needed. Please note: Queries are made part of the Legal Health Record. If you have any questions, please contact the author of this message via ITS. Dr. Adolfo Vizcarra Atrial Fibrillation is documented in the ED assessment and past medical history. Additional clarification regarding the type of atrial fibrillation is requested. History/Risk Factors: Atrial fibrillation, COPD, Diabetes Mellitus, Hypertension, Current some day smoker Clinical Indicators: 67-year-old male presents emergency department chief complaint of confusion. He has history of atrial fibrillation. EKG/telemetry: A-fib rate of 97 Treatment: Eliquis 5 MG PO BID Monitor PT/INR per orders Please clarify the type of atrial fibrillation, if known: [ #### ] Chronic [ ] Permanent [ ] Paroxysmal [ ] Persistent [ ] Other, please specify [ ] Unable to determine (Template Last Revised: July 2020) MTDD
[2023-04-14 16:25] LABS: Glucose,Whole Blood 154 mg/dL (70-110)
[2023-04-14] MEDS: HYDROcodone/APAP 7.5-325MG 1 EACH TAB PO PRN (16:50)
[2023-04-14] MEDS: LORazepam 2 MG/ML INJ IV STA (16:55)
[2023-04-14 18:54] LABS: Glucose,Whole Blood 143 mg/dL (70-110)
--- NOTE | 2023-04-14 19:54 | MR ---
EXAMINATION TYPE: MR brain wo con DATE OF EXAM: 04/14/2023 5:45 PM CLINICAL INDICATION:Male, 67 years old with history of confusion unknown etiology, Confusion, unknown etiology COMPARISON: TECHNIQUE: Multi planar, multi sequence imaging was performed through the brain including: T1, T2, In version recovery, Diffusion weighted imaging, and gradient echo imaging. No gadolinium was given. FINDINGS: Mild cerebral atrophy with proportional dilation of ventricular system. Scattered foci of high T2 s ignal intensity are seen within the periventricular white matter. Midline structures show no abnormal ity. Diffusion-weighted imaging shows no evidence of restricted diffusion. The susceptibility weighte d images do not reveal any evidence for micro-hemorrhage. The bone marrow signal is within normal limits. Paranasal sinuses and mastoid air cells: No significant paranasal sinus disease. Visualized orbits: Orbital contents are intact. IMPRESSION: 1. No evidence of intracranial mass or acute/subacute infarct. 2. Nonspecific white matter changes, likely secondary to small vessel ischemic disease.
[2023-04-14 20:53] LABS: Glucose,Whole Blood 126 mg/dL (70-110)
--- NOTE | 2023-04-14 21:02 | MR ---
EXAMINATION TYPE: MR lumbar spine wo/w con DATE OF EXAM: 04/14/2023 6:27 PM CLINICAL INDICATION:Male, 67 years old with history of recent lumbar surgery;r/o infectious process L 2-S1, Recent lumbar surgery, r/o infectious process L2 - S1 COMPARISON: CT 04/12/2023., MRI 03/24/2023. TECHNIQUE: Multi planar, multi sequence imaging was performed utilizing: T1-weighted, T2-weighted, a nd turbo inversion recovery imaging of the lumbar spine. IV Contrast: 8 cc Gadavist. (None if empty) FINDINGS: Extensive postsurgical changes with subcutaneous streaky edema throughout the back in the surgical be d. Fixation susceptibility artifact is seen at the levels of L3-S1. There is bony edema within the L3 vertebrae compatible with fracture seen on CT 04/12/2023. There is large extruded disc with superior m igration that extends along the posterior aspect of L2 vertebrae originating from L2-L3 disc space wi th severe spinal canal stenosis series 501 image 9 and series 1001 image 21. The L2-L3 disc space dem onstrates increased STIR signal and is favored to be secondary to acute fracture of the superior endp late of L3 . Postcontrast imaging of the extruded disc does not demonstrate central enhancement and this is felt t o be due to intra-abdominal. There is no significant enhancement of the disc space at L2-L3.. There is enhancement of the thecal sac posteriorly and in the area of suspected disc extrusion series 1201 image 9. Evaluation of the neural foramen from L3-L4 to L5-S1 is limited due to susceptibility artifact from f ixation hardware. There is thought to be surgical bed fluid extending from L1 and extending down to L 5 no obvious connection to the spinal canal however evaluation is limited. This measures at least 9.7 x 3.1 cm and extends at least 12.8 cm in length. Enhancement throughout the surgical bed soft tissue s is noted. IMPRESSION : 1. Extensive edema and large fluid collection within the surgical bed. No obvious connection to the spinal canal. Few scattered foci of gas on CT overall findings suspicious for abscess/infection. Aspi ration for definitive diagnosis recommended. Fluid collection measures 9.7 x 3.1 cm and extends up to 12.8 cm in length. 2. Enhancement of the thecal sac at the level of the disc extrusion posterior to the L2 vertebrae co uld be reactive to the L3 fractures with infection at this location not excluded given findings in th e surgical bed more posteriorly. 3. Superior endplate fracture of the L3 as well as the left pedicle of L3 as seen on CT 04/12/2023 wit h large disc extrusion at L2-L3 extending superiorly along the posterior aspect of the L2 vertebrae w ith severe spinal canal stenosis. No definitive enhancement at the disc level at L1-L3 to suggest dis citis. Increased inversion recovery signal to be due to edema from L3 superior endplate fracture.
--- NOTE | 2023-04-14 21:06 | P.PN ---
Subjective 67-year-old gentleman with recent L3 to S1 decompression and fusion presented emergency department because of confusion. Some of the history is obtained from medical record. It seems that the patient was at a nursing rehab facility and he had the confusion. Patient had a recent lumbar decompression and fusion and this seems she is a significant facility and is documented that the caregiver states he has been having some issues receiving medication the morning and symptoms were worse yesterday per the staff. Per the ED and the team's note. He was confused but does have periods of time of clearing thoughts. Patient does not recall what transpired but states he is having significant lower back pain and states that his legs gave out. He denies any bladder or bowel issues. He feels his hip his pain mostly left more than the right and he could not come there is any radiation. He was having some numbness in the feet. Denies any history of stroke or seizures in the past. Denies of any fevers. Patient is on oxycodone, Robaxin, Cymbalta. Patient is on eliquis as well as aspirin as no medication. Initial white blood cells 11.13 thousand that normalized. The glucose has been in the range of initially on presentation was in the 200s and currently it's in the 140s to 170s. Odium was 136, creatinine is 1.35, BUN is 45, hemoglobin A1c 10.1 Plasma lactic acid venous 1.5. Ammonia is 44. EKG is reported as age are fibrillation. Left axis deviation. CT of the head is reported as similar mild intra-or megaly likely due to central cerebral atrophy. Correlate to exclude component of NPH. Mild burden of chronic small vessel ischemic disease. No acute intracranial abnormality seen. I personally reviewed the CT the head and I feel there is no acute subacute ischemia. There is no bleed. I agree that cerebral atrophy seems more due to the cerebral atrophy. CT abdomen and pelvis is reported as 1.1 cm nonobstructive the left renal stone. 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 nodularity of the liver. Correlate for any known diagnosis of underlying cirrhosis. GI referral if not established diagnosis. Recent L3-S1 posterior lumbar fusion changes with laminectomies extending up to the L2 level. Here the L2 level there appears to be fluid collection measuring 5.5 wide within the laminectomy bed, possible postoperative seroma. Follow-up as clinically indicated. Other fluid collection not excluded this time. An additional small fluid and air collection measuring 2.1 just deep to the superimposed skin elizabeth within the subcutaneous fat layer. 04/13/2023 Patient is seen and evaluated resting in bed; continues to report uncontrolled pain Vital signs are reviewed and are stable with temperature of 98, pulse 81, respiration 19, blood pressure 134/89 and O2 saturation 96% on room air Labs revealed WBC 6.27, hemoglobin 11.5 and platelet count of 243, sodium 137, potassium 4.7, BUN 35.4, creatinine 1.2, blood glucose ranging between 1 42-84 --We will add NovoLog 5 units subcu with each meal -Patient has been evaluated by orthopedic surgery and MRI of the spine is recommended -- PT OT consulted 04/14/2023 Patient alert awake oriented, he is just confused about the exact date but he knows the year. He has insight. Cystoscopy complaining from significant back pain Neurology and orthopedic team on the case. Gentle normal saline Creatinine mildly elevated but improving, we will consult nephrology line physical therapy recommends subacute rehab which is pending. Objective - Vital Signs Vital signs: Vital Signs Temp 98.4 F 04/14/23 06:58 Pulse 87 04/14/23 06:58 Resp 18 04/14/23 06:58 BP 146/91 04/14/23 06:58 Pulse Ox 97 04/14/23 06:58 FiO2 Intake & Output 04/13/23 04/14/23 04/14/23 18:59 06:59 18:59 Intake Total 500 Output Total 1200 1000 Balance -1200 -500 Intake: Oral 500 Output: Urine 1200 1000 Other: Voiding Method Urinal Urinal # Voids 3 # Bowel Movements 1 - Exam GENERAL: The patient is alert and oriented x3, not in any acute distress. Well developed, well nourished. HEENT: Pupils are round and equally reacting to light. EOMI. No scleral icterus. No conjunctival pallor. Normocephalic, atraumatic. No pharyngeal erythema. No thyromegaly. CARDIOVASCULAR: S1 and S2 present. No murmurs, rubs, or gallops. PULMONARY: Chest is clear to auscultation, no wheezing , no crackles. ABDOMEN: Soft, nontender, nondistended, normoactive bowel sounds. No palpable organomegaly. -MUSCULOSKELETAL: No joint swelling or deformity. Patient refuses back exam because of tenderness EXTREMITIES: No cyanosis, clubbing, or pedal edema. NEUROLOGICAL: Gross neurological examination did not reveal any focal deficits. SKIN: No rashes. no petechiae. - Labs CBC & Chem 7: 04/13/23 06:04 04/14/23 06:13 Labs: Abnormal Lab Results - Last 24 Hours (Table) 04/13/23 04/13/23 04/14/23 Range/Units 16:21 20:17 06:13 BUN/Creatinine Ratio 24.45 H (12.00-20.00) Ratio Glucose 179 H (70-110) mg/dL POC Glucose (mg/dL) 285 H 187 H (70-110) mg/dL 04/14/23 04/14/23 Range/Units 06:16 11:36 BUN/Creatinine Ratio (12.00-20.00) Ratio Glucose (70-110) mg/dL POC Glucose (mg/dL) 182 H 215 H (70-110) mg/dL Assessment and Plan Assessment: 1. Altered mental status; likely toxic metabolic encephalopathy related to JEAN MARIE, hyperammonemia --Polypharmacy including oxycodone, Robaxin and Cymbalta -- All medications have been placed on hold -- Patient remains on IV fluid hydration -Neurology is consulted for further recommendations -Improved close or back to baseline 2. Lower back pain; patient has history of recent L3-S1 decompression and fusion -- CT reveals some fluid collection measuring 5.5 cm wide within the laminectomy bed, likely seroma -- Orthopedic surgery is consulted 3. Acute renal injury; BUNs/creatinine elevated at 45/1.35 upon admission -- Patient has been placed on IV fluid hydration; monitor strict EDU's, daily weights, renal function electrolytes -Avoid nephrotoxins and hypotension -Nephrology consult 4. Hyperglycemia without acidosis/diabetes mellitus with long-term insulin use -- We will monitor Accu-Cheks before every meal and at bedtime with insulin sliding scale -Resume home dose of Lantus 10 units subcu daily once oral intake is established 5. Atrial fibrillation; continue with rate control with Coreg 6.25 mg twice daily; continue with current anticoagulation therapy 6. Hypertension; Coreg 6.25 mg twice daily 7. Peripheral neuropathy; patient takes gabapentin 800 mg every 8 hours which has been placed on hold due to altered mental status and JEAN MARIE DVT prophylaxis; SCDs/anticoagulation CODE STATUS; full code
[2023-04-15 06:38] LABS: Basophils % (A) 0 %; Eosinophils # (A) 0.1 k/uL (0-0.7); Eosinophils % (A) 1 %; HCT 36.7 % (39.0-53.0); HGB 12.2 gm/dL (13.0-17.5); Lymphocytes # (A) 0.6 k/uL (1.0-4.8); Lymphocytes % (A) 11 %; MCH 30.7 pg (25.0-35.0); MCHC 33.3 g/dL (31.0-37.0); MCV 92.2 fL (80.0-100.0); Mean Platelet Volume 7.2; Monocytes # (A) 0.4 k/uL (0-1.0); Monocytes % (A) 7 %; Neutrophils # (A) 4.8 k/uL (1.3-7.7); Neutrophils % (A) 79 %; Platelet Count 261 k/uL (150-450); RBC 3.99 m/uL (4.30-5.90); RDW 13.4 % (11.5-15.5); WBC 6.1 k/uL (3.8-10.6)
[2023-04-15 06:50] LABS: African American GFR (CKD) >90 (>60 ml/min/1.73 sqM); Anion Gap 8 mmol/L; Blood Urea Nitrogen 25 mg/dL (9-20); Calcium 9.1 mg/dL (8.4-10.2); Carbon Dioxide 21 mmol/L (22-30); Chloride 108 mmol/L (98-107); Glucose 149 mg/dL (74-99); Non-African American GFR(CKD) 81 (>60 ml/min/1.73 sqM); Sodium 137 mmol/L (137-145)
[2023-04-15 06:57] LABS: Glucose,Whole Blood 147 mg/dL (70-110)
--- NOTE | 2023-04-15 07:23 | P.PN ---
Progress Note - Text Progress Note Date: 04/15/23 CT and MRI are reviewed. Pt has fracture through L2-3 region with L3 pedicle fracture and L2-3 disc fracture with extrusion and fish mouthing of the disc. Increased signal in the disc with epidural hematoma noted on MRI and CT scan. This is an unstable fracture. He will need fixation above this. There is question of him falling at his facility, however he has no memory of this since he has been given too much medication at his facility. When he showed up for his post op check in office, he was AOX1 and was immediately sent to the ED for eval. This is what brought to light these issues. He is much more himself now, given the fact that he is being managed appropriately now and is able to provide better history, however he still dose not know what happened in rehab. He c/o weakness in LE and back pain that is severe. We will plan on fixation of the fracture PM.
--- NOTE | 2023-04-15 08:52 | P.PN ---
Subjective Progress Note Date: 04/15/23 Principal diagnosis: recent lumbar surgery (L3-S1 decompression and fusion) Patient seen and examined this morning. Patient is resting comfortably in bed. Patient continues to be alert and oriented. Informed patient of MRI of the lumbar spine results and that he has an unstable fracture that will need surgical intervention. He verbalizes understanding. Patient reports that he has fallen multiple times, but can not remember if he fell at the facility. He does have a bruise on his left forearm that was documented previously. Patient reports that he has had a decrease in appetite and feeling very weak. Ensure protein supplements will be ordered. Patient is scheduled for surgery 04/17/23. Patient denies any fever/chills, nausea/vomiting, or chest pain. Objective - Vital Signs Vital signs: Vital Signs Temp 98.1 F 04/15/23 07:29 Pulse 106 H 04/15/23 07:29 Resp 18 04/15/23 07:29 BP 170/100 04/15/23 07:29 Pulse Ox 95 04/15/23 07:29 FiO2 Intake & Output 04/14/23 04/15/23 04/15/23 18:59 06:59 18:59 Output Total 450 Balance -450 Weight 77.111 kg Output: Urine 450 Other: Voiding Method Urinal # Voids 3 - Exam Inspection: Negative for any open fractures. Large bruise noted over the left forearm and elbow. Surgical incision to the lumbar spine, edges are well- approximated with elizabeth intact. No active drainage. Sensation: Sensation is equal, symmetric, bilaterally intact throughout the upper and lower extremities Palpation: Nontender to palpation throughout bilateral upper and lower extremities and throughout spine exam Range of motion: Patient does have full range of motion bilateral upper and lower extremities on exam Motor: 5/5 in all major motor groups in the bilateral upper and 4/5 in lower extremities, RLE 4-/5 plantar flexion Special tests: Negative Homans bilaterally. Negative Tiesha bilaterally. Negative clonus bilaterally. Neurovascular: Radial pulse intact, 2+ bilaterally. Cap refill under 3 seconds in digits upper extremities. - Labs CBC & Chem 7: 04/15/23 06:07 04/15/23 06:07 Labs: Abnormal Lab Results - Last 24 Hours (Table) 04/14/23 04/14/23 04/14/23 Range/Units 06:13 11:36 16:24 RBC (4.30-5.90) m/uL Hgb (13.0-17.5) gm/dL Hct (39.0-53.0) % Lymphocytes # (1.0-4.8) k/uL Chloride (98-107) mmol/L Carbon Dioxide (22-30) mmol/L BUN (9-20) mg/dL BUN/Creatinine Ratio 24.45 H (12.00-20.00) Ratio Glucose 179 H (70-110) mg/dL POC Glucose (mg/dL) 215 H 154 H (70-110) mg/dL 04/14/23 04/14/23 04/15/23 Range/Units 18:52 20:43 06:07 RBC 3.99 L (4.30-5.90) m/uL Hgb 12.2 L (13.0-17.5) gm/dL Hct 36.7 L (39.0-53.0) % Lymphocytes # 0.6 L (1.0-4.8) k/uL Chloride (98-107) mmol/L Carbon Dioxide (22-30) mmol/L BUN (9-20) mg/dL BUN/Creatinine Ratio (12.00-20.00) Ratio Glucose (70-110) mg/dL POC Glucose (mg/dL) 143 H 126 H (70-110) mg/dL 04/15/23 04/15/23 Range/Units 06:07 06:55 RBC (4.30-5.90) m/uL Hgb (13.0-17.5) gm/dL Hct (39.0-53.0) % Lymphocytes # (1.0-4.8) k/uL Chloride 108 H (98-107) mmol/L Carbon Dioxide 21 L (22-30) mmol/L BUN 25 H (9-20) mg/dL BUN/Creatinine Ratio (12.00-20.00) Ratio Glucose 149 H (70-110) mg/dL POC Glucose (mg/dL) 147 H (70-110) mg/dL Assessment and Plan Assessment: Unstable L3 vertebral fracture Recent L3-S1 decompression and fusion Altered mental status Generalized weakness Complex medical comorbidities Plan: 1. Patient has an unstable fracture of the L3 vertebrae, he is to remain bedrest. Please insert cronin catheter. He is scheduled for surgical intervention for , 04/17/23. 2. Appreciate medical management 3. Pain management - continue with conservative treatment, Tylenol and [place]. 4. GI prophylaxis - senna 5. DVT prophylaxis -Eliquis will be held, initiate Lovenox today. 6. Bedrest 7. Appreciate consult I reviewed and discussed this case with my attending Dr. Zimmerman, whom has reviewed this chart and films and is in agreement with assessment and plan of care as outlined above. I have personally seen and examined the patient, performed the documentation and the assessment and plan as written. Number of minutes spent on the visit: 20m.
--- NOTE | 2023-04-15 09:18 | P.PN ---
Subjective 67-year-old gentleman with recent L3 to S1 decompression and fusion presented emergency department because of confusion. Some of the history is obtained from medical record. It seems that the patient was at a nursing rehab facility and he had the confusion. Patient had a recent lumbar decompression and fusion and this seems she is a significant facility and is documented that the caregiver states he has been having some issues receiving medication the morning and symptoms were worse yesterday per the staff. Per the ED and the team's note. He was confused but does have periods of time of clearing thoughts. Patient does not recall what transpired but states he is having significant lower back pain and states that his legs gave out. He denies any bladder or bowel issues. He feels his hip his pain mostly left more than the right and he could not come there is any radiation. He was having some numbness in the feet. Denies any history of stroke or seizures in the past. Denies of any fevers. Patient is on oxycodone, Robaxin, Cymbalta. Patient is on eliquis as well as aspirin as no medication. Initial white blood cells 11.13 thousand that normalized. The glucose has been in the range of initially on presentation was in the 200s and currently it's in the 140s to 170s. Odium was 136, creatinine is 1.35, BUN is 45, hemoglobin A1c 10.1 Plasma lactic acid venous 1.5. Ammonia is 44. EKG is reported as age are fibrillation. Left axis deviation. CT of the head is reported as similar mild intra-or megaly likely due to central cerebral atrophy. Correlate to exclude component of NPH. Mild burden of chronic small vessel ischemic disease. No acute intracranial abnormality seen. I personally reviewed the CT the head and I feel there is no acute subacute ischemia. There is no bleed. I agree that cerebral atrophy seems more due to the cerebral atrophy. CT abdomen and pelvis is reported as 1.1 cm nonobstructive the left renal stone. 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 nodularity of the liver. Correlate for any known diagnosis of underlying cirrhosis. GI referral if not established diagnosis. Recent L3-S1 posterior lumbar fusion changes with laminectomies extending up to the L2 level. Here the L2 level there appears to be fluid collection measuring 5.5 wide within the laminectomy bed, possible postoperative seroma. Follow-up as clinically indicated. Other fluid collection not excluded this time. An additional small fluid and air collection measuring 2.1 just deep to the superimposed skin elizabeth within the subcutaneous fat layer. 04/13/2023 Patient is seen and evaluated resting in bed; continues to report uncontrolled pain Vital signs are reviewed and are stable with temperature of 98, pulse 81, respiration 19, blood pressure 134/89 and O2 saturation 96% on room air Labs revealed WBC 6.27, hemoglobin 11.5 and platelet count of 243, sodium 137, potassium 4.7, BUN 35.4, creatinine 1.2, blood glucose ranging between 1 42-84 --We will add NovoLog 5 units subcu with each meal -Patient has been evaluated by orthopedic surgery and MRI of the spine is recommended -- PT OT consulted 04/14/2023 Patient alert awake oriented, he is just confused about the exact date but he knows the year. He has insight. Cystoscopy complaining from significant back pain Neurology and orthopedic team on the case. Gentle normal saline Creatinine mildly elevated but improving, we will consult nephrology line physical therapy recommends subacute rehab which is pending. 04/15/2023 She is sleeping today, still complained from significant back pain he had MRI of the lumbar spine done yesterday showing large paraspinal cyst suspicious for abscess 9.7 x 3.1 x 12.7 cm with thecal sac in his bed of the level of L2 and vertebral disc protrusion with fracture of the L3 superior endplate with severe spinal stenosis orthopedic team on the case Also we'll check ESR and CRP and consult infectious disease team. Currently he is not on antibiotic yet. Patient with no fever or leukocytosis His continued normal saline 75 mL Review of systems CONSTITUTIONAL: No fever, no malaise, no fatigue. HEENT: No recent visual problems or hearing problems. Denied any sore throat. CARDIOVASCULAR: No orthopnea, PND, no palpitations, no syncope. PULMONARY: No shortness of breath, no cough, no hemoptysis. GASTROINTESTINAL: No diarrhea, no nausea, no vomiting, no abdominal pain. Nor moactive bowel sounds. Active Medications Generic Name Dose Route Start Last Admin Trade Name Freq PRN Reason Stop Dose Admin Acetaminophen 650 mg 04/11/23 17:30 04/14/23 02:28 Acetaminophen Tab 325 Mg Tab PO 650 mg Q6HR PRN Administration Fever and/ or Mild Pain Hydrocodone Bitart/Acetaminophen 1 each 04/14/23 09:39 04/15/23 01:21 Hydrocodone/Apap 7.5-325mg 1 Each Tab PO 1 each Q6HR PRN Administration Pain Albuterol Sulfate 2.5 mg 04/11/23 15:28 Albuterol Nebulized 2.5 Mg/3 Ml INHALATION RT-QID PRN Shortness Of Breath Aspirin 81 mg 04/12/23 09:00 04/14/23 09:33 Aspirin 81 Mg PO 81 mg DAILY [facility] Administration Carvedilol 12.5 mg 04/15/23 09:00 Carvedilol 12.5 Mg Tab PO BID [facility] Cyclobenzaprine HCl 5 mg 04/14/23 09:39 04/14/23 22:29 Cyclobenzaprine 5 Mg Tab PO 5 mg TID [facility] Administration Dapagliflozin 5 mg 04/12/23 09:00 04/14/23 09:34 Dapagliflozin Propanediol 5 Mg Tablet PO 5 mg DAILY [facility] Administration Dextrose/Water 25 ml 04/11/23 20:14 Dextrose 50% Syringe 50 Ml IVP PER PROTOCOL PRN Hypoglycemia Protocol Dextrose/Water 50 ml 04/11/23 20:14 Dextrose 50% Syringe 50 Ml IVP PER PROTOCOL PRN Hypoglycemia Protocol Duloxetine HCl 30 mg 04/12/23 09:00 04/14/23 09:34 Duloxetine Hcl 30 Mg Capsule.Dr PO 30 mg DAILY [facility] Administration Enoxaparin Sodium 40 mg 04/15/23 09:00 Enoxaparin 40 Mg/0.4 Ml Syringe SQ DAILY [facility] Ferrous Sulfate 325 mg 04/11/23 21:00 04/14/23 20:31 Ferrous Sulfate 325 Mg Tab PO 325 mg BID [facility] Administration Sodium Chloride 1,000 mls @ 75 mls/hr 04/11/23 14:00 04/14/23 22:29 Saline 0.9% IV Not Given .[id number] [facility] Insulin Aspart 0 unit 04/11/23 21:00 04/15/23 07:04 Insulin Aspart (Novolog) 100 Unit/Ml Vial SQ Not Given ACHS [facility] Protocol Insulin Aspart 5 unit 04/13/23 12:30 04/14/23 18:58 Insulin Aspart (Novolog) 100 Unit/Ml Vial SQ 5 unit AC-TID [facility] Administration Insulin Detemir 10 unit 04/12/23 08:00 04/14/23 09:34 Insulin Detemir (Levemir) 100 Unit/Ml Syr SQ 10 unit DAILY@0800 [facility] Administration Lorazepam 1 mg 04/14/23 15:10 Lorazepam 2 Mg/Ml Inj IV ONCE PRN Agitation Naloxone HCl 0.2 mg 04/11/23 14:01 Naloxone 0.4 Mg/Ml 1 Ml Vial IV Q2M PRN Opioid Reversal Ondansetron HCl 4 mg 04/11/23 14:01 Ondansetron 4 Mg/2 Ml Vial IVP Q8HR PRN Nausea And Vomiting Senna/Docusate Sodium 1 each 04/11/23 15:28 Sennosides-Docusate Sodium 1 Each Tab PO DAILY PRN Constipation Objective - Vital Signs Vital signs: Vital Signs Temp 98.1 F 04/15/23 07:29 Pulse 106 H 04/15/23 07:29 Resp 18 04/15/23 07:29 BP 170/100 04/15/23 07:29 Pulse Ox 95 04/15/23 07:29 FiO2 Intake & Output 04/14/23 04/15/23 04/15/23 18:59 06:59 18:59 Output Total 450 Balance -450 Weight 77.111 kg Output: Urine 450 Other: Voiding Method Urinal # Voids 3 - Exam GENERAL: The patient is alert and oriented x3, not in any acute distress. Well developed, well nourished. HEENT: Pupils are round and equally reacting to light. EOMI. No scleral icterus. No conjunctival pallor. Normocephalic, atraumatic. No pharyngeal erythema. No thyromegaly. CARDIOVASCULAR: S1 and S2 present. No murmurs, rubs, or gallops. PULMONARY: Chest is clear to auscultation, no wheezing , no crackles. ABDOMEN: Soft, nontender, nondistended, normoactive bowel sounds. No palpable organomegaly. -MUSCULOSKELETAL: No joint swelling or deformity. Patient refuses back exam because of tenderness EXTREMITIES: No cyanosis, clubbing, or pedal edema. NEUROLOGICAL: Gross neurological examination did not reveal any focal deficits. SKIN: No rashes. no petechiae. - Labs CBC & Chem 7: 04/15/23 06:07 04/15/23 06:07 Labs: Abnormal Lab Results - Last 24 Hours (Table) 04/14/23 04/14/23 04/14/23 Range/Units 06:13 11:36 16:24 RBC (4.30-5.90) m/uL Hgb (13.0-17.5) gm/dL Hct (39.0-53.0) % Lymphocytes # (1.0-4.8) k/uL Chloride (98-107) mmol/L Carbon Dioxide (22-30) mmol/L BUN (9-20) mg/dL BUN/Creatinine Ratio 24.45 H (12.00-20.00) Ratio Glucose 179 H (70-110) mg/dL POC Glucose (mg/dL) 215 H 154 H (70-110) mg/dL 04/14/23 04/14/23 04/15/23 Range/Units 18:52 20:43 06:07 RBC 3.99 L (4.30-5.90) m/uL Hgb 12.2 L (13.0-17.5) gm/dL Hct 36.7 L (39.0-53.0) % Lymphocytes # 0.6 L (1.0-4.8) k/uL Chloride (98-107) mmol/L Carbon Dioxide (22-30) mmol/L BUN (9-20) mg/dL BUN/Creatinine Ratio (12.00-20.00) Ratio Glucose (70-110) mg/dL POC Glucose (mg/dL) 143 H 126 H (70-110) mg/dL 04/15/23 04/15/23 Range/Units 06:07 06:55 RBC (4.30-5.90) m/uL Hgb (13.0-17.5) gm/dL Hct (39.0-53.0) % Lymphocytes # (1.0-4.8) k/uL Chloride 108 H (98-107) mmol/L Carbon Dioxide 21 L (22-30) mmol/L BUN 25 H (9-20) mg/dL BUN/Creatinine Ratio (12.00-20.00) Ratio Glucose 149 H (70-110) mg/dL POC Glucose (mg/dL) 147 H (70-110) mg/dL Assessment and Plan Assessment: 1. Altered mental status; likely toxic metabolic encephalopathy related to JEAN MARIE, hyperammonemia --Polypharmacy including oxycodone, Robaxin and Cymbalta -- All medications have been placed on hold -- Patient remains on IV fluid hydration -Neurology is consulted for further recommendations -Improved close or back to baseline 2. Lower back pain; patient has history of recent L3-S1 decompression and fusion -- MRI showing large paraspinal cyst suspicious for abscess 9.7 x 3.1 x 12.7 cm with thecal sac in his bed of the level of L2 and vertebral disc protrusion with fracture of the L3 superior endplate with severe spinal stenosis - orthopedic and infectious disease consult 3. Acute renal injury; BUNs/creatinine elevated at 45/1.35 upon admission -- resolved 4. Hyperglycemia without acidosis/diabetes mellitus with long-term insulin use -- We will monitor Accu-Cheks before every meal and at bedtime with insulin sliding scale -Resume home dose of Lantus 10 units subcu daily once oral intake is established 5. Atrial fibrillation; continue with rate control with Coreg 6.25 mg twice daily; continue with current anticoagulation therapy 6. Hypertension; Coreg 6.25 mg Increased to 12.5 mg twice daily 7. Peripheral neuropathy; patient takes gabapentin 800 mg every 8 hours which has been placed on hold due to altered mental status and JEAN MARIE DVT prophylaxis; SCDs/anticoagulation CODE STATUS; full code
[2023-04-15] MEDS: carvediloL 12.5 MG TAB PO SCH (09:23)
[2023-04-15] MEDS: ENOXAPARIN 40 MG/0.4 ML SYRINGE SQ SCH (09:23)
[2023-04-15 11:31] LABS: Glucose,Whole Blood 160 mg/dL (70-110)
[2023-04-15 16:43] LABS: Glucose,Whole Blood 251 mg/dL (70-110)
[2023-04-15] MEDS ORDERED: carvediloL 6.25 MG TAB PO SCH (17:30)
[2023-04-15 21:04] LABS: Glucose,Whole Blood 239 mg/dL (70-110)
--- NOTE | 2023-04-15 22:17 | P.CONS ---
History of Present Illness - Reason for Consult Consult date: 04/15/23 Discitis and paraspinal abscess Requesting physician: Mandeep E Sheet - Chief Complaint Back pain worsening x days - History of Present Illness Patient is a 67-year-old male with a past medical history significant for diabetes mellitus hypertension COPD atrial fibrillation in this patient who is status post L5-S1 posterior lateral and anterior body fusion along with L4-5 posterior lateral fusion L3-L4 posterior lateral fusion along with laminectomy of L3-4, L4-5 L5-S1 patient was subsequently stabilized and discharged to the group home patient is now brought back to the hospital on 04/11/2023 for evaluation of confusion, no clear history of any fever or any chills and no fever has been recorded during this hospital stay except low-grade of 99.3 on 04/11/2023 patient did have occasional tachycardia but not hypotension or hypoxemia and no need for supplemental oxygen patient did have white count of 11.3 at admission subsequently the patient white count has normalized did have elevated BUN and creatinine his creatinine has subsequently normalized liver e nzymes has been normal CRP was elevated urine shows mostly hematuria but no pyuria patient did have a chest x-ray no evidence for acute cardiopulmonary disease patient did have a CT of the lumbar spine with significant artifact and did have an MRI of the lumbar spine completed last night suggestive of extensive edema and large fluid collection within the surgical bed no obvious connection to the spinal canal few scattered foci of gas on CT overall findings suspicious for abscess/infection enhancement of the thecal sac at the level of disc extrusion posterior to the L2 vertebra could be reactive to L3 fracture these findings has been reviewed by the spine surgery calling to mostly postoperative seroma/hematoma infectious disease was consulted by medicine for possible abscess and need for antibiotic therapy, patient currently denies having any fever or any chills he is more awake and alert today and know that he is in the hospital patient not very clear about any falls since the patient was in the rehab patient p denies having any chest pain shortness with or cough has been complaining of pain to the lower back area moderate in intensity without any radiation patient denies having any bowel or bladder problem or any focal weakness Review of Systems Positive point and negatives has been mentioned in the HPI, complete review of systems was performed and all other systems are negative Past Medical History Past Medical History: Atrial Fibrillation, COPD, Diabetes Mellitus, Hypertension Additional Past Medical History / Comment(s): herniated discs, TIA History of Any Multi-Drug Resistant Organisms: None Reported Past Surgical History: Orthopedic Surgery Additional Past Surgical History / Comment(s): Knee surgery Past Anesthesia/Blood Transfusion Reactions: Unable to Obtain Past Psychological History: Depression Smoking Status: Current some day smoker Past Alcohol Use History: Daily Past Drug Use History: None Reported, Heroin Medications and Allergies Home Medications Medication Instructions Recorded Confirmed Type Albuterol Sulfate [Ventolin HFA] 2 puff INHALATION RT-QID PRN 03/21/23 04/11/23 History Aspirin EC [Ecotrin Low Dose] 81 mg PO DAILY 03/21/23 04/11/23 History DULoxetine HCL [Cymbalta] 30 mg PO DAILY 03/21/23 04/11/23 History Dulaglutide [Trulicity] 0.75 mg SQ TU 03/21/23 04/11/23 History Empagliflozin [Jardiance] 10 mg PO DAILY 03/21/23 04/11/23 History Apixaban [Eliquis] 5 mg PO BID tab 04/04/23 04/11/23 Rx Ferrous Sulfate [Feosol] 325 mg PO BID #1 tab 04/04/23 04/11/23 Rx INSULIN ASPART (NovoLOG) [NovoLOG See Protocol SQ ACHS 04/11/23 04/11/23 History (formulary)] Insulin Glargine,Hum.rec.anlog 10 units SQ DAILY@0800 04/11/23 04/11/23 History [Lantus Solostar Pen] Cyclobenzaprine [Flexeril] 5 mg PO TID PRN #40 tablet 04/22/23 Rx HYDROcodone/APAP 10-325MG [[place] 1 tab PO Q4-6H PRN #42 tab 04/22/23 Rx 10-325] Sennosides/Docusate Sodium [Senna 1 each PO DAILY PRN #20 tablet 04/22/23 Rx Plus 8.6-50 mg Tablet] carvediloL [Coreg*] 25 mg PO BID-W/MEALS tab 04/22/23 Rx cefTRIAXone [Rocephin] 2 gm IVPB Q24HR 31 Days each 04/22/23 Rx Allergies Allergy/AdvReac Type Severity Reaction Status Date / Time No Known Allergies Allergy Verified 04/11/23 12:37 Physical Exam Vitals: Vital Signs Temp Pulse Resp BP Pulse Ox 04/15/23 07:29 98.1 F 106 H 18 170/100 95 04/15/23 02:00 98.2 F 107 H 16 170/100 96 04/14/23 20:00 98.0 F 98 17 153/73 97 04/14/23 14:00 97.7 F 90 19 160/90 90 L Intake and Output 04/14/23 04/15/23 04/15/23 22:59 06:59 14:59 Output Total 450 Balance -450 Output: Urine 450 Other: Voiding Method Urinal # Voids 3 Weight 77.111 kg GENERAL DESCRIPTION: Middle-aged male lying in bed, no distress. No tachypnea or accessory muscle of respiration use. HEENT: Shows Pallor , no scleral icterus. Oral mucous membrane is dry. No pharyngeal erythema or thrush NECK: Trachea central, no thyromegaly. LUNGS: Unlabored breathing. Clear to auscultation anteriorly. No wheeze or crackle. HEART: S1, S2, regular rate and rhythm. No loud murmur ABDOMEN: Soft, no tenderness , guarding or rigidity, no organomegaly EXTREMITIES: No edema of feet. SKIN: Examination of the lumbosacral spine incision is mostly healed with the dressing intact minimal drainage on the dressing NEUROLOGICAL: The patient is awake, alert, oriented x3, mood and affect normal. Results CBC & Chem 7: 04/22/23 05:47 04/22/23 05:47 Labs: Abnormal Lab Results - Last 24 Hours (Table) 04/14/23 04/14/23 04/14/23 Range/Units 11:36 16:24 18:52 RBC (4.30-5.90) m/uL Hgb (13.0-17.5) gm/dL Hct (39.0-53.0) % Lymphocytes # (1.0-4.8) k/uL Chloride (98-107) mmol/L Carbon Dioxide (22-30) mmol/L BUN (9-20) mg/dL Glucose (74-99) mg/dL POC Glucose (mg/dL) 215 H 154 H 143 H (70-110) mg/dL C-Reactive Protein (<1.0) mg/dL 04/14/23 04/15/23 04/15/23 Range/Units 20:43 06:07 06:07 RBC 3.99 L (4.30-5.90) m/uL Hgb 12.2 L (13.0-17.5) gm/dL Hct 36.7 L (39.0-53.0) % Lymphocytes # 0.6 L (1.0-4.8) k/uL Chloride 108 H (98-107) mmol/L Carbon Dioxide 21 L (22-30) mmol/L BUN 25 H (9-20) mg/dL Glucose 149 H (74-99) mg/dL POC Glucose (mg/dL) 126 H (70-110) mg/dL C-Reactive Protein (<1.0) mg/dL 04/15/23 04/15/23 Range/Units 06:07 06:55 RBC (4.30-5.90) m/uL Hgb (13.0-17.5) gm/dL Hct (39.0-53.0) % Lymphocytes # (1.0-4.8) k/uL Chloride (98-107) mmol/L Carbon Dioxide (22-30) mmol/L BUN (9-20) mg/dL Glucose (74-99) mg/dL POC Glucose (mg/dL) 147 H (70-110) mg/dL C-Reactive Protein 19.4 H (<1.0) mg/dL Assessment and Plan (1) Abnormal MRI, lumbar spine Status: Acute Code(s): R93.7 - ABNORMAL FINDINGS ON DIAGNOSTIC IMAGING OF PRT MS SYS SNOMED Code(s): 688936865 Plan: 1patient with extensive abnormality seen on the MRI of the lumbar sacral spine in this patient who is postop with recent extensive surgery to the lumbar sacral spine on 03/28/2022 now admitted to the hospital with confusion however the patient did not have any fever or elevated white count during this hospital stay with concern for possible postop seroma versus hematoma less likely abscess as the patient does not look toxic did not have any fever or elevated white count 2-we will obtain blood cultures x 2 and check inflammatory markers 3-as the patient does not look toxic and is scheduled for surgery by spine surgery we will hold on adding empiric antibiotic therapy at this point to increase the yield of any culture that will be done at the time of surgery however if any changes in the clinical condition or start spiking fever we will start the patient on broad-spectrum antibiotic We will follow on clinical condition and cultures to further adjust medication if needed Thank you for this consultation we will follow the patient along with you Dictation was produced using [employer] dictation software. please excuse any grammatical, word or spelling errors. Time with Patient: Greater than 30
[2023-04-16 06:31] LABS: Glucose,Whole Blood 153 mg/dL (70-110)
--- NOTE | 2023-04-16 10:25 | P.CRDCN ---
History of Present Illness Consult date: 04/16/23 Consult reason: atrial fibrillation (and preop clearance) History of present illness: History of present illness: This is a 67-year-old male patient with past medical history of hypertension, hyperlipidemia, diabetes mellitus type 2, atrial fibrillation on Eliquis, COPD, tobacco use and dependence. 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 Patient presented to the hospital on April 11 with complaint of confusion and recently had back surgery. Patient underwent L3/S1 decompression and fusion on 03/28/2023. His mental status was back to baseline and thought to be related to pain medications but patient was reported to have had multiple falls at the subacute rehab facility. Patient was seen by orthopedic spine and MRI of the lumbar spine revealed unstable fracture that requires an additional surgical intervention and this appears to be scheduled for 04/17. Patient's Eliquis has been placed on hold and last dose given was on 04/14 in the evening. Patient complains of back pain. He denies any other cardiac history besides atrial fibrillation. No chest pain no palpitations. He denies any blood in his stool or urine. He denies any dizziness. No history of CVA or stroke. He states his breathing is stable EKG atrial fibrillation with controlled rate at 97 bpm Chest x-ray: No acute findings Home cardiac medications: Eliquis 5 mg twice daily, aspirin 81 mg daily, Coreg 6.25 mg twice daily. Echocardiogram performed 03/23/2023 revealed distal septal and apical akinesia. LV systolic function of 55%. Mild to moderate mitral regurgitation. Review Of Systems: At the time of my exam: CONSTITUTIONAL: Denies fever or chills. HEENT: Denies blurred vision, vision changes, or eye pain. Denies hemoptysis CARDIOVASCULAR: Denies chest pain. Denies orthopnea. Denies PND. Denies palpitations RESPIRATORY: Denies shortness of breath. GASTROINTESTINAL: Denies abdominal pain. Denies nausea or vomiting. HEMATOLOGIC: Denies bleeding disorders. GENITOURINARY: Denies any blood in urine. SKIN: Denies pruitis. Denies rash. Physical examination: Gen: This is a 67-year-old male appears to be in no acute distress. VS: reviewed blood pressure 151/84, heart rate 99, pulse ox 97% on room air. HEENT: Head is atraumatic, normocephalic. Pupils equal, round. Sclerae is anicteric. NECK: Supple. No JVD. LUNGS: Clear to auscultation. No wheezes or rhonchi. No intercostal retractions. HEART: Irregular rate and rhythm. Systolic murmur. ABDOMEN: Soft No tenderness. EXTREMITIES: No pedal edema. No calf tenderness. NEUROLOGICAL: Patient is awake, alert and oriented x3. Assessment: Chronic atrial fibrillation Unstable L3 vertebral fracture scheduled for surgery on 04/17 Hypertension Hyperlipidemia Diabetes mellitus type 2 COPD Tobacco use and dependence, recently quit Plan: Continue Coreg No need to repeat echocardiogram as this was done in March Patient is at intermediate risk for complications during the perioperative period. He is currently stable and he may proceed with procedure. Recommend resuming Eliquis following surgery once cleared by orthopedic surgeon. Further recommendations to follow based upon clinical course Thank you kindly for this consultation. Nurse practitioner note has been reviewed, I agree with documented findings and plan of care. Patient was seen and examined. Past Medical History Past Medical History: Atrial Fibrillation, COPD, Diabetes Mellitus, Hypertension Additional Past Medical History / Comment(s): herniated discs, TIA History of Any Multi-Drug Resistant Organisms: None Reported Past Surgical History: Orthopedic Surgery Additional Past Surgical History / Comment(s): Knee surgery Past Anesthesia/Blood Transfusion Reactions: Unable to Obtain Past Psychological History: Depression Smoking Status: Current some day smoker Past Alcohol Use History: Daily Past Drug Use History: None Reported, Heroin Medications and Allergies Home Medications Medication Instructions Recorded Confirmed Type Albuterol Sulfate [Ventolin HFA] 2 puff INHALATION RT-QID PRN 03/21/23 04/11/23 History Aspirin EC [Ecotrin Low Dose] 81 mg PO DAILY 03/21/23 04/11/23 History DULoxetine HCL [Cymbalta] 30 mg PO DAILY 03/21/23 04/11/23 History Dulaglutide [Trulicity] 0.75 mg SQ TU 03/21/23 04/11/23 History Empagliflozin [Jardiance] 10 mg PO DAILY 03/21/23 04/11/23 History carvediloL [Coreg] 6.25 mg PO BID 03/21/23 04/11/23 History cefaDROXiL [Duricef] 500 mg PO Q12HR #20 cap 04/03/23 04/11/23 Rx Apixaban [Eliquis] 5 mg PO BID tab 04/04/23 04/11/23 Rx Ferrous Sulfate [Feosol] 325 mg PO BID #1 tab 04/04/23 04/11/23 Rx Gabapentin 800 mg PO Q8HR@0000,0800,1600 04/11/23 04/11/23 History HYDROcodone/APAP 10-325MG [[place] 1 tab PO Q8H PRN 04/11/23 04/11/23 History 10-325] INSULIN ASPART (NovoLOG) [NovoLOG See Protocol SQ ACHS 04/11/23 04/11/23 History (formulary)] Insulin Glargine,Hum.rec.anlog 10 units SQ DAILY@0800 04/11/23 04/11/23 History [Lantus Solostar Pen] Sennosides/Docusate Sodium [Senna 1 cap PO DAILY PRN 04/11/23 04/11/23 History Plus 8.6-50 mg Softgel] methocarbamoL [Robaxin-750] 750 mg PO TID@0800,1200,1600 04/11/23 04/11/23 History oxyCODONE ER [OxyCONTIN] 10 mg PO BID@0800,2000 04/11/23 04/11/23 History Allergies Allergy/AdvReac Type Severity Reaction Status Date / Time No Known Allergies Allergy Verified 04/11/23 12:37 Physical Exam Vitals: Vital Signs Temp Pulse Resp BP Pulse Ox 04/16/23 07:12 98.5 F 99 20 151/84 97 04/16/23 02:00 98.1 F 84 20 147/84 96 04/15/23 19:16 98.1 F 86 15 147/90 96 04/15/23 14:15 97.6 F 101 H 18 131/90 97 Intake and Output 04/15/23 04/16/23 04/16/23 22:59 06:59 14:59 Intake Total 900 Output Total 425 1200 Balance -425 -300 Intake: Intake, IV Titration 900 Amount Sodium Chloride 0.9% 1, 900 000 ml @ 75 mls/hr IV . [id number] [facility] Rx#:[id number] Output: Urine 425 1200 Other: Voiding Method Indwelling Catheter Indwelling Catheter Results 04/15/23 06:07 04/15/23 06:07 Current Medications Generic Name Dose Route Start Last Admin Trade Name Freq PRN Reason Stop Dose Admin Acetaminophen 650 mg 04/11/23 17:30 04/15/23 21:10 Acetaminophen Tab 325 Mg Tab PO 650 mg Q6HR PRN Administration Fever and/ or Mild Pain Hydrocodone Bitart/Acetaminophen 1 each 04/14/23 09:39 04/16/23 08:11 Hydrocodone/Apap 7.5-325mg 1 Each Tab PO 1 each Q6HR PRN Administration Pain Albuterol Sulfate 2.5 mg 04/11/23 15:28 Albuterol Nebulized 2.5 Mg/3 Ml INHALATION RT-QID PRN Shortness Of Breath Aspirin 81 mg 04/12/23 09:00 04/16/23 07:44 Aspirin 81 Mg PO 81 mg DAILY SILKE Administration Carvedilol 12.5 mg 04/15/23 09:00 04/16/23 07:44 Carvedilol 12.5 Mg Tab PO 12.5 mg BID SILKE Administration Cyclobenzaprine HCl 5 mg 04/14/23 09:39 04/16/23 07:44 Cyclobenzaprine 5 Mg Tab PO 5 mg TID SILKE Administration Dapagliflozin 5 mg 04/12/23 09:00 04/16/23 07:44 Dapagliflozin Propanediol 5 Mg Tablet PO 5 mg DAILY SILEK Administration Dextrose/Water 25 ml 04/11/23 20:14 Dextrose 50% Syringe 50 Ml IVP PER PROTOCOL PRN Hypoglycemia Protocol Dextrose/Water 50 ml 04/11/23 20:14 Dextrose 50% Syringe 50 Ml IVP PER PROTOCOL PRN Hypoglycemia Protocol Duloxetine HCl 30 mg 04/12/23 09:00 04/16/23 07:44 Duloxetine Hcl 30 Mg Capsule.Dr PO 30 mg DAILY SILKE Administration Enoxaparin Sodium 40 mg 04/15/23 09:00 04/16/23 07:43 Enoxaparin 40 Mg/0.4 Ml Syringe SQ 40 mg DAILY SILKE Administration Ferrous Sulfate 325 mg 04/11/23 21:00 04/16/23 07:44 Ferrous Sulfate 325 Mg Tab PO 325 mg BID SILKE Administration Sodium Chloride 1,000 mls @ 75 mls/hr 04/11/23 14:00 04/16/23 02:09 Saline 0.9% IV 75 mls/hr .[id number] SILKE Administration Insulin Aspart 0 unit 04/11/23 21:00 04/16/23 06:36 Insulin Aspart (Novolog) 100 Unit/Ml Vial SQ 1 unit ACHS [facility] Administration Protocol Insulin Aspart 5 unit 04/13/23 12:30 04/16/23 07:43 Insulin Aspart (Novolog) 100 Unit/Ml Vial SQ 5 unit AC-TID [facility] Administration Insulin Detemir 10 unit 04/12/23 08:00 04/16/23 07:43 Insulin Detemir (Levemir) 100 Unit/Ml Syr SQ 10 unit DAILY@0800 [facility] Administration Lorazepam 1 mg 04/14/23 15:10 Lorazepam 2 Mg/Ml Inj IV ONCE PRN Agitation Naloxone HCl 0.2 mg 04/11/23 14:01 Naloxone 0.4 Mg/Ml 1 Ml Vial IV Q2M PRN Opioid Reversal Ondansetron HCl 4 mg 04/11/23 14:01 Ondansetron 4 Mg/2 Ml Vial IVP Q8HR PRN Nausea And Vomiting Senna/Docusate Sodium 1 each 04/11/23 15:28 Sennosides-Docusate Sodium 1 Each Tab PO DAILY PRN Constipation Intake and Output 04/15/23 04/16/23 04/16/23 22:59 06:59 14:59 Intake Total 900 Output Total 425 1200 Balance -425 -300 Intake: Intake, IV Titration 900 Amount Sodium Chloride 0.9% 1, 900 000 ml @ 75 mls/hr IV . [id number] [facility] Rx#:[id number] Output: Urine 425 1200 Other: Voiding Method Indwelling Catheter Indwelling Catheter 04/15/23 06:07 04/15/23 06:07
--- NOTE | 2023-04-16 11:19 | P.PN ---
Subjective Progress Note Date: 04/15/23 Patient was initially seen by Dr. Bustos. Please refer to his note for details. Patient is a 67-year old male with chronic back issues, came for mental confusion. Dr. Paulino felt confusion was due to opiates. Patient underwent MRI of the brain and lumbar spine. Patient was seen for a follow-up. Patient is slightly groggy. He states that he has no strength in the arms or legs. 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 He states that he can move his feet. Offers no new complaints. Some of the workup during this hospital visit consisted of: Initial white blood cells 11.13 thousand that normalized. The glucose has been in the range of initially on presentation was in the 200s and currently it's in the 140s to 170s. SOdium was 136, creatinine is 1.35, BUN is 45, hemoglobin A1c 10.1 Plasma lactic acid venous 1.5. Ammonia is 44. Folate: 11.6 Vitamin B12: 717 EKG is reported as age are fibrillation. Left axis deviation. U/a: does not seem suggestive of UTI. CT of the head is reported as similar mild intra-or megaly likely due to central cerebral atrophy. Correlate to exclude component of NPH. Mild burden of chronic small vessel ischemic disease. No acute intracranial abnormality seen. I personally reviewed the CT the head and I feel there is no acute subacute ischemia. There is no bleed. CT abdomen and pelvis is reported as 1.1 cm nonobstructive the left renal stone. 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 nodularity of the liver. Correlate for any known diagnosis of underlying cirrhosis. GI referral if not established diagnosis. Recent L3-S1 posterior lumbar fusion changes with laminectomies extending up to the L2 level. Here the L2 level there appears to be fluid collection measuring 5.5 wide within the laminectomy bed, possible postoperative seroma. Follow-up as clinically indicated. Other fluid collection not excluded this time. An additional small fluid and air collection measuring 2.1 just deep to the superimposed skin elizabeth within the subcutaneous fat layer. CT lumbar: It is reported as extensive postsurgical changes as described above. Interval development of mild anterior wedge compression impression fracture of L 3. Limited evaluation of the soft tissue with that techniques and given the lack of contrast and metallic artifact however there is increased gas in the region of the thecal sac and epidural space at the L3-L4 and L4-L5 levels compared to the previous. The possibility of developing infection process cannot be excluded. Objective - Vital Signs Vital signs: Vital Signs Temp 97.6 F 04/15/23 14:15 Pulse 101 H 04/15/23 14:15 Resp 18 04/15/23 14:15 BP 131/90 04/15/23 14:15 Pulse Ox 97 04/15/23 14:15 FiO2 Intake & Output 04/14/23 04/15/23 04/15/23 18:59 06:59 18:59 Output Total 450 395 Balance -450 -395 Weight 77.111 kg Output: Urine 450 395 Other: Voiding Method Urinal # Voids 3 - Exam Patient is groggy, somewhat somnolent, but does wake up and answers appropriately. His speech and language functions are normal. No aphasia or dysarthria. Patient knows it is April and the year is and that he is in [facility] in [place]. Patient's pupils are equal, round and reactive, face is symmetric. Extraocular muscles are intact. Visual lamas appears full. On muscle strength testing, the strength appears normal in the arms although patient did not cooperate well because of the back pain. Ankle dorsiflexion is normal. Hip flexion is 1-2 bilaterally. - Labs CBC & Chem 7: 04/15/23 06:07 04/15/23 06:07 Labs: Abnormal Lab Results - Last 24 Hours (Table) 04/14/23 04/14/23 04/15/23 Range/Units 18:52 20:43 06:07 RBC 3.99 L (4.30-5.90) m/uL Hgb 12.2 L (13.0-17.5) gm/dL Hct 36.7 L (39.0-53.0) % Lymphocytes # 0.6 L (1.0-4.8) k/uL ESR (0-20) mm/Hr Chloride (98-107) mmol/L Carbon Dioxide (22-30) mmol/L BUN (9-20) mg/dL Glucose (74-99) mg/dL POC Glucose (mg/dL) 143 H 126 H (70-110) mg/dL C-Reactive Protein (<1.0) mg/dL 04/15/23 04/15/23 04/15/23 Range/Units 06:07 06:07 06:07 RBC (4.30-5.90) m/uL Hgb (13.0-17.5) gm/dL Hct (39.0-53.0) % Lymphocytes # (1.0-4.8) k/uL ESR 95 H (0-20) mm/Hr Chloride 108 H (98-107) mmol/L Carbon Dioxide 21 L (22-30) mmol/L BUN 25 H (9-20) mg/dL Glucose 149 H (74-99) mg/dL POC Glucose (mg/dL) (70-110) mg/dL C-Reactive Protein 19.4 H (<1.0) mg/dL 04/15/23 04/15/23 04/15/23 Range/Units 06:55 11:05 11:29 RBC (4.30-5.90) m/uL Hgb (13.0-17.5) gm/dL Hct (39.0-53.0) % Lymphocytes # (1.0-4.8) k/uL ESR (0-20) mm/Hr Chloride (98-107) mmol/L Carbon Dioxide (22-30) mmol/L BUN (9-20) mg/dL Glucose (74-99) mg/dL POC Glucose (mg/dL) 147 H 160 H (70-110) mg/dL C-Reactive Protein 19.3 H (<1.0) mg/dL 04/15/23 Range/Units 16:42 RBC (4.30-5.90) m/uL Hgb (13.0-17.5) gm/dL Hct (39.0-53.0) % Lymphocytes # (1.0-4.8) k/uL ESR (0-20) mm/Hr Chloride (98-107) mmol/L Carbon Dioxide (22-30) mmol/L BUN (9-20) mg/dL Glucose (74-99) mg/dL POC Glucose (mg/dL) 251 H (70-110) mg/dL C-Reactive Protein (<1.0) mg/dL Assessment and Plan Assessment: This is a 67-year-old gentleman with recent L3 to S1 decompression and fusion who is having confusion at the nursing facility. It seems of the patient's was reported to have some issues receiving medication the morning. Patient is on oxycodone, Robaxin, Cymbalta. He does not recall what transpired and was told he was confused according to patient. Patient has elevated ammonia of 44, unco ntrolled diabetes with acute kidney insufficiency. Altered mental status seems toxic metabolic encephalopathy. Has elevated ammonia with JEAN MARIE. Possible medication related as well, as patient is on o xycodone Cymbalta and Robaxin. Currently confusion improved, however patient is still encephalopathic. Abnormal lumbar spine MRI with extensive edema, large fluid collection, rule out hematoma versus abscess. ID on board. Lower back pain as well as left hip pain, likely due to above. History of recent L3 to S1 decompression and fusion Elevated ammoni 44 Uncontrolled diabetes Mellitus 10.1 Acute kidney insuffiency Atrial fibrillation on eliqiuis Plan: Patient continues to be encephalopathic. Reasons multifactorial as mentioned above. EEG was normal awake and drowsy pattern. No epileptiform activity was seen. MRI of the brain revealed age-related atrophic changes and small vessel disease. No acute or subacute infarct. I personally reviewed MRI agree with the findings. MRI lumbar spine revealed extensive edema and large fluid collection within the surgical bed. No obvious connection to the spinal canal. Few scattered foci of gas on CT overall findings suspicious for abscess/infection. Aspiration for definitive diagnosis recommended. Fluid collection measures 9.7 x 3.1 cm and extends up to 12.8 cm in length. Enhancement of the thecal sac at the level of the disc extrusion posterior to the L2 vertebrae could be reactive to the L3 fractures with infection at this location not excluded given findings in the surgical bed more posteriorly. Superior endplate fracture of the L3 as well as the left pedicle of L3 as seen on CT 04/12/2023 with large disc extrusion at L2-L3 extending superiorly along the posterior aspect of the L2 vertebrae with severe spinal canal stenosis. No definitive enhancement at the disc level at L1 L3 to suggest discitis. Increase inversion recovery signal to be due to edema from L3 superior endplate fracture. Patient has history of atrial fibrillation on eliquis. Eliquis currently on hold because of possible lumbar surgery on , 04/17/2023. Patient on aspirin and Lovenox for DVT prophylaxis. Orthopedic surgery team on board, recommending fixation of the fracture on 04/17/2023. PT OT are consulted We'll defer the management of elevated ammonia to primary team. Dr. Bustos also recommended GI consultation as well as recommended on CT abd/pelvis because of nodularity of liver. We'll defer the rest of the medical management to primary team, and other specialties on board. Neurologically, no other workup indicated. We will follow sporadically.
--- NOTE | 2023-04-16 11:30 | P.PN ---
Progress Note - Text Progress Note Date: 04/16/23 Spoke to daughter in [place] over the phone. She is on board with surgery and understands the risks and benefits at this time. We plan on surgery tomorrow for open treatment of fracture and stabilization as well as washout.
[2023-04-16 11:52] LABS: Glucose,Whole Blood 219 mg/dL (70-110)
--- NOTE | 2023-04-16 12:16 | P.PN ---
Subjective Progress Note Date: 04/16/23 Principal diagnosis: Reason for follow-up is bacteremia and lumbar spine abscess Patient is a 67-year-old male with a past medical history significant for diabetes mellitus hypertension COPD atrial fibrillation in this patient who recently did have extensive lumbosacral spine surgery, patient was brought back to the hospital on 04/11/2023 for evaluation of confusion, workup did include MRI of the lumbar spine with evidence of extensive edema and large fluid collection some air bubbles with a question of possible seroma versus abscess, patient did have blood cultures drawn on 04/15/2023 which came back positive with a Proteus species. On today's evaluation that is 04/16/2023, the patient is afebrile, patient is on room air, the patient denies chest pain shortness of breath or cough, patient denies nausea no vomiting no abdominal pain and no diarrhea has been reported still complaining of lower back pain moderate to severe intensity. No new labs has been obtained today, blood culture with the Proteus patient is he did have a sed rate of 95 and a CRP of 19.3 Objective - Vital Signs Vital signs: Vital Signs Temp 98.5 F 04/16/23 07:12 Pulse 99 04/16/23 07:12 Resp 20 04/16/23 07:12 BP 151/84 04/16/23 07:12 Pulse Ox 97 04/16/23 07:12 FiO2 Intake & Output 04/15/23 04/16/23 04/16/23 18:59 06:59 18:59 Intake Total 900 Output Total 820 1200 650 Balance -820 -300 -650 Intake: Intake, IV Titration 900 Amount Sodium Chloride 0.9% 1, 900 000 ml @ 75 mls/hr IV . [id number] [facility] Rx#:[id number] Output: Urine 820 1200 650 Other: Voiding Method Indwelling Catheter Indwelling Catheter - Exam GENERAL DESCRIPTION: An elderly male lying in bed in no distress RESPIRATORY SYSTEM: Unlabored breathing , decreased breath sounds at bases HEART: S1 S2 regular rate and rhythm , ABDOMEN: Soft , no tenderness EXTREMITIES: No edema feet - Labs CBC & Chem 7: 04/15/23 06:07 04/15/23 06:07 Labs: Abnormal Lab Results - Last 24 Hours (Table) 04/15/23 04/15/23 04/15/23 Range/Units 06:07 11:05 16:42 ESR 95 H (0-20) mm/Hr POC Glucose (mg/dL) 251 H (70-110) mg/dL C-Reactive Protein 19.3 H (<1.0) mg/dL 04/15/23 04/16/23 04/16/23 Range/Units 20:58 06:30 11:50 ESR (0-20) mm/Hr POC Glucose (mg/dL) 239 H 153 H 219 H (70-110) mg/dL C-Reactive Protein (<1.0) mg/dL Microbiology - Last 24 Hours (Table) 04/15/23 11:05 Blood Culture Gram Stain - Preliminary Blood Assessment and Plan (1) Bacteremia Current Visit: Yes Status: Acute Code(s): R78.81 - BACTEREMIA SNOMED Code(s): 3779517 (2) Abnormal MRI, lumbar spine Current Visit: Yes Status: Acute Code(s): R93.7 - ABNORMAL FINDINGS ON DIAGNOSTIC IMAGING OF PRT MS SYS SNOMED Code(s): 727246571 Plan: 1patient with extensive abnormality seen on the MRI of the lumbar sacral spine in this patient who is postop with recent extensive surgery to the lumbar sacral spine on 03/28/2022 now admitted to the hospital with confusion however the patient did not have any fever or elevated white count during this hospital stay with concern for possible postop seroma versus hematoma less likely abscess as the patient does not look toxic did not have any fever or elevated white count 2-patient blood cultures came back positive with a Proteus species source is likely lumbar sacral spine fluid collection 3-await surgical intervention scheduled for tomorrow and deep culture Rocephin has been added and will monitor clinical course closely Multiple question concern answered Dictation was produced using [employer] software. please excuse any grammatical, word or spelling errors. Time with Patient: Less than 30
--- NOTE | 2023-04-16 12:20 | P.PN ---
Subjective 67-year-old gentleman with recent L3 to S1 decompression and fusion presented emergency department because of confusion. Some of the history is obtained from medical record. It seems that the patient was at a nursing rehab facility and he had the confusion. Patient had a recent lumbar decompression and fusion and this seems she is a significant facility and is documented that the caregiver states he has been having some issues receiving medication the morning and symptoms were worse yesterday per the staff. Per the ED and the team's note. He was confused but does have periods of time of clearing thoughts. Patient does not recall what transpired but states he is having significant lower back pain and states that his legs gave out. He denies any bladder or bowel issues. He feels his hip his pain mostly left more than the right and he could not come there is any radiation. He was having some numbness in the feet. Denies any history of stroke or seizures in the past. Denies of any fevers. Patient is on oxycodone, Robaxin, Cymbalta. Patient is on eliquis as well as aspirin as no medication. Initial white blood cells 11.13 thousand that normalized. The glucose has been in the range of initially on presentation was in the 200s and currently it's in the 140s to 170s. Odium was 136, creatinine is 1.35, BUN is 45, hemoglobin A1c 10.1 Plasma lactic acid venous 1.5. Ammonia is 44. EKG is reported as age are fibrillation. Left axis deviation. CT of the head is reported as similar mild intra-or megaly likely due to central cerebral atrophy. Correlate to exclude component of NPH. Mild burden of chronic small vessel ischemic disease. No acute intracranial abnormality seen. I personally reviewed the CT the head and I feel there is no acute subacute ischemia. There is no bleed. I agree that cerebral atrophy seems more due to the cerebral atrophy. CT abdomen and pelvis is reported as 1.1 cm nonobstructive the left renal stone. 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 nodularity of the liver. Correlate for any known diagnosis of underlying cirrhosis. GI referral if not established diagnosis. Recent L3-S1 posterior lumbar fusion changes with laminectomies extending up to the L2 level. Here the L2 level there appears to be fluid collection measuring 5.5 wide within the laminectomy bed, possible postoperative seroma. Follow-up as clinically indicated. Other fluid collection not excluded this time. An additional small fluid and air collection measuring 2.1 just deep to the superimposed skin elizabeth within the subcutaneous fat layer. 04/13/2023 Patient is seen and evaluated resting in bed; continues to report uncontrolled pain Vital signs are reviewed and are stable with temperature of 98, pulse 81, respiration 19, blood pressure 134/89 and O2 saturation 96% on room air Labs revealed WBC 6.27, hemoglobin 11.5 and platelet count of 243, sodium 137, potassium 4.7, BUN 35.4, creatinine 1.2, blood glucose ranging between 1 42-84 --We will add NovoLog 5 units subcu with each meal -Patient has been evaluated by orthopedic surgery and MRI of the spine is recommended -- PT OT consulted 04/14/2023 Patient alert awake oriented, he is just confused about the exact date but he knows the year. He has insight. Cystoscopy complaining from significant back pain Neurology and orthopedic team on the case. Gentle normal saline Creatinine mildly elevated but improving, we will consult nephrology line physical therapy recommends subacute rehab which is pending. 04/15/2023 She is sleeping today, still complained from significant back pain he had MRI of the lumbar spine done yesterday showing large paraspinal cyst suspicious for abscess 9.7 x 3.1 x 12.7 cm with thecal sac in his bed of the level of L2 and vertebral disc protrusion with fracture of the L3 superior endplate with severe spinal stenosis orthopedic team on the case Also we'll check ESR and CRP and consult infectious disease team. Currently he is not on antibiotic yet. Patient with no fever or leukocytosis His continued normal saline 75 mL 04/16/2023 Patient still at bedrest with severe back pain secondary to abnormal CAT scan showing possible abscess and fracture and lumbar spine at the level of L2-L3. Patient scheduled for orthopedic surgery for his lumbar spine tomorrow on 04/17. A is for his A. fib is on hold. Patient already evaluated by film maker and recommended to continue with the current medication and to resume Eliquis after surgery. His heart regular blood pressure is controlled currently on Coreg at 12.5 mg compared to home dose of 6.25 mg. Patient with Proteus bacteremia, currently covered with Rocephin 2 g daily most likely source is paraspinal abscess. Infectious disease input is appreciated. Neurology and orthopedic input is noted Review of systems CONSTITUTIONAL: No fever, no malaise, no fatigue. HEENT: No recent visual problems or hearing problems. Denied any sore throat. CARDIOVASCULAR: No orthopnea, PND, no palpitations, no syncope. PULMONARY: No shortness of breath, no cough, no hemoptysis. GASTROINTESTINAL: No diarrhea, no nausea, no vomiting, no abdominal pain. Normoactive bowel sounds. Active Medications Generic Name Dose Route Start Last Admin Trade Name Freq PRN Reason Stop Dose Admin Acetaminophen 650 mg 04/11/23 17:30 04/15/23 21:10 Acetaminophen Tab 325 Mg Tab PO 650 mg Q6HR PRN Administration Fever and/ or Mild Pain Hydrocodone Bitart/Acetaminophen 1 each 04/14/23 09:39 04/16/23 08:11 Hydrocodone/Apap 7.5-325mg 1 Each Tab PO 1 each Q6HR PRN Administration Pain Albuterol Sulfate 2.5 mg 04/11/23 15:28 Albuterol Nebulized 2.5 Mg/3 Ml INHALATION RT-QID PRN Shortness Of Breath Aspirin 81 mg 04/12/23 09:00 04/16/23 07:44 Aspirin 81 Mg PO 81 mg DAILY SILKE Administration Carvedilol 12.5 mg 04/15/23 09:00 04/16/23 07:44 Carvedilol 12.5 Mg Tab PO 12.5 mg BID SILKE Administration Cyclobenzaprine HCl 5 mg 04/14/23 09:39 04/16/23 07:44 Cyclobenzaprine 5 Mg Tab PO 5 mg TID SILKE Administration Dapagliflozin 5 mg 04/12/23 09:00 04/16/23 07:44 Dapagliflozin Propanediol 5 Mg Tablet PO 5 mg DAILY SILKE Administration Dextrose/Water 25 ml 04/11/23 20:14 Dextrose 50% Syringe 50 Ml IVP PER PROTOCOL PRN Hypoglycemia Protocol Dextrose/Water 50 ml 04/11/23 20:14 Dextrose 50% Syringe 50 Ml IVP PER PROTOCOL PRN Hypoglycemia Protocol Duloxetine HCl 30 mg 04/12/23 09:00 04/16/23 07:44 Duloxetine Hcl 30 Mg Capsule. PO 30 mg DAILY SILKE Administration Enoxaparin Sodium 40 mg 04/15/23 09:00 04/16/23 07:43 Enoxaparin 40 Mg/0.4 Ml Syringe SQ 40 mg DAILY SILKE Administration Ferrous Sulfate 325 mg 04/11/23 21:00 04/16/23 07:44 Ferrous Sulfate 325 Mg Tab PO 325 mg BID SILKE Administration Sodium Chloride 1,000 mls @ 75 mls/hr 04/11/23 14:00 04/16/23 02:09 Saline 0.9% IV 75 mls/hr .[id number] SILKE Administration Ceftriaxone Sodium 2 gm/ 50 mls @ 100 mls/hr 04/16/23 10:00 04/16/23 09:53 Sodium Chloride IVPB 100 mls/hr Q24HR SILKE Administration Insulin Aspart 0 unit 04/11/23 21:00 04/16/23 11:55 Insulin Aspart (Novolog) 100 Unit/Ml Vial SQ 2 unit ACHS SILKE Administration Protocol Insulin Aspart 5 unit 04/13/23 12:30 04/16/23 11:55 Insulin Aspart (Novolog) 100 Unit/Ml Vial SQ 5 unit AC-TID SILKE Administration Insulin Detemir 10 unit 04/12/23 08:00 04/16/23 07:43 Insulin Detemir (Levemir) 100 Unit/Ml Syr SQ 10 unit DAILY@0800 SILKE Administration Lorazepam 1 mg 04/14/23 15:10 Lorazepam 2 Mg/Ml Inj IV ONCE PRN Agitation Naloxone HCl 0.2 mg 04/11/23 14:01 Naloxone 0.4 Mg/Ml 1 Ml Vial IV Q2M PRN Opioid Reversal Ondansetron HCl 4 mg 04/11/23 14:01 Ondansetron 4 Mg/2 Ml Vial IVP Q8HR PRN Nausea And Vomiting Senna/Docusate Sodium 1 each 04/11/23 15:28 Sennosides-Docusate Sodium 1 Each Tab PO DAILY PRN Constipation Objective - Vital Signs Vital signs: Vital Signs Temp 98.5 F 04/16/23 07:12 Pulse 99 04/16/23 07:12 Resp 20 04/16/23 07:12 BP 151/84 04/16/23 07:12 Pulse Ox 97 04/16/23 07:12 FiO2 Intake & Output 04/15/23 04/16/23 04/16/23 18:59 06:59 18:59 Intake Total 900 Output Total 820 1200 650 Balance -820 -300 -650 Intake: Intake, IV Titration 900 Amount Sodium Chloride 0.9% 1, 900 000 ml @ 75 mls/hr IV . [id number] [facility] Rx#:[id number] Output: Urine 820 1200 650 Other: Voiding Method Indwelling Catheter Indwelling Catheter - Exam GENERAL: The patient is alert and oriented x3, not in any acute distress. Well developed, well nourished. HEENT: Pupils are round and equally reacting to light. EOMI. No scleral icterus. No conjunctival pallor. Normocephalic, atraumatic. No pharyngeal erythema. No thyromegaly. CARDIOVASCULAR: S1 and S2 present. No murmurs, rubs, or gallops. PULMONARY: Chest is clear to auscultation, no wheezing , no crackles. ABDOMEN: Soft, nontender, nondistended, normoactive bowel sounds. No palpable organomegaly. -MUSCULOSKELETAL: No joint swelling or deformity. Patient refuses back exam because of tenderness EXTREMITIES: No cyanosis, clubbing, or pedal edema. NEUROLOGICAL: Gross neurological examination did not reveal any focal deficits. SKIN: No rashes. no petechiae. - Labs CBC & Chem 7: 04/15/23 06:07 04/15/23 06:07 Labs: Abnormal Lab Results - Last 24 Hours (Table) 04/15/23 04/15/23 04/15/23 Range/Units 06:07 11:05 16:42 ESR 95 H (0-20) mm/Hr POC Glucose (mg/dL) 251 H (70-110) mg/dL C-Reactive Protein 19.3 H (<1.0) mg/dL 04/15/23 04/16/23 04/16/23 Range/Units 20:58 06:30 11:50 ESR (0-20) mm/Hr POC Glucose (mg/dL) 239 H 153 H 219 H (70-110) mg/dL C-Reactive Protein (<1.0) mg/dL Microbiology - Last 24 Hours (Table) 04/15/23 11:05 Blood Culture Gram Stain - Preliminary Blood Assessment and Plan Assessment: 1. Altered mental status; likely toxic metabolic encephalopathy related to JEAN MARIE, hyperammonemia, and infection --Polypharmacy including oxycodone, Robaxin and Cymbalta -- All medications have been placed on hold -- Patient remains on IV fluid hydration - Neurology is consulted for further recommendations -Improved to baseline 2. Lower back pain; patient has history of recent L3-S1 decompression and fusi on -- MRI showing large paraspinal cyst suspicious for abscess 9.7 x 3.1 x 12.7 cm with thecal sac in his bed of the level of L2 and vertebral disc protrusion with fracture of the L3 superior endplate with severe spinal stenosis - orthopedic and infectious disease consult 3. Proteus bacteremia - most likely secondary to his spinal disease and infection , including 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 - ESR and CRP are elevated - on Rocephin - Infectious disease consult on the case 4. Hyperglycemia without acidosis/diabetes mellitus with long-term insulin use -- We will monitor Accu-Cheks before every meal and at bedtime with insulin sliding scale -Resume home dose of Lantus 10 units subcu daily once oral intake is established 5. Atrial fibrillation; continue with rate control with Coreg 12.5 mg twice daily; continue with current anticoagulation therapy 6. Hypertension; Coreg 12.5 mg Increased to 12.5 mg twice daily 7. Peripheral neuropathy; patient takes gabapentin 800 mg every 8 hours which has been placed on hold due to altered mental status and JEAN MARIE 8. Acute renal injury; BUNs/creatinine elevated at 45/1.35 upon admission -- resolved DVT prophylaxis; SCDs/anticoagulation CODE STATUS; full code
--- NOTE | 2023-04-16 12:46 | P.PN ---
Subjective Progress Note Date: 04/16/23 Principal diagnosis: Unstable L3 vertebral fracture Recent L3-S1 decompression and fusion Altered mental status Generalized weakness Complex medical comorbidities Patient seen at bedside this afternoon lying semirecumbent position with Lopez in place. Patient says he is aware surgery scheduled for tomorrow. Patient says he has been having increased pain to the back at this time. Patient is wondering if he can have more pain medication. Patient denies any other changes at this time. Patient denies chest pain, fever, nausea, vomiting, change in vision. Objective - Vital Signs Vital signs: Vital Signs Temp 98.5 F 04/16/23 07:12 Pulse 99 04/16/23 07:12 Resp 20 04/16/23 07:12 BP 151/84 04/16/23 07:12 Pulse Ox 97 04/16/23 07:12 FiO2 Intake & Output 04/15/23 04/16/23 04/16/23 18:59 06:59 18:59 Intake Total 900 Output Total 820 1200 650 Balance -820 -300 -650 Intake: Intake, IV Titration 900 Amount Sodium Chloride 0.9% 1, 900 000 ml @ 75 mls/hr IV . [id number] [facility] Rx#:[id number] Output: Urine 820 1200 650 Other: Voiding Method Indwelling Catheter Indwelling Catheter - Exam Inspection: Negative for any open fractures. Large bruise noted over the left forearm and elbow. Surgical incision to the lumbar spine, edges are well- approximated with elizabeth intact. No active drainage. Sensation: Sensation is equal, symmetric, bilaterally intact throughout the upper and lower extremities Palpation: Nontender to palpation throughout bilateral upper and lower extremities and throughout spine exam Range of motion: Patient does have full range of motion bilateral upper and lower extremities on exam Motor: 5/5 in all major motor groups in the bilateral upper and 4/5 in lower extremities, RLE 4-/5 plantar flexion Special tests: Negative Homans bilaterally. Negative Tiesha bilaterally. Negative clonus bilaterally. Neurovascular: Radial pulse intact, 2+ bilaterally. Cap refill under 3 seconds in digits upper extremities. - Labs CBC & Chem 7: 04/15/23 06:07 04/15/23 06:07 Labs: Abnormal Lab Results - Last 24 Hours (Table) 04/15/23 04/15/23 04/15/23 Range/Units 06:07 16:42 20:58 ESR 95 H (0-20) mm/Hr POC Glucose (mg/dL) 251 H 239 H (70-110) mg/dL 04/16/23 04/16/23 Range/Units 06:30 11:50 ESR (0-20) mm/Hr POC Glucose (mg/dL) 153 H 219 H (70-110) mg/dL Microbiology - Last 24 Hours (Table) 04/15/23 11:05 Blood Culture Gram Stain - Preliminary Blood Assessment and Plan Assessment: Unstable L3 vertebral fracture Recent L3-S1 decompression and fusion Altered mental status Generalized weakness Complex medical comorbidities Plan: 1. Unstable L3 vertebral fracture; Recent L3-S1 decompression and fusion; Altered mental status;Generalized weakness- patient at bedside this afternoon lying semirecumbent position with Lopez in place. Surgery scheduled for tomorrow, , 04/17/2023 L2-3 open treatment fracture with stabilization revision L1-S1. Patient to be nothing by mouth at midnight tonight. Pain medication as needed. We will continue to follow patient during standard hospital. 2. Appreciate medical management 3. Pain management - Milner; Tylenol 4. GI prophylaxis - Pepcid; senna 5. DVT prophylaxis - mechanical; Lovenox; aspirin 6. PT/OT - bedrest for now 7. Encourage incentive spirometer use Time with Patient: Less than 30
[2023-04-16] MEDS: HYDROmorphone 1 MG/ML 1 ML SYRINGE IVP PRN (15:43)
[2023-04-16 16:50] LABS: Glucose,Whole Blood 117 mg/dL (70-110)
[2023-04-16] MEDS: FAMOTIDINE 20 MG/2 ML VIAL IV SCH (19:43)
[2023-04-16 21:13] LABS: Glucose,Whole Blood 172 mg/dL (70-110)
[2023-04-16] MEDS ORDERED: LORazepam 2 MG/ML INJ IV PRN (21:14)
[2023-04-16] MEDS: FUROSEMIDE 10 MG/ML 4 ML VIAL IV STA (21:26)
[2023-04-16] MEDS: LORazepam 2 MG/ML INJ IV PRN (22:56)
[2023-04-17] MEDS: hydrALAZINE HCL 20 MG/ML 1 ML VIAL IVP PRN (00:01)
[2023-04-17] MEDS ORDERED: MIDAZOLAM 2 MG/2 ML VIAL IV PRN (05:00)
[2023-04-17] MEDS ORDERED: HYDROmorphone 0.5 MG/0.5 ML SYRINGE IVP PRN (05:00)
[2023-04-17 06:22] LABS: Glucose,Whole Blood 145 mg/dL (70-110)
[2023-04-17 07:26] LABS: Basophils % (A) 0 %; Eosinophils # (A) 0.2 k/uL (0-0.7); Eosinophils % (A) 2 %; HCT 37.9 % (39.0-53.0); HGB 12.3 gm/dL (13.0-17.5); Lymphocytes % (A) 14 %; MCH 29.8 pg (25.0-35.0); MCHC 32.5 g/dL (31.0-37.0); MCV 91.5 fL (80.0-100.0); Mean Platelet Volume 7.5; Monocytes # (A) 0.6 k/uL (0-1.0); Monocytes % (A) 9 %; Neutrophils # (A) 4.9 k/uL (1.3-7.7); Neutrophils % (A) 73 %; Platelet Count 256 k/uL (150-450); RBC 4.14 m/uL (4.30-5.90); RDW 13.3 % (11.5-15.5); WBC 6.7 k/uL (3.8-10.6)
[2023-04-17 07:36] LABS: African American GFR (CKD) 88 (>60 ml/min/1.73 sqM); Anion Gap 9 mmol/L; Blood Urea Nitrogen 25 mg/dL (9-20); Calcium 9.4 mg/dL (8.4-10.2); Carbon Dioxide 26 mmol/L (22-30); Chloride 104 mmol/L (98-107); Glucose 155 mg/dL (74-99); Non-African American GFR(CKD) 76 (>60 ml/min/1.73 sqM); Potassium 3.8 mmol/L (3.5-5.1); Sodium 139 mmol/L (137-145)
--- NOTE | 2023-04-17 09:53 | P.PN ---
Subjective Progress Note Date: 04/17/23 Consult reason: atrial fibrillation (and preop clearance) History of present illness: History of present illness: This is a 67-year-old male patient with past medical history of hypertension, hyperlipidemia, diabetes mellitus type 2, atrial fibrillation on Eliquis, COPD, tobacco use and dependence. Patient does not follow with a ring stamper. Patient presented to the hospital on April 11 with complaint of confusion and recently had back surgery. Patient underwent L3/S1 decompression and fusion on 03/28/2023. His mental status was back to baseline and thought to be related to pain medications but patient was reported to have had multiple falls at the subacute rehab facility. Patient was seen by orthopedic spine and MRI of the lumbar spine revealed unstable fracture that requires an additional surgical intervention and this appears to be scheduled for 04/17. Patient's Eliquis has been placed on hold and last dose given was on 04/14 in the evening. Patient complains of back pain. He denies any other cardiac history besides atrial fibrillation. No chest pain no palpitations. He denies any blood in his stool or urine. He denies any dizziness. No history of CVA or stroke. He states his breathing is stable EKG atrial fibrillation with controlled rate at 97 bpm Chest x-ray: No acute findings Home cardiac medications: Eliquis 5 mg twice daily, aspirin 81 mg daily, Coreg 6.25 mg twice daily. Echocardiogram performed 03/23/2023 revealed distal septal and apical akinesia. LV systolic function of 55%. Mild to moderate mitral regurgitation. 04/17 Patient is seen today in follow-up. He is scheduled for surgery today. He denies having any chest pain or pressure. No shortness of breath. Blood pressure 157/92 and heart rate is in the 90s, pulse ox 96% on room air. Physical examination: Gen: This is a 67-year-old male appears to be in no acute distress. VS: reviewed blood pressure 151/84, heart rate 99, pulse ox 97% on room air. HEENT: Head is atraumatic, normocephalic. Pupils equal, round. Sclerae is anicteric. NECK: Supple. No JVD. LUNGS: Clear to auscultation. No wheezes or rhonchi. No intercostal retractions. HEART: Irregular rate and rhythm. Systolic murmur. ABDOMEN: Soft No tenderness. EXTREMITIES: No pedal edema. No calf tenderness. NEUROLOGICAL: Patient is awake, alert and oriented x3. Assessment: Chronic atrial fibrillation Unstable L3 vertebral fracture scheduled for surgery on 04/17 Hypertension Hyperlipidemia Diabetes mellitus type 2 COPD Tobacco use and dependence, recently quit Plan: Continue Coreg and increase to 25 mg twice daily. No need to repeat echocardiogram as this was done in March Patient is at intermediate risk for complications during the perioperative period. He is currently stable and he may proceed with procedure. Recommend resuming Eliquis following surgery once cleared by orthopedic surgeon. Further recommendations to follow based upon clinical course Nurse practitioner note has been reviewed, I agree with documented findings and plan of care. Patient was seen and examined. Objective - Vital Signs Vital signs: Vital Signs Temp 98.2 F 04/17/23 07:33 Pulse 93 04/17/23 07:33 Resp 17 04/17/23 07:33 BP 157/92 04/17/23 07:33 Pulse Ox 96 04/17/23 07:33 FiO2 Intake & Output 04/16/23 04/17/23 04/17/23 18:59 06:59 18:59 Intake Total 900 Output Total 1575 3200 Balance -675 -3200 Intake: IV 900 Sodium Chloride 0.9% 1, 900 000 ml @ 75 mls/hr IV . [id number] [facility] Rx#:[id number] Output: Urine 1575 3200 Uretheral (Lopez) 300 Other: Voiding Method Indwelling Catheter Indwelling Catheter - Labs CBC & Chem 7: 04/17/23 06:29 04/17/23 06:29 Labs: Abnormal Lab Results - Last 24 Hours (Table) 04/16/23 04/16/23 04/16/23 Range/Units 11:50 16:49 21:02 RBC (4.30-5.90) m/uL Hgb (13.0-17.5) gm/dL Hct (39.0-53.0) % BUN (9-20) mg/dL Glucose (74-99) mg/dL POC Glucose (mg/dL) 219 H 117 H 172 H (70-110) mg/dL 04/17/23 04/17/23 04/17/23 Range/Units 06:21 06:29 06:29 RBC 4.14 L (4.30-5.90) m/uL Hgb 12.3 L (13.0-17.5) gm/dL Hct 37.9 L (39.0-53.0) % BUN 25 H (9-20) mg/dL Glucose 155 H (74-99) mg/dL POC Glucose (mg/dL) 145 H (70-110) mg/dL Microbiology - Last 24 Hours (Table) 04/15/23 11:05 Blood Culture - Preliminary Blood 04/15/23 11:05 Blood Culture Gram Stain - Preliminary Blood
[2023-04-17] MEDS: carvediloL 12.5 MG TAB PO STA (10:45)
[2023-04-17] MEDS: carvediloL 12.5 MG TAB PO SCH (10:58)
[2023-04-17] MEDS ORDERED: TRANEXAMIC 1,000 MG/100ML-NACL 1,000 MG in SALINE 1 100ML.BAG IVPB PRN (11:00)
[2023-04-17] MEDS: IV FLUID CONTINUATION 1,000 ML IV ONE (11:05)
[2023-04-17] MEDS: MIDAZOLAM 2 MG/2 ML VIAL IVP ONE ×2 (11:14→11:52)
--- NOTE | 2023-04-17 11:44 | P.PN ---
Progress Note - Text Progress Note Date: 04/17/23 Spine Surgery Clinical and Risk Review Devon Nails is a 67-year-old male presenting for evaluation of mid to low and upper back pain altered mental status status post L3 through S1 decompression fusion with lower extremity weakness radiculopathy myelopathy as well as suspected multiple falls from standing at his care facility. It was my pleasure to have seen and examined Devon. In our visit today we have had a chance to go over subjective complaints, physical examination findings and treatments including the natural course history without intervention and various interventional options. The patients imaging demonstrates L2-L3 fracture with large disc herniation epidural hematoma severe stenosis above the previous fusion hardware is intact there is L3 pedicle fracture as well. On physical exam, Devon Nails demonstrates severe pain difficulty and inability to ambulate lower extremity weakness again with paresthesias. I have explained to the patient that as their condition progresses it will cause further neurological deficits and eventual paralysis. Based on the patients imaging, physical exam, and the rapid progression and disabling nature of their symptoms, at this time I recommend surgery in the form or a: Open treatment L1-2 fracture with stabilization decompression, washout with revision. I discussed the risk and benefits of this procedure at length with Devon Nails and his daughter over the phone. The patient and his daughter who is now deep POA agreed to considered pursuing the procedure abovementioned. Prior to surgery, she should follow up with her PCP (Cardio, ID, IM etc) for clearance. Questions were invited and answered, and the patient wishes to proceed as outlined below. Currently, I am recommendin. Revision surgery with open treatment L1-2 fracture stabilization and decompression 2. Follow up with PCP for surgical clearance 3. Review of surgical risks and benefits as well as an educational packet on the proposed surgical procedure. Risks: All surgical procedures come with inherent risks, including those related to positioning, anesthesia, intraoperative findings, and postoperative complications. It is important to understand that surgery does not come with any guarantee of a successful outcome as complications and adverse events are always possible. The patient was given a handout in office today discussing the surgical procedure and risks associated with the intervention, both of which were discussed with the patient. These risks include but are not limited to the following: * Experiencing same, different or even worse symptoms in back, neck, arms, or legs compared to before surgery. * Requiring further surgery or other forms of treatment presently or at some time in the future at same or other levels of the intended spine surgery. * On an extreme but fortunately relatively rare basis severe complication such as blindness, stroke, heart attack, temporary and/or permanent nerve injury, paralysis, coma, or may occur, sometimes without known explanation. * Surgical complications may include but are not limited to risk of infection, fluid accumulation in the surgical dissection site, including a seroma or hematoma, that requires additional surgery, wound drainage, bleeding, new numbness or weakness, vision changes/loss, spinal fluid leakage, non-healing and/or infected incision, headaches, difficulty or inability to swallow, hoarseness, hemopneumothorax, pneumothorax, impotence, retrograde ejaculation, vaginal dryness; injury to nerves, spinal cord, blood vessels, lymphatics or other vital organs (i.e., bowel injury, injury to the great vessels); heterotopic bone formation; complications related to the hardware such as screws, rods, cages including misplaced hardware, device failure, instrumentation at the wrong spine level, hardware fracture/breakage, or hardware loosening; vertebral failure of the spinal column above or below the newly placed hardware; retained surgical instrumentations or devices and the need for further surgery. * Medical risks of the planned spine surgery include but are not limited to generalized Infections to the whole body or local areas outside of the surgical site (sepsis), heart attack, bleeding, anaphylaxis, meningitis, seizure, epilepsy, hearing loss, burn jasso, laceration of the head or other areas of the body, bruising, hypersensitivity of the skin, bladder over distension; allergic reaction; shoulder injury related to positioning; fat, blood and air clots to other areas of the body like heart, lungs, brain; failure of internal organs such as lungs, kidneys, liver and excessive bleeding. If blood transfusions are necessary, note that transfusions may cause intolerance reactions such as anaphylaxis or other complex reactions. * Despite best efforts, the results of spine surgery might not heal in terms of bone, soft tissues such as skin, fascia, ligaments, and joints. Additionally, in order to achieve best possible results, spine surgery may be carried out beyond the initially planned levels and involve decompression, fusion including insertion of hardware at levels other than the original intended area of surgical interest change some portions of the procedure in order to ensure the best possible outcomes. * With spine surgery and spinal fusion, there are different off label uses of instrumentation (devices, implants and hardware) as well as biological substances (bone morphogenic proteins, demineralized bone matrix) as well as using extra bone from allograft sources (i.e. cadaver bone) or autograft (iliac crest bone, ribs, or the spine itself). The patient has been given information about these practices and their inherent risks and benefits. The patient has had a chance to review all the listed information, has been given print outs detailing this information, and has had all his/her questions answered to their satisfaction. It was my pleasure to have seen and examined Devon Nails. In our visit today we have had a chance to go over my understanding of our patient's current condition, the natural course history without intervention and various interventional options. Questions were invited and answered, and the patient wishes to proceed as outlined above. I have seen and examined the patient for 25 minutes and we have spent more than 50% of the time in repeat and detailed counseling about the patient's condition, its natural course history with out and as much as can be predicted with surgery and re-review of various surgical treatment options. In conclusion, Devon Nails and his daughter over the phone who agrees and understands. She is now deep POA for him. We went through all the risks and benefits to surgery together. She understands is willing to accept these risks. She is comfortable with surgery and would like to proceed. I will update her after surgery. requested we proceed with the above suggested surgery and are willing to accept risks and limitations of the suggested surgery as nature of the disease process and our best attempts at treatment for the condition. Thank you again for allowing us to be part of your patient's care. Please don't hesitate to contact me if you have any further questions. Signed and authenticated by: Gregory [facility] [address] [facility], [address] [address]
[2023-04-17] MEDS: LACTATED RINGERS 1,000 ML IV ONE ×2 (11:58→14:10)
[2023-04-17] MEDS ORDERED: ACETAMINOPHEN IV (For NPO) 1,000 MG/100 ML VIAL ONE (12:13)
[2023-04-17] MEDS ORDERED: PROPOFOL 10 MG/ML 20 ML VIAL IV ONE (12:13)
[2023-04-17] MEDS ORDERED: TRANEXAMIC 1,000 MG/100ML-NACL PREMIX BAG ONE (12:13)
[2023-04-17] MEDS ORDERED: LABETALOL 5 MG/ML VIAL MDV ONE (12:13)
[2023-04-17] MEDS ORDERED: PHENYLEPHRINE-0.9% NACL SYG 1,000 MCG/10 ML SYRINGE ONE (12:13)
[2023-04-17] MEDS ORDERED: fentaNYL (PF) 50 MCG/ML 2 ML AMP ONE (12:13)
[2023-04-17] MEDS ORDERED: GLYCOPYRROLATE 0.2 MG/ML 2 ML VIAL ONE (12:13)
[2023-04-17] MEDS ORDERED: KETAMINE HCL IN 0.9 % NACL 50 MG/5 ML SYRINGE ONE (12:13)
[2023-04-17] MEDS ORDERED: VASOPRESSIN 20 UNIT/ML 1 ML VIAL ONE (12:13)
[2023-04-17] MEDS ORDERED: HYDROmorphone (PF) 1 MG/ML ONE (12:13)
[2023-04-17] MEDS ORDERED: ROCURONIUM 10 MG/ML (5 ML VIAL) IV ONE (12:13)
[2023-04-17] MEDS ORDERED: ALBUMIN HUMAN 5% (25gm) 500 ML VIAL IVPB ONE (12:13)
[2023-04-17] MEDS ORDERED: NEOSTIGMINE 1 MG/ML 10 ML VIAL ONE (12:13)
[2023-04-17] MEDS ORDERED: SUCCINYLCHOLINE CHLORIDE 200 MG/10 ML VIAL IV ONE (12:13)
[2023-04-17] MEDS ORDERED: PHENYLEPHRINE 10 MG/ML VIAL ONE (12:13)
[2023-04-17] MEDS ORDERED: VANCOMYCIN IV PER PHARMACY 1 EACH MISC MISCELLANE PRN (12:28)
[2023-04-17] MEDS: VANCOMYCIN 1,250 MG in SODIUM CHLORIDE 0.9% 250 ML IVPB PRN (12:45)
[2023-04-17] MEDS: GENTAMICIN 80 MG in SODIUM CHLORIDE 0.9% 100 ML IVPB ONE (12:45)
[2023-04-17] MEDS: GELATIN SPONGE,ABSORB (LARGE) 1 EACH SPONGE TOPICAL ONE (13:00)
[2023-04-17] MEDS: THROMBIN (BOVINE) 5,000 UNIT VIAL TOPICAL ONE (13:00)
[2023-04-17] MEDS: ceFAZolin 3,000 MG in SODIUM CHLORIDE 0.9% IRRIGATIO 3,000 ML IRRIGATION ONE (13:05)
[2023-04-17] MEDS: GENTAMICIN 80 MG in SODIUM CHLORIDE 0.9% IRRIGATIO 3,000 ML IRRIGATION ONE (13:06)
[2023-04-17] MEDS: VANCOMYCIN 1,000 MG VIAL MISCELLANE ONE ×2 (13:07)
[2023-04-17] MEDS: TOBRAMYCIN SULFATE 1.2 GM VIAL MISCELLANE ONE ×2 (13:08→14:28)
[2023-04-17 13:33] LABS: Allen Test Performed? Yes
[2023-04-17 13:34] LABS: ABG Base Excess 0.5 mmol/L; ABG HCO3 25 mmol/L (21-25); ABG Oxygen Saturation >100.0 % (94-97); ABG PCO2 40 mmHg (35-45); ABG PH 7.41 (7.35-7.45); ABG PO2 261 mmHg (83-108)
[2023-04-17 13:35] LABS: Basophils % (A) 0 %; Eosinophils # (A) 0.2 k/uL (0-0.7); Eosinophils % (A) 2 %; HCT 32.9 % (39.0-53.0); HGB 11.4 gm/dL (13.0-17.5); Lymphocytes # (A) 1.1 k/uL (1.0-4.8); Lymphocytes % (A) 14 %; MCH 31.2 pg (25.0-35.0); MCHC 34.6 g/dL (31.0-37.0); MCV 90.1 fL (80.0-100.0); Mean Platelet Volume 7.6; Monocytes # (A) 0.5 k/uL (0-1.0); Monocytes % (A) 7 %; Neutrophils # (A) 5.9 k/uL (1.3-7.7); Neutrophils % (A) 75 %; Platelet Count 268 k/uL (150-450); RBC 3.66 m/uL (4.30-5.90); RDW 13.5 % (11.5-15.5); WBC 7.8 k/uL (3.8-10.6)
[2023-04-17 13:36] LABS: ABG TCO2 27 mmol/L (19-24)
[2023-04-17 13:45] LABS: African American GFR (CKD) >90 (>60 ml/min/1.73 sqM); Anion Gap 6 mmol/L; Blood Urea Nitrogen 26 mg/dL (9-20); Calcium 8.4 mg/dL (8.4-10.2); Carbon Dioxide 24 mmol/L (22-30); Chloride 108 mmol/L (98-107); Glucose 163 mg/dL (74-99); Non-African American GFR(CKD) 84 (>60 ml/min/1.73 sqM); Sodium 138 mmol/L (137-145)
--- NOTE | 2023-04-17 15:33 | FL ---
Fluoroscopy History: PLDF FT: 29 seconds DAP: 3215.78 cGy cm2
[2023-04-17] MEDS: DOPamine DRIP 800 MG in DEXTROSE/WATER 1 250ML.BAG IV ONE ×2 (16:13→16:25)
[2023-04-17] MEDS ORDERED: MAGNESIUM HYDROXIDE 2,400 MG/30 ML CUP PO PRN (16:13)
--- NOTE | 2023-04-17 16:35 | P.PN ---
Subjective Progress Note Date: 04/17/23 Principal diagnosis: Reason for follow-up is bacteremia and lumbar spine abscess Patient is a 67-year-old male with a past medical history significant for diabetes mellitus hypertension COPD atrial fibrillation in this patient who recently did have extensive lumbosacral spine surgery, patient was brought back to the hospital on 04/11/2023 for evaluation of confusion, workup did include MRI of the lumbar spine with evidence of extensive edema and large fluid collection some air bubbles with a question of possible seroma versus abscess, patient did have blood cultures drawn on 04/15/2023 which came back positive with a Proteus species. On today's evaluation that is 04/17/2023, the patient remains to be afebrile, patient is currently breathing comfortably on room air, the patient denies chest pain and no significant cough, patient denies abdominal pain, no nausea no vomiting or any diarrhea has been reported. Still complaining of pain to the lower back area no worsening. Patient had white count of 7.8, creatinine 0.95 blood culture with gram-negative bacilli Objective - Vital Signs Vital signs: Vital Signs Temp 98.7 F 04/17/23 11:05 Pulse 91 04/17/23 12:00 Resp 18 04/17/23 12:00 BP 175/83 04/17/23 12:00 Pulse Ox 97 04/17/23 12:00 FiO2 Intake & Output 04/16/23 04/17/23 04/17/23 18:59 06:59 18:59 Intake Total 900 1404 Output Total 1575 3200 1250 Balance -675 -3200 154 Intake: IV 900 1404 Sodium Chloride 0.9% 1, 900 000 ml @ 75 mls/hr IV . [id number] [facility] Rx#:[id number] Output: Urine 1575 3200 1000 Uretheral (Lopez) 300 Estimated Blood Loss 250 Other: Voiding Method Indwelling Catheter Indwelling Catheter - Exam GENERAL DESCRIPTION: An elderly male lying in bed in no distress RESPIRATORY SYSTEM: Unlabored breathing , decreased breath sounds at bases HEART: S1 S2 regular rate and rhythm , ABDOMEN: Soft , no tenderness EXTREMITIES: No edema feet - Labs CBC & Chem 7: 04/17/23 13:15 04/17/23 13:15 Labs: Abnormal Lab Results - Last 24 Hours (Table) 04/16/23 04/16/23 04/17/23 Range/Units 16:49 21:02 06:21 RBC (4.30-5.90) m/uL Hgb (13.0-17.5) gm/dL Hct (39.0-53.0) % ABG pO2 (83-108) mmHg ABG Total CO2 (19-24) mmol/L ABG O2 Saturation (94-97) % Chloride (98-107) mmol/L BUN (9-20) mg/dL Glucose (74-99) mg/dL POC Glucose (mg/dL) 117 H 172 H 145 H (70-110) mg/dL 04/17/23 04/17/23 04/17/23 Range/Units 06:29 06:29 13:15 RBC 4.14 L 3.66 L (4.30-5.90) m/uL Hgb 12.3 L 11.4 L (13.0-17.5) gm/dL Hct 37.9 L 32.9 L (39.0-53.0) % ABG pO2 (83-108) mmHg ABG Total CO2 (19-24) mmol/L ABG O2 Saturation (94-97) % Chloride (98-107) mmol/L BUN 25 H (9-20) mg/dL Glucose 155 H (74-99) mg/dL POC Glucose (mg/dL) (70-110) mg/dL 04/17/23 04/17/23 Range/Units 13:15 13:15 RBC (4.30-5.90) m/uL Hgb (13.0-17.5) gm/dL Hct (39.0-53.0) % ABG pO2 261 H (83-108) mmHg ABG Total CO2 27 H (19-24) mmol/L ABG O2 Saturation >100.0 H (94-97) % Chloride 108 H (98-107) mmol/L BUN 26 H (9-20) mg/dL Glucose 163 H (74-99) mg/dL POC Glucose (mg/dL) (70-110) mg/dL Microbiology - Last 24 Hours (Table) 04/15/23 11:05 Blood Culture Gram Stain - Preliminary Blood Blood Culture - Preliminary Gram Neg Bacilli 04/15/23 11:05 Blood Culture - Preliminary Blood Assessment and Plan (1) Bacteremia Current Visit: Yes Status: Acute Code(s): R78.81 - BACTEREMIA SNOMED Code(s): 4532720 (2) Abnormal MRI, lumbar spine Current Visit: Yes Status: Acute Code(s): R93.7 - ABNORMAL FINDINGS ON DIAGNOSTIC IMAGING OF PRT MS SYS SNOMED Code(s): 195715862 Plan: 1patient with extensive abnormality seen on the MRI of the lumbar sacral spine in this patient who is postop with recent extensive surgery to the lumbar sacral spine on 03/28/2022 now admitted to the hospital with confusion however the patient did not have any fever or elevated white count during this hospital stay with concern for possible postop seroma versus hematoma less likely abscess as the patient does not look toxic did not have any fever or elevated white count 2-patient blood cultures came back positive with a Proteus species source is likely lumbar sacral spine fluid collection, patient is scheduled for surgery this afternoon at which time deep culture will be obtained 3-patient to continue with Rocephin and monitor clinical course closely Dictation was produced using [employer] dictation software. please excuse any grammatical, word or spelling errors. Time with Patient: Less than 30
[2023-04-17] MEDS: SODIUM CHLORIDE 0.9% 1,000 ML IV ONE (17:08)
[2023-04-17 17:39] LABS: Glucose,Whole Blood 204 mg/dL (70-110)
[2023-04-17] MEDS: HYDROmorphone 1 MG/ML 1 ML SYRINGE IVP PRN (19:41)
--- NOTE | 2023-04-17 20:42 | P.PN ---
Subjective 67-year-old gentleman with recent L3 to S1 decompression and fusion presented emergency department because of confusion. Some of the history is obtained from medical record. It seems that the patient was at a nursing rehab facility and he had the confusion. Patient had a recent lumbar decompression and fusion and this seems she is a significant facility and is documented that the caregiver states he has been having some issues receiving medication the morning and symptoms were worse yesterday per the staff. Per the ED and the team's note. He was confused but does have periods of time of clearing thoughts. Patient does not recall what transpired but states he is having significant lower back pain and states that his legs gave out. He denies any bladder or bowel issues. He feels his hip his pain mostly left more than the right and he could not come there is any radiation. He was having some numbness in the feet. Denies any history of stroke or seizures in the past. Denies of any fevers. Patient is on oxycodone, Robaxin, Cymbalta. Patient is on eliquis as well as aspirin as no medication. Initial white blood cells 11.13 thousand that normalized. The glucose has been in the range of initially on presentation was in the 200s and currently it's in the 140s to 170s. Odium was 136, creatinine is 1.35, BUN is 45, hemoglobin A1c 10.1 Plasma lactic acid venous 1.5. Ammonia is 44. EKG is reported as age are fibrillation. Left axis deviation. CT of the head is reported as similar mild intra-or megaly likely due to central cerebral atrophy. Correlate to exclude component of NPH. Mild burden of chronic small vessel ischemic disease. No acute intracranial abnormality seen. I personally reviewed the CT the head and I feel there is no acute subacute ischemia. There is no bleed. I agree that cerebral atrophy seems more due to the cerebral atrophy. CT abdomen and pelvis is reported as 1.1 cm nonobstructive the left renal stone. 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 nodularity of the liver. Correlate for any known diagnosis of underlying cirrhosis. GI referral if not established diagnosis. Recent L3-S1 posterior lumbar fusion changes with laminectomies extending up to the L2 level. Here the L2 level there appears to be fluid collection measuring 5.5 wide within the laminectomy bed, possible postoperative seroma. Follow-up as clinically indicated. Other fluid collection not excluded this time. An additional small fluid and air collection measuring 2.1 just deep to the superimposed skin elizabeth within the subcutaneous fat layer. 04/13/2023 Patient is seen and evaluated resting in bed; continues to report uncontrolled pain Vital signs are reviewed and are stable with temperature of 98, pulse 81, respiration 19, blood pressure 134/89 and O2 saturation 96% on room air Labs revealed WBC 6.27, hemoglobin 11.5 and platelet count of 243, sodium 137, potassium 4.7, BUN 35.4, creatinine 1.2, blood glucose ranging between 1 42-84 --We will add NovoLog 5 units subcu with each meal -Patient has been evaluated by orthopedic surgery and MRI of the spine is recommended -- PT OT consulted 04/14/2023 Patient alert awake oriented, he is just confused about the exact date but he knows the year. He has insight. Cystoscopy complaining from significant back pain Neurology and orthopedic team on the case. Gentle normal saline Creatinine mildly elevated but improving, we will consult nephrology line physical therapy recommends subacute rehab which is pending. 04/15/2023 She is sleeping today, still complained from significant back pain he had MRI of the lumbar spine done yesterday showing large paraspinal cyst suspicious for abscess 9.7 x 3.1 x 12.7 cm with thecal sac in his bed of the level of L2 and vertebral disc protrusion with fracture of the L3 superior endplate with severe spinal stenosis orthopedic team on the case Also we'll check ESR and CRP and consult infectious disease team. Currently he is not on antibiotic yet. Patient with no fever or leukocytosis His continued normal saline 75 mL 04/16/2023 Patient still at bedrest with severe back pain secondary to abnormal CAT scan showing possible abscess and fracture and lumbar spine at the level of L2-L3. Patient scheduled for orthopedic surgery for his lumbar spine tomorrow on 04/17. A is for his A. fib is on hold. 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 His heart regular blood pressure is controlled currently on Coreg at 12.5 mg compared to home dose of 6.25 mg. Patient with Proteus bacteremia, currently covered with Rocephin 2 g daily most likely source is paraspinal abscess. Infectious disease input is appreciated. Neurology and orthopedic input is noted 04/17/2023 Patient underwent surgery for his lumbar spine. He is going for ( Revision surgery with open treatment L1-2 fracture stabilization and decompression ) . Today postop day #0 Postsurgery history of drinking up slowly Hemodynamically stable Patient has bacteremia with gram-negative bacilli most likely Proteus, most likely the source is paraspinal fluid collection, rule out abscess pending wound culture Patient covered with ceftriaxone. ESR and CRP are elevated Objective - Vital Signs Vital signs: Vital Signs Temp 97.4 F L 04/17/23 19:08 Pulse 80 04/17/23 19:08 Resp 18 04/17/23 19:08 BP 132/79 04/17/23 19:08 Pulse Ox 99 04/17/23 19:08 FiO2 Intake & Output 04/17/23 04/17/23 04/18/23 06:59 18:59 06:59 Intake Total 1804 Output Total 3200 1450 Balance -3200 354 Weight 77.111 kg Intake: IV 1804 Output: Urine 3200 1200 Estimated Blood Loss 250 Other: Voiding Method Indwelling Catheter - Exam GENERAL: The patient is alert and oriented x3, not in any acute distress. Well developed, well nourished. HEENT: Pupils are round and equally reacting to light. EOMI. No scleral icterus. No conjunctival pallor. Normocephalic, atraumatic. No pharyngeal erythema. No thyromegaly. CARDIOVASCULAR: S1 and S2 present. No murmurs, rubs, or gallops. PULMONARY: Chest is clear to auscultation, no wheezing , no crackles. ABDOMEN: Soft, nontender, nondistended, normoactive bowel sounds. No palpable organomegaly. -MUSCULOSKELETAL: No joint swelling or deformity. Patient refuses back exam because of tenderness EXTREMITIES: No cyanosis, clubbing, or pedal edema. NEUROLOGICAL: Gross neurological examination did not reveal any focal deficits. SKIN: No rashes. no petechiae. - Labs CBC & Chem 7: 04/17/23 13:15 04/17/23 13:15 Labs: Abnormal Lab Results - Last 24 Hours (Table) 04/16/23 04/17/23 04/17/23 Range/Units 21:02 06:21 06:29 RBC 4.14 L (4.30-5.90) m/uL Hgb 12.3 L (13.0-17.5) gm/dL Hct 37.9 L (39.0-53.0) % ABG pO2 (83-108) mmHg ABG Total CO2 (19-24) mmol/L ABG O2 Saturation (94-97) % Chloride (98-107) mmol/L BUN (9-20) mg/dL Glucose (74-99) mg/dL POC Glucose (mg/dL) 172 H 145 H (70-110) mg/dL 04/17/23 04/17/23 04/17/23 Range/Units 06:29 13:15 13:15 RBC 3.66 L (4.30-5.90) m/uL Hgb 11.4 L (13.0-17.5) gm/dL Hct 32.9 L (39.0-53.0) % ABG pO2 (83-108) mmHg ABG Total CO2 (19-24) mmol/L ABG O2 Saturation (94-97) % Chloride 108 H (98-107) mmol/L BUN 25 H 26 H (9-20) mg/dL Glucose 155 H 163 H (74-99) mg/dL POC Glucose (mg/dL) (70-110) mg/dL 04/17/23 04/17/23 Range/Units 13:15 17:27 RBC (4.30-5.90) m/uL Hgb (13.0-17.5) gm/dL Hct (39.0-53.0) % ABG pO2 261 H (83-108) mmHg ABG Total CO2 27 H (19-24) mmol/L ABG O2 Saturation >100.0 H (94-97) % Chloride (98-107) mmol/L BUN (9-20) mg/dL Glucose (74-99) mg/dL POC Glucose (mg/dL) 204 H (70-110) mg/dL Microbiology - Last 24 Hours (Table) 04/15/23 11:05 Blood Culture - Preliminary Blood 04/15/23 11:05 Blood Culture Gram Stain - Preliminary Blood Blood Culture - Preliminary Gram Neg Bacilli Assessment and Plan Assessment: 1. Altered mental status; likely toxic metabolic encephalopathy related to JEAN MARIE, hyperammonemia, and infection --Polypharmacy including oxycodone, Robaxin and Cymbalta -- All medications have been placed on hold -- Patient remains on IV fluid hydration - Neurology is consulted for further recommendations -Improved to baseline 2. Lower back pain; patient has history of recent L3-S1 decompression and fusion , he is status post (Revision surgery with open treatment L1-2 fracture stabilization and decompression on 04/17) -- MRI showing large paraspinal cyst suspicious for abscess 9.7 x 3.1 x 12.7 cm with thecal sac in his bed of the level of L2 and vertebral disc protrusion with fracture of the L3 superior endplate with severe spinal stenosis - orthopedic and infectious disease consult 3. Proteus bacteremia - most likely secondary to his spinal disease and infection , including 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 - ESR and CRP are elevated - on Rocephin - Infectious disease consult on the case 4. Hyperglycemia without acidosis/diabetes mellitus with long-term insulin use -- We will monitor Accu-Cheks before every meal and at bedtime with insulin sliding scale -Resume home dose of Lantus 10 units subcu daily once oral intake is established 5. Atrial fibrillation; continue with rate control with Coreg 12.5 mg twice daily; continue with current anticoagulation therapy 6. Hypertension; Coreg 12.5 mg Increased to 12.5 mg twice daily 7. Peripheral neuropathy; patient takes gabapentin 800 mg every 8 hours which has been placed on hold due to altered mental status and JEAN MARIE 8. Acute renal injury; BUNs/creatinine elevated at 45/1.35 upon admission -- resolved DVT prophylaxis; SCDs/anticoagulation CODE STATUS; full code
[2023-04-17 21:25] LABS: Glucose,Whole Blood 185 mg/dL (70-110)
[2023-04-17] MEDS: HYDROcodone/APAP 10-325MG 1 EACH TAB PO PRN (21:55)
[2023-04-18 05:59] LABS: Glucose,Whole Blood 201 mg/dL (70-110)
--- NOTE | 2023-04-18 06:49 | P.OP ---
Date of Procedure: 04/17/23 Preoperative Diagnosis: 1. L2-3 AO type B3 fracture, Extension, Unstable above L3-S1 fusion 2. Left L3 pedicle fracture 3. Post operative fluid collection 4. Mental status changes 5. Back pain 6. LE weakness Postoperative Diagnosis: 1. L2-3 AO type B3 fracture, Extension, Unstable above L3-S1 fusion 2. Left L3 pedicle fracture 3. Epidural abscess 4. Mental status changes, likely sepsis 5. Back pain 6. LE weakness Procedure(s) Performed: 1. Open treatment L2-3 fracture 2. Posteriolateral and interbody fusion L2-3 3. L1-2 posterolateral instrumented fusion 4. Revision L1-S1 instrumentation 5. L1-3 bilateral laminectomy, facetectomy and foraminotomy with epidural abscess evacuation, neural element decompression 6. Irrigation and debridement skin, soft tissue, muscle and bone lumbar spine [id number] using the following: -Knife for skin debridment -curette for soft tissue, muscle and bone debridement -Rongure for bone debridement 7. Use of ProtonMail navigation for screw placement use of IONM all screws testing > 20 mA. CPTMOD 22 THIS CASE TOOK 75% LONGER THAN EXPECTED DUE TO CORMORBID CONDITIONS, COMPLEX FRACTURE PATTERN, EXTENT OF LUMBAR DISEASE AND HIGH TECHNICALITY OF THE CASE. Implants: GLOBUS CREO SCREW AND SAL SYSTEM GLOBUS RISE CAGE X1 STIMULAN BEADS AND STIMULAN CEMENT CONTOUR AF, ARTHROCELL, IFACTOR Anesthesia: GETA Surgeon: Gregory Zimmerman Ese Teacher #1: Jc Wilkerson (WAS PRESENT AND ASSISTED WITH ALL ASPECTS OF THE CASE FROM POSITION TO CLOSURE) Estimated Blood Loss (ml): 250 IV fluids (ml): 2,500 Urine output (ml): 200 Pathology: none sent Condition: stable Disposition: PACU Indications for Procedure: Devon Nails is a 67-year-old male presenting for evaluation of mid to low and upper back pain altered mental status status post L3 through S1 decompression fusion with lower extremity weakness radiculopathy myelopathy as well as suspected multiple falls from standing at his care facility. It was my pleasure to have seen and examined Devon. In our visit today we have had a chance to go over subjective complaints, physical examination findings and treatments including the natural course history without intervention and various interventional options. The patients imaging demonstrates L2-L3 fracture with large disc herniation epidural hematoma severe stenosis above the previous fusion hardware is intact there is L3 pedicle fracture as well. On physical exam, Devon Nails demonstrates severe pain difficulty and inability to ambulate lower extremity weakness again with paresthesias. I have explained to the patient that as their condition progresses it will cause further neurological deficits and eventual paralysis. Based on the patients im aging, physical exam, and the rapid progression and disabling nature of their symptoms, at this time I recommend surgery in the form or a: Open treatment L1-2 fracture with stabilization decompression, washout with revision. I discussed the risk and benefits of this procedure at length with Devon Nails and his daughter over the phone. The patient and his daughter who is now deep POA agreed to considered pursuing the procedure abovementioned. Prior to surgery, she should follow up with her PCP (Cardio, ID, IM etc) for clearance. Questions were invited and answered, and the patient wishes to proceed as outlined below. Currently, I am recommendin. Revision surgery with open treatment L2-3 fracture stabilization and decompression Description of Procedure: The patient was seen and examined in the preoperative area. All preoperative protocols were followed. Informed consent was obtained risks and benefits of the procedure were discussed at length. Risks including bleeding infection damage to the surrounding tissue and risk of reoperation were discussed with the patient. Risk of anesthesia up to and including was a discussed with the patient. These are outlined in the risk review. They were willing to accept these risks and all of the risks of surgery. The patient was given a weight- based dose of antibiotics in the form of vancomycin weight-based dose and gentamicin 80 g. The patient was seen and evaluated by the anesthesia team who deemed them fit for surgery. The site was marked, the patient was willing to proceed with the procedure. The patient was transferred to the operative suite by the Department of anesthesia. They were then drifted off to sleep by the department anesthesia and GETA was performed. The patient tolerated this well. Lopez catheter was placed by nursing staff, atraumatically. Once confirmation of lines and ventilation the patient was transferred to a prone Biju table very carefully. All bony prominences including wrists, elbows, axilla, chest, hips, and thighs, and feet were padded very well. Special attention was paid to the genitalia and these were padded accordingly. SCDs were placed on bilateral lower extremities a nd were connected. Arms were well padded and placed on arm boards up and out in the 90/90 position. Once in position, again we confirmed good ventilation capabilities and that lines were running appropriately. The patient's lumbar spine was then exposed. 1010s were placed outlining the incision site. Standard alcohol was used to clean the incision site and allowed to dry. C-arm was used to biomark the patient and confirm level for incision which was marked with a skin marker. Operative briefing was performed with all teams and everyone in agreement to proceed. The patient was then prepped and draped in a normal sterile fashion. Timeout was then performed and all parties were in agreement with the procedure to be performed. Skin incision was made over the previously bio marked area midline and taken down. This skin neck was made large amount of purulent fluid was expressed from the area. This was cultured superficially. Dissection was taken down to the fascia which was identified and still intact sutures removed from this area entirely. Fascia was then incised and suture removed. There is a large fluid collection in this area which was a mixture of serous sanguinous and purulent material. Deep cultures were taken as well. The area was thoroughly debrided skin and soft tissue muscle and bone of any of this purulent material and epidural abscess material. The area was inspected hardware is in good position. On the left side at L3 pedicle and fractured however the screw was still stable. Set screws and rods were removed heads of the screws were removed as well screw shanks were left there in good position. Once this was accomplished the wound was copiously irrigated and debrided once again using Ancef irrigation gentamicin irrigation and an Irricept irrigant. Once a thorough debridement and irrigation had been completed we proceeded to open treatment of the fracture. The tracker for the ProtonMail navigation was placed on the spinous process of L2 and a 3-D intraoperative computed tomography scan is registered. Once it was confirmed to be accurate screws were placed at L1 and L2 bilaterally using a navigated bur followed by a navigated all tapped followed by a navigated screwdriver placing intramedullary screw. In between each step a ball-tipped probe was used to ensure within the pedicle and this was confirmed. Once screws were placed AP and lateral confirmed good placement of screws were then tested with neuro monitoring and all tested above 20 mA. We then copiously irrigated the wound once again with Ancef irrigation gentamicin irrigation and a Betadine irrigation thorough debridement was again done of the skin soft tissue and bone using curettes. We then proceeded to the L2-3 interbody region. There was severe fishmouthing with retrolisthesis of this area and we wanted to investigate make sure that there is no epidural abscess formation anteriorly or within the disc space. Bilateral laminectomy complete facetectomy and f oraminotomy was performed at L2-L3 with laminectomy medial facetectomy and foraminotomies done at L1-L2. This was done with a high-speed bur. Once this was completed we attempted to access the disc space bilaterally however there is exuberant scar tissue formation on the right-hand side which prevented this as there was tethering of the nerve root. On the left side we were able to access the disc space. Once accessed there was purulent material that was expressed from the disc space along with disc material and bloody material from the fracture. The disc space was thoroughly irrigated and cleaned of any disc material or purulent material. Devon were used to remove further endplates or disc which was infected. A [place] 4 was used and passed anterior to the thecal sac which allowed for decompression anteriorly of any fluid collection and purulent material in this area. The disc space was thoroughly irrigated with a Betadine solution as well as Irricept and Ancef and gentamicin irrigation. Once this was accomplished a temporary sal was placed as there was severe instability here due to the fracture and it was distracted off of to help with reduction. We then placed a mixture of stimulan which had tobramycin and gentamycin mixed in it anteriorly within the disc space for antibiotic placement within the disc space. We then selected a globus rise cage in place to this. This was intentionally placed more posteriorly to allow for reduction of this fractured segment. We expanded the cage sequentially under lateral fluoroscopic guidance as well as the disc prep and debridement done. It expanded and met the endplates well the slotted for reduction of the fracture. He was expanded until it was torque limited. The cage was tested and it was stable. [employer] was removed. Neural elements were intact and were protected the entire time. The segment was much more stable after this placement. The wound was then thoroughly irrigated once again and debrided of any further tissue this irrigation was done with Ancef and gentamicin irrigation as well as a Betadine solution. We were then able to place heads on the screws and these were secured. A sal was then placed on the left-hand side it was bent and cut appropriately. Set screws were placed which allowed for maintenance of reduction. Temporary sal was then removed from the right hand side. Heads were then placed on screws on the right-hand side. Sal was then selected bent and placed appropriately on the right-hand side as well. 5 set screws were final tightened and cross-links were placed over the fracture site as well as the laminectomy site. The wound was then irrigated with Irricept once again followed by a normal sterile saline solution. A Betadine solution was then placed and allowed to sit for 1 minute. This was then irrigated with normal sterile saline. Final irrigation with a gentamicin Ancef and normal sterile saline solution. In total we ran 16 L of irrigant fluid through the wound. We then placed a deep drain subfascially out a separate incision. Stimuli and beads were placed deep within the wound. Ventris Contour and Arthrocell were placed in the PL gutters for fusion after TP decorticating with high speed oscar. We then proceeded to layered closure. The deep fascial layer was closed with #1 PDS followed by running #1 PDS strata fix. This provided a watertight closure. Vancomycin powder was then placed within the wound. Wound edges were then freshened with a 10 blade for better healing. Deep subcu tissue was closed with 0 PDS superficial subcu tissue closed with a running 0 PDS strata fix. Skin was then closed with a trauma running 2-0 nylon. Wound edges approximated very well. The drain was sewn into place with 0 PDS. The wound was then cleaned with alcohol and dried and dressed sterilely with Adaptic ABDs and foam tape The patient was transferred back to their hospital bed atraumatically. Drain continued to hold suction and were in good position. Patient was then awakened and extubated by the department of anesthesia having tolerated the procedure very well with no complications. They were transferred to the postoperative ca re unit in stable condition. Post operatively, pt was stable in the PACU. VSS and was waking up. Not following commands yet. He will be Transferred to the floor when awake and stable per anesthesia and PACU staff. We will obtain non contrasted CT of lumbar spine when he is awake. ID was contacted to make aware of findings interoperative. Medicine is aware and will see the patient.
[2023-04-18 07:30] LABS: ALT 11 U/L (4-49); AST 20 U/L (17-59); African American GFR (CKD) 89 (>60 ml/min/1.73 sqM); Albumin 2.3 g/dL (3.5-5.0); Albumin/Globulin Ratio 0.8; Alkaline Phosphatase 71 U/L (38-126); Anion Gap 9 mmol/L; Blood Urea Nitrogen 30 mg/dL (9-20); Calcium 8.6 mg/dL (8.4-10.2); Carbon Dioxide 20 mmol/L (22-30); Chloride 110 mmol/L (98-107); Globulin 2.8 g/dL; Glucose 190 mg/dL (74-99); Non-African American GFR(CKD) 77 (>60 ml/min/1.73 sqM); Potassium 3.8 mmol/L (3.5-5.1); Sodium 139 mmol/L (137-145); Total Bilirubin 0.7 mg/dL (0.2-1.3); Total Protein 5.1 g/dL (6.3-8.2)
[2023-04-18] MEDS: HYDROmorphone 0.5 MG/0.5 ML SYRINGE IVP PRN (08:11)
[2023-04-18 08:37] LABS: Basophils # (A) 0.02 X 10*3/uL (0.00-0.10); Basophils % (A) 0.2 %; Eosinophils # (A) 0.01 X 10*3/uL (0.04-0.35); Eosinophils % (A) 0.1 %; HCT 26.7 % (39.6-50.0); HGB 8.9 g/dL (13.0-17.0); Lymphocytes # (A) 0.69 X 10*3/uL (0.90-5.00); Lymphocytes % (A) 7.9 %; MCH 30.1 pg (27.0-32.0); MCHC 33.3 g/dL (32.0-37.0); MCV 90.2 FL (80.0-97.0); Mean Platelet Volume 10.9 FL (9.5-12.2); Monocytes # (A) 0.86 X 10*3/uL (0.20-1.00); Monocytes % (A) 9.8 %; NRBC Per 100 WBC 0 X 10*3/uL (0.00-0.01); Neutrophils # (A) 7.06 X 10*3/uL (1.80-7.70); Neutrophils % (A) 80.9 %; Platelet Count 211 X 10*3/uL (140-440); RBC 2.96 X 10*6/uL (4.40-5.60); RDW 13.1 % (11.5-14.5); WBC 8.74 X 10*3/uL (4.50-10.00)
--- NOTE | 2023-04-18 08:37 | CT ---
EXAMINATION TYPE: CT lumbar spine wo con CT DLP: 2470.1 mGycm, Automated exposure control for dose reduction was used. DATE OF EXAM: 04/17/2023 11:59 PM COMPARISON: 04/12/2023. CLINICAL INDICATION:Male, 67 years old with history of s/p L1-S1 decompr fusion; PHH, S/P L1-S1 decom pression fusion. TECHNIQUE: Multiple axial images were obtained from the midportion of T11 through the sacroiliac juanita nts. Soft tissue and bone windows in coronal and sagittal planes were obtained and reviewed. Contrast used: mL of , (None, if empty). Oral contrast used: (None, if empty). FINDINGS: 1. Postsurgical changes to the lumbar spine with fixation hardware at L1-S1. Discectomy at L2-L3, L5- S1. Packing material is seen throughout the surgical bed. Hardware limits evaluation at these levels. Hardware appears intact. No evidence of Fracture there remains wedge compression fracture of L3 superior endplate as seen on prior. Postsurgical changes in the soft tissues with foci of gas present. Drainage catheter with tubing in t he surgical bed. Posterior back skin elizabeth are present. Nodular contour to liver compatible with cirrhosis. Nonobstructing left renal calculus measuring up t o 9 mm. IMPRESSION: Postsurgical changes without evidence of immediate post operative complication.
--- NOTE | 2023-04-18 09:26 | P.PN ---
Subjective Progress Note Date: 04/18/23 Principal diagnosis: 1. L2-3 AO type B3 fracture, Extension, Unstable above L3-S1 fusion 2. Left L3 pedicle fracture 3. Epidural abscess 4. Mental status changes, likely sepsis 5. Back pain 6. LE weakness Patient was seen at bedside this morning and was sitting up at the edge of bed with PT/OT. Patient says he is feeling better now than he was prior to surgery. Patient says he does get increased pain when he does move. Patient states the pain is mostly located to the low back in the middle. Patient denies radiation of pain. Lopez is in place currently. Hemovac drain is lower lumbar spine. Patient says he is looking forward to working with therapy daily. Patient denies any other issues at this time. Patient denies chest pain, fever, shortness breath, nausea, vomiting, change in vision. Objective - Vital Signs Vital signs: Vital Signs Temp 99.4 F 04/18/23 07:05 Pulse 101 H 04/18/23 07:05 Resp 18 04/18/23 07:05 BP 103/74 04/18/23 07:05 Pulse Ox 97 04/18/23 07:05 FiO2 Intake & Output 04/17/23 04/18/23 04/18/23 18:59 06:59 18:59 Intake Total 1804 Output Total 1450 740 Balance 354 -740 Weight 77.111 kg Intake: IV 1804 Output: Drainage 140 BACK Back 140 Urine 1200 600 Estimated Blood Loss 250 Other: Voiding Method Indwelling Catheter - Exam Inspection: Negative for any open fractures. Large bruise noted over the left forearm and elbow. Surgical incision to the lumbar spine, edges are well- approximated with nylon sutures intact. No active drainage. Hemovac drain in place Sensation: Sensation is equal, symmetric, bilaterally intact throughout the upper and lower extremities Palpation: moderate tenderness to palpation directly over incision on lumbar spine. Nontender to palpation throughout bilateral upper and lower extremities and throughout rest of exam. Range of motion: Patient does have full range of motion bilateral upper and lower extremities on exam Motor: 5/5 in all major motor groups in the bilateral upper and 4/5 in lower extremities, RLE 4-/5 plantar flexion Special tests: Negative Homans bilaterally. Negative Tiesha bilaterally. Negative clonus bilaterally. Neurovascular: Radial pulse intact, 2+ bilaterally. Cap refill under 3 seconds in digits upper extremities. - Labs CBC & Chem 7: 04/18/23 05:58 04/18/23 05:58 Labs: Abnormal Lab Results - Last 24 Hours (Table) 04/17/23 04/17/23 04/17/23 Range/Units 13:15 13:15 13:15 RBC 3.66 L (4.30-5.90) m/uL Hgb 11.4 L (13.0-17.5) gm/dL Hct 32.9 L (39.0-53.0) % Immature Gran # (0.00-0.04) X 10*3/uL Lymphocytes # (0.90-5.00) X 10*3/uL Eosinophils # (0.04-0.35) X 10*3/uL ABG pO2 261 H (83-108) mmHg ABG Total CO2 27 H (19-24) mmol/L ABG O2 Saturation >100.0 H (94-97) % Chloride 108 H (98-107) mmol/L Carbon Dioxide (22-30) mmol/L BUN 26 H (9-20) mg/dL Glucose 163 H (74-99) mg/dL POC Glucose (mg/dL) (70-110) mg/dL Total Protein (6.3-8.2) g/dL Albumin (3.5-5.0) g/dL 04/17/23 04/17/23 04/18/23 Range/Units 17:27 21:20 05:57 RBC (4.30-5.90) m/uL Hgb (13.0-17.5) gm/dL Hct (39.0-53.0) % Immature Gran # (0.00-0.04) X 10*3/uL Lymphocytes # (0.90-5.00) X 10*3/uL Eosinophils # (0.04-0.35) X 10*3/uL ABG pO2 (83-108) mmHg ABG Total CO2 (19-24) mmol/L ABG O2 Saturation (94-97) % Chloride (98-107) mmol/L Carbon Dioxide (22-30) mmol/L BUN (9-20) mg/dL Glucose (74-99) mg/dL POC Glucose (mg/dL) 204 H 185 H 201 H (70-110) mg/dL Total Protein (6.3-8.2) g/dL Albumin (3.5-5.0) g/dL 04/18/23 04/18/23 Range/Units 05:58 05:58 RBC 2.96 L (4.30-5.90) m/uL Hgb 8.9 L (13.0-17.5) gm/dL Hct 26.7 L (39.0-53.0) % Immature Gran # 0.10 H (0.00-0.04) X 10*3/uL Lymphocytes # 0.69 L (0.90-5.00) X 10*3/uL Eosinophils # 0.01 L (0.04-0.35) X 10*3/uL ABG pO2 (83-108) mmHg ABG Total CO2 (19-24) mmol/L ABG O2 Saturation (94-97) % Chloride 110 H (98-107) mmol/L Carbon Dioxide 20 L (22-30) mmol/L BUN 30 H (9-20) mg/dL Glucose 190 H (74-99) mg/dL POC Glucose (mg/dL) (70-110) mg/dL Total Protein 5.1 L (6.3-8.2) g/dL Albumin 2.3 L (3.5-5.0) g/dL Microbiology - Last 24 Hours (Table) 04/15/23 11:05 Blood Culture - Preliminary Blood 04/15/23 11:05 Blood Culture Gram Stain - Preliminary Blood Blood Culture - Preliminary Gram Neg Bacilli Assessment and Plan Assessment: 1. L2-3 AO type B3 fracture, Extension, Unstable above L3-S1 fusion 2. Left L3 pedicle fracture 3. Epidural abscess 4. Mental status changes, likely sepsis 5. Back pain 6. LE weakness Postoperative day 1 status post 1. Open treatment L2-3 fracture 2. Posteriolateral and interbody fusion L2-3 3. L1-2 posterolateral instrumented fusion 4. Revision L1-S1 instrumentation 5. L1-3 bilateral laminectomy, facetectomy and foraminotomy with epidural abscess evacuation, neural element decompression Plan: 1. L2-3 AO type B3 fracture, Extension, Unstable above L3-S1 fusion; Left L3 pedicle fracture; Epidural abscess; Mental status changes, likely sepsis; Back pain; LE weakness - surgery performed yesterday, , 04/17/2023 Open treatment L2-3 fracture; Posteriolateral and interbody fusion L2-3; L1-2 posterolateral instrumented fusion; Revision L1-S1 instrumentation; L1-3 bilateral laminectomy, facetectomy and foraminotomy with epidural abscess evacuation, neural element decompression. Postoperative computed tomography scan of lumbar spine shows hardware that appears to be stable and intact. Continue work with PT/OT daily. Sit up at edge og the bed and possibly in the chair this weekend. Maintain Hemovac drain to full suction at this time. Plan for dressing change tomorrow or Friday. We will continue to follow patient during stay in hospital. Plan for discharge to rehab next week once cultures are back. 2. Appreciate medical and ID management - cultures pending at this time; antibiotics per infectious disease 3. Pain management - [place]; Flexeril; gabapentin; Dilaudid 4. GI prophylaxis - senna; milk of magnesia 5. DVT prophylaxis - mechanical; aspirin 6. PT/OT - weightbearing as tolerated with walker and assistance and TLSO brace on while up and about 7. Encourage incentive spirometer use Time with Patient: Less than 30
--- NOTE | 2023-04-18 09:53 | P.PN ---
Subjective 67-year-old gentleman with recent L3 to S1 decompression and fusion presented emergency department because of confusion. Some of the history is obtained from medical record. It seems that the patient was at a nursing rehab facility and he had the confusion. Patient had a recent lumbar decompression and fusion and this seems she is a significant facility and is documented that the caregiver states he has been having some issues receiving medication the morning and symptoms were worse yesterday per the staff. Per the ED and the team's note. He was confused but does have periods of time of clearing thoughts. Patient does not recall what transpired but states he is having significant lower back pain and states that his legs gave out. He denies any bladder or bowel issues. He feels his hip his pain mostly left more than the right and he could not come there is any radiation. He was having some numbness in the feet. Denies any history of stroke or seizures in the past. Denies of any fevers. Patient is on oxycodone, Robaxin, Cymbalta. Patient is on eliquis as well as aspirin as no medication. Initial white blood cells 11.13 thousand that normalized. The glucose has been in the range of initially on presentation was in the 200s and currently it's in the 140s to 170s. Odium was 136, creatinine is 1.35, BUN is 45, hemoglobin A1c 10.1 Plasma lactic acid venous 1.5. Ammonia is 44. EKG is reported as age are fibrillation. Left axis deviation. CT of the head is reported as similar mild intra-or megaly likely due to central cerebral atrophy. Correlate to exclude component of NPH. Mild burden of chronic small vessel ischemic disease. No acute intracranial abnormality seen. I personally reviewed the CT the head and I feel there is no acute subacute ischemia. There is no bleed. I agree that cerebral atrophy seems more due to the cerebral atrophy. CT abdomen and pelvis is reported as 1.1 cm nonobstructive the left renal stone. 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 nodularity of the liver. Correlate for any known diagnosis of underlying cirrhosis. GI referral if not established diagnosis. Recent L3-S1 posterior lumbar fusion changes with laminectomies extending up to the L2 level. Here the L2 level there appears to be fluid collection measuring 5.5 wide within the laminectomy bed, possible postoperative seroma. Follow-up as clinically indicated. Other fluid collection not excluded this time. An additional small fluid and air collection measuring 2.1 just deep to the superimposed skin elizabeth within the subcutaneous fat layer. 04/13/2023 Patient is seen and evaluated resting in bed; continues to report uncontrolled pain Vital signs are reviewed and are stable with temperature of 98, pulse 81, respiration 19, blood pressure 134/89 and O2 saturation 96% on room air Labs revealed WBC 6.27, hemoglobin 11.5 and platelet count of 243, sodium 137, potassium 4.7, BUN 35.4, creatinine 1.2, blood glucose ranging between 1 42-84 --We will add NovoLog 5 units subcu with each meal -Patient has been evaluated by orthopedic surgery and MRI of the spine is recommended -- PT OT consulted 04/14/2023 Patient alert awake oriented, he is just confused about the exact date but he knows the year. He has insight. Cystoscopy complaining from significant back pain Neurology and orthopedic team on the case. Gentle normal saline Creatinine mildly elevated but improving, we will consult nephrology line physical therapy recommends subacute rehab which is pending. 04/15/2023 She is sleeping today, still complained from significant back pain he had MRI of the lumbar spine done yesterday showing large paraspinal cyst suspicious for abscess 9.7 x 3.1 x 12.7 cm with thecal sac in his bed of the level of L2 and vertebral disc protrusion with fracture of the L3 superior endplate with severe spinal stenosis orthopedic team on the case Also we'll check ESR and CRP and consult infectious disease team. Currently he is not on antibiotic yet. Patient with no fever or leukocytosis His continued normal saline 75 mL 04/16/2023 Patient still at bedrest with severe back pain secondary to abnormal CAT scan showing possible abscess and fracture and lumbar spine at the level of L2-L3. Patient scheduled for orthopedic surgery for his lumbar spine tomorrow on 04/17. A is for his A. fib is on hold. Patient already evaluated by bundle breaker and recommended to continue with the current medication and to resume Eliquis after surgery. His heart regular blood pressure is controlled currently on Coreg at 12.5 mg compared to home dose of 6.25 mg. Patient with Proteus bacteremia, currently covered with Rocephin 2 g daily most likely source is paraspinal abscess. Infectious disease input is appreciated. Neurology and orthopedic input is noted 04/17/2023 Patient underwent surgery for his lumbar spine. He is going for ( Revision surgery with open treatment L1-2 fracture stabilization and decompression ) . Today postop day #0 Postsurgery history of drinking up slowly Hemodynamically stable Patient has bacteremia with gram-negative bacilli most likely Proteus, most likely the source is paraspinal fluid collection, rule out abscess pending wound culture Patient covered with ceftriaxone. ESR and CRP are elevated 04/18/2023 Patient awake alert at baseline. He is status post ( Revision surgery with open treatment L1-2 fracture stabilization and decompression ) today's postop day #1 He still complaining from back pain but looks better, he rated about 60-7/10 in severity, no radiation to the leg, he is able to flex his legs better than prior to surgery which was in the limitation due to pain He denies any other specific symptoms no chest pain or dyspnea, heart rate controlled for his A. fib and his Eliquis resumes was cleared by surgery Remains on ceftriaxone for his gram-negative bacteremia most likely Proteus Objective - Vital Signs Vital signs: Vital Signs Temp 99.4 F 04/18/23 07:05 Pulse 101 H 04/18/23 07:05 Resp 18 04/18/23 07:05 BP 103/74 04/18/23 07:05 Pulse Ox 97 04/18/23 07:05 FiO2 Intake & Output 04/17/23 04/18/23 04/18/23 18:59 06:59 18:59 Intake Total 1804 Output Total 1450 740 Balance 354 -740 Weight 77.111 kg Intake: IV 1804 Output: Drainage 140 BACK Back 140 Urine 1200 600 Estimated Blood Loss 250 Other: Voiding Method Indwelling Catheter - Exam GENERAL: The patient is alert and oriented x3, not in any acute distress. Well developed, well nourished. HEENT: Pupils are round and equally reacting to light. EOMI. No scleral icterus. No conjunctival pallor. Normocephalic, atraumatic. No pharyngeal erythema. No thyromegaly. CARDIOVASCULAR: S1 and S2 present. No murmurs, rubs, or gallops. PULMONARY: Chest is clear to auscultation, no wheezing , no crackles. ABDOMEN: Soft, nontender, nondistended, normoactive bowel sounds. No palpable organomegaly. -MUSCULOSKELETAL: No joint swelling or deformity. Patient refuses back exam because of tenderness EXTREMITIES: No cyanosis, clubbing, or pedal edema. NEUROLOGICAL: Gross neurological examination did not reveal any focal deficits. SKIN: No rashes. no petechiae. - Labs CBC & Chem 7: 04/18/23 05:58 04/18/23 05:58 Labs: Abnormal Lab Results - Last 24 Hours (Table) 04/17/23 04/17/23 04/17/23 Range/Units 13:15 13:15 13:15 RBC 3.66 L (4.30-5.90) m/uL Hgb 11.4 L (13.0-17.5) gm/dL Hct 32.9 L (39.0-53.0) % Immature Gran # (0.00-0.04) X 10*3/uL Lymphocytes # (0.90-5.00) X 10*3/uL Eosinophils # (0.04-0.35) X 10*3/uL ABG pO2 261 H (83-108) mmHg ABG Total CO2 27 H (19-24) mmol/L ABG O2 Saturation >100.0 H (94-97) % Chloride 108 H (98-107) mmol/L Carbon Dioxide (22-30) mmol/L BUN 26 H (9-20) mg/dL Glucose 163 H (74-99) mg/dL POC Glucose (mg/dL) (70-110) mg/dL Total Protein (6.3-8.2) g/dL Albumin (3.5-5.0) g/dL 04/17/23 04/17/23 04/18/23 Range/Units 17:27 21:20 05:57 RBC (4.30-5.90) m/uL Hgb (13.0-17.5) gm/dL Hct (39.0-53.0) % Immature Gran # (0.00-0.04) X 10*3/uL Lymphocytes # (0.90-5.00) X 10*3/uL Eosinophils # (0.04-0.35) X 10*3/uL ABG pO2 (83-108) mmHg ABG Total CO2 (19-24) mmol/L ABG O2 Saturation (94-97) % Chloride (98-107) mmol/L Carbon Dioxide (22-30) mmol/L BUN (9-20) mg/dL Glucose (74-99) mg/dL POC Glucose (mg/dL) 204 H 185 H 201 H (70-110) mg/dL Total Protein (6.3-8.2) g/dL Albumin (3.5-5.0) g/dL 04/18/23 04/18/23 Range/Units 05:58 05:58 RBC 2.96 L (4.30-5.90) m/uL Hgb 8.9 L (13.0-17.5) gm/dL Hct 26.7 L (39.0-53.0) % Immature Gran # 0.10 H (0.00-0.04) X 10*3/uL Lymphocytes # 0.69 L (0.90-5.00) X 10*3/uL Eosinophils # 0.01 L (0.04-0.35) X 10*3/uL ABG pO2 (83-108) mmHg ABG Total CO2 (19-24) mmol/L ABG O2 Saturation (94-97) % Chloride 110 H (98-107) mmol/L Carbon Dioxide 20 L (22-30) mmol/L BUN 30 H (9-20) mg/dL Glucose 190 H (74-99) mg/dL POC Glucose (mg/dL) (70-110) mg/dL Total Protein 5.1 L (6.3-8.2) g/dL Albumin 2.3 L (3.5-5.0) g/dL Microbiology - Last 24 Hours (Table) 04/15/23 11:05 Blood Culture - Preliminary Blood 04/15/23 11:05 Blood Culture Gram Stain - Preliminary Blood Blood Culture - Preliminary Gram Neg Bacilli Assessment and Plan Assessment: 1. Altered mental status; likely toxic metabolic encephalopathy related to JEAN MARIE, hyperammonemia, and infection --Polypharmacy including oxycodone, Robaxin and Cymbalta -- All medications have been placed on hold -- Patient remains on IV fluid hydration - Neurology is consulted for further recommendations -Improved to baseline 2. Lower back pain; patient has history of recent L3-S1 decompression and fusion , he is status post (Revision surgery with open treatment L1-2 fracture stabilization and decompression on 04/17) -- MRI showing large paraspinal cyst suspicious for abscess 9.7 x 3.1 x 12.7 cm with thecal sac in his bed of the level of L2 and vertebral disc protrusion with fracture of the L3 superior endplate with severe spinal stenosis - orthopedic and infectious disease consult 3. Proteus bacteremia - most likely secondary to his spinal disease and infection , including 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 - ESR and CRP are elevated - on Rocephin - Infectious disease consult on the case 4. Hyperglycemia without acidosis/diabetes mellitus with long-term insulin use -- We will monitor Accu-Cheks before every meal and at bedtime with insulin sliding scale -Resume home dose of Lantus 10 units subcu daily once oral intake is established 5. Atrial fibrillation; continue with rate control with Coreg 12.5 mg twice daily; continue with current anticoagulation therapy 6. Hypertension; Coreg 12.5 mg Increased to 12.5 mg twice daily 7. Peripheral neuropathy; patient takes gabapentin 800 mg every 8 hours which has been placed on hold due to altered mental status and JEAN MARIE 8. Acute renal injury; BUNs/creatinine elevated at 45/1.35 upon admission -- resolved DVT prophylaxis; SCDs/anticoagulation CODE STATUS; full code
--- NOTE | 2023-04-18 10:47 | P.PN ---
Subjective Progress Note Date: 04/18/23 This is a pleasant 67-year-old gentleman with a past medical history of hypertension, hyperlipidemia, diabetes type 2, atrial fibrillation on Eliquis, COPD, tobacco use and dependence. He does not follow with a ceo and co founder. He presented to the hospital on 04/11/2023 with complaints of confusion status post recent back surgery. He underwent L3-S1 decompression and fusion on 03/28/2023. Confusion was felt to be related to pain medications but he did have multiple falls at the subacute rehab facility. He was seen by orthopedic spine and MRI of the lumbar spine revealed unstable fracture that required additional surgical intervention and his Eliquis was placed on hold. He underwent surgery by Dr. Shona wright yesterday. Overall he is feeling better in regards to his back. His mental status has improved. Heart rate is well-controlled. His Eliquis remains on hold. Objective - Vital Signs Vital signs: Vital Signs Temp 99.4 F 04/18/23 07:05 Pulse 101 H 04/18/23 07:05 Resp 18 04/18/23 07:05 BP 103/74 04/18/23 07:05 Pulse Ox 97 04/18/23 07:05 FiO2 Intake & Output 04/17/23 04/18/23 04/18/23 18:59 06:59 18:59 Intake Total 1804 Output Total 1450 740 Balance 354 -740 Weight 77.111 kg Intake: IV 1804 Output: Drainage 140 BACK Back 140 Urine 1200 600 Estimated Blood Loss 250 Other: Voiding Method Indwelling Catheter Indwelling Catheter # Bowel Movements 1 - Exam Gen: This is a 67-year-old male appears to be in no acute distress. VS: Reviewed HEENT: Head is atraumatic, normocephalic. Pupils equal, round. Sclerae is anicteric. NECK: Supple. No JVD. LUNGS: Clear to auscultation. No wheezes or rhonchi. HEART: Irregular rate and rhythm. Systolic murmur. ABDOMEN: Soft No tenderness. EXTREMITIES: No pedal edema. No calf tenderness. NEUROLOGICAL: Patient is awake, alert and oriented x3. - Labs CBC & Chem 7: 04/18/23 05:58 04/18/23 05:58 Labs: Abnormal Lab Results - Last 24 Hours (Table) 04/17/23 04/17/2324 Range/Units 13:15 13:15 13:15 RBC 3.66 L (4.30-5.90) m/uL Hgb 11.4 L (13.0-17.5) gm/dL Hct 32.9 L (39.0-53.0) % Immature Gran # (0.00-0.04) X 10*3/uL Lymphocytes # (0.90-5.00) X 10*3/uL Eosinophils # (0.04-0.35) X 10*3/uL ABG pO2 261 H (83-108) mmHg ABG Total CO2 27 H (19-24) mmol/L ABG O2 Saturation >100.0 H (94-97) % Chloride 108 H (98-107) mmol/L Carbon Dioxide (22-30) mmol/L BUN 26 H (9-20) mg/dL Glucose 163 H (74-99) mg/dL POC Glucose (mg/dL) (70-110) mg/dL Total Protein (6.3-8.2) g/dL Albumin (3.5-5.0) g/dL 04/17/23 04/17/23 04/18/23 Range/Units 17:27 21:20 05:57 RBC (4.30-5.90) m/uL Hgb (13.0-17.5) gm/dL Hct (39.0-53.0) % Immature Gran # (0.00-0.04) X 10*3/uL Lymphocytes # (0.90-5.00) X 10*3/uL Eosinophils # (0.04-0.35) X 10*3/uL ABG pO2 (83-108) mmHg ABG Total CO2 (19-24) mmol/L ABG O2 Saturation (94-97) % Chloride (98-107) mmol/L Carbon Dioxide (22-30) mmol/L BUN (9-20) mg/dL Glucose (74-99) mg/dL POC Glucose (mg/dL) 204 H 185 H 201 H (70-110) mg/dL Total Protein (6.3-8.2) g/dL Albumin (3.5-5.0) g/dL 04/18/23 04/18/23 Range/Units 05:58 05:58 RBC 2.96 L (4.30-5.90) m/uL Hgb 8.9 L (13.0-17.5) gm/dL Hct 26.7 L (39.0-53.0) % Immature Gran # 0.10 H (0.00-0.04) X 10*3/uL Lymphocytes # 0.69 L (0.90-5.00) X 10*3/uL Eosinophils # 0.01 L (0.04-0.35) X 10*3/uL ABG pO2 (83-108) mmHg ABG Total CO2 (19-24) mmol/L ABG O2 Saturation (94-97) % Chloride 110 H (98-107) mmol/L Carbon Dioxide 20 L (22-30) mmol/L BUN 30 H (9-20) mg/dL Glucose 190 H (74-99) mg/dL POC Glucose (mg/dL) (70-110) mg/dL Total Protein 5.1 L (6.3-8.2) g/dL Albumin 2.3 L (3.5-5.0) g/dL Microbiology - Last 24 Hours (Table) 04/15/23 11:05 Blood Culture - Preliminary Blood 04/15/23 11:05 Blood Culture Gram Stain - Preliminary Blood Blood Culture - Preliminary Gram Neg Bacilli Assessment and Plan Assessment: Chronic atrial fibrillation Unstable L3 vertebral fracture with epidural abscess and likely component of sepsis, status post surgical intervention on 04/17/2023 Hypertension Hyperlipidemia Diabetes mellitus type 2 COPD Tobacco use and dependence, recently quit Plan: From cardiology's perspective medications were reviewed and we will continue the same. From our standpoint we will follow the patient on an as needed basis. Pl ease resume Eliquis 5 mg p.o. twice daily once cleared by orthopedic surgeon. LAB PACK CHEMIST note has been reviewed, I agree with a documented findings and plan of care. Patient was seen and examined.
[2023-04-18 11:15] LABS: Glucose,Whole Blood 297 mg/dL (70-110)
--- NOTE | 2023-04-18 13:01 | P.PN ---
Subjective Progress Note Date: 04/18/23 Principal diagnosis: Reason for follow-up is bacteremia and lumbar spine abscess Patient is a 67-year-old male with a past medical history significant for diabetes mellitus hypertension COPD atrial fibrillation in this patient who recently did have extensive lumbosacral spine surgery, patient was brought back to the hospital on 04/11/2023 for evaluation of confusion, workup did include MRI of the lumbar spine with evidence of extensive edema and large fluid collection some air bubbles with a question of possible seroma versus abscess, patient did have blood cultures drawn on 04/15/2023 which came back positive with a Proteus species. Patient is status post I&D of the lumbar surgical site and drainage of the epidural abscess and decompression culture obtained procedure was completed on 04/17/2023. On today's evaluation that is 04/18/2023, the patient is afebrile, patient is on room air, the patient denies chest pain shortness of breath or cough, patient denies nausea no vomiting no abdominal pain and no diarrhea, still complaining of pain to the lower back area. The patient white count is 8.74, creatinine is 1.02 blood culture with Proteus mirabilis while cultures are pending Objective - Vital Signs Vital signs: Vital Signs Temp 99.4 F 04/18/23 07:05 Pulse 101 H 04/18/23 07:05 Resp 18 04/18/23 07:05 BP 103/74 04/18/23 07:05 Pulse Ox 97 04/18/23 07:05 FiO2 Intake & Output 04/17/23 04/18/23 04/18/23 18:59 06:59 18:59 Intake Total 1804 Output Total 1450 740 Balance 354 -740 Weight 77.111 kg Intake: IV 1804 Output: Drainage 140 BACK Back 140 Urine 1200 600 Estimated Blood Loss 250 Other: Voiding Method Indwelling Catheter Indwelling Catheter # Bowel Movements 1 - Exam GENERAL DESCRIPTION: An elderly male lying in bed in no distress RESPIRATORY SYSTEM: Unlabored breathing , decreased breath sounds at bases HEART: S1 S2 regular rate and rhythm , ABDOMEN: Soft , no tenderness EXTREMITIES: No edema feet - Labs CBC & Chem 7: 04/18/23 05:58 04/18/23 05:58 Labs: Abnormal Lab Results - Last 24 Hours (Table) 04/17/23 04/17/23 04/17/23 Range/Units 13:15 13:15 13:15 RBC 3.66 L (4.30-5.90) m/uL Hgb 11.4 L (13.0-17.5) gm/dL Hct 32.9 L (39.0-53.0) % Immature Gran # (0.00-0.04) X 10*3/uL Lymphocytes # (0.90-5.00) X 10*3/uL Eosinophils # (0.04-0.35) X 10*3/uL ABG pO2 261 H (83-108) mmHg ABG Total CO2 27 H (19-24) mmol/L ABG O2 Saturation >100.0 H (94-97) % Chloride 108 H (98-107) mmol/L Carbon Dioxide (22-30) mmol/L BUN 26 H (9-20) mg/dL Glucose 163 H (74-99) mg/dL POC Glucose (mg/dL) (70-110) mg/dL Total Protein (6.3-8.2) g/dL Albumin (3.5-5.0) g/dL 04/17/23 04/17/23 04/18/23 Range/Units 17:27 21:20 05:57 RBC (4.30-5.90) m/uL Hgb (13.0-17.5) gm/dL Hct (39.0-53.0) % Immature Gran # (0.00-0.04) X 10*3/uL Lymphocytes # (0.90-5.00) X 10*3/uL Eosinophils # (0.04-0.35) X 10*3/uL ABG pO2 (83-108) mmHg ABG Total CO2 (19-24) mmol/L ABG O2 Saturation (94-97) % Chloride (98-107) mmol/L Carbon Dioxide (22-30) mmol/L BUN (9-20) mg/dL Glucose (74-99) mg/dL POC Glucose (mg/dL) 204 H 185 H 201 H (70-110) mg/dL Total Protein (6.3-8.2) g/dL Albumin (3.5-5.0) g/dL 04/18/23 04/18/23 04/18/23 Range/Units 05:58 05:58 11:13 RBC 2.96 L (4.30-5.90) m/uL Hgb 8.9 L (13.0-17.5) gm/dL Hct 26.7 L (39.0-53.0) % Immature Gran # 0.10 H (0.00-0.04) X 10*3/uL Lymphocytes # 0.69 L (0.90-5.00) X 10*3/uL Eosinophils # 0.01 L (0.04-0.35) X 10*3/uL ABG pO2 (83-108) mmHg ABG Total CO2 (19-24) mmol/L ABG O2 Saturation (94-97) % Chloride 110 H (98-107) mmol/L Carbon Dioxide 20 L (22-30) mmol/L BUN 30 H (9-20) mg/dL Glucose 190 H (74-99) mg/dL POC Glucose (mg/dL) 297 H (70-110) mg/dL Total Protein 5.1 L (6.3-8.2) g/dL Albumin 2.3 L (3.5-5.0) g/dL Microbiology - Last 24 Hours (Table) 04/17/23 15:45 Gram Stain - Preliminary Back 04/17/23 15:45 Gram Stain - Preliminary Back 04/15/23 11:05 Blood Culture Gram Stain - Final Blood Blood Culture - Final Proteus mirabilis 04/15/23 11:05 Blood Culture - Preliminary Blood Assessment and Plan (1) Bacteremia Current Visit: Yes Status: Acute Code(s): R78.81 - BACTEREMIA SNOMED Code(s): 1966327 (2) Abnormal MRI, lumbar spine Current Visit: Yes Status: Acute Code(s): R93.7 - ABNORMAL FINDINGS ON DIAGNOSTIC IMAGING OF PRT MS SYS SNOMED Code(s): 827572518 Plan: 1patient with extensive abnormality seen on the MRI of the lumbar sacral spine in this patient who is postop with recent extensive surgery to the lumbar sacral spine on 03/28/2022 now admitted to the hospital with confusion however the patient did not have any fever or elevated white count during this hospital stay with concern for possible postop seroma versus hematoma less likely abscess as the patient does not look toxic did not have any fever or elevated white count 2-patient blood cultures came back positive with a Proteus species source is likely lumbar sacral spine fluid collection, patient is status post I&D of the lumbosacral spine with a drainage of the epidural abscess cultures obtained which are currently pending 3-patient to continue with Rocephin and blood cultures will be repeated to document clearance before placement of a PICC line for outpatient IV antibiotic Dictation was produced using [employer] dictation software. please excuse any grammatical, word or spelling errors. Time with Patient: Less than 30
[2023-04-18 17:07] LABS: Glucose,Whole Blood 342 mg/dL (70-110)
[2023-04-18 20:10] LABS: Glucose,Whole Blood 380 mg/dL (70-110)
[2023-04-19] MEDS: LACTATED RINGERS 1,000 ML IV SCH (06:24)
[2023-04-19 06:25] LABS: Glucose,Whole Blood 199 mg/dL (70-110)
[2023-04-19] MEDS: DEXAMETHASONE SOD PHOSPHATE 4 MG/ML 1 ML VIAL IV ONE (07:12)
[2023-04-19] MEDS: ONDANSETRON 4 MG/2 ML VIAL IVP ONE (07:13)
--- NOTE | 2023-04-19 07:56 | P.PN ---
Subjective Progress Note Date: 04/19/23 Principal diagnosis: 1. L2-3 AO type B3 fracture, Extension, Unstable above L3-S1 fusion 2. Left L3 pedicle fracture 3. Epidural abscess 4. Mental status changes, likely sepsis 5. Back pain 6. LE weakness Patient was seen at bedside this morning lying semirecumbent position with Lopez and Hemovac drain in place. Patient says therapy did go well yesterday. Patient says he is looking forward to working with physical therapy today. Patient says he is hoping to sit up at the edge of the bed today and possibly in the chair during meals. Patient says he is still having pain in the back but it is controlled fairly well with medication. Patient denies any other issues at this time.Patient denies chest pain, fever, shortness breath, nausea, vomiting, change in vision. Objective - Vital Signs Vital signs: Vital Signs Temp 98.4 F 04/19/23 02:57 Pulse 94 04/19/23 02:57 Resp 16 04/19/23 02:57 BP 118/71 04/19/23 02:57 Pulse Ox 95 04/19/23 02:57 FiO2 Intake & Output 04/18/23 04/19/23 04/19/23 18:59 06:59 18:59 Output Total 1700 Balance -1700 Weight 77.111 kg Output: Drainage 150 BACK Back 150 Urine 1550 Other: Voiding Method Indwelling Catheter Indwelling Catheter # Bowel Movements 1 - Exam Inspection: Negative for any open fractures. Large bruise noted over the left forearm and elbow. Surgical incision to the lumbar spine, edges are well- approximated with nylon sutures intact. No active drainage. New dressing placed over incision with 4 x 4's ABDs and foam tape. Hemovac drain in place. 150 cc serosanguineous output overnight. Sensation: Sensation is equal, symmetric, bilaterally intact throughout the upper and lower extremities Palpation: moderate tenderness to palpation directly over incision on lumbar spine. Nontender to palpation throughout bilateral upper and lower extremities and throughout rest of exam. Range of motion: Patient does have full range of motion bilateral upper and lower extremities on exam Motor: 5/5 in all major motor groups in the bilateral upper and 4/5 in lower extremities, RLE 4-/5 plantar flexion Special tests: Negative Homans bilaterally. Negative Tiesha bilaterally. Negative clonus bilaterally. Neurovascular: Radial pulse intact, 2+ bilaterally. Cap refill under 3 seconds in digits upper extremities. - Labs CBC & Chem 7: 04/18/23 05:58 04/18/23 05:58 Labs: Abnormal Lab Results - Last 24 Hours (Table) 04/18/23 04/18/23 04/18/23 Range/Units 05:58 11:13 17:06 RBC 2.96 L (4.40-5.60) X 10*6/uL Hgb 8.9 L (13.0-17.0) g/dL Hct 26.7 L (39.6-50.0) % Immature Gran # 0.10 H (0.00-0.04) X 10*3/uL Lymphocytes # 0.69 L (0.90-5.00) X 10*3/uL Eosinophils # 0.01 L (0.04-0.35) X 10*3/uL POC Glucose (mg/dL) 297 H 342 H (70-110) mg/dL 04/18/23 04/19/23 Range/Units 20:04 06:19 RBC (4.40-5.60) X 10*6/uL Hgb (13.0-17.0) g/dL Hct (39.6-50.0) % Immature Gran # (0.00-0.04) X 10*3/uL Lymphocytes # (0.90-5.00) X 10*3/uL Eosinophils # (0.04-0.35) X 10*3/uL POC Glucose (mg/dL) 380 H 199 H (70-110) mg/dL Microbiology - Last 24 Hours (Table) 04/15/23 11:05 Blood Culture - Preliminary Blood 04/17/23 15:45 Gram Stain - Preliminary Other - Other 04/17/23 15:45 Gram Stain - Preliminary Back 04/17/23 15:45 Gram Stain - Preliminary Back 04/15/23 11:05 Blood Culture Gram Stain - Final Blood Blood Culture - Final Proteus mirabilis Assessment and Plan Assessment: 1. L2-3 AO type B3 fracture, Extension, Unstable above L3-S1 fusion 2. Left L3 pedicle fracture 3. Epidural abscess 4. Mental status changes, likely sepsis 5. Back pain 6. LE weakness Postoperative day 2 status post 1. Open treatment L2-3 fracture 2. Posteriolateral and interbody fusion L2-3 3. L1-2 posterolateral instrumented fusion 4. Revision L1-S1 instrumentation 5. L1-3 bilateral laminectomy, facetectomy and foraminotomy with epidural abscess evacuation, neural element decompression Plan: 1. L2-3 AO type B3 fracture, Extension, Unstable above L3-S1 fusion; Left L3 pedicle fracture; Epidural abscess; Mental status changes, likely sepsis; Back pain; LE weakness - surgery performed , 04/17/2023 Open treatment L2-3 fracture; Posteriolateral and interbody fusion L2-3; L1-2 posterolateral instrumented fusion; Revision L1-S1 instrumentation; L1-3 bilateral laminectomy, facetectomy and foraminotomy with epidural abscess evacuation, neural element decompression. Postoperative computed tomography scan of lumbar spine shows hardware that appears to be stable and intact. Continue work with PT/OT daily. Sit up at edge of the bed and possibly in the chair this weekend. 150 mL output in Hemovac drain overnight. Maintain Hemovac drain to full suction at this time. Dressing change at bedside this morning. Incision appears to be healing well. Sutures are intact in place. We will continue to follow patient during stay in hospital. Plan for discharge to rehab next week once cultures are back. 2. Appreciate medical and ID management - cultures pending at this time; antibiotics per infectious disease 3. Pain management - Hobbs; Flexeril; gabapentin; Dilaudid 4. GI prophylaxis - senna; milk of magnesia 5. DVT prophylaxis - mechanical; aspirin 6. PT/OT - weightbearing as tolerated with walker and assistance and TLSO brace on while up and about 7. Encourage incentive spirometer use Time with Patient: Less than 30
--- NOTE | 2023-04-19 10:14 | P.PN ---
Subjective Progress Note Date: 04/18/23 04/18/2023: Patient was seen for a follow-up. Patient undergone lumbar surgery yesterday. Patient tolerated procedure well. Patient was found to have epidural abscess. Infectious disease also on the case. 04/15/2023: Patient was initially seen by Dr. Bustos. Please refer to his note for details. Patient is a 67-year old male with chronic back issues, came for mental confus ion. Dr. Paulino felt confusion was due to opiates. Patient underwent MRI of the brain and lumbar spine. Patient was seen for a follow-up. Patient is slightly groggy. He states that he has no strength in the arms or legs. He can barely squeeze with his c4 planner. He states that he can move his feet. Offers no new complaints. Some of the workup during this hospital visit consisted of: Initial white blood cells 11.13 thousand that normalized. The glucose has been in the range of initially on presentation was in the 200s and currently it's in the 140s to 170s. SOdium was 136, creatinine is 1.35, BUN is 45, hemoglobin A1c 10.1 Plasma lactic acid venous 1.5. Ammonia is 44. Folate: 11.6 Vitamin B12: 717 EKG is reported as age are fibrillation. Left axis deviation. U/a: does not seem suggestive of UTI. CT of the head is reported as similar mild intra-or megaly likely due to central cerebral atrophy. Correlate to exclude component of NPH. Mild burden of chronic small vessel ischemic disease. No acute intracranial abnormality seen. I personally reviewed the CT the head and I feel there is no acute subacute ischemia. There is no bleed. CT abdomen and pelvis is reported as 1.1 cm nonobstructive the left renal stone. 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 nodularity of the liver. Correlate for any known diagnosis of underlying cirrhosis. GI referral if not established diagnosis. Recent L3-S1 posterior lumbar fusion changes with laminectomies exte nding up to the L2 level. Here the L2 level there appears to be fluid collection measuring 5.5 wide within the laminectomy bed, possible postoperative seroma. Follow-up as clinically indicated. Other fluid collection not excluded this time. An additional small fluid and air collection measuring 2.1 just deep to the superimposed skin elizabeth within the subcutaneous fat layer. CT lumbar: It is reported as extensive postsurgical changes as described above. Interval development of mild anterior wedge compression impression fracture of L3. Limited evaluation of the soft tissue with that techniques and given the lack of contrast and metallic artifact however there is increased gas in the reg ion of the thecal sac and epidural space at the L3-L4 and L4-L5 levels compared to the previous. The possibility of developing infection process cannot be excluded. Objective - Vital Signs Vital signs: Vital Signs Temp 99.4 F 04/18/23 07:05 Pulse 101 H 04/18/23 07:05 Resp 18 04/18/23 07:05 BP 103/74 04/18/23 07:05 Pulse Ox 97 04/18/23 07:05 FiO2 Intake & Output 04/17/23 04/18/23 04/18/23 18:59 06:59 18:59 Intake Total 1804 Output Total 1450 740 Balance 354 -740 Weight 77.111 kg 77.111 kg Intake: IV 1804 Output: Drainage 140 BACK Back 140 Urine 1200 600 Estimated Blood Loss 250 Other: Voiding Method Indwelling Catheter Indwelling Catheter # Bowel Movements 1 - Exam Patient is groggy, somewhat somnolent, but does wake up and answers appropriately. His speech and language functions are normal. No aphasia or dysarthria. Patient knows it is April and the year is and that he is in [facility] in [place]. Patient's pupils are equal, round and reactive, face is symmetric. Extraocular muscles are intact. Visual lamas appears full. On muscle strength testing, the strength appears normal in the arms although patient did not cooperate well because of the back pain. Ankle dorsiflexion is normal 5/5. Hip flexion is 1-2 bilaterally. - Labs CBC & Chem 7: 04/18/23 05:58 04/18/23 05:58 Labs: Abnormal Lab Results - Last 24 Hours (Table) 04/17/23 04/17/23 04/17/23 Range/Units 13:15 13:15 13:15 RBC 3.66 L (4.30-5.90) m/uL Hgb 11.4 L (13.0-17.5) gm/dL Hct 32.9 L (39.0-53.0) % Immature Gran # (0.00-0.04) X 10*3/uL Lymphocytes # (0.90-5.00) X 10*3/uL Eosinophils # (0.04-0.35) X 10*3/uL ABG pO2 261 H (83-108) mmHg ABG Total CO2 27 H (19-24) mmol/L ABG O2 Saturation >100.0 H (94-97) % Chloride 108 H (98-107) mmol/L Carbon Dioxide (22-30) mmol/L BUN 26 H (9-20) mg/dL Glucose 163 H (74-99) mg/dL POC Glucose (mg/dL) (70-110) mg/dL Total Protein (6.3-8.2) g/dL Albumin (3.5-5.0) g/dL 04/17/23 04/17/23 04/18/23 Range/Units 17:27 21:20 05:57 RBC (4.30-5.90) m/uL Hgb (13.0-17.5) gm/dL Hct (39.0-53.0) % Immature Gran # (0.00-0.04) X 10*3/uL Lymphocytes # (0.90-5.00) X 10*3/uL Eosinophils # (0.04-0.35) X 10*3/uL ABG pO2 (83-108) mmHg ABG Total CO2 (19-24) mmol/L ABG O2 Saturation (94-97) % Chloride (98-107) mmol/L Carbon Dioxide (22-30) mmol/L BUN (9-20) mg/dL Glucose (74-99) mg/dL POC Glucose (mg/dL) 204 H 185 H 201 H (70-110) mg/dL Total Protein (6.3-8.2) g/dL Albumin (3.5-5.0) g/dL 04/18/23 04/18/23 04/18/23 Range/Units 05:58 05:58 11:13 RBC 2.96 L (4.30-5.90) m/uL Hgb 8.9 L (13.0-17.5) gm/dL Hct 26.7 L (39.0-53.0) % Immature Gran # 0.10 H (0.00-0.04) X 10*3/uL Lymphocytes # 0.69 L (0.90-5.00) X 10*3/uL Eosinophils # 0.01 L (0.04-0.35) X 10*3/uL ABG pO2 (83-108) mmHg ABG Total CO2 (19-24) mmol/L ABG O2 Saturation (94-97) % Chloride 110 H (98-107) mmol/L Carbon Dioxide 20 L (22-30) mmol/L BUN 30 H (9-20) mg/dL Glucose 190 H (74-99) mg/dL POC Glucose (mg/dL) 297 H (70-110) mg/dL Total Protein 5.1 L (6.3-8.2) g/dL Albumin 2.3 L (3.5-5.0) g/dL Microbiology - Last 24 Hours (Table) 04/17/23 15:45 Gram Stain - Preliminary Back 04/17/23 15:45 Gram Stain - Preliminary Back 04/15/23 11:05 Blood Culture Gram Stain - Final Blood Blood Culture - Final Proteus mirabilis 04/15/23 11:05 Blood Culture - Preliminary Blood Assessment and Plan Assessment: This is a 67-year-old gentleman with recent L3 to S1 decompression and fusion who is having confusion at the nursing facility. It seems of the patient's was reported to have some issues receiving medication the morning. Patient is on oxycodone, Robaxin, Cymbalta. He does not recall what transpired and was told he was confused according to patient. Patient has elevated ammonia of 44, uncontrolled diabetes with acute kidney insufficiency. Altered mental status seems toxic metabolic encephalopathy. Has elevated ammonia with JEAN MARIE. Possible medication related as well, as patient is on oxycodone Cymbalta and Robaxin. Currently confusion improved, however patient is still encephalopathic. Abnormal lumbar spine MRI with extensive edema, large fluid collection, rule out hematoma versus abscess. Status post lumbar surgery, found to have epidural abscess. Lower back pain as well as left hip pain, likely due to above. History of recent L3 to S1 decompression and fusion Elevated ammoni 44 Uncontrolled diabetes Mellitus 10.1 Acute kidney insuffiency, resolved. Atrial fibrillation, was on eliqiuis, but currently on hold likely due to recent surgery. Suggest resuming Eliquis as soon as medically and surgically cleared. We will defer to IM and orthopedic surgery. Plan: Patient's encephalopathy has improved. He is still slightly groggy, likely due to pain medications. EEG was normal awake and drowsy pattern. No epileptiform activity was seen. MRI of the brain revealed age-related atrophic changes and small vessel disease. No acute or subacute infarct. I personally reviewed MRI agree with the findings. MRI lumbar spine revealed extensive edema and large fluid collection within the surgical bed. No obvious connection to the spinal canal. Few scattered foci of gas on CT overall findings suspicious for abscess/infection. Aspiration for definitive diagnosis recommended. Fluid collection measures 9.7 x 3.1 cm and ex tends up to 12.8 cm in length. Enhancement of the thecal sac at the level of the disc extrusion posterior to the L2 vertebrae could be reactive to the L3 fractures with infection at this location not excluded given findings in the surgical bed more posteriorly. Superior endplate fracture of the L3 as well as the left pedicle of L3 as seen on CT 04/12/2023 with large disc extrusion at L2-L3 extending superiorly along the posterior aspect of the L2 vertebrae with severe spinal canal stenosis. No definitive enhancement at the disc level at L1 L3 to suggest discitis. Increase inversion recovery signal to be due to edema from L3 superior endplate fracture. Patient has history of atrial fibrillation on eliquis. Eliquis currently on hold because of recent lumbar surgery, yesterday on , 04/17/2023. Patient on aspirin,, but not on Lovenox. Patient has SCDs in place. Recommend resuming Eliquis as early as cleared by orthopedic surgery. If not, then suggest resuming Lovenox, if cleared from orthopedic standpoint. PT OT are consulted We'll defer the management of elevated ammonia to primary team. Dr. Bustos also recommended GI consultation as well as recommended on CT abd/pelvis because of nodularity of liver. We'll defer the rest of the medical management to primary team, and other specialties on board. Dr. Avinash Paulino to resume neurology service from 04/21/2023.
[2023-04-19 11:46] LABS: Glucose,Whole Blood 278 mg/dL (70-110)
--- NOTE | 2023-04-19 12:52 | P.PN ---
Subjective Progress Note Date: 04/19/23 Principal diagnosis: Reason for follow-up is bacteremia and lumbar spine abscess Patient is a 67-year-old male with a past medical history significant for diabetes mellitus hypertension COPD atrial fibrillation in this patient who recently did have extensive lumbosacral spine surgery, patient was brought back to the hospital on 04/11/2023 for evaluation of confusion, workup did include MRI of the lumbar spine with evidence of extensive edema and large fluid collection some air bubbles with a question of possible seroma versus abscess, patient did have blood cultures drawn on 04/15/2023 which came back positive with a Proteus species. Patient is status post I&D of the lumbar surgical site and drainage of the epidural abscess and decompression culture obtained procedure was completed on 04/17/2023. On today's evaluation that is 04/19/2023, the patient denies any fever or any chills, patient is breathing comfortably on room air, the patient has been complaining of some right-sided posterior chest pain but no shortness of breath and no significant cough cough, patient denies abdominal pain, no nausea vomiting or diarrhea. Still complaining of back pain but controlled with pain medication. No new labs has been obtained today's OR cultures growing gram-negative bacilli Objective - Vital Signs Vital signs: Vital Signs Temp 98.1 F 04/19/23 07:15 Pulse 108 H 04/19/23 07:15 Resp 16 04/19/23 07:15 BP 147/83 04/19/23 07:15 Pulse Ox 96 04/19/23 07:15 FiO2 Intake & Output 04/18/23 04/19/23 04/19/23 18:59 06:59 18:59 Output Total 1700 Balance -1700 Weight 77.111 kg Output: Drainage 150 BACK Back 150 Urine 1550 Other: Voiding Method Indwelling Catheter Indwelling Catheter Indwelling Catheter # Bowel Movements 1 - Exam GENERAL DESCRIPTION: An elderly male lying in bed in no distress RESPIRATORY SYSTEM: Unlabored breathing , decreased breath sounds at bases HEART: S1 S2 regular rate and rhythm , ABDOMEN: Soft , no tenderness EXTREMITIES: No edema feet - Labs CBC & Chem 7: 04/18/23 05:58 04/18/23 05:58 Labs: Abnormal Lab Results - Last 24 Hours (Table) 04/18/23 04/18/23 04/19/23 Range/Units 17:06 20:04 06:19 POC Glucose (mg/dL) 342 H 380 H 199 H (70-110) mg/dL Microbiology - Last 24 Hours (Table) 04/17/23 15:45 Gram Stain - Preliminary Back Wound Culture - Preliminary Gram Neg Bacilli 04/17/23 15:45 Gram Stain - Preliminary Other - Other Wound Culture - Preliminary Gram Neg Bacilli 04/17/23 15:45 Gram Stain - Preliminary Back Wound Culture - Preliminary Gram Neg Bacilli 04/15/23 11:05 Blood Culture - Preliminary Blood 04/15/23 11:05 Blood Culture Gram Stain - Final Blood Blood Culture - Final Proteus mirabilis Assessment and Plan (1) Bacteremia Current Visit: Yes Status: Acute Code(s): R78.81 - BACTEREMIA SNOMED Code(s): 6551361 (2) Abnormal MRI, lumbar spine Current Visit: Yes Status: Acute Code(s): R93.7 - ABNORMAL FINDINGS ON DIAGNOSTIC IMAGING OF PRT MS SYS SNOMED Code(s): 655620298 Plan: 1patient with extensive abnormality seen on the MRI of the lumbar sacral spine in this patient who is postop with recent extensive surgery to the lumbar sacral spine on 03/28/2022 now admitted to the hospital with confusion however the patient did not have any fever or elevated white count during this hospital stay with concern for possible postop seroma versus hematoma less likely abscess as the patient does not look toxic did not have any fever or elevated white count 2-patient blood cultures came back positive with a Proteus species source is likely lumbar sacral spine fluid collection, patient is status post I&D of the lumbosacral spine with a drainage of the epidural abscess cultures obtained 3-patient OR culture also growing gram-negative bacilli, with ID sensitivities pending 4-patient to continue with the Rocephin while get a PICC line once repeat culture negative Dictation was produced using [employer] dictation software. please excuse any grammatical, word or spelling errors. Time with Patient: Less than 30
[2023-04-19] MEDS: ALBUTEROL NEBULIZED 2.5 MG/3 ML INHALATION PRN (15:52)
[2023-04-19 16:11] LABS: Glucose,Whole Blood 319 mg/dL (70-110)
--- NOTE | 2023-04-19 17:59 | P.PN ---
Subjective 67-year-old gentleman with recent L3 to S1 decompression and fusion presented emergency department because of confusion. Some of the history is obtained from medical record. It seems that the patient was at a nursing rehab facility and he had the confusion. Patient had a recent lumbar decompression and fusion and this seems she is a significant facility and is documented that the caregiver states he has been having some issues receiving medication the morning and symptoms were worse yesterday per the staff. Per the ED and the team's note. He was confused but does have periods of time of clearing thoughts. Patient does not recall what transpired but states he is having significant lower back pain and states that his legs gave out. He denies any bladder or bowel issues. He feels his hip his pain mostly left more than the right and he could not come there is any radiation. He was having some numbness in the feet. Denies any history of stroke or seizures in the past. Denies of any fevers. Patient is on oxycodone, Robaxin, Cymbalta. Patient is on eliquis as well as aspirin as no medication. Initial white blood cells 11.13 thousand that normalized. The glucose has been in the range of initially on presentation was in the 200s and currently it's in the 140s to 170s. Odium was 136, creatinine is 1.35, BUN is 45, hemoglobin A1c 10.1 Plasma lactic acid venous 1.5. Ammonia is 44. EKG is reported as age are fibrillation. Left axis deviation. CT of the head is reported as similar mild intra-or megaly likely due to central cerebral atrophy. Correlate to exclude component of NPH. Mild burden of chronic small vessel ischemic disease. No acute intracranial abnormality seen. I personally reviewed the CT the head and I feel there is no acute subacute ischemia. There is no bleed. I agree that cerebral atrophy seems more due to the cerebral atrophy. CT abdomen and pelvis is reported as 1.1 cm nonobstructive the left renal stone. 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 nodularity of the liver. Correlate for any known diagnosis of underlying cirrhosis. GI referral if not established diagnosis. Recent L3-S1 posterior lumbar fusion changes with laminectomies extending up to the L2 level. Here the L2 level there appears to be fluid collection measuring 5.5 wide within the laminectomy bed, possible postoperative seroma. Follow-up as clinically indicated. Other fluid collection not excluded this time. An additional small fluid and air collection measuring 2.1 just deep to the superimposed skin elizabeth within the subcutaneous fat layer. 04/13/2023 Patient is seen and evaluated resting in bed; continues to report uncontrolled pain Vital signs are reviewed and are stable with temperature of 98, pulse 81, respiration 19, blood pressure 134/89 and O2 saturation 96% on room air Labs revealed WBC 6.27, hemoglobin 11.5 and platelet count of 243, sodium 137, potassium 4.7, BUN 35.4, creatinine 1.2, blood glucose ranging between 1 42-84 --We will add NovoLog 5 units subcu with each meal -Patient has been evaluated by orthopedic surgery and MRI of the spine is recommended -- PT OT consulted 04/14/2023 Patient alert awake oriented, he is just confused about the exact date but he knows the year. He has insight. Cystoscopy complaining from significant back pain Neurology and orthopedic team on the case. Gentle normal saline Creatinine mildly elevated but improving, we will consult nephrology line physical therapy recommends subacute rehab which is pending. 04/15/2023 She is sleeping today, still complained from significant back pain he had MRI of the lumbar spine done yesterday showing large paraspinal cyst suspicious for abscess 9.7 x 3.1 x 12.7 cm with thecal sac in his bed of the level of L2 and vertebral disc protrusion with fracture of the L3 superior endplate with severe spinal stenosis orthopedic team on the case Also we'll check ESR and CRP and consult infectious disease team. Currently he is not on antibiotic yet. Patient with no fever or leukocytosis His continued normal saline 75 mL 04/16/2023 Patient still at bedrest with severe back pain secondary to abnormal CAT scan showing possible abscess and fracture and lumbar spine at the level of L2-L3. Patient scheduled for orthopedic surgery for his lumbar spine tomorrow on 04/17. A is for his A. fib is on hold. Patient already evaluated by telecasting technician and recommended to continue with the current medication and to resume Eliquis after surgery. His heart regular blood pressure is controlled currently on Coreg at 12.5 mg compared to home dose of 6.25 mg. Patient with Proteus bacteremia, currently covered with Rocephin 2 g daily most likely source is paraspinal abscess. Infectious disease input is appreciated. Neurology and orthopedic input is noted 04/17/2023 Patient underwent surgery for his lumbar spine. He is going for ( Revision surgery with open treatment L1-2 fracture stabilization and decompression ) . Today postop day #0 Postsurgery history of drinking up slowly Hemodynamically stable Patient has bacteremia with gram-negative bacilli most likely Proteus, most likely the source is paraspinal fluid collection, rule out abscess pending wound culture Patient covered with ceftriaxone. ESR and CRP are elevated 04/18/2023 Patient awake alert at baseline. He is status post ( Revision surgery with open treatment L1-2 fracture stabilization and decompression ) today's postop day #1 He still complaining from back pain but looks better, he rated about 60-7/10 in severity, no radiation to the leg, he is able to flex his legs better than prior to surgery which was in the limitation due to pain He denies any other specific symptoms no chest pain or dyspnea, heart rate controlled for his A. fib and his Eliquis resumes was cleared by surgery Remains on ceftriaxone for his gram-negative bacteremia most likely Proteus 04/19/2023 Patient continued to improve. Patient was sitting up in his chair today for the first time and having his medial with no difficulty Still complaining of from pain at his back at the surgery site but is improving Her remains covered with IV ceftriaxone and IV vancomycin Objective - Vital Signs Vital signs: Vital Signs Temp 98.1 F 04/19/23 07:15 Pulse 108 H 04/19/23 07:15 Resp 16 04/19/23 07:15 BP 147/83 04/19/23 07:15 Pulse Ox 96 04/19/23 07:15 FiO2 Intake & Output 04/18/23 04/19/23 04/19/23 18:59 06:59 18:59 Output Total 1700 Balance -1700 Weight 77.111 kg Output: Drainage 150 BACK Back 150 Urine 1550 Other: Voiding Method Indwelling Catheter Indwelling Catheter Indwelling Catheter # Bowel Movements 1 - Exam GENERAL: The patient is alert and oriented x3, not in any acute distress. Well developed, well nourished. HEENT: Pupils are round and equally reacting to light. EOMI. No scleral icterus. No conjunctival pallor. Normocephalic, atraumatic. No pharyngeal erythema. No thyromegaly. CARDIOVASCULAR: S1 and S2 present. No murmurs, rubs, or gallops. PULMONARY: Chest is clear to auscultation, no wheezing , no crackles. ABDOMEN: Soft, nontender, nondistended, normoactive bowel sounds. No palpable organomegaly. -MUSCULOSKELETAL: No joint swelling or deformity. Patient refuses back exam because of tenderness EXTREMITIES: No cyanosis, clubbing, or pedal edema. NEUROLOGICAL: Gross neurological examination did not reveal any focal deficits. SKIN: No rashes. no petechiae. - Labs CBC & Chem 7: 04/18/23 05:58 04/18/23 05:58 Labs: Abnormal Lab Results - Last 24 Hours (Table) 04/18/23 04/18/23 04/19/23 Range/Units 17:06 20:04 06:19 POC Glucose (mg/dL) 342 H 380 H 199 H (70-110) mg/dL 04/19/23 Range/Units 11:45 POC Glucose (mg/dL) 278 H (70-110) mg/dL Microbiology - Last 24 Hours (Table) 04/17/23 15:45 Gram Stain - Preliminary Back Wound Culture - Preliminary Gram Neg Bacilli 04/17/23 15:45 Gram Stain - Preliminary Other - Other Wound Culture - Preliminary Gram Neg Bacilli 04/17/23 15:45 Gram Stain - Preliminary Back Wound Culture - Preliminary Gram Neg Bacilli 04/15/23 11:05 Blood Culture - Preliminary Blood 04/15/23 11:05 Blood Culture Gram Stain - Final Blood Blood Culture - Final Proteus mirabilis Assessment and Plan Assessment: 1. Altered mental status; likely toxic metabolic encephalopathy related to JEAN MARIE, hyperammonemia, and infection --Polypharmacy including oxycodone, Robaxin and Cymbalta -- All medications have been placed on hold -- Patient remains on IV fluid hydration - Neurology is consulted for further recommendations -Improved to baseline 2. Lower back pain; patient has history of recent L3-S1 decompression and fusion , he is status post (Revision surgery with open treatment L1-2 fracture stabilization and decompression on 04/17) -- MRI showing large paraspinal cyst suspicious for abscess 9.7 x 3.1 x 12.7 cm with thecal sac in his bed of the level of L2 and vertebral disc protrusion with fracture of the L3 superior endplate with severe spinal stenosis - orthopedic and infectious disease consult 3. Proteus bacteremia - most likely secondary to his spinal disease and infection , including 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 - ESR and CRP are elevated - on Rocephin - Infectious disease consult on the case -IV vancomycin at that by orthopedic team 4. Hyperglycemia without acidosis/diabetes mellitus with long-term insulin use -- We will monitor Accu-Cheks before every meal and at bedtime with insulin sliding scale -Resume home dose of Lantus 10 units subcu daily once oral intake is established 5. Atrial fibrillation; continue with rate control with Coreg 12.5 mg twice daily; continue with current anticoagulation therapy 6. Hypertension; Coreg 12.5 mg Increased to 12.5 mg twice daily 7. Peripheral neuropathy; patient takes gabapentin 800 mg every 8 hours which has been placed on hold due to altered mental status and JEAN MARIE 8. Acute renal injury; BUNs/creatinine elevated at 45/1.35 upon admission -- resolved DVT prophylaxis; SCDs/anticoagulation CODE STATUS; full code
[2023-04-19 20:01] LABS: Glucose,Whole Blood 283 mg/dL (70-110)
[2023-04-20 06:02] LABS: Glucose,Whole Blood 254 mg/dL (70-110)
[2023-04-20 11:22] LABS: Glucose,Whole Blood 322 mg/dL (70-110)
--- NOTE | 2023-04-20 12:52 | P.PN ---
Subjective Progress Note Date: 04/20/23 Principal diagnosis: Reason for follow-up is bacteremia and lumbar spine abscess Patient is a 67-year-old male with a past medical history significant for diabetes mellitus hypertension COPD atrial fibrillation in this patient who recently did have extensive lumbosacral spine surgery, patient was brought back to the hospital on 04/11/2023 for evaluation of confusion, workup did include MRI of the lumbar spine with evidence of extensive edema and large fluid collection some air bubbles with a question of possible seroma versus abscess, patient did have blood cultures drawn on 04/15/2023 which came back positive with a Proteus species. Patient is status post I&D of the lumbar surgical site and drainage of the epidural abscess and decompression culture obtained procedure was completed on 04/17/2023. On today's evaluation that is 04/20/2023,the patient did have a low-grade fever 100.28 2 AM however the patient is afebrile since then, patient is on room air not requiring supplemental oxygen and denies any shortness of breath no chest pain or cough.Patient denies having any nausea or vomiting, no abdominal pain and no diarrhea has been reported, still complaining of lower back pain however mention controlled with the pain medication. No new labs were obtained today OR cultures came back positive with Proteus Objective - Vital Signs Vital signs: Vital Signs Temp 98.2 F 04/20/23 07:30 Pulse 78 04/20/23 07:30 Resp 17 04/20/23 07:30 BP 143/85 04/20/23 07:30 Pulse Ox 96 04/20/23 07:30 FiO2 Intake & Output 04/19/23 04/20/23 04/20/23 18:59 06:59 18:59 Output Total 1340 1275 Balance -1340 -1275 Output: Drainage 120 BACK Back 120 Urine 1220 1275 Uretheral (Lopez) 820 Other: Voiding Method Indwelling Catheter Indwelling Catheter # Bowel Movements 1 - Exam GENERAL DESCRIPTION: An elderly male lying in bed in no distress RESPIRATORY SYSTEM: Unlabored breathing , decreased breath sounds at bases HEART: S1 S2 regular rate and rhythm , ABDOMEN: Soft , no tenderness EXTREMITIES: No edema feet - Labs CBC & Chem 7: 04/18/23 05:58 04/18/23 05:58 Labs: Abnormal Lab Results - Last 24 Hours (Table) 0204/19/23 04/20/23 Range/Units 16:09 19:14 05:49 POC Glucose (mg/dL) 319 H 283 H 254 H (70-110) mg/dL 04/20/23 Range/Units 11:21 POC Glucose (mg/dL) 322 H (70-110) mg/dL Microbiology - Last 24 Hours (Table) 04/17/23 15:45 Gram Stain - Final Other - Other Wound Culture - Final Proteus mirabilis 04/17/23 15:45 Gram Stain - Final Back Wound Culture - Final Proteus mirabilis 04/17/23 15:45 Gram Stain - Final Back Wound Culture - Final Proteus mirabilis Assessment and Plan (1) Bacteremia Current Visit: Yes Status: Acute Code(s): R78.81 - BACTEREMIA SNOMED Code(s): 6511920 (2) Abnormal MRI, lumbar spine Current Visit: Yes Status: Acute Code(s): R93.7 - ABNORMAL FINDINGS ON DIAGNOSTIC IMAGING OF PRT MS SYS SNOMED Code(s): 145616414 Plan: 1patient with extensive abnormality seen on the MRI of the lumbar sacral spine in this patient who is postop with recent extensive surgery to the lumbar sacral spine on 03/28/2022 now admitted to the hospital with confusion however the patient did not have any fever or elevated white count during this hospital stay with concern for possible postop seroma versus hematoma less likely abscess as the patient does not look toxic did not have any fever or elevated white count 2-patient blood cultures came back positive with a Proteus species source is likely lumbar sacral spine fluid collection, patient is status post I&D of the lumbosacral spine with a drainage of the epidural abscess cultures obtained 3-patient OR culture also growing Proteus mirabilis and is sensitive to ceftriaxone 4-patient to continue with the Rocephin we will order PICC line for outpatient IV antibiotic therapy Multiple question concern answered Dictation was produced using [employer] dictation software. please excuse any grammatical, word or spelling errors. Time with Patient: Less than 30
--- NOTE | 2023-04-20 14:37 | P.PN ---
Subjective 67-year-old gentleman with recent L3 to S1 decompression and fusion presented emergency department because of confusion. Some of the history is obtained from medical record. It seems that the patient was at a nursing rehab facility and he had the confusion. Patient had a recent lumbar decompression and fusion and this seems she is a significant facility and is documented that the caregiver states he has been having some issues receiving medication the morning and symptoms were worse yesterday per the staff. Per the ED and the team's note. He was confused but does have periods of time of clearing thoughts. Patient does not recall what transpired but states he is having significant lower back pain and states that his legs gave out. He denies any bladder or bowel issues. He feels his hip his pain mostly left more than the right and he could not come there is any radiation. He was having some numbness in the feet. Denies any history of stroke or seizures in the past. Denies of any fevers. Patient is on oxycodone, Robaxin, Cymbalta. Patient is on eliquis as well as aspirin as no medication. Initial white blood cells 11.13 thousand that normalized. The glucose has been in the range of initially on presentation was in the 200s and currently it's in the 140s to 170s. Odium was 136, creatinine is 1.35, BUN is 45, hemoglobin A1c 10.1 Plasma lactic acid venous 1.5. Ammonia is 44. EKG is reported as age are fibrillation. Left axis deviation. CT of the head is reported as similar mild intra-or megaly likely due to central cerebral atrophy. Correlate to exclude component of NPH. Mild burden of chronic small vessel ischemic disease. No acute intracranial abnormality seen. I personally reviewed the CT the head and I feel there is no acute subacute ischemia. There is no bleed. I agree that cerebral atrophy seems more due to the cerebral atrophy. CT abdomen and pelvis is reported as 1.1 cm nonobstructive the left renal stone. 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 nodularity of the liver. Correlate for any known diagnosis of underlying cirrhosis. GI referral if not established diagnosis. Recent L3-S1 posterior lumbar fusion changes with laminectomies extending up to the L2 level. Here the L2 level there appears to be fluid collection measuring 5.5 wide within the laminectomy bed, possible postoperative seroma. Follow-up as clinically indicated. Other fluid collection not excluded this time. An additional small fluid and air collection measuring 2.1 just deep to the superimposed skin elizabeth within the subcutaneous fat layer. 04/13/2023 Patient is seen and evaluated resting in bed; continues to report uncontrolled pain Vital signs are reviewed and are stable with temperature of 98, pulse 81, respiration 19, blood pressure 134/89 and O2 saturation 96% on room air Labs revealed WBC 6.27, hemoglobin 11.5 and platelet count of 243, sodium 137, potassium 4.7, BUN 35.4, creatinine 1.2, blood glucose ranging between 1 42-84 --We will add NovoLog 5 units subcu with each meal -Patient has been evaluated by orthopedic surgery and MRI of the spine is recommended -- PT OT consulted 04/14/2023 Patient alert awake oriented, he is just confused about the exact date but he knows the year. He has insight. Cystoscopy complaining from significant back pain Neurology and orthopedic team on the case. Gentle normal saline Creatinine mildly elevated but improving, we will consult nephrology line physical therapy recommends subacute rehab which is pending. 04/15/2023 She is sleeping today, still complained from significant back pain he had MRI of the lumbar spine done yesterday showing large paraspinal cyst suspicious for abscess 9.7 x 3.1 x 12.7 cm with thecal sac in his bed of the level of L2 and vertebral disc protrusion with fracture of the L3 superior endplate with severe spinal stenosis orthopedic team on the case Also we'll check ESR and CRP and consult infectious disease team. Currently he is not on antibiotic yet. Patient with no fever or leukocytosis His continued normal saline 75 mL 04/16/2023 Patient still at bedrest with severe back pain secondary to abnormal CAT scan showing possible abscess and fracture and lumbar spine at the level of L2-L3. Patient scheduled for orthopedic surgery for his lumbar spine tomorrow on 04/17. A is for his A. fib is on hold. Patient already evaluated by [facility] and recommended to continue with the current medication and to resume Eliquis after surgery. His heart regular blood pressure is controlled currently on Coreg at 12.5 mg compared to home dose of 6.25 mg. Patient with Proteus bacteremia, currently covered with Rocephin 2 g daily most likely source is paraspinal abscess. Infectious disease input is appreciated. Neurology and orthopedic input is noted 04/17/2023 Patient underwent surgery for his lumbar spine. He is going for ( Revision surgery with open treatment L1-2 fracture stabilization and decompression ) . Today postop day #0 Postsurgery history of drinking up slowly Hemodynamically stable Patient has bacteremia with gram-negative bacilli most likely Proteus, most likely the source is paraspinal fluid collection, rule out abscess pending wound culture Patient covered with ceftriaxone. ESR and CRP are elevated 04/18/2023 Patient awake alert at baseline. He is status post ( Revision surgery with open treatment L1-2 fracture stabilization and decompression ) today's postop day #1 He still complaining from back pain but looks better, he rated about 60-7/10 in severity, no radiation to the leg, he is able to flex his legs better than prior to surgery which was in the limitation due to pain He denies any other specific symptoms no chest pain or dyspnea, heart rate controlled for his A. fib and his Eliquis resumes was cleared by surgery Remains on ceftriaxone for his gram-negative bacteremia most likely Proteus 04/19/2023 Patient continued to improve. Patient was sitting up in his chair today for the first time and having his medial with no difficulty Still complaining of from pain at his back at the surgery site but is improving Her remains covered with IV ceftriaxone and IV vancomycin 04/20/2023 Patient back pain is 67/10, no other new complaints Patient remains mildly lethargic Wound culture blood culture grown Proteus and currently on antibiotic as per ID team patient was on a liquid sent home for A. fib, Dr. Zimmerman cleared the patient to start Lovenox, I discussed with the patient risks and benefits and details and he verbalized understanding and acceptance to start Lovenox. Lovenox 60 mg twice daily Objective - Vital Signs Vital signs: Vital Signs Temp 98.2 F 04/20/23 07:30 Pulse 78 04/20/23 07:30 Resp 17 04/20/23 07:30 BP 143/85 04/20/23 07:30 Pulse Ox 96 04/20/23 07:30 FiO2 Intake & Output 04/19/23 04/20/23 04/20/23 18:59 06:59 18:59 Output Total 1340 1275 Balance -1340 -1275 Output: Drainage 120 BACK Back 120 Urine 1220 1275 Uretheral (Lopez) 820 Other: Voiding Method Indwelling Catheter Indwelling Catheter # Bowel Movements 1 - Exam GENERAL: The patient is alert and oriented x3, not in any acute distress. Well developed, well nourished. HEENT: Pupils are round and equally reacting to light. EOMI. No scleral icterus. No conjunctival pallor. Normocephalic, atraumatic. No pharyngeal erythema. No thyromegaly. CARDIOVASCULAR: S1 and S2 present. No murmurs, rubs, or gallops. PULMONARY: Chest is clear to auscultation, no wheezing , no crackles. ABDOMEN: Soft, nontender, nondistended, normoactive bowel sounds. No palpable organomegaly. -MUSCULOSKELETAL: No joint swelling or deformity. Patient refuses back exam because of tenderness EXTREMITIES: No cyanosis, clubbing, or pedal edema. NEUROLOGICAL: Gross neurological examination did not reveal any focal deficits. SKIN: No rashes. no petechiae. - Labs CBC & Chem 7: 04/18/23 05:58 04/18/23 05:58 Labs: Abnormal Lab Results - Last 24 Hours (Table) 04/19/23 04/19/23 04/20/23 Range/Units 16:09 19:14 05:49 POC Glucose (mg/dL) 319 H 283 H 254 H (70-110) mg/dL 04/20/23 Range/Units 11:21 POC Glucose (mg/dL) 322 H (70-110) mg/dL Microbiology - Last 24 Hours (Table) 04/17/23 15:45 Anaerobic Culture - Preliminary Other - Other 04/17/23 15:45 Anaerobic Culture - Final Back 04/17/23 15:45 Anaerobic Culture - Final Back 04/17/23 15:45 Gram Stain - Final Other - Other Wound Culture - Final Proteus mirabilis 04/17/23 15:45 Gram Stain - Final Back Wound Culture - Final Proteus mirabilis 04/17/23 15:45 Gram Stain - Final Back Wound Culture - Final Proteus mirabilis Assessment and Plan Assessment: 1. Altered mental status; likely toxic metabolic encephalopathy related to JEAN MARIE, hyperammonemia, and infection --Polypharmacy including oxycodone, Robaxin and Cymbalta -- All medications have been placed on hold -- Patient remains on IV fluid hydration - Neurology is consulted for further recommendations -Improved to baseline 2. Lower back pain; patient has history of recent L3-S1 decompression and fusion , he is status post (Revision surgery with open treatment L1-2 fracture stabilization and decompression on 04/17) -- MRI showing large paraspinal cyst suspicious for abscess 9.7 x 3.1 x 12.7 cm with thecal sac in his bed of the level of L2 and vertebral disc protrusion with fracture of the L3 superior endplate with severe spinal stenosis - orthopedic and infectious disease consult 3. Proteus bacteremia - most likely secondary to his spinal disease and infection , including 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 - ESR and CRP are elevated - on Rocephin - Infectious disease consult on the case -IV vancomycin at that by orthopedic team 4. Hyperglycemia without acidosis/diabetes mellitus with long-term insulin use -- We will monitor Accu-Cheks before every meal and at bedtime with insulin sliding scale -Resume home dose of Lantus 10 units subcu daily once oral intake is established 5. Atrial fibrillation; continue with rate control with Coreg 12.5 mg twice daily; continue with current anticoagulation therapy - Start Lovenox while keeping holding liquids for now per recommendation of orthopedic team 6. Hypertension; Coreg 12.5 mg Increased to 12.5 mg twice daily 7. Peripheral neuropathy; patient takes gabapentin 800 mg every 8 hours which has been placed on hold due to altered mental status and JEAN MARIE 8. Acute renal injury; BUNs/creatinine elevated at 45/1.35 upon admission -- resolved DVT prophylaxis; SCDs/anticoagulation CODE STATUS; full code
[2023-04-20 16:32] LABS: Glucose,Whole Blood 180 mg/dL (70-110)
[2023-04-20] MEDS: ENOXAPARIN 30 MG/0.3 ML SYRINGE SQ STA (16:39)
[2023-04-20 20:51] LABS: Glucose,Whole Blood 254 mg/dL (70-110)
[2023-04-20] MEDS: ENOXAPARIN 60 MG/0.6 ML SYRINGE SQ SCH (20:59)
[2023-04-21] MEDS: DEXTROSE/WATER 1 250ML.BAG with DOPamine DRIP 800 MG IV SCH (03:36)
[2023-04-21 06:45] LABS: Glucose,Whole Blood 231 mg/dL (70-110)
[2023-04-21 07:27] LABS: Basophils % (A) 1 %; Eosinophils # (A) 0.3 k/uL (0-0.7); Eosinophils % (A) 5 %; HCT 24.4 % (39.0-53.0); Hypochromasia Slight; Lymphocytes # (A) 0.7 k/uL (1.0-4.8); Lymphocytes % (A) 11 %; MCH 31.1 pg (25.0-35.0); MCHC 33.6 g/dL (31.0-37.0); MCV 92.6 fL (80.0-100.0); Mean Platelet Volume 7.7; Monocytes # (A) 0.4 k/uL (0-1.0); Monocytes % (A) 6 %; Neutrophils # (A) 5.2 k/uL (1.3-7.7); Neutrophils % (A) 77 %; Platelet Count 186 k/uL (150-450); RBC 2.64 m/uL (4.30-5.90); RDW 13.9 % (11.5-15.5); WBC 6.7 k/uL (3.8-10.6)
[2023-04-21 07:34] LABS: HGB 8.2 gm/dL (13.0-17.5)
[2023-04-21 07:52] LABS: African American GFR (CKD) >90 (>60 ml/min/1.73 sqM); Anion Gap 1 mmol/L; Blood Urea Nitrogen 27 mg/dL (9-20); Calcium 9.5 mg/dL (8.4-10.2); Carbon Dioxide 26 mmol/L (22-30); Chloride 108 mmol/L (98-107); Glucose 212 mg/dL (74-99); Non-African American GFR(CKD) 80 (>60 ml/min/1.73 sqM); Potassium 3.7 mmol/L (3.5-5.1); Sodium 135 mmol/L (137-145)
--- NOTE | 2023-04-21 08:25 | P.PN ---
Subjective Progress Note Date: 04/21/23 Principal diagnosis: recent lumbar surgery (L3-S1 decompression and fusion) Mental status change Patient seen and examined this morning. Patient is resting comfortably in bed. He states he has been up and about over the weekend and tolerating activity well. Cronin catheter may be removed this morning. Continue to encourage patient to be up in chair for all meals and to work with PT today. Surgical dressing to the lumbar spine is CDI with hemovac present, 100ml output overnight. Patient reports improvement in his low back pain since the procedure. He continues to deny numbness or tingling to the bilateral lower extremities. He continues with lower extremity weakness with activity. He is scheduled for PICC line placement today for outpatient antibiotics per Dr. Tong. Patient denies any fever/chills, nausea/vomiting, or chest pain. Objective - Vital Signs Vital signs: Vital Signs Temp 98.3 F 04/21/23 01:31 Pulse 90 04/21/23 01:31 Resp 12 04/21/23 01:31 BP 118/70 04/21/23 01:31 Pulse Ox 96 04/21/23 01:31 FiO2 Intake & Output 04/20/23 04/21/23 04/21/23 18:59 06:59 18:59 Output Total 1900 100 Balance -1900 -100 Output: Drainage 0 100 BACK Back 0 100 Urine 1900 Uretheral (Cronin) 1900 Other: Voiding Method Indwelling Catheter Indwelling Catheter # Bowel Movements 1 - Exam Inspection: Negative for any open fractures. Healing bruise noted over the left forearm and elbow. Surgical incision to the lumbar spine, dressing is CDI with hemovac present, 100ml output overnight. Sensation: Sensation is equal, symmetric, bilaterally intact throughout the upper and lower extremities Palpation: Nontender to palpation throughout bilateral upper and lower extremities and mild to moderate tenderness present surrounding incision of lumbar spine. Range of motion: Patient does have full range of motion bilateral upper and lower extremities on exam Motor: 5/5 in all major motor groups in the bilateral upper and 4/5 in lower extremities, RLE 4-/5 plantar flexion Special tests: Negative Homans bilaterally. Negative Tiesha bilaterally. Negative clonus bilaterally. Neurovascular: Radial pulse intact, 2+ bilaterally. Cap refill under 3 seconds in digits upper extremities. - Labs CBC & Chem 7: 04/21/23 07:18 04/21/23 07:18 Labs: Abnormal Lab Results - Last 24 Hours (Table) 04/20/23 04/20/23 04/20/23 Range/Units 11:21 16:30 20:50 RBC (4.30-5.90) m/uL Hgb (13.0-17.5) gm/dL Hct (39.0-53.0) % Lymphocytes # (1.0-4.8) k/uL POC Glucose (mg/dL) 322 H 180 H 254 H (70-110) mg/dL 04/21/23 04/21/23 Range/Units 06:43 07:18 RBC 2.64 L (4.30-5.90) m/uL Hgb 8.2 L D (13.0-17.5) gm/dL Hct 24.4 L (39.0-53.0) % Lymphocytes # 0.7 L (1.0-4.8) k/uL POC Glucose (mg/dL) 231 H (70-110) mg/dL Microbiology - Last 24 Hours (Table) 04/19/23 07:17 Blood Culture - Preliminary Blood 04/15/23 11:05 Blood Culture - Final Blood 04/17/23 15:45 Anaerobic Culture - Preliminary Other - Other 04/17/23 15:45 Anaerobic Culture - Final Back 04/17/23 15:45 Anaerobic Culture - Final Back 04/17/23 15:45 Gram Stain - Final Other - Other Wound Culture - Final Proteus mirabilis 04/17/23 15:45 Gram Stain - Final Back Wound Culture - Final Proteus mirabilis 04/17/23 15:45 Gram Stain - Final Back Wound Culture - Final Proteus mirabilis Assessment and Plan Assessment: Post-Op Day 3: Open treatment L2-3 fracture with revision L1-S1 decompression and stabilization with epidural abscess evacuation and washout L2-3 AO type B3 fracture, Extension, Unstable above L3-S1 fusion Left L3 pedicle fracture Epidural abscess Recent L3-S1 decompression and fusion Altered mental status Generalized weakness Complex medical comorbidities Plan: -Appreciate network consultant and team management. -Pateint is scheduled for PICC line placement today 04/21/23. -Continue with IV antibiotics per Dr. Tong -Activity: Ambulate QID, OOB all meals, up and about, limit lifting bending twisting to less than 5 lbs. Use walker or cane if needed for stability. -Daily PT/OT, increase ambulation strength and balance. -Brace when up and about, not needed in bed or chair -Pain control: Adequate at this time -Meds: reviewed -GI ppx: senna, Milk of Mag -DC cronin today 04/21/23 -DVT PPX: Lovenox, may restart Eliquis today 04/21/23 -Hygiene: Maintain dressing clean and dry. Meticulous cleaning after BMs away from the incision site -Drains: Maintain for now. Continue to monitor and record output q shift. -Encourage IS 10x/hr -Dispo: Patient progressing well towards discharge to [facility] [place] when medically stable. *I reviewed and discussed this case with my attending Dr. Zimmerman, whom has reviewed this chart and films and is in agreement with assessment and plan of care as outlined above. I have personally seen and examined the patient, performed the documentation and the assessment and plan as written. Number of minutes spent on the visit: 20m.
[2023-04-21] MEDS: SENNOSIDES-DOCUSATE SODIUM 1 EACH TAB PO SCH (09:17)
[2023-04-21] MEDS: LIDOCAINE 1% INJ 10MG/ML (20 ML MDV) SQ ONE (11:19)
--- NOTE | 2023-04-21 11:27 | P.PCN ---
Date of Procedure: 04/21/23 Preoperative Diagnosis: epidural abscess, need for IV antibiotics Postoperative Diagnosis: same Procedure(s) Performed: left basilic PICC placement under ultrasound and fluoroscopic guidance Anesthesia: local Surgeon: Lawrence Doyle Pathology: none sent Condition: stable Disposition: floor Description of Procedure: After written and informed consent was obtained the patient and all risks, benefits and competitions were described the patient was brought to the Case Management Manager and laid in a supine position with his left arm outstretched on an armboard. The area of the left arm was prepped and draped in usual sterile fashion. Timeout was performed in normal fashion. Utilizing ultrasound the basilic vein was visualized and shown to be compressible without any visible thrombus. Under ultrasound guidance the basilic vein was then cannulated with a micropuncture needle and wire was placed under direct visualization of fluoroscopy. Introducer sheath was then placed. The catheter was measured and cut to the appropriate length which was 45 cm. The catheter was then guided through the breakaway sheath and the sheath was removed with good positioning was visualized under fluoroscopy. The catheter was pulled and flushed easily. It was then secured in place in normal fashion. Patient tolerated the procedure well was sent back to his room for recovery.
--- NOTE | 2023-04-21 11:38 | P.PN ---
Subjective Progress Note Date: 04/21/23 Principal diagnosis: Reason for follow-up is bacteremia and lumbar spine abscess Patient is a 67-year-old male with a past medical history significant for diabetes mellitus hypertension COPD atrial fibrillation in this patient who recently did have extensive lumbosacral spine surgery, patient was brought back to the hospital on 04/11/2023 for evaluation of confusion, workup did include MRI of the lumbar spine with evidence of extensive edema and large fluid collection some air bubbles with a question of possible seroma versus abscess, patient did have blood cultures drawn on 04/15/2023 which came back positive with a Proteus species. Patient is status post I&D of the lumbar surgical site and drainage of the epidural abscess and decompression culture obtained procedure was completed on 04/17/2023. On today's evaluation that is 04/21/2023, the patient continues to be afebrile, the patient is on room air and breathing comfortably, the Pt denies having any chest pain or cough, the patient denies having any abdominal pain no vomiting or any diarrhea has been reported by the nursing staff still complaining of some lower back pain though controlled with the pain medication. Patient did have white count of 6.7, creatinine 0.99 blood culture repeat has been negative Objective - Vital Signs Vital signs: Vital Signs Temp 98.6 F 04/21/23 07:26 Pulse 84 04/21/23 09:17 Resp 19 04/21/23 09:17 BP 128/75 04/21/23 07:26 Pulse Ox 95 04/21/23 07:26 FiO2 Intake & Output 04/20/23 04/21/23 04/21/23 18:59 06:59 18:59 Output Total 1900 100 320 Balance -1900 -100 -320 Output: Drainage 0 100 20 BACK Back 0 100 20 Urine 1900 300 Uretheral (Lopez) 1900 Other: Voiding Method Indwelling Catheter Indwelling Catheter Urinal # Bowel Movements 1 - Exam GENERAL DESCRIPTION: An elderly male lying in bed in no distress RESPIRATORY SYSTEM: Unlabored breathing , decreased breath sounds at bases HEART: S1 S2 regular rate and rhythm , ABDOMEN: Soft , no tenderness EXTREMITIES: No edema feet - Labs CBC & Chem 7: 04/21/23 07:18 04/21/23 07:18 Labs: Abnormal Lab Results - Last 24 Hours (Table) 04/20/23 04/20/2324 Range/Units 16:30 20:50 06:43 RBC (4.30-5.90) m/uL Hgb (13.0-17.5) gm/dL Hct (39.0-53.0) % Lymphocytes # (1.0-4.8) k/uL Sodium (137-145) mmol/L Chloride (98-107) mmol/L BUN (9-20) mg/dL Glucose (74-99) mg/dL POC Glucose (mg/dL) 180 H 254 H 231 H (70-110) mg/dL 04/21/23 04/21/23 Range/Units 07:18 07:18 RBC 2.64 L (4.30-5.90) m/uL Hgb 8.2 L D (13.0-17.5) gm/dL Hct 24.4 L (39.0-53.0) % Lymphocytes # 0.7 L (1.0-4.8) k/uL Sodium 135 L (137-145) mmol/L Chloride 108 H (98-107) mmol/L BUN 27 H (9-20) mg/dL Glucose 212 H (74-99) mg/dL POC Glucose (mg/dL) (70-110) mg/dL Microbiology - Last 24 Hours (Table) 04/17/23 15:45 Anaerobic Culture - Final Other - Other 04/19/23 07:17 Blood Culture - Preliminary Blood 04/15/23 11:05 Blood Culture - Final Blood 04/17/23 15:45 Anaerobic Culture - Final Back 04/17/23 15:45 Anaerobic Culture - Final Back 04/17/23 15:45 Gram Stain - Final Other - Other Wound Culture - Final Proteus mirabilis 04/17/23 15:45 Gram Stain - Final Back Wound Culture - Final Proteus mirabilis 04/17/23 15:45 Gram Stain - Final Back Wound Culture - Final Proteus mirabilis Assessment and Plan (1) Bacteremia Current Visit: Yes Status: Acute Code(s): R78.81 - BACTEREMIA SNOMED Code(s): 0782289 (2) Abnormal MRI, lumbar spine Current Visit: Yes Status: Acute Code(s): R93.7 - ABNORMAL FINDINGS ON DIAGNOSTIC IMAGING OF PRT MS SYS SNOMED Code(s): 863630817 Plan: 1patient with extensive abnormality seen on the MRI of the lumbar sacral spine in this patient who is postop with recent extensive surgery to the lumbar sacral spine on 03/28/2022 now admitted to the hospital with confusion however the patient did not have any fever or elevated white count during this hospital stay with concern for possible postop seroma versus hematoma less likely abscess as the patient does not look toxic did not have any fever or elevated white count 2-patient blood cultures came back positive with a Proteus species source is likely lumbar sacral spine fluid collection, patient is status post I&D of the lumbosacral spine with a drainage of the epidural abscess cultures obtained 3-patient OR culture also growing Proteus mirabilis and is sensitive to ceftriaxone 4-patient did got PICC line, plan is for a total of 6 weeks course of IV Rocephin 2 g daily Question concern answered Dictation was produced using [employer] dictation software. please excuse any grammatical, word or spelling errors. Time with Patient: Less than 30
--- NOTE | 2023-04-21 11:43 | P.CNOR ---
History of Present Illness - HPI Consult date: 04/11/23 Requesting physician: Saúl Marin Consult reason: other (recent lumbar surgery) History of present illness: History of Presenting Illness Patient is a pleasant 67-year-old male who was sent to the ER from our office with altered mental status when he arrived for his 2 week post-op appointment following his L3-S1 decompression and fusion that was performed on 03/28/[address] Zimmerman. Patient was discharged to [facility] from previous visit. Patient presented to the office via wheelchair assisted by swing driver from the facility. He was unable to stand for xrays or follow direction. His speech was uncomprehenable at times. He was unable to answer question appropriately. Patient seen and examined in the ER, upon entering room patient was visibly shaking and had random movements with his extremities. He continues to be pleasantly confused. Patient was able to follow commands to perform bed exercises. He continues to verbalize random topics and does not answer some questions appropriately. surgical incision to the lumbar spine, edges are well- approximated with elizabeth intact. Removed dressing that was stated 04/10/23 with scant amount of serosanguineous drainage at the top portion of dressing. No active drainage witnessed during exam. CT scan of the abdomen and pelvis taken today 04/11/23 demonstrates a possible seroma at L2 measuring 5 x 5 cm. Advanced imaging may be obtained once patient is medically stable. Review of Systems Pertinent positives and negatives as discussed in HPI, a complete review of systems was performed and all other systems are negative. Physical Examination Inspection: Negative for any open fractures, ecchymosis, significant erythema/ulcers. surgical incision to the lumbar spine, edges are well- approximated with elizabeth intact. Scant amount of serosanguineous drainage present on bandage at the top portion of from the incision, no active drainage at this time. Sensation: Sensation is equal, symmetric, bilaterally intact throughout the up per and lower extremities Palpation: Nontender to palpation throughout bilateral upper and lower ex tremities and throughout spine exam Range of motion: Patient does have full range of motion bilateral upper and lower extremities on exam Motor: 5/5 in all major motor groups in the bilateral upper and 4/5 in lower extremities Special tests: Negative Homans bilaterally. Negative Tiesha bilaterally. Negative clonus bilaterally. Neurovascular: Radial pulse intact, 2+ bilaterally. Cap refill under 3 seconds in digits upper extremities. Assessment and Plan Recent L3-S1 decompression and fusion. Altered mental status Generalized weakness Complex medical comorbidities At this time we do not recommend any emergent/urgent orthopedic surgical intervention, we will evaluate when patient is medically stable. We may obtain advanced imaging regarding possible seroma when patient is more alert and medically stable. 2. Appreciate medical management 3. Pain management - continue with conservative treatment, Tylenol 4. GI prophylaxis - senna 5. DVT prophylaxis -Eliquis 6. PT/OT - weightbearing as tolerated with a walker as needed. 7. Appreciate consult I reviewed and discussed this case with my attending Dr. Zimmerman, whom has reviewed this chart and films and is in agreement with assessment and plan of care as outlined above. I have personally seen and examined the patient, performed the documentation and the assessment and plan as written. Number of minutes spent on the visit: 20m. Past Medical History Past Medical History: Atrial Fibrillation, COPD, Diabetes Mellitus, Hypertension Additional Past Medical History / Comment(s): herniated discs, TIA History of Any Multi-Drug Resistant Organisms: None Reported Past Surgical History: Orthopedic Surgery Additional Past Surgical History / Comment(s): Knee surgery Past Psychological History: Depression Smoking Status: Current some day smoker Past Alcohol Use History: Daily Past Drug Use History: None Reported, Heroin Medications and Allergies Home Medications Medication Instructions Recorded Confirmed Type Albuterol Sulfate [Ventolin HFA] 2 puff INHALATION RT-QID PRN 03/21/23 04/11/23 History Aspirin EC [Ecotrin Low Dose] 81 mg PO DAILY 03/21/23 04/11/23 History DULoxetine HCL [Cymbalta] 30 mg PO DAILY 03/21/23 04/11/23 History Dulaglutide [Trulicity] 0.75 mg SQ TU 03/21/23 04/11/23 History Empagliflozin [Jardiance] 10 mg PO DAILY 03/21/23 04/11/23 History carvediloL [Coreg] 6.25 mg PO BID 03/21/23 04/11/23 History cefaDROXiL [Duricef] 500 mg PO Q12HR #20 cap 04/03/23 04/11/23 Rx Apixaban [Eliquis] 5 mg PO BID tab 04/04/23 04/11/23 Rx Ferrous Sulfate [Feosol] 325 mg PO BID #1 tab 04/04/23 04/11/23 Rx Gabapentin 800 mg PO Q8HR@0000,0800,1600 04/11/23 04/11/23 History HYDROcodone/APAP 10-325MG [[place] 1 tab PO Q8H PRN 04/11/23 04/11/23 History 10-325] INSULIN ASPART (NovoLOG) [NovoLOG See Protocol SQ ACHS 04/11/23 04/11/23 History (formulary)] Insulin Glargine,Hum.rec.anlog 10 units SQ DAILY@0800 04/11/23 04/11/23 History [Lantus Solostar Pen] Sennosides/Docusate Sodium [Senna 1 cap PO DAILY PRN 04/11/23 04/11/23 History Plus 8.6-50 mg Softgel] methocarbamoL [Robaxin-750] 750 mg PO TID@0800,1200,1600 04/11/23 04/11/23 History oxyCODONE ER [OxyCONTIN] 10 mg PO BID@0800,2000 04/11/23 04/11/23 History Allergies Allergy/AdvReac Type Severity Reaction Status Date / Time No Known Allergies Allergy Verified 04/11/23 12:37 Results - Labs Labs: Abnormal Lab Results - Last 24 Hours (Table) 04/11/23 04/11/23 04/11/23 Range/Units 11:12 11:15 11:15 WBC 11.3 H (3.8-10.6) k/uL RBC 4.21 L (4.30-5.90) m/uL Hgb 12.8 L (13.0-17.5) gm/dL Hct 38.5 L (39.0-53.0) % Neutrophils # 9.5 H (1.3-7.7) k/uL Lymphocytes # 0.7 L (1.0-4.8) k/uL PT 13.1 H (10.0-12.5) sec INR 1.2 H (<1.2) Sodium (137-145) mmol/L Carbon Dioxide (22-30) mmol/L BUN (9-20) mg/dL Creatinine (0.66-1.25) mg/dL Glucose (74-99) mg/dL POC Glucose (mg/dL) 207 H (70-110) mg/dL Albumin (3.5-5.0) g/dL Urine Protein (Negative) Urine Glucose (UA) (Negative) Urine Ketones (Negative) Urine Blood (Negative) Urine RBC (0-5) /hpf Urine Bacteria (None) /hpf Urine Mucus (None) /hpf 04/11/23 04/11/23 Range/Units 11:15 11:15 WBC (3.8-10.6) k/uL RBC (4.30-5.90) m/uL Hgb (13.0-17.5) gm/dL Hct (39.0-53.0) % Neutrophils # (1.3-7.7) k/uL Lymphocytes # (1.0-4.8) k/uL PT (10.0-12.5) sec INR (<1.2) Sodium 135 L (137-145) mmol/L Carbon Dioxide 18 L (22-30) mmol/L BUN 41 H (9-20) mg/dL Creatinine 1.40 H (0.66-1.25) mg/dL Glucose 207 H (74-99) mg/dL POC Glucose (mg/dL) (70-110) mg/dL Albumin 3.2 L (3.5-5.0) g/dL Urine Protein Trace H (Negative) Urine Glucose (UA) 4+ H (Negative) Urine Ketones Trace H (Negative) Urine Blood Large H (Negative) Urine RBC >182 H (0-5) /hpf Urine Bacteria Rare H (None) /hpf Urine Mucus Rare H (None) /hpf H & H 04/11/23 Range/Units 11:15 Hgb 12.8 L (13.0-17.5) gm/dL Hct 38.5 L (39.0-53.0) % Coagulation 04/11/23 Range/Units 11:15 INR 1.2 H (<1.2) Result Diagrams: 04/11/23 11:15 04/12/23 05:59
[2023-04-21 11:48] LABS: Glucose,Whole Blood 266 mg/dL (70-110)
--- NOTE | 2023-04-21 12:01 | P.PN ---
Subjective Progress Note Date: 04/21/23 67-year-old gentleman with recent L3 to S1 decompression and fusion presented emergency department because of confusion. Some of the history is obtained from medical record. It seems that the patient was at a nursing rehab facility and he had the confusion. Patient had a recent lumbar decompression and fusion and this seems she is a significant facility and is documented that the caregiver states he has been having some issues receiving medication the morning and symptoms were worse yesterday per the staff. Per the ED and the team's note. He was confused but does have periods of time of clearing thoughts. Patient does not recall what transpired but states he is having significant lower back pain and states that his legs gave out. He denies any bladder or bowel issues. He feels his hip his pain mostly left more than the right and he could not come there is any radiation. He was having some numbness in the feet. Denies any history of stroke or seizures in the past. Denies of any fevers. Patient is on oxycodone, Robaxin, Cymbalta. Patient is on eliquis as well as aspirin as no medication. Initial white blood cells 11.13 thousand that normalized. The glucose has been in the range of initially on presentation was in the 200s and currently it's in the 140s to 170s. Odium was 136, creatinine is 1.35, BUN is 45, hemoglobin A1c 10.1 Plasma lactic acid venous 1.5. Ammonia is 44. EKG is reported as age are fibrillation. Left axis deviation. CT of the head is reported as similar mild intra-or megaly likely due to central cerebral atrophy. Correlate to exclude component of NPH. Mild burden of chronic small vessel ischemic disease. No acute intracranial abnormality seen. I personally reviewed the CT the head and I feel there is no acute subacute ischemia. There is no bleed. I agree that cerebral atrophy seems more due to the cerebral atrophy. CT abdomen and pelvis is reported as 1.1 cm nonobstructive the left renal stone. 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 nodularity of the liver. Correlate for any known diagnosis of underlying cirrhosis. GI referral if not established diagnosis. Recent L3-S1 posterior lumbar fusion changes with laminectomies extending up to the L2 level. Here the L2 level there appears to be fluid collection measuring 5.5 wide within the laminectomy bed, possible postoperative seroma. Follow-up as clinically indicated. Other fluid collection not excluded this time. An additional small fluid and air collection measuring 2.1 just deep to the superimposed skin elizabeth within the subcutaneous fat layer. 04/13/2023 Patient is seen and evaluated resting in bed; continues to report uncontrolled pain Vital signs are reviewed and are stable with temperature of 98, pulse 81, respiration 19, blood pressure 134/89 and O2 saturation 96% on room air Labs revealed WBC 6.27, hemoglobin 11.5 and platelet count of 243, sodium 137, potassium 4.7, BUN 35.4, creatinine 1.2, blood glucose ranging between 1 42-84 --We will add NovoLog 5 units subcu with each meal -Patient has been evaluated by orthopedic surgery and MRI of the spine is recommended -- PT OT consulted 04/14/2023 Patient alert awake oriented, he is just confused about the exact date but he knows the year. He has insight. Cystoscopy complaining from significant back pain Neurology and orthopedic team on the case. Gentle normal saline Creatinine mildly elevated but improving, we will consult nephrology line physical therapy recommends subacute rehab which is pending. 04/15/2023 She is sleeping today, still complained from significant back pain he had MRI of the lumbar spine done yesterday showing large paraspinal cyst suspicious for abs cess 9.7 x 3.1 x 12.7 cm with thecal sac in his bed of the level of L2 and vertebral disc protrusion with fracture of the L3 superior endplate with severe spinal stenosis orthopedic team on the case Also we'll check ESR and CRP and consult infectious disease team. Currently he is not on antibiotic yet. Patient with no fever or leukocytosis His continued normal saline 75 mL 04/16/2023 Patient still at bedrest with severe back pain secondary to abnormal CAT scan showing possible abscess and fracture and lumbar spine at the level of L2-L3. Patient scheduled for orthopedic surgery for his lumbar spine tomorrow on 04/17. A is for his A. fib is on hold. Patient already evaluated by plate stacker and recommended to continue with the current medication and to resume Eliquis after surgery. His heart regular blood pressure is controlled currently on Coreg at 12.5 mg compared to home dose of 6.25 mg. Patient with Proteus bacteremia, currently covered with Rocephin 2 g daily most likely source is paraspinal abscess. Infectious disease input is appreciated. Neurology and orthopedic input is noted 04/17/2023 Patient underwent surgery for his lumbar spine. He is going for ( Revision surgery with open treatment L1-2 fracture stabilization and decompression ) . Today postop day #0 Postsurgery history of drinking up slowly Hemodynamically stable Patient has bacteremia with gram-negative bacilli most likely Proteus, most likely the source is paraspinal fluid collection, rule out abscess pending wound culture Patient covered with ceftriaxone. ESR and CRP are elevated 04/18/2023 Patient awake alert at baseline. He is status post ( Revision surgery with open treatment L1-2 fracture stabilization and decompression ) today's postop day #1 He still complaining from back pain but looks better, he rated about 60-7/10 in severity, no radiation to the leg, he is able to flex his legs better than prior to surgery which was in the limitation due to pain He denies any other specific symptoms no chest pain or dyspnea, heart rate controlled for his A. fib and his Eliquis resumes was cleared by surgery Remains on ceftriaxone for his gram-negative bacteremia most likely Proteus 04/19/2023 Patient continued to improve. Patient was sitting up in his chair today for the first time and having his medial with no difficulty Still complaining of from pain at his back at the surgery site but is improving Her remains covered with IV ceftriaxone and IV vancomycin 04/20/2023 Patient back pain is 67/10, no other new complaints Patient remains mildly lethargic Wound culture blood culture grown Proteus and currently on antibiotic as per ID team patient was on a liquid sent home for A. fib, Dr. Zimmerman cleared the patient to start Lovenox, I discussed with the patient risks and benefits and details and he verbalized understanding and acceptance to start Lovenox. Lovenox 60 mg twice daily 04/21/2023 Dr ROGERS Assumed care Patient seen and evaluated at bedside, patient does complain of pain, mentation has improved, seen by spine surgery as well as infectious disease, back drain in place, will monitor output patient has been started on Lovenox, further recommendations regarding anticoagulation to be given by surgery team. If stable will transition to Eliquis. Patient will need a PICC line as well. Continue patient on current antibiotic receiving IV Rocephin GENERAL: The patient is alert and oriented x3, ill appearance HEENT: Pupils are round and equally reacting to light. CARDIOVASCULAR: S1 and S2 present. No murmurs. PULMONARY: Chest is clear to auscultation, no wheezing , no crackles. ABDOMEN: Soft, nontender, nondistended, normoactive bowel sounds. No palpable organomegaly. MUSCULOSKELETAL: Back exam limited secondary to pain, drain in place EXTREMITIES: No cyanosis, clubbing, or pedal edema. NEUROLOGICAL: Moving bilateral lower extremity, no focal deficit noted \ Objective - Vital Signs Vital signs: Vital Signs Temp 98.6 F 04/21/23 07:26 Pulse 84 04/21/23 09:17 Resp 19 04/21/23 09:17 BP 128/75 04/21/23 07:26 Pulse Ox 95 04/21/23 07:26 FiO2 Intake & Output 04/20/23 04/21/23 04/21/23 18:59 06:59 18:59 Output Total 1900 100 320 Balance -1900 -100 -320 Output: Drainage 0 100 20 BACK Back 0 100 20 Urine 1900 300 Uretheral (Lopez) 1900 Other: Voiding Method Indwelling Catheter Indwelling Catheter Urinal # Bowel Movements 1 - Labs CBC & Chem 7: 04/21/23 07:18 04/21/23 07:18 Labs: Abnormal Lab Results - Last 24 Hours (Table) 04/20/23 04/20/23 04/21/23 Range/Units 16:30 20:50 06:43 RBC (4.30-5.90) m/uL Hgb (13.0-17.5) gm/dL Hct (39.0-53.0) % Lymphocytes # (1.0-4.8) k/uL Sodium (137-145) mmol/L Chloride (98-107) mmol/L BUN (9-20) mg/dL Glucose (74-99) mg/dL POC Glucose (mg/dL) 180 H 254 H 231 H (70-110) mg/dL 04/21/23 04/21/23 04/21/23 Range/Units 07:18 07:18 11:47 RBC 2.64 L (4.30-5.90) m/uL Hgb 8.2 L D (13.0-17.5) gm/dL Hct 24.4 L (39.0-53.0) % Lymphocytes # 0.7 L (1.0-4.8) k/uL Sodium 135 L (137-145) mmol/L Chloride 108 H (98-107) mmol/L BUN 27 H (9-20) mg/dL Glucose 212 H (74-99) mg/dL POC Glucose (mg/dL) 266 H (70-110) mg/dL Microbiology - Last 24 Hours (Table) 04/17/23 15:45 Anaerobic Culture - Final Other - Other 04/19/23 07:17 Blood Culture - Preliminary Blood 04/15/23 11:05 Blood Culture - Final Blood 04/17/23 15:45 Anaerobic Culture - Final Back 04/17/23 15:45 Anaerobic Culture - Final Back 04/17/23 15:45 Gram Stain - Final Other - Other Wound Culture - Final Proteus mirabilis 04/17/23 15:45 Gram Stain - Final Back Wound Culture - Final Proteus mirabilis 04/17/23 15:45 Gram Stain - Final Back Wound Culture - Final Proteus mirabilis Assessment and Plan Assessment: Assessment and plan * Acute encephalopathy toxic metabolic and infectious in origin * S/p L3 S1 decompression and fusion * Proteus bacteremia * Diabetes mellitus type 2 with hyperglycemia * Chronic atrial fibrillation on anticoagulation * Hypertension * Peripheral neuropathy * Acute renal failure resolved * In regards to metabolic encephalopathy mentation has improved, caution with polypharmacy, continue pain control patient receiving [place], patient is alert and oriented to person and situation * Patient was seen by neurology appreciate recommendations * In regards to low back pain s/p history of recent L3-S1 decompression and fusion , he is status post (Revision surgery with open treatment L1-2 fracture stabilization and decompression on 04/17) * MRI showing large paraspinal cyst suspicious for abscess 9.7 x 3.1 x 12.7 cm with thecal sac in his bed of the level of L2 and vertebral disc protrusion with fracture of the L3 superior endplate with severe spinal stenosis * orthopedic and infectious disease consult * Proteus bacteremia most likely secondary to his spinal disease and infection , including 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 * on Rocephin * Infectious disease consult on the case * In regards to diabetes mellitus type 2, Accu-Cheks ACHS, continue patient on sliding scale insulin and Lantus, blood glucose ranging between 250s * Atrial fibrillation; continue with rate control with Coreg 12.5 mg twice daily; continue with current anticoagulation therapy * On Lovenox while keeping holding ELQIUIS for now per recommendation of orthopedic team * Hypertension; Coreg 12.5 mg Increased to 12.5 mg twice daily * Peripheral neuropathy; patient takes gabapentin 800 mg every 8 hours which has been placed on hold due to altered mental status and JEAN MARIE * Acute renal injury; BUNs/creatinine elevated at 45/1.35 upon admission resolved Time with Patient: Greater than 30
[2023-04-21] MEDS: HYDROmorphone 0.5 MG/0.5 ML SYRINGE IVP PRN (13:07)
--- NOTE | 2023-04-21 13:15 | IR ---
PICC Insertion: EXAMINATION TYPE: IR cvc insert >=5 years Intraoperative/procedural fluoroscopic services were provid ed. CLINICAL INDICATION:Male, 67 years old with history of ANTIBIOTICS; , [facility] Total fluoroscopy time is 0.3 min. DAP: 0.349 Gycm2 Please see the operative/procedural note for further details.
[2023-04-21 16:21] LABS: Glucose,Whole Blood 310 mg/dL (70-110)
[2023-04-21] MEDS: HYDROcodone/APAP 7.5-325MG 1 EACH TAB PO PRN (16:53)
--- NOTE | 2023-04-21 18:44 | CDI ---
Documentation Clarification Form Date: 04/21/2023 06:25:22 PM From: Alethea Becerra RN, CCDS Phone: [phone] Admit Date: 04/11/2023 02:19:00 PM Patient Name: Devon Nails Visit Number: [id number] Discharge Date: ATTENTION: The Clinical Documentation Specialists (CDI) and [facility] Coding Staff appreciate your assistance in clarifying documentation. Please respond to the clarification below the line at the bottom and electronically sign. The CDI & [facility] Coding staff will review the response and follow-up if needed. Please note: Queries are made part of the Legal Health Record. If you have any questions, please contact the author of this message via ITS. Dr. Gregory Oates debridement is documented in the Operative note on 04/18/23. Additional clarification regarding the procedure is requested. History/Risk Factors: Atrial Fibrillation, COPD, Diabetes Mellitus, Hypertension, Current some day smoker Clinical Indicators:67-year-old male presents to ED with confusion 2-week post- op appointment following his L3-S1 decompression and fusion. Patient had an Irrigation and debridement skin, soft tissue, muscle and bone lumbar spine [id number]. Additional clarification related to the type of debridement is requested. 04/15 CT and MRI reviewed: Pt has fracture through L2-3 region with L3 pedicle fracture and L2-3-disc fracture with extrusion and fish mouthing of the disc. Increased signal in the disc with epidural hematoma noted on MRI and CT scan. This is an unstable fracture. Treatment: 04/17 Open treatment L2-3 fracture, Posteriolateral and interbody fusion L2-3 5. L1-3 bilateral laminectomy, facetectomy and foraminotomy with epidural abscess evacuation, neural element decompression Revision L1-S1 instrumentation, Irrigation and debridement skin, soft tissue, muscle and bone lumbar spine [id number] Rocephin 2 GM IVPB Q 24 HRS Daily PT/OT increase ambulation strength and balance Brace when up and about Please clarify the type of procedure performed: [ ] Excisional debridement (the removal of necrotic, devitalized tissue or slough by means of cutting away of tissue) [ ] Non-excisional debridement (the removal of necrotic, devitalized tissue or slough by means of flushing, brushing, or washing. (Irrigation) [ ] Other; please specify [ ] Unable to determine Five elements required for accurate and compliant documentation of a debridement: Technique used (e.g., excisional, excised, cutting, brushing, jet lavage etc.) Instrument(s) used (e.g., scalpel, curette, etc.) Nature of the tissue removed (e.g., necrotic, devitalized tissues, non-viable tissue, etc.) Appearance and size of the wound (e.g., down to fresh bleeding tissue, 7cm x 10cm, etc.) Depth of the debridement* (e.g., skin, subcutaneous tissue, fascia, muscle, bone, etc.) (Template Last Revised: May 2020) Excisional debridement (the removal of necrotic, devitalized tissue or slough by means of cutting away of tissue) [facility]
[2023-04-21 20:51] LABS: Glucose,Whole Blood 229 mg/dL (70-110)
[2023-04-22 05:43] LABS: Glucose,Whole Blood 219 mg/dL (70-110)
[2023-04-22 06:26] LABS: HCT 22.4 % (39.0-53.0); HGB 8.3 gm/dL (13.0-17.5); Hypochromasia Slight; MCH 34.3 pg (25.0-35.0); MCHC 37.2 g/dL (31.0-37.0); MCV 92.1 fL (80.0-100.0); Mean Platelet Volume 8.2; Platelet Count 185 k/uL (150-450); Poikilocytosis Slight; RBC 2.43 m/uL (4.30-5.90); RDW 14.3 % (11.5-15.5); WBC 7.4 k/uL (3.8-10.6)
[2023-04-22 06:38] LABS: African American GFR (CKD) >90 (>60 ml/min/1.73 sqM); Anion Gap 5 mmol/L; Blood Urea Nitrogen 23 mg/dL (9-20); Calcium 9.6 mg/dL (8.4-10.2); Carbon Dioxide 25 mmol/L (22-30); Chloride 104 mmol/L (98-107); Glucose 175 mg/dL (74-99); Non-African American GFR(CKD) 85 (>60 ml/min/1.73 sqM); Potassium 3.8 mmol/L (3.5-5.1); Sodium 134 mmol/L (137-145)
--- NOTE | 2023-04-22 09:03 | P.PN ---
Subjective Progress Note Date: 04/22/23 Principal diagnosis: recent lumbar surgery (L3-S1 decompression and fusion) Mental status change Patient seen and examined this morning. Patient is resting comfortably in bed. Surgical incision to the thoracolumbar region, edges are well approximated with sutures intact. Hemovac drain has been removed, new surgical dressing applied. Patient reports his pain is managed on current regimen. Continue to encourage patient to be up in chair for all meals and working with physical therapy. Patient did receive his PICC line in the left upper extremity. Patient denies any fever/chills, nausea/vomiting, or chest pain. Patient is cleared from orthopedic standpoint for discharge. No acute concerns at this time. Objective - Vital Signs Vital signs: Vital Signs Temp 98.1 F 04/22/23 07:24 Pulse 72 04/22/23 07:24 Resp 17 04/22/23 07:24 BP 114/73 04/22/23 07:24 Pulse Ox 95 04/22/23 07:24 FiO2 Intake & Output 04/21/23 04/22/23 04/22/23 18:59 06:59 18:59 Intake Total 480 Output Total 340 780 Balance -340 -300 Intake: Oral 480 Output: Drainage 40 80 BACK Back 40 80 Urine 300 700 Other: Voiding Method Urinal Urinal - Labs CBC & Chem 7: 04/22/23 05:47 04/22/23 05:47 Labs: Abnormal Lab Results - Last 24 Hours (Table) 04/21/23 04/21/23 04/21/23 Range/Units 11:47 16:19 20:49 RBC (4.30-5.90) m/uL Hgb (13.0-17.5) gm/dL Hct (39.0-53.0) % MCHC (31.0-37.0) g/dL Sodium (137-145) mmol/L BUN (9-20) mg/dL Glucose (74-99) mg/dL POC Glucose (mg/dL) 266 H 310 H 229 H (70-110) mg/dL 04/22/23 04/22/23 04/22/23 Range/Units 05:41 05:47 05:47 RBC 2.43 L (4.30-5.90) m/uL Hgb 8.3 L (13.0-17.5) gm/dL Hct 22.4 L (39.0-53.0) % MCHC 37.2 H (31.0-37.0) g/dL Sodium 134 L (137-145) mmol/L BUN 23 H (9-20) mg/dL Glucose 175 H (74-99) mg/dL POC Glucose (mg/dL) 219 H (70-110) mg/dL Microbiology - Last 24 Hours (Table) 04/19/23 07:17 Blood Culture - Preliminary Blood 04/17/23 15:45 Anaerobic Culture - Final Other - Other
[2023-04-22 11:47] LABS: Glucose,Whole Blood 208 mg/dL (70-110)
--- NOTE | 2023-04-22 12:08 | P.DS ---
Providers Date of admission: 04/11/23 14:19 Expected date of discharge: 04/22/23 Attending physician: Adolfo Vizcarra MD Consults: 04/11/23 14:01 Consult Physician Urgent Consulting Provider: Avinash Paulino Consult Reason/Comments: AMS Do you want consulting provider notified?: Yes Consult Physician Urgent Consulting Provider: Gregory Zimmerman Consult Reason/Comments: s/p lumbar surgery, seroma Do you want consulting provider notified?: Yes 04/15/23 08:48 Consult Physician Routine Consulting Provider: Tim Tong Consult Reason/Comments: discitis and paraspinal abscess Do you want consulting provider notified?: Yes Primary care physician: Lise Anguiano DO Hospital Course: 67-year-old gentleman with recent L3 to S1 decompression and fusion presented emergency department because of confusion. Some of the history is obtained from medical record. It seems that the patient was at a nursing rehab facility and he had the confusion. Patient had a recent lumbar decompression and fusion and this seems she is a significant facility and is documented that the caregiver states he has been having some issues receiving medication the morning and symptoms were worse yesterday per the staff. Per the ED and the team's note. He was confused but does have periods of time of clearing thoughts. Patient does not recall what transpired but states he is having significant lower back pain and states that his legs gave out. He denies any bladder or bowel issues. He feels his hip his pain mostly left more than the right and he could not come there is any radiation. He was having some numbness in the feet. Denies any history of stroke or seizures in the past. Denies of any fevers. Patient is on oxycodone, Robaxin, Cymbalta. Patient is on eliquis as well as aspirin as no medication. Initial white blood cells 11.13 thousand that normalized. The glucose has been in the range of initially on presentation was in the 200s and currently it's in the 140s to 170s. Odium was 136, creatinine is 1.35, BUN is 45, hemoglobin A1c 10.1 Plasma lactic acid venous 1.5. Ammonia is 44. EKG is reported as age are fibrillation. Left axis deviation. CT of the head is reported as similar mild intra-or megaly likely due to central cerebral atrophy. Correlate to exclude component of NPH. Mild burden of chronic small vessel ischemic disease. No acute intracranial abnormality seen. I personally reviewed the CT the head and I feel there is no acute subacute ischemia. There is no bleed. I agree that cerebral atrophy seems more due to the cerebral atrophy. CT abdomen and pelvis is reported as 1.1 cm nonobstructive the left renal stone. 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 nodularity of the liver. Correlate for any known diagnosis of underlying cirrhosis. GI referral if not established diagnosis. Recent L3-S1 posterior lumbar fusion changes with laminectomies extending up to the L2 level. Here the L2 level there appears to be fluid collection measuring 5.5 wide within the laminectomy bed, possible postoperative seroma. Follow-up as clinically indicated. Other fluid collection not excluded this time. An additional small fluid and air collection measuring 2.1 just deep to the superimposed skin elizabeth within the subcutaneous fat layer. 04/13/2023 Patient is seen and evaluated resting in bed; continues to report uncontrolled pain Vital signs are reviewed and are stable with temperature of 98, pulse 81, respiration 19, blood pressure 134/89 and O2 saturation 96% on room air Labs revealed WBC 6.27, hemoglobin 11.5 and platelet count of 243, sodium 137, potassium 4.7, BUN 35.4, creatinine 1.2, blood glucose ranging between 1 42-84 --We will add NovoLog 5 units subcu with each meal -Patient has been evaluated by orthopedic surgery and MRI of the spine is recommended -- PT OT consulted 04/14/2023 Patient alert awake oriented, he is just confused about the exact date but he knows the year. He has insight. Cystoscopy complaining from significant back pain Neurology and orthopedic team on the case. Gentle normal saline Creatinine mildly elevated but improving, we will consult nephrology line physical therapy recommends subacute rehab which is pending. 04/15/2023 She is sleeping today, still complained from significant back pain he had MRI of the lumbar spine done yesterday showing large paraspinal cyst suspicious for abscess 9.7 x 3.1 x 12.7 cm with thecal sac in his bed of the level of L2 and vertebral disc protrusion with fracture of the L3 superior endplate with severe spinal stenosis orthopedic team on the case Also we'll check ESR and CRP and consult infectious disease team. Currently he is not on antibiotic yet. Patient with no fever or leukocytosis His continued normal saline 75 mL 04/16/2023 Patient still at bedrest with severe back pain secondary to abnormal CAT scan showing possible abscess and fracture and lumbar spine at the level of L2-L3. Patient scheduled for orthopedic surgery for his lumbar spine tomorrow on 04/17. A is for his A. fib is on hold. Patient already evaluated by cook pressure and recommended to continue with the current medication and to resume Eliquis after surgery. His heart regular blood pressure is controlled currently on Coreg at 12.5 mg compared to home dose of 6.25 mg. Patient with Proteus bacteremia, currently covered with Rocephin 2 g daily most likely source is paraspinal abscess. Infectious disease input is appreciated. Neurology and orthopedic input is noted 04/17/2023 Patient underwent surgery for his lumbar spine. He is going for ( Revision surgery with open treatment L1-2 fracture stabilization and decompression ) . Today postop day #0 Postsurgery history of drinking up slowly Hemodynamically stable Patient has bacteremia with gram-negative bacilli most likely Proteus, most likely the source is paraspinal fluid collection, rule out abscess pending wound culture Patient covered with ceftriaxone. ESR and CRP are elevated 04/18/2023 Patient awake alert at baseline. He is status post ( Revision surgery with open treatment L1-2 fracture stabilization and decompression ) today's postop day #1 He still complaining from back pain but looks better, he rated about 60-7/10 in severity, no radiation to the leg, he is able to flex his legs better than prior to surgery which was in the limitation due to pain He denies any other specific symptoms no chest pain or dyspnea, heart rate controlled for his A. fib and his Eliquis resumes was cleared by surgery Remains on ceftriaxone for his gram-negative bacteremia most likely Proteus 04/19/2023 Patient continued to improve. Patient was sitting up in his chair today for the first time and having his medial with no difficulty Still complaining of from pain at his back at the surgery site but is improving Her remains covered with IV ceftriaxone and IV vancomycin 04/20/2023 Patient back pain is 67/10, no other new complaints Patient remains mildly lethargic Wound culture blood culture grown Proteus and currently on antibiotic as per ID team patient was on a liquid sent home for A. fib, Dr. Zimmerman cleared the patient to start Lovenox, I discussed with the patient risks and benefits and details and he verbalized understanding and acceptance to start Lovenox. Lovenox 60 mg twice daily 04/21/2023 Dr ROGERS Assumed care Patient seen and evaluated at bedside, patient does complain of pain, mentation has improved, seen by spine surgery as well as infectious disease, back drain in place, will monitor output patient has been started on Lovenox, further rec ommendations regarding anticoagulation to be given by surgery team. If stable will transition to Eliquis. Patient will need a PICC line as well. Continue patient on current antibiotic receiving IV Rocephin 04/22/2023: Patient seen and evaluated at bedside, plan to discharge to rehab facility PICC line in place, patient transition to Eliquis upon discharge pain medications provided by surgery team GENERAL: The patient is alert and oriented x3, ill appearance HEENT: Pupils are round and equally reacting to light. CARDIOVASCULAR: S1 and S2 present. No murmurs. PULMONARY: Chest is clear to auscultation, no wheezing , no crackles. ABDOMEN: Soft, nontender, nondistended, normoactive bowel sounds. No palpable organomegaly. MUSCULOSKELETAL: Back exam limited secondary to pain, drain removed EXTREMITIES: No cyanosis, clubbing, or pedal edema. NEUROLOGICAL: Moving bilateral lower extremity, no focal deficit noted Assessment and plan * Acute encephalopathy toxic metabolic and infectious in origin * S/p L3 S1 decompression and fusion * Proteus bacteremia * Diabetes mellitus type 2 with hyperglycemia * Chronic atrial fibrillation on anticoagulation * Hypertension * Peripheral neuropathy * Acute renal failure resolved * In regards to metabolic encephalopathy mentation has improved, caution with polypharmacy, continue pain control patient receiving [place], patient is alert and oriented to person and situation * Patient was seen by neurology appreciate recommendations * In regards to low back pain s/p history of recent L3-S1 decompression and fusion , he is status post (Revision surgery with open treatment L1-2 fracture stabilization and decompression on 04/17) * MRI showing large paraspinal cyst suspicious for abscess 9.7 x 3.1 x 12.7 cm with thecal sac in his bed of the level of L2 and vertebral disc protrusion with fracture of the L3 superior endplate with severe spinal stenosis * orthopedic and infectious disease consult * Proteus bacteremia most likely secondary to his spinal disease and infection , including 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 * on Rocephin, plan to complete 6 weeks of antibiotic * Infectious disease consult on the case * In regards to diabetes mellitus type 2, Accu-Cheks ACHS, continue patient on sliding scale insulin and Lantus, blood glucose ranging between 250s * Atrial fibrillation; continue with rate control with Coreg 25 mg twice daily; continue with current anticoagulation therapy with Eliquis * Was initially started Lovenox, hence transition to Eliquis upon discharge * Hypertension; continue Coreg * Peripheral neuropathy; patient was on gabapentin 800 mg every 8 hours which was discontinued altered mental status and JEAN MARIE * Acute renal injury; BUNs/creatinine elevated at 45/1.35 upon admission resolved Patient Condition at Discharge: Fair Plan - Discharge Summary Discharge Rx Participant: No New Discharge Prescriptions: New HYDROcodone/APAP 10-325MG [[place] 10-325] 1 tab PO Q4-6H PRN #42 tab PRN Reason: Pain carvediloL [Coreg*] 25 mg PO BID-W/MEALS tab Cyclobenzaprine [Flexeril] 5 mg PO TID PRN #40 tablet PRN Reason: Muscle Spasm Sennosides/Docusate Sodium [Senna Plus 8.6-50 mg Tablet] 1 each PO DAILY PRN #20 tablet PRN Reason: Constipation cefTRIAXone [Rocephin] 2 gm IVPB Q24HR 31 Days each Continue Ferrous Sulfate [Feosol] 325 mg PO BID #1 tab Aspirin EC [Ecotrin Low Dose] 81 mg PO DAILY Albuterol Sulfate [Ventolin HFA] 2 puff INHALATION RT-QID PRN PRN Reason: Shortness Of Breath Dulaglutide [Trulicity] 0.75 mg SQ TU DULoxetine HCL [Cymbalta] 30 mg PO DAILY Empagliflozin [Jardiance] 10 mg PO DAILY Apixaban [Eliquis] 5 mg PO BID tab INSULIN ASPART (NovoLOG) [NovoLOG (formulary)] See Protocol SQ ACHS Insulin Glargine,Hum.rec.anlog [Lantus Solostar Pen] 10 units SQ DAILY@0800 Discontinued cefaDROXiL [Duricef] 500 mg PO Q12HR #20 cap oxyCODONE ER [OxyCONTIN] 10 mg PO BID@0800,2000 HYDROcodone/APAP 10-325MG [[place] 10-325] 1 tab PO Q8H PRN PRN Reason: Breakthrough Pain Sennosides/Docusate Sodium [Senna Plus 8.6-50 mg Softgel] 1 cap PO DAILY PRN PRN Reason: Constipation carvediloL [Coreg] 6.25 mg PO BID Gabapentin 800 mg PO Q8HR@0000,0800,1600 methocarbamoL [Robaxin-750] 750 mg PO TID@0800,1200,1600 Discharge Medication List Albuterol Sulfate [Ventolin HFA] 2 puff INHALATION RT-QID PRN 03/21/23 [History] Aspirin EC [Ecotrin Low Dose] 81 mg PO DAILY 03/21/23 [History] DULoxetine HCL [Cymbalta] 30 mg PO DAILY 03/21/23 [History] Dulaglutide [Trulicity] 0.75 mg SQ TU 03/21/23 [History] Empagliflozin [Jardiance] 10 mg PO DAILY 03/21/23 [History] Apixaban [Eliquis] 5 mg PO BID tab 04/04/23 [Rx] Ferrous Sulfate [Feosol] 325 mg PO BID #1 tab 04/04/23 [Rx] INSULIN ASPART (NovoLOG) [NovoLOG (formulary)] See Protocol SQ ACHS 04/11/23 [History] Insulin Glargine,Hum.rec.anlog [Lantus Solostar Pen] 10 units SQ DAILY@0800 04/11/23 [History] Cyclobenzaprine [Flexeril] 5 mg PO TID PRN #40 tablet 04/22/23 [Rx] HYDROcodone/APAP 10-325MG [[place] 10-325] 1 tab PO Q4-6H PRN #42 tab 04/22/23 [Rx] Sennosides/Docusate Sodium [Senna Plus 8.6-50 mg Tablet] 1 each PO DAILY PRN #20 tablet 04/22/23 [Rx] carvediloL [Coreg*] 25 mg PO BID-W/MEALS tab 04/22/23 [Rx] cefTRIAXone [Rocephin] 2 gm IVPB Q24HR 31 Days each 04/22/23 [Rx] Follow up Appointment(s)/Referral(s): Lise Anguiano DO [Primary Care Provider] - 1-2 days Pepper Hess MD [STAFF PHYSICIAN] - 3 Weeks (GI doctor for your liver nodularity ) [facility], [NON-STAFF] - Gregory Zimmerman DO [Doctor of Osteopathic Medicine] - 10 Days Activity/Diet/Wound Care/Special Instructions: Spine Discharge and Recovery Instructions Medications: See medication list All medication refills should be obtained through your primary care doctor or your clinic spine surgeon. Please discuss prescription refills at your follow up appointment. Do not call the hospital for medication refills. Activity: Encourage ambulation with assist of walker, Up and about 6-8x daily PT/OT daily work on balance, strength and mobility Up in chair with all meals Shower daily Brace: Use brace when up and about, do not wear in bed or shower Dressing: Leave your dressing in place for a total of 3 days post operatively. Then you may remove your dressing and leave open to air. Keep the area clean and if not able to keep area clean, then cover with sterile gauze and tape. Showering: You may shower 3 days after your procedure allowing soap and water to run over incision. Do not scrub. Do not soak. Blot dry. Follow up: Please confirm a follow up appointment with your surgeon 2 weeks post operatively. Please make an appointment to follow up with your PCP in 1-2 weeks after surgery for evaluation 3 phase, 3-week plan POST OP WEEKS 1-3 1. Lifting/carrying/pushing/pulling limited to less than 5 pounds. 2. Do not sit for longer than 15 minutes at one time. Get up and walk around. Prolonged sitting is NOT advised. If you lay down, see if you can tolerate laying down on you front (belly side) 3. Walk for periods of 15 minutes = 1 mile but no longer; do it multiple times times each day. 4. Ice your low back after activity. POST OP WEEKS 3-6 1. Lifting limited to less than 20 pounds. 2. Do not sit for longer than 30 minutes at a time. Frequently change positions. Use a sit-to stand workstation or take frequent breaks from sitting if you have returned to work. 3. Walk for 30 minutes each day. If possible, do these three or more times a day POST OP WEEKS 6+ At your 6-week appointment we will give you a physical therapy referral to focus on a core stabilization and strengthening program. You should also work on leg & buttock strengthening, hamstring & quadriceps stretching, and continue a low impact aerobic activity program such as swimming, walking, or riding a stationary bicycle. During the initial 6 weeks after your surgery, you are at the highest risk of re-injuring your spine. You should generally avoid BLTs (bending, lifting and twisting combination motions) and follow the above guidelines to reduce the chance of reinjury. You can anticipate post op appointments in our office at approximately 3 weeks and 6 weeks after your surgery. INCISION CARE: If your incision is not draining you do NOT need to cover it with a dressing. Keep your incision clean, dry and intact. In most cases, we apply skin glue, elizabeth or sutures to the incision at the time of surgery. This will be like a crust or have the appearance of a scab and will fall off in time on its own. The stitches or elizabeth need to be removed at 3 weeks post op appointment. You may begin to shower 3 days after surgery (this allows the glue to kelly well). However, please avoid scrubbing the incision site or peeling off any of the skin glue. This will ensure optimal healing of y our incision. Also, during this time avoid soaking the incision area in water - this includes swimming pools, hot tubs or baths. No ointments, lotions or oils on the incision until your surgeon allows. Leave elizabeth, sutures or glue in place. Neurological dysfunction that comes on suddenly can also be a sign of a stroke. Below some common symptoms of a stroke are listed: B - balance difficulty such as sudden onset walking or leaning to one side - NEW E - eye problem such as sudden double vision or trouble seeing on one side - NEW F - Facial weakness or numbness on one side - NEW A - Arm or leg weakness or numbness on one side - NEW S - Slurred speech or difficulty with word finding - NEW T - Time is BRAIN! Call 911 as soon as you recognize these symptoms Diet: Consume a regular diet rich in vegetables and lean protein such as chicken or fish. You should consume in a ratio of approximately 20% fats|40% carbohydrates|40%protein. Vegetables, sweet potatoes, brown rice or quinoa are examples of good carbohydrates. Chips, white bread, cookies and sweets/sugar are examples of bad carbohydrates. Limit your bad carbs, go wild with good carbs. "Life's Simple 7" Guidelines as per [place] [employer] These will help you reclaim your life after surgery and carpet layer helper in your recovery, keeping in mind your restrictions. (1) Get Active. Physical activity can help people lose weight, control high blood pressure and cholesterol, feel emotionally better, and sleep better. (2) Control Cholesterol. Avoid a diet high in saturated fat, trans fat, & cholesterol. Limit whole milk & cream, ice cream, butter, egg yolks, processed meats (like sausage and hot dogs), and fatty meats. Choose healthy foods that are low in saturated fat, trans fat and cholesterol which include: Fruits and vegetables, fiber rich grain products (like whole grain pasta and brown rice), lean meat such as chicken, fish, nuts, seeds, and legumes. (3) Eat Better. Eat small portions. Shop at the grocery with a list and do not stray from it. Tips for a healthy diet include: Limit sodium intake to less than 1500mg daily, avoid prepackaged, processed, and fast foods, choose a diet rich in fruits, vegetables, and whole grain, high fiber foods, and limit saturated & cholesterol in your diet. (4) Manage Blood Pressure. If you have high blood pressure, you should have a cuff at home so that you can check your blood pressure regularly. Be sure you have a good cuff. An arm one is generally better than a wrist one. Bring the cuff to a doctor's appointment to validate that the measurements that your cuff are taking are accurate. Take your blood pressure twice daily when you are sitting down and relaxing. Record the numbers in a log and bring this log with you to your doctors' appointments. (5) Lose Weight if your BMI is above 25. A healthy BMI is between 19-25. To calculate Your BMI, you may use a Standard BMI Calculator on the NIH BMI website: <www.nhlbi.nih.gov/guidelines/obesity/BMI/bmicalc.htm>. Weigh oneself daily. If you are overweight, set a goal to lose weight. A pound a week loss if needed is a good target. (6) Reduce Blood Sugar. Limit foods and liquids with "added sugars." (Added sugars include sucrose, fructose, glucose, maltose, dextrose, high fructose corn syrup, corn syrup, concentrated fruit juice and honey). (7) Stop Smoking. If you smoke, quitting smoking is one of the best things that you can do for your health. Smoking increases your risk of heart attack, stroke, and peripheral vascular disease, which is a build-up of plaque in your arteries. Please discard all the cigarettes and lighters in your house. Have a plan for what you will do when you have the urge to smoke. Direct and second- hand smoke shortens your life as well as the lives of your family, friends and others around you. For your health and the health of those around you, please consider quitting! Proper Bending Body Mechanics: Maintain a wide stance with one foot slightly in front of the other. Keep your back straight. Bend utilizing the strength in your hips and knees. Do not bend at the waist. Maintain the lifted object at your waist-level close to your body. Avoid lifting weight that causes immediately pain or pain anywhere in the body afterwards. Smoking/Nicotine If there was ever one thing that you could do to increase your overall health, decrease your risk of cardiovascular problems by about 39% the second you make the choice, it is to STOP SMOKING. Your body's most instant gratification is the second you stop smoking. We have all heard the studies, read the articles but it is true, smoking is extremely bad for your overall health, and moreover it is detrimental to your bone health. Nicotine, IN ANY FORM, kills bone cells, prevents your body from healing fractures, and significantly prolongs healing after surgery. In spine surgery specifically, it increases your risk of not healing your bones to create a fusion and increases your risk of having a revision surgery due to this up to 60%. I know it is hard. I know it feels impossible. But there are ways. Take control of your life. We are here to help you through it. And when you are ready, ask us and we can direct you to help if you desire. Use the START Plan to Quit Smoking (please visit the Helpguide.org website listed below for more information): S = Set a quit date. Choose a date within the next 2 weeks, so you have enough time to prepare without losing your motivation to quit. If you mainly smoke at work, quit on the weekend, so you have a few days to adjust to the change. T = Tell family, friends, and co-workers that you plan to quit. Let your friends and family in on your plan to quit smoking and tell them you need their support and encouragement to stop. Look for a quit [place] who wants to stop smoking as well. You can help each other get through the rough times. A = Anticipate and plan for the challenges you'll face while quitting. Most people who begin smoking again do so within the first 3 months. You can help yourself make it through by preparing ahead for common challenges, such as nicotine withdrawal and cigarette cravings. R = Remove cigarettes and other tobacco products from your home, car, and work. Throw away all your cigarettes (no emergency pack!), lighters, ashtrays, and matches. Wash your clothes and freshen up anything that smells like smoke. Shampoo your car, clean your drapes and carpet, and steam your furniture. T = Talk to your doctor about getting help to quit. Your doctor can prescribe medication to help with withdrawal and suggest other alternatives. If you can't see a doctor, you can get many products over the counter at your local pharmacy or grocery store, including the nicotine patch, nicotine lozenges, and nicotine gum. Resources for Quitting Smoking: <https://www.[place].go v/documents/[facility]/Quit_Tobacco_Resources_for_patients_313480_7.pdf> Supplementation: Take recommended dosages of Vitamin D and Calcium to help fortify your bones and help them to heal. See your health maintenance packet for dosages and recommended levels. DVT/VTE prophylaxis: You will be given compression stockings from the hospital. Wear these daily for the first two weeks after surgery. You may take them off at night. You may be prescribed a medication to help thin your blood. Take this as directed. If you are not prescribed this medication, early and frequent ambulation has been shown to be the best prophylaxis to deep vein thrombosis and sequelae related to this event. Discharge Disposition: TRANSFER TO SNF/ECF
--- NOTE | 2023-04-22 12:40 | P.PN ---
Subjective Progress Note Date: 04/22/23 Principal diagnosis: Reason for follow-up is bacteremia and lumbar spine abscess Patient is a 67-year-old male with a past medical history significant for diabetes mellitus hypertension COPD atrial fibrillation in this patient who recently did have extensive lumbosacral spine surgery, patient was brought back to the hospital on 04/11/2023 for evaluation of confusion, workup did include MRI of the lumbar spine with evidence of extensive edema and large fluid collection some air bubbles with a question of possible seroma versus abscess, patient did have blood cultures drawn on 04/15/2023 which came back positive with a Proteus species. Patient is status post I&D of the lumbar surgical site and drainage of the epidural abscess and decompression culture obtained procedure was completed on 04/17/2023. On today's evaluation that is 04/22/2023, Patient is afebrile , patient is currently on room air and denies having any shortness of breath, the patient denies any chest pain or cough, the patient denies any nausea vomiting did not have any abdominal pain and no diarrhea pain to the lower back is currently controlled with the pain medication. Patient did have white count of 7.4, creatinine 0.94 Objective - Vital Signs Vital signs: Vital Signs Temp 98.1 F 04/22/23 07:24 Pulse 72 04/22/23 07:24 Resp 17 04/22/23 07:24 BP 114/73 04/22/23 07:24 Pulse Ox 95 04/22/23 07:24 FiO2 Intake & Output 04/21/23 04/22/23 04/22/23 18:59 06:59 18:59 Intake Total 480 Output Total 340 780 Balance -340 -300 Intake: Oral 480 Output: Drainage 40 80 BACK Back 40 80 Urine 300 700 Other: Voiding Method Urinal Urinal Urinal - Exam GENERAL DESCRIPTION: An elderly male lying in bed in no distress RESPIRATORY SYSTEM: Unlabored breathing , decreased breath sounds at bases HEART: S1 S2 regular rate and rhythm , ABDOMEN: Soft , no tenderness EXTREMITIES: No edema feet - Labs CBC & Chem 7: 04/22/23 05:47 04/22/23 05:47 Labs: Abnormal Lab Results - Last 24 Hours (Table) 04/21/23 04/21/23 04/22/23 Range/Units 16:19 20:49 05:41 RBC (4.30-5.90) m/uL Hgb (13.0-17.5) gm/dL Hct (39.0-53.0) % MCHC (31.0-37.0) g/dL Sodium (137-145) mmol/L BUN (9-20) mg/dL Glucose (74-99) mg/dL POC Glucose (mg/dL) 310 H 229 H 219 H (70-110) mg/dL 04/22/23 04/22/23 04/22/23 Range/Units 05:47 05:47 11:46 RBC 2.43 L (4.30-5.90) m/uL Hgb 8.3 L (13.0-17.5) gm/dL Hct 22.4 L (39.0-53.0) % MCHC 37.2 H (31.0-37.0) g/dL Sodium 134 L (137-145) mmol/L BUN 23 H (9-20) mg/dL Glucose 175 H (74-99) mg/dL POC Glucose (mg/dL) 208 H (70-110) mg/dL Microbiology - Last 24 Hours (Table) 04/19/23 07:17 Blood Culture - Preliminary Blood 04/17/23 15:45 Anaerobic Culture - Final Other - Other Assessment and Plan (1) Bacteremia Current Visit: Yes Status: Acute Code(s): R78.81 - BACTEREMIA SNOMED Code(s): 2205628 (2) Abnormal MRI, lumbar spine Current Visit: Yes Status: Acute Code(s): R93.7 - ABNORMAL FINDINGS ON DIAGNOSTIC IMAGING OF PRT MS SYS SNOMED Code(s): 518590301 Plan: 1patient with extensive abnormality seen on the MRI of the lumbar sacral spine in this patient who is postop with recent extensive surgery to the lumbar sacral spine on 03/28/2022 now admitted to the hospital with confusion however the patient did not have any fever or elevated white count during this hospital stay with concern for possible postop seroma versus hematoma less likely abscess as the patient does not look toxic did not have any fever or elevated white count 2-patient blood cultures came back positive with a Proteus species source is likely lumbar sacral spine fluid collection, patient is status post I&D of the lumbosacral spine with a drainage of the epidural abscess cultures grew Proteus mirabilis and is sensitive to ceftriaxone 3patient did get a PICC line plan is for total of 6-week course of Rocephin 2 g daily with a weekly monitoring of CRP and sed rate and close outpatient follow- up Dictation was produced using [employer] dictation software. please excuse any grammatical, word or spelling errors. Time with Patient: Less than 30
[2023-04-22 14:04] VITALS: BP 99/63; PULSE 70; RESP 19; TEMP 98
== END 2023-04-22 15:48 | DRG 856 ==
LOC: EC 10:48 → 4SSUR 14:19
PROVIDERS: ADMIT Internal Medicine; ATTEND Internal Medicine
PROC: 01NB0ZZ Release Lumbar Nerve, Open Approach (ICD-10-PCS; 2023-04-17)
PROC: 00NY0ZZ Release Lumbar Spinal Cord, Open Approach (ICD-10-PCS; 2023-04-17)
PROC: 0QP004Z Removal of Internal Fixation Device from Lumbar Vertebra, Open Approach (ICD-10-PCS; 2023-04-17)
PROC: 0QS004Z Reposition Lumbar Vertebra with Internal Fixation Device, Open Approach (ICD-10-PCS; 2023-04-17)
PROC: 0SG00AJ Fusion of Lumbar Vertebral Joint with Interbody Fusion Device, Posterior Approach, Anterior Column, Open Approach (ICD-10-PCS; 2023-04-17)
PROC: 0SG0071 Fusion of Lumbar Vertebral Joint with Autologous Tissue Substitute, Posterior Approach, Posterior Column, Open Approach (ICD-10-PCS; 2023-04-17)
PROC: 0QB00ZZ Excision of Lumbar Vertebra, Open Approach (ICD-10-PCS; 2023-04-17)
PROC: 8E0WXBZ Computer Assisted Procedure of Trunk Region (ICD-10-PCS; 2023-04-17)
PROC: 009U00Z Drainage of Spinal Canal with Drainage Device, Open Approach (ICD-10-PCS; principal; 2023-04-17 12:00)
PROC: 02HV33Z Insertion of Infusion Device into Superior Vena Cava, Percutaneous Approach (ICD-10-PCS; 2023-04-21)
DX: T81.42XA Infection following a procedure, deep incisional surgical site, initial encounter (principal); A41.59 Other Gram-negative sepsis; G06.1 Intraspinal abscess and granuloma; G92.8 Other toxic encephalopathy; E72.20 Disorder of urea cycle metabolism, unspecified; N17.9 Acute kidney failure, unspecified; S32.020A Wedge compression fracture of second lumbar vertebra, initial encounter for closed fracture; M46.26 Osteomyelitis of vertebra, lumbar region; M51.06 Intervertebral disc disorders with myelopathy, lumbar region; I48.20 Chronic atrial fibrillation, unspecified; E11.69 Type 2 diabetes mellitus with other specified complication; E11.42 Type 2 diabetes mellitus with diabetic polyneuropathy; J44.9 Chronic obstructive pulmonary disease, unspecified; E11.65 Type 2 diabetes mellitus with hyperglycemia; I34.0 Nonrheumatic mitral (valve) insufficiency; I10 Essential (primary) hypertension; E78.5 Hyperlipidemia, unspecified; B96.4 Proteus (mirabilis) (morganii) as the cause of diseases classified elsewhere; M51.26 Other intervertebral disc displacement, lumbar region; M54.16 Radiculopathy, lumbar region; N20.0 Calculus of kidney; Z79.4 Long term (current) use of insulin; Z79.82 Long term (current) use of aspirin; Z79.01 Long term (current) use of anticoagulants; Z86.73 Personal history of transient ischemic attack (TIA), and cerebral infarction without residual deficits; S50.12XA Contusion of left forearm, initial encounter; M54.17 Radiculopathy, lumbosacral region; M48.061 Spinal stenosis, lumbar region without neurogenic claudication; M48.07 Spinal stenosis, lumbosacral region; R29.6 Repeated falls; W18.30XA Fall on same level, unspecified, initial encounter; Y83.8 Other surgical procedures as the cause of abnormal reaction of the patient, or of later complication, without mention of misadventure at the time of the procedure; Z87.891 Personal history of nicotine dependence; Z91.81 History of falling; Z98.1 Arthrodesis status; Z79.84 Long term (current) use of oral hypoglycemic drugs; Z79.899 Other long term (current) drug therapy; Z79.85 Long-term (current) use of injectable non-insulin antidiabetic drugs
CPT/HCPCS: 36415; 36573; 51798; 70450; 70551; 71046; 72100; 72131; 72158; 74176; 80048; 80053; 81001; 82140; 82607; 82746; 82805; 83036; 83605; 83735; 84443; 84484; 85025; 85027; 85610; 85652; 85730; 86140; 86850; 86900; 86901; 87040; 87070; 87075; 87077; 87186; 87205; 93005; 94640; 95816; 96360; 96361; 99285

== ENCOUNTER 2023-05-02 23:17 | Observation (INO) | payer MEDICARE, OTHER ==
[2023-05-03] MEDS: SODIUM CHLORIDE 0.9% 1,000 ML IV ONE (00:28)
--- NOTE | 2023-05-03 00:32 | ED ---
Altered Mental Status HPI - General Chief Complaint: Altered Mental Status Stated Complaint: Altered mental state Time Seen by Provider: 05/02/23 23:53 Source: patient, EMS, RN notes reviewed, old records reviewed Mode of arrival: EMS Limitations: altered mental status - History of Present Illness Initial Comments: This is a 67-year-old male to the ER for evaluation today. Patient presents today for evaluation of altered mental status or o poor historian secondary to clinical condition currently MD Complaint: altered mental status, confusion, decreased responsiveness, weakness -: unknown Severity: moderate Consistency of Symptoms: getting worse Associated Symptoms: denies other symptoms - Related Data Home Medications Medication Instructions Recorded Confirmed Albuterol Sulfate [Ventolin HFA] 2 puff INHALATION RT-Q6H PRN 03/21/23 05/03/23 Aspirin EC [Ecotrin Low Dose] 81 mg PO DAILY@0800 03/21/23 05/03/23 Dulaglutide [Trulicity] 0.75 mg SQ TU@0800 03/21/23 05/03/23 Empagliflozin [Jardiance] 10 mg PO DAILY@0800 03/21/23 05/03/23 Insulin Glargine,Hum.rec.anlog 10 units SQ DAILY 04/11/23 05/03/23 [Lantus Solostar Pen] Apixaban [Eliquis] 5 mg PO BID@0800,199905/03/23 05/03/23 Ferrous Sulfate [Feosol] 325 mg PO BID@0800,199905/03/23 05/03/23 Insulin Lispro [humaLOG Kwikpen] See Protocol SQ ACHS 05/03/23 05/03/23 Lactobacillus Acidophilus 1 cap PO BID@0800,1600 05/03/23 05/03/23 [Acidophilus Probiotic] Sennosides/Docusate Sodium [Senna 1 tab PO DAILY PRN 05/03/23 05/03/23 Plus 8.6-50 mg Tablet] carvediloL [Coreg] 25 mg PO BID@0800,199905/03/23 05/03/23 Previous Rx's Medication Instructions Recorded HYDROcodone/APAP 7.5-325MG [Cunningham 1 tab PO Q6H PRN #7 tab 05/06/23 7.5-325] cefTRIAXone [Rocephin] 2 gm IVPB Q24HR 33 Days each 05/06/23 Allergies Allergy/AdvReac Type Severity Reaction Status Date / Time No Known Allergies Allergy Verified 05/03/23 16:33 Review of Systems ROS Statement: Those systems with pertinent positive or pertinent negative responses have been documented in the HPI. ROS Other: All systems not noted in ROS Statement are negative. Past Medical History Past Medical History: Atrial Fibrillation, COPD, Diabetes Mellitus, Hypertension Additional Past Medical History / Comment(s): herniated discs, TIA History of Any Multi-Drug Resistant Organisms: None Reported Past Surgical History: Orthopedic Surgery Additional Past Surgical History / Comment(s): Knee surgery Past Anesthesia/Blood Transfusion Reactions: Unable to Obtain Past Psychological History: Depression Smoking Status: Current some day smoker Past Alcohol Use History: Daily Past Drug Use History: None Reported, Heroin General Exam Limitations: altered mental status, physical limitation General appearance: alert, in no apparent distress, lethargic Head exam: Present: atraumatic, normocephalic, normal inspection Eye exam: Present: normal appearance, PERRL, EOMI. Absent: scleral icterus, conjunctival injection, periorbital swelling ENT exam: Present: normal exam, mucous membranes moist Neck exam: Present: normal inspection. Absent: tenderness, meningismus, lymphadenopathy Respiratory exam: Present: normal lung sounds bilaterally. Absent: respiratory distress, wheezes, rales, rhonchi, stridor Cardiovascular Exam: Present: regular rate, normal rhythm, normal heart sounds. Absent: systolic murmur, diastolic murmur, rubs, gallop, clicks GI/Abdominal exam: Present: soft, normal bowel sounds. Absent: distended, tenderness, guarding, rebound, rigid Extremities exam: Present: normal inspection, full ROM, normal capillary refill. Absent: tenderness, pedal edema, joint swelling, calf tenderness Back exam: Present: normal inspection Neurological exam: Present: alert, oriented X3, CN II-XII intact Psychiatric exam: Present: normal affect, normal mood Skin exam: Present: warm, dry, intact, normal color. Absent: rash Course Vital Signs 05/02/23 05/03/23 23:35 02:07 Temperature 97.8 F 99 F Pulse Rate 80 84 Respiratory 16 20 Rate Blood Pressure 128/72 125/80 O2 Sat by Pulse 96 95 Oximetry - Reevaluation(s) Reevaluation #1: 05/03/23 01:10 Medical records reviewed Reevaluation #2: 05/03/23 04:41 Patient has no change in symptoms here in the ER he is significantly altered Reevaluation #3: 05/03/23 04:41 Patient informed of results and questions answered Reevaluation #4: Was pt. sent in by a medical professional or institution (NIKKY Godfrey, SLIDE DEVELOPER, urgent care, hospital, or penitentiary...) When possible be specific @ -no Did you speak to anyone other than the patient for history (EMS, parent, family, police, friend...)? What history was obtained from this source @ -no Did you review nursing and triage notes (agree or disagree)? Why? @ -agree Are old charts reviewed (outside hosp., previous admission, EMS record, old EKG, old radiological studies, urgent care reports/EKG's, penitentiary records)? Report findings @ -yes Differential Diagnosis (chest pain, altered mental status, abdominal pain women, abdominal pain men, vaginal bleeding, weakness, fever, dyspnea, syncope, headache, dizziness, GI bleed, back pain, seizure, CVA, palpatations, mental health, musculoskeletal)? @ -prior EKG interpreted by me (3pts min.). @ -yes X-rays interpreted by me (1pt min.). @ -yes negative for acute disease CT interpreted by me (1pt min.). @ -Yes negative for acute disease U/S interpreted by me (1pt. min.). @ -no What testing was considered but not performed or refused? (CT, X-rays, U/S, labs)? Why? @ -none What meds were considered but not given or refused? Why? @ -none Did you discuss the management of the patient with other professionals (ash riley i.e. NIKKY Godfrey, SLIDE DEVELOPER, lab, RT, psych nurse, social media project manager, property consultant, teacher, staff mine warfare officer, case making machine operator)? Give summary @ -no Was smoking cessation discussed for >3mins.? @ -no Was critical care preformed (if so, how long)? @ -no Were there social determinants of health that impacted care today? How? (Homelessness, low income, unemployed, alcoholism, drug addiction, transportation, low edu. Level, literacy, decrease access to med. care, alf, rehab)? @ -none Was there de-escalation of care discussed even if they declined (Discuss DNR or withdrawal of care, Hospice)? DNR status @ -no What co-morbidities impacted this encounter? (DM, HTN, Smoking, COPD, CAD, Cancer, CVA, ARF, Chemo, Hep., AIDS, mental health diagnosis, sleep apnea, morbid obesity)? @ -none Was patient admitted / discharged? Hospital course, mention meds given and route, prescriptions, significant lab abnormalities, going to OR and other pertinent info. @ - 67 male for multiple falls altered mental status recurrent falls and weakness. Patient is unable to provide accurate history here in the ER but will be admitted for further evaluation and monitoring likely need for placement Admitted Undiagnosed new problem with uncertain prognosis? @ -no Drug Therapy requiring intensive monitoring for toxicity (Heparin, Nitro, Insulin, Cardizem)? @ -no Were any procedures done? @ -no Diagnosis/symptom? @ -Recurrent falls and weakness Acute, or Chronic, or Acute on Chronic? @ -Acute Uncomplicated (without systemic symptoms) or Complicated (systemic symptoms)? @ -Complicated Side effects of treatment? @ -no Exacerbation, Progression, or Severe Exacerbation? @ -exacerbation Poses a threat to life or bodily function? How? (Chest pain, [place], CO, pneumonia, PE, COPD, DKA, ARF, appy, cholecystitis, CVA, Diverticulitis, Homicidal, Suicidal, threat to staff... and all critical care pts) @ -yes with extremes of age Reevaluation #5: Differential Altered Mental Status: Hypoglycemia, DKA, hypercapnia, ETOH, overdose, CO poisoning, trauma, myxedema coma, HTN encephalopathy, infection, encephalitis, psychosis, intercranial hemorrhage, hepatic encephalopathy, meningitis, CVA, this is not meant to be an all-inclusive list - Consultations Consultation #1: Spoke with sound who admit this patient Medical Decision Making - Medical Decision Making 67 male for multiple falls altered mental status recurrent falls and weakness. Patient is unable to provide accurate history here in the ER but will be admitted for further evaluation and monitoring likely need for placement - Lab Data Result diagrams: 05/06/23 05:34 05/06/23 05:34 Lab Results 05/03/23 05/03/23 05/03/23 Range/Units 02:00 02:00 02:00 WBC 6.2 (3.8-10.6) k/uL RBC 2.95 L (4.30-5.90) m/uL Hgb 8.7 L (13.0-17.5) gm/dL Hct 26.9 L (39.0-53.0) % MCV 91.2 (80.0-100.0) fL MCH 29.6 (25.0-35.0) pg MCHC 32.5 (31.0-37.0) g/dL RDW 15.3 (11.5-15.5) % Plt Count 264 (150-450) k/uL MPV 7.2 Neutrophils % 67 % Lymphocytes % 19 % Monocytes % 8 % Eosinophils % 4 % Basophils % 0 % Neutrophils # 4.2 (1.3-7.7) k/uL Lymphocytes # 1.2 (1.0-4.8) k/uL Monocytes # 0.5 (0-1.0) k/uL Eosinophils # 0.2 (0-0.7) k/uL Basophils # 0.0 (0-0.2) k/uL Hypochromasia Slight Poikilocytosis Slight PT 12.5 (10.0-12.5) sec INR 1.2 H (<1.2) APTT 23.7 (22.0-30.0) sec Sodium (137-145) mmol/L Potassium (3.5-5.1) mmol/L Chloride (98-107) mmol/L Carbon Dioxide (22-30) mmol/L Anion Gap mmol/L BUN (9-20) mg/dL Creatinine (0.66-1.25) mg/dL Est GFR (CKD-EPI)AfAm (>60 ml/min/1.73 sqM) Est GFR (CKD-EPI)NonAf (>60 ml/min/1.73 sqM) Glucose (74-99) mg/dL Calcium (8.4-10.2) mg/dL Total Bilirubin (0.2-1.3) mg/dL AST (17-59) U/L ALT (4-49) U/L Alkaline Phosphatase (38-126) U/L Ammonia (<30) umol/L Troponin I (0.000-0.034) ng/mL Total Protein (6.3-8.2) g/dL Albumin (3.5-5.0) g/dL Urine Opiates Screen Detected H (NotDetected) Ur Oxycodone Screen Not Detected (NotDetected) Urine Methadone Screen Not Detected (NotDetected) Ur Barbiturates Screen Not Detected (NotDetected) U Tricyclic Antidepress Not Detected (NotDetected) Ur Phencyclidine Scrn Not Detected (NotDetected) Ur Amphetamines Screen Not Detected (NotDetected) U Methamphetamines Scrn Not Detected (NotDetected) U Benzodiazepines Scrn Not Detected (NotDetected) Urine Cocaine Screen Not Detected (NotDetected) U Marijuana (THC) Screen Not Detected (NotDetected) Serum Alcohol mg/dL 05/03/23 05/03/23 05/03/23 Range/Units 02:00 02:00 02:00 WBC (3.8-10.6) k/uL RBC (4.30-5.90) m/uL Hgb (13.0-17.5) gm/dL Hct (39.0-53.0) % MCV (80.0-100.0) fL MCH (25.0-35.0) pg MCHC (31.0-37.0) g/dL RDW (11.5-15.5) % Plt Count (150-450) k/uL MPV Neutrophils % % Lymphocytes % % Monocytes % % Eosinophils % % Basophils % % Neutrophils # (1.3-7.7) k/uL Lymphocytes # (1.0-4.8) k/uL Monocytes # (0-1.0) k/uL Eosinophils # (0-0.7) k/uL Basophils # (0-0.2) k/uL Hypochromasia Poikilocytosis PT (10.0-12.5) sec INR (<1.2) APTT (22.0-30.0) sec Sodium 135 L (137-145) mmol/L Potassium 4.1 (3.5-5.1) mmol/L Chloride 103 (98-107) mmol/L Carbon Dioxide 28 (22-30) mmol/L Anion Gap 4 mmol/L BUN 26 H (9-20) mg/dL Creatinine 1.27 H (0.66-1.25) mg/dL Est GFR (CKD-EPI)AfAm 68 (>60 ml/min/1.73 sqM) Est GFR (CKD-EPI)NonAf 59 (>60 ml/min/1.73 sqM) Glucose 157 H (74-99) mg/dL Calcium 10.3 H (8.4-10.2) mg/dL Total Bilirubin 0.6 (0.2-1.3) mg/dL AST 22 (17-59) U/L ALT 12 (4-49) U/L Alkaline Phosphatase 138 H (38-126) U/L Ammonia <9 (<30) umol/L Troponin I <0.012 (0.000-0.034) ng/mL Total Protein 6.5 (6.3-8.2) g/dL Albumin 3.0 L (3.5-5.0) g/dL Urine Opiates Screen (NotDetected) Ur Oxycodone Screen (NotDetected) Urine Methadone Screen (NotDetected) Ur Barbiturates Screen (NotDetected) U Tricyclic Antidepress (NotDetected) Ur Phencyclidine Scrn (NotDetected) Ur Amphetamines Screen (NotDetected) U Methamphetamines Scrn (NotDetected) U Benzodiazepines Scrn (NotDetected) Urine Cocaine Screen (NotDetected) U Marijuana (THC) Screen (NotDetected) Serum Alcohol <10 mg/dL - EKG Data -: EKG Interpreted by Me (EKG is A-fib 84 QRS 94 QTc 402) - Radiology Data Radiology results: report reviewed (CT brain is negative for acute disease, chest x-ray is negative for acute disease), image reviewed Disposition Clinical Impression: Altered mental status, Weakness, Delirium due to general medical condition Disposition: ADMITTED IP TO THIS [facility] Condition: Stable Is patient prescribed a controlled substance at d/c from ED?: No Time of Disposition: 04:00
--- NOTE | 2023-05-03 01:40 | XR ---
EXAMINATION TYPE: XR chest 1V portable DATE OF EXAM: 05/03/2023 COMPARISON: Chest x-ray April 11, 2023 HISTORY: Altered mental status. Multiple falls and increased weakness after lumbar surgery TECHNIQUE: Single frontal view of the chest is obtained. FINDINGS: Slightly suboptimal as entire right lung base is not included. There is no suspicious new focal air space opacity, pleural effusion, or pneumothorax seen. The cardiac silhouette size remains within normal limits. The osseous structures are intact. IMPRESSION: No acute process. No significant change from most recent prior.
--- NOTE | 2023-05-03 01:43 | CT ---
EXAMINATION TYPE: CT brain wo con DATE OF EXAM: 05/03/2023 HISTORY: Pt bib ems for AMS, pt states he has had multiple falls and increase in weakness. s/p lumbar sx. CT DLP: 1153.8 mGycm. Automated Exposure Control for Dose Reduction was Utilized. TECHNIQUE: CT scan of the head is performed without contrast. COMPARISON: Prior CT April 11, 2023. FINDINGS: There is no acute intracranial hemorrhage or midline shift identified. There is mild to m oderate diffuse ventricular and sulcal prominence redemonstrated. There is mild low-attenuation in t he periventricular white matter redemonstrated. Nasal septum remains deviated to right of midline. T he globes are intact and the visualized sinuses are clear. IMPRESSION: No acute intracranial hemorrhage or midline shift. There is mild to moderate diffuse ag e-related cerebral atrophy and mild chronic small vessel ischemic change redemonstrated. No signific ant change from most recent prior CT.
[2023-05-03 02:20] LABS: INR 1.2 (<1.2); Partial Thromboplastin Time 23.7 sec (22.0-30.0); Prothrombin Time 12.5 sec (10.0-12.5)
[2023-05-03 02:31] LABS: ALT 12 U/L (4-49); AST 22 U/L (17-59); African American GFR (CKD) 68 (>60 ml/min/1.73 sqM); Alcohol <10 mg/dL; Alkaline Phosphatase 138 U/L (38-126); Anion Gap 4 mmol/L; Blood Urea Nitrogen 26 mg/dL (9-20); Calcium 10.3 mg/dL (8.4-10.2); Carbon Dioxide 28 mmol/L (22-30); Chloride 103 mmol/L (98-107); Glucose 157 mg/dL (74-99); Non-African American GFR(CKD) 59 (>60 ml/min/1.73 sqM); Potassium 4.1 mmol/L (3.5-5.1); Sodium 135 mmol/L (137-145); Total Bilirubin 0.6 mg/dL (0.2-1.3); Total Protein 6.5 g/dL (6.3-8.2)
[2023-05-03 02:40] LABS: Basophils % (A) 0 %; Eosinophils # (A) 0.2 k/uL (0-0.7); Eosinophils % (A) 4 %; HCT 26.9 % (39.0-53.0); HGB 8.7 gm/dL (13.0-17.5); Hypochromasia Slight; Lymphocytes # (A) 1.2 k/uL (1.0-4.8); Lymphocytes % (A) 19 %; MCH 29.6 pg (25.0-35.0); MCHC 32.5 g/dL (31.0-37.0); MCV 91.2 fL (80.0-100.0); Mean Platelet Volume 7.2; Monocytes # (A) 0.5 k/uL (0-1.0); Monocytes % (A) 8 %; Neutrophils # (A) 4.2 k/uL (1.3-7.7); Neutrophils % (A) 67 %; Platelet Count 264 k/uL (150-450); Poikilocytosis Slight; RBC 2.95 m/uL (4.30-5.90); RDW 15.3 % (11.5-15.5); WBC 6.2 k/uL (3.8-10.6)
[2023-05-03 02:51] LABS: Amphetamine Screen,Urine Not Detected (NotDetected); Barbiturate Screen,Urine Not Detected (NotDetected); Benzodiazepines Screen,Urine Not Detected (NotDetected); Cocaine Screen,Urine Not Detected (NotDetected); Methadone Screen, Urine Not Detected (NotDetected); Opiate Screen,Urine Detected (NotDetected); Oxycodone Screen, Urine Not Detected (NotDetected); Phencyclidine Screen,Urine Not Detected (NotDetected); Tricyclic Antidepressant,Urine Not Detected (NotDetected); Urn Cannabinoid Scrn Not Detected (NotDetected)
[2023-05-03] MEDS ORDERED: NALOXONE 0.4 MG/ML 1 ML VIAL IV PRN (04:39)
[2023-05-03] MEDS ORDERED: ALBUTEROL NEBULIZED 2.5 MG/3 ML INHALATION PRN (06:41)
[2023-05-03] MEDS ORDERED: DEXTROSE 50% SYRINGE 50 ML IVP PRN ×2 (06:42)
[2023-05-03 06:53] LABS: Glucose,Whole Blood 176 mg/dL (70-110)
--- NOTE | 2023-05-03 06:56 | P.HPIM ---
History of Present Illness H&P Date: 05/03/23 Chief Complaint: Altered mental status 67-year-old male with diabetes mellitus hypertension He is currently confused unable to provide any meaningful history, he believes that he never left the hospital he tells me about his back surgery. Patient had recent surgery on his back for L3-S1 decompression and fusion however this was complicated by wound dehiscence and abscess formation he was recently seen in our hospital had his surgical site cleaned and was placed on antibiotics to be continued for about 6 weeks he was discharged about 10 days ago to [facility]. Seems like he was sent back in here due to concerns regarding ongoing drainage from his wound and worsening mental status. Patient seems to be awake and alert during my evaluation however he is extremely disoriented and unable to provide any meaningful information review of systems Unable to obtain due to confusion on exam Constitutional: No acute distress, cooperative Eyes: Anicteric sclerae, moist conjunctiva, Pupils equal round reactive to light ENMT: NC/AT Oropharynx clear, no erythema, or exudates Neck: Supple, no masses, or JVD No carotid bruits No thyromegaly Lungs: Clear to auscultation Clear to percussion Normal respiratory effort, no accessory muscle use Cardiovascular: Heart regular in rate and rhythm, No murmurs, gallops, or rubs No peripheral edema Abdominal: Soft Nontender, no guarding, rebound or rigidity Abdomen moving with respiration Normoactive bowel sounds Skin: Surgical site examined wound dehiscence with stitches in place no active drainage dressing was replaced on May 02 looks dry intact no bleeding no purulent drainage identified no surrounding erythema of the wound or induration Extremities: No digital cyanosis No clubbing Pedal pulses intact and symmetrical Radial pulses intact and symmetrical No calf tenderness Psychiatric: Patient awake follows commands oriented to self only Neuro moving all 4 extremities purposefully and spontaneously Past Medical History Past Medical History: Atrial Fibrillation, COPD, Diabetes Mellitus, Hypertension Additional Past Medical History / Comment(s): herniated discs, TIA History of Any Multi-Drug Resistant Organisms: None Reported Past Surgical History: Orthopedic Surgery Additional Past Surgical History / Comment(s): Knee surgery Past Anesthesia/Blood Transfusion Reactions: Unable to Obtain Past Psychological History: Depression Smoking Status: Current some day smoker Past Alcohol Use History: Daily Past Drug Use History: None Reported, Heroin Medications and Allergies Home Medications Medication Instructions Recorded Confirmed Type Albuterol Sulfate [Ventolin HFA] 2 puff INHALATION RT-QID PRN 03/21/23 04/11/23 History Aspirin EC [Ecotrin Low Dose] 81 mg PO DAILY 03/21/23 04/11/23 History DULoxetine HCL [Cymbalta] 30 mg PO DAILY 03/21/23 04/11/23 History Dulaglutide [Trulicity] 0.75 mg SQ TU 03/21/23 04/11/23 History Empagliflozin [Jardiance] 10 mg PO DAILY 03/21/23 04/11/23 History Apixaban [Eliquis] 5 mg PO BID tab 04/04/23 04/11/23 Rx Ferrous Sulfate [Feosol] 325 mg PO BID #1 tab 04/04/23 04/11/23 Rx INSULIN ASPART (NovoLOG) [NovoLOG See Protocol SQ ACHS 04/11/23 04/11/23 History (formulary)] Insulin Glargine,Hum.rec.anlog 10 units SQ DAILY@0800 04/11/23 04/11/23 History [Lantus Solostar Pen] Cyclobenzaprine [Flexeril] 5 mg PO TID PRN #40 tablet 04/22/23 Rx HYDROcodone/APAP 10-325MG [[place] 1 tab PO Q4-6H PRN #42 tab 04/22/23 Rx 10-325] Sennosides/Docusate Sodium [Senna 1 each PO DAILY PRN #20 tablet 04/22/23 Rx Plus 8.6-50 mg Tablet] carvediloL [Coreg*] 25 mg PO BID-W/MEALS tab 04/22/23 Rx cefTRIAXone [Rocephin] 2 gm IVPB Q24HR 31 Days each 04/22/23 Rx Allergies Allergy/AdvReac Type Severity Reaction Status Date / Time No Known Allergies Allergy Verified 04/11/23 12:37 Physical Exam Vitals: Vital Signs Temp Pulse Resp BP Pulse Ox 05/03/23 02:07 99 F 84 20 125/80 95 05/02/23 23:35 97.8 F 80 16 128/72 96 Intake and Output 05/02/23 05/02/23 05/03/23 14:59 22:59 06:59 Other: Weight 120.202 kg Results CBC & Chem 7: 05/03/23 02:00 05/03/23 02:00 Labs: Abnormal Lab Results - Last 24 Hours (Table) 05/03/23 05/03/23 05/03/23 Range/Units 02:00 02:00 02:00 RBC 2.95 L (4.30-5.90) m/uL Hgb 8.7 L (13.0-17.5) gm/dL Hct 26.9 L (39.0-53.0) % INR 1.2 H (<1.2) Sodium (137-145) mmol/L BUN (9-20) mg/dL Creatinine (0.66-1.25) mg/dL Glucose (74-99) mg/dL Calcium (8.4-10.2) mg/dL Alkaline Phosphatase (38-126) U/L Albumin (3.5-5.0) g/dL Urine Opiates Screen Detected H (NotDetected) 05/03/23 Range/Units 02:00 RBC (4.30-5.90) m/uL Hgb (13.0-17.5) gm/dL Hct (39.0-53.0) % INR (<1.2) Sodium 135 L (137-145) mmol/L BUN 26 H (9-20) mg/dL Creatinine 1.27 H (0.66-1.25) mg/dL Glucose 157 H (74-99) mg/dL Calcium 10.3 H (8.4-10.2) mg/dL Alkaline Phosphatase 138 H (38-126) U/L Albumin 3.0 L (3.5-5.0) g/dL Urine Opiates Screen (NotDetected) Assessment and Plan Assessment: 67-year-old male diabetes mellitus hypertension A-fib on Eliquis coming in for evaluation of altered mental status patient was recently had L3/S1 decompression and fusion complicated by wound dehiscence and abscess formation which was araseli gically cleaned and drained patient was placed on antibiotics to be continued for another 6 weeks after discharge which was 10 days ago I discussed the case with ED doctor accepted the admission for acute metabolic encephalopathy with anticipated length of stay more than 2 midnights Acute metabolic encephalopathy Suspected secondary to polypharmacy CT scan of the brain showed no acute intracranial hemorrhage however showed chronic diffuse age-related changes no significant change from prior CT Fall precautions Neurochecks Supportive care Patient is coming from [facility] where he is getting rehab and IV medications Acute kidney injury BUN 26 creatinine 1.27 Sodium 135 potassium 4.1 Avoid nephrotoxic meds Continue with IV fluid hydration normal saline 130 cc/h Recent surgical site wound dehiscence and abscess formation status post drainage Continue with IV antibiotics Rocephin 2 g daily to be continued for 6 weeks after discharge which was 10 days ago Cultures at the time grew Proteus bacteremia Patient has a left PICC line Tylenol for fever as needed Currently white count 6.2 afebrile Anemia stable compared to last discharge Hemoglobin 8.7 no report of bleeding Continue to monitor Chronic conditions A-fib on Eliquis Continue with Coreg Diabetes mellitus Continue with insulin sliding scale DVT prophylaxis on Eliquis for A-fib Full code
[2023-05-03] MEDS: INSULIN ASPART (NovoLOG) 100 UNIT/ML VIAL SQ SCH (07:01)
[2023-05-03] MEDS: HYDROcodone/APAP 10-325MG 1 EACH TAB PO PRN (07:45)
[2023-05-03] MEDS: SODIUM CHLORIDE 0.9% 1,000 ML IV SCH (07:46)
[2023-05-03] MEDS ORDERED: cefTRIAXone 2 GM VIAL IVPB SCH (09:00)
[2023-05-03] MEDS: APIXABAN 5 MG TAB PO SCH (10:15)
[2023-05-03] MEDS: ASPIRIN 81 MG PO SCH (10:15)
[2023-05-03] MEDS: carvediloL 12.5 MG TAB PO SCH (10:15)
[2023-05-03 12:25] LABS: Glucose,Whole Blood 198 mg/dL (70-110)
--- NOTE | 2023-05-03 15:22 | P.CNNES ---
History of Present Illness Consult date: 05/03/23 Reason for Consult: Acute mental status change History of Present Illness: The patient is a 67-year-old male who was seen in neurologic consultation on May 03, 2023, in collaboration with Lorena Brooks, via teleneurology. History is obtained from the patient as well as the chart. History is primarily obtained from the chart. The patient states that his pain is severe. He reports pain in his back 7 out of 10. He says that he did not want to be in rehab. The pain was bad and he was not getting adequate treatment. The patient denies radiation of pain into his legs. He does report tingling in his feet and weakness of his legs. Patient denies headache and confusion. The patient recently had surgery on his low back with complications consisting of abscess and wound dehiscence. The patient was sent back to the emergency department and was started on antibiotics with also debridement of the wound. He was discharged to rehab for 6 weeks of antibiotics. According to emergency department note and history and physical, patient was sent back to the emergency department because of the continued drainage of his wound and mental status changes. In the emergency department, CT scan of the brain was performed. There is no reported evidence of acute hemorrhage or infarct. Review of Systems Difficult to obtain secondary to mental status of patient Past Medical History Past Medical History: Atrial Fibrillation, COPD, Diabetes Mellitus, Hypertension Additional Past Medical History / Comment(s): herniated discs, TIA History of Any Multi-Drug Resistant Organisms: None Reported Past Surgical History: Orthopedic Surgery Additional Past Surgical History / Comment(s): Knee surgery Past Anesthesia/Blood Transfusion Reactions: Unable to Obtain Past Psychological History: Depression Smoking Status: Current some day smoker Past Alcohol Use History: Daily Past Drug Use History: None Reported, Heroin Medications and Allergies Home Medications Medication Instructions Recorded Confirmed Type Albuterol Sulfate [Ventolin HFA] 2 puff INHALATION RT-QID PRN 03/21/23 04/11/23 History Aspirin EC [Ecotrin Low Dose] 81 mg PO DAILY 03/21/23 04/11/23 History DULoxetine HCL [Cymbalta] 30 mg PO DAILY 03/21/23 04/11/23 History Dulaglutide [Trulicity] 0.75 mg SQ TU 03/21/23 04/11/23 History Empagliflozin [Jardiance] 10 mg PO DAILY 03/21/23 04/11/23 History Apixaban [Eliquis] 5 mg PO BID tab 04/04/23 04/11/23 Rx Ferrous Sulfate [Feosol] 325 mg PO BID #1 tab 04/04/23 04/11/23 Rx INSULIN ASPART (NovoLOG) [NovoLOG See Protocol SQ ACHS 04/11/23 04/11/23 History (formulary)] Insulin Glargine,Hum.rec.anlog 10 units SQ DAILY@0800 04/11/23 04/11/23 History [Lantus Solostar Pen] Cyclobenzaprine [Flexeril] 5 mg PO TID PRN #40 tablet 04/22/23 Rx HYDROcodone/APAP 10-325MG [[place] 1 tab PO Q4-6H PRN #42 tab 04/22/23 Rx 10-325] Sennosides/Docusate Sodium [Senna 1 each PO DAILY PRN #20 tablet 04/22/23 Rx Plus 8.6-50 mg Tablet] carvediloL [Coreg*] 25 mg PO BID-W/MEALS tab 04/22/23 Rx cefTRIAXone [Rocephin] 2 gm IVPB Q24HR 31 Days each 04/22/23 Rx Allergies Allergy/AdvReac Type Severity Reaction Status Date / Time No Known Allergies Allergy Verified 04/11/23 12:37 Physical Examination - Vital Signs Vital Signs: Vital Signs Temp Pulse Pulse Resp BP BP Pulse Ox 05/03/23 07:40 98.2 F 85 18 144/76 100 05/03/23 06:00 98.3 F 94 14 117/54 98 05/03/23 02:07 99 F 84 20 125/80 95 05/02/23 23:35 97.8 F 80 16 128/72 96 Intake and Output 05/02/23 05/03/23 05/03/23 22:59 06:59 14:59 Output Total 250 Balance -250 Output: Urine 250 Other: Voiding Method Urinal Weight 120.202 kg General: Patient is reclining in the bed. He is well-nourished, well-developed and in no acute distress. HEENT: Head is atraumatic, normocephalic. Fundus not visualized. There is no scleral icterus. Mucous membranes are moist. Neck: Supple without carotid bruits Heart: Regular rate and rhythm Lungs: Clear to auscultation Extremities: There is clubbing of the fingernails. There is no edema. Neurological examination Mental status: The patient is awake and alert. He is able to state his name, date of , age, year and current city he is located in. The patient is not oriented to the month. He says [facility] His speech is very mumbled and difficult to hear. He seems to have a pressure type speech. Cranial nerves: Pupils are equal at 3 mm and reactive. Visual lamas are full to confrontation. Extraocular movements are intact. There is no nystagmus. Facial sensation is intact. There is no facial asymmetry. Hearing is grossly intact. Uvula and palate are midline. Shoulder shrug is symmetric. Tongue protrudes midline. There is a tremor of the tongue. Motor: Strength is 5/5 in the bilateral upper extremities. Left hip flexor 4/5 with ankle plantar and dorsiflexors at 5/5. Right hip flexor strength 4/5 with ankle plantar and dorsiflexors strength at 5/5. Sensation: Grossly intact to light touch with the exception of decreased sensation in the right upper extremity. There is no extinction with double simultaneous stimulation. Coordination: Patient has a intention tremor of his upper extremities bilaterally, with [id number] testing. Rapid alternating movements are intact. [id number] testing is not assessed. Deep tendon reflexes: 3+/4+ throughout. Plantar responses are flexor bilaterally. Gait: Not assessed Results - Laboratory Findings CBC and BMP: 05/03/23 02:00 05/03/23 02:00 Abnormal Lab Findings: Abnormal Labs 05/03/23 05/03/23 05/03/23 02:00 02:00 02:00 RBC 2.95 L Hgb 8.7 L Hct 26.9 L INR 1.2 H Sodium BUN Creatinine Glucose POC Glucose (mg/dL) Calcium Alkaline Phosphatase Albumin Urine Opiates Screen Detected H 05/03/23 05/03/23 02:00 06:52 RBC Hgb Hct INR Sodium 135 L BUN 26 H Creatinine 1.27 H Glucose 157 H POC Glucose (mg/dL) 176 H Calcium 10.3 H Alkaline Phosphatase 138 H Albumin 3.0 L Urine Opiates Screen Assessment and Plan Assessment: 1. Altered mental status, potentially secondary to infection versus polypharmacy. Patient is on multiple pain medications, as well as muscle relaxers 2. Recent low back surgery with wound infection 3. History of atrial fibrillation 4. History of hypertension 5. History of COPD 6. History of diabetes mellitus Plan: 1. Continue antibiotic treatment 2. Limit narcotics and sedative medications 3. Agree with discontinuation of Flexeril 4. Physical therapy evaluation Time with Patient: Greater than 30 (58 minutes were spent caring for this patient today including, obtaining history, examining the patient, reviewing imaging, chart documentation, labs, placing orders and creating this note)
[2023-05-03 16:20] LABS: Glucose,Whole Blood 210 mg/dL (70-110)
[2023-05-03 20:53] LABS: Glucose,Whole Blood 108 mg/dL (70-110)
[2023-05-04 05:37] LABS: Glucose,Whole Blood 144 mg/dL (70-110)
[2023-05-04 09:38] LABS: Basophils % (A) 1 %; Eosinophils # (A) 0.2 k/uL (0-0.7); Eosinophils % (A) 5 %; HCT 28.4 % (39.0-53.0); HGB 9.1 gm/dL (13.0-17.5); Hypochromasia Marked; Lymphocytes # (A) 0.8 k/uL (1.0-4.8); Lymphocytes % (A) 20 %; MCH 29.9 pg (25.0-35.0); MCHC 32.1 g/dL (31.0-37.0); MCV 93.1 fL (80.0-100.0); Mean Platelet Volume 7.1; Monocytes # (A) 0.3 k/uL (0-1.0); Monocytes % (A) 8 %; Neutrophils # (A) 2.6 k/uL (1.3-7.7); Neutrophils % (A) 64 %; Platelet Count 256 k/uL (150-450); Poikilocytosis Slight; RBC 3.05 m/uL (4.30-5.90); RDW 15.3 % (11.5-15.5)
[2023-05-04 09:59] LABS: ALT 11 U/L (4-49); AST 19 U/L (17-59); African American GFR (CKD) 88 (>60 ml/min/1.73 sqM); Albumin 2.6 g/dL (3.5-5.0); Albumin/Globulin Ratio 0.8; Alkaline Phosphatase 123 U/L (38-126); Anion Gap 6 mmol/L; Blood Urea Nitrogen 21 mg/dL (9-20); Calcium 9.6 mg/dL (8.4-10.2); Carbon Dioxide 24 mmol/L (22-30); Chloride 108 mmol/L (98-107); Globulin 3.3 g/dL; Glucose 149 mg/dL (74-99); Magnesium 1.5 mg/dL (1.6-2.3); Non-African American GFR(CKD) 76 (>60 ml/min/1.73 sqM); Potassium 4.3 mmol/L (3.5-5.1); Sodium 138 mmol/L (137-145); Total Bilirubin 0.5 mg/dL (0.2-1.3); Total Protein 5.9 g/dL (6.3-8.2)
[2023-05-04 11:39] LABS: Glucose,Whole Blood 223 mg/dL (70-110)
--- NOTE | 2023-05-04 12:05 | P.PN ---
Subjective Progress Note Date: 05/04/23 No new complaints. Mental status has improved. He does complain of back pain. He pulled out his PICC line yesterday and this will need to be replaced for his ongoing ceftriaxone need. Gen: In NAD, non-toxic HEENT: normocephalic, atraumatic, hearing acuity is intant, mucous membranes moist CVS: perfusing all extremities well, no pitting edema, Respiratory: symmetric chest expansion, no accessory muscle use, GI: soft, NTTP, ND, : no suprapubic tenderness, no CVA tenderness MSK/Derm: no rashes, cyanosis Neuro: CN II-XII intact, no motor weakness, Psych: cooperative, euthymic mood, judgment and insight is intact Hospital course: 67-year-old male with diabetes mellitus hypertension He is currently confused unable to provide any meaningful history, he believes that he never left the hospital he tells me about his back surgery. Patient had recent surgery on his back for L3-S1 decompression and fusion however this was complicated by wound dehiscence and abscess formation he was recently seen in our hospital had his surgical site cleaned and was placed on antibiotics to be continued for about 6 weeks he was discharged about 10 days ago to [facility]. Seems like he was sent back in here due to concerns regarding ongoing drainage from his wound and worsening mental status. Patient seems to be awake and alert during my evaluation however he is extremely disoriented and unable to provide any meaningful information 67-year-old male diabetes mellitus hypertension A-fib on Eliquis coming in for evaluation of altered mental status patient was recently had L3/S1 decompression and fusion complicated by wound dehiscence and abscess formation which was surgically cleaned and drained patient was placed on antibiotics to be continued for another 6 weeks after discharge which was 10 days ago I discussed the case with ED doctor accepted the admission for acute metabolic encephalopathy with anticipated length of stay more than 2 midnights Assessment/plan: Acute metabolic encephalopathy secondary to polypharmacy Fall precautions Neurochecks Supportive care Patient is coming from [facility] where he is getting rehab and IV medications Acute kidney injury, resolved Avoid nephrotoxic meds Continue with IV fluid hydration normal saline 130 cc/h Recent surgical site wound dehiscence and abscess formation status post drainage Continue with IV antibiotics Rocephin 2 g daily to be continued for 6 weeks after discharge which was 10 days ago Cultures at the time grew Proteus bacteremia Patient has a left PICC line that he pulled yesterday night, this will need to be replaced prior to discharge Tylenol for fever as needed Anemia stable compared to last discharge Hemoglobin 8.7 no report of bleeding Continue to monitor Chronic conditions A-fib on Eliquis Continue with Coreg Diabetes mellitus Continue with insulin sliding scale DVT prophylaxis on Eliquis for A-fib Full code Objective - Vital Signs Vital signs: Vital Signs Temp 98.2 F 05/04/23 08:00 Pulse 84 05/04/23 08:00 Resp 18 05/04/23 08:00 BP 147/79 05/04/23 08:00 Pulse Ox 99 05/04/23 08:07 FiO2 Intake & Output 05/03/23 05/04/23 05/04/23 18:59 06:59 18:59 Intake Total 236 Output Total 250 900 Balance -250 -900 236 Intake: Oral 236 Output: Urine 250 900 Other: Voiding Method Urinal Urinal Urinal Diaper Incontinent # Voids 1 # Bowel Movements 1 - Labs CBC & Chem 7: 05/04/23 08:55 05/04/23 08:55 Labs: Abnormal Lab Results - Last 24 Hours (Table) 05/03/23 05/03/23 05/04/23 Range/Units 12:23 16:18 05:34 RBC (4.30-5.90) m/uL Hgb (13.0-17.5) gm/dL Hct (39.0-53.0) % Lymphocytes # (1.0-4.8) k/uL Chloride (98-107) mmol/L BUN (9-20) mg/dL Glucose (74-99) mg/dL POC Glucose (mg/dL) 198 H 210 H 144 H (70-110) mg/dL Magnesium (1.6-2.3) mg/dL Total Protein (6.3-8.2) g/dL Albumin (3.5-5.0) g/dL 05/04/23 05/04/23 05/04/23 Range/Units 08:55 08:55 11:38 RBC 3.05 L (4.30-5.90) m/uL Hgb 9.1 L (13.0-17.5) gm/dL Hct 28.4 L (39.0-53.0) % Lymphocytes # 0.8 L (1.0-4.8) k/uL Chloride 108 H (98-107) mmol/L BUN 21 H (9-20) mg/dL Glucose 149 H (74-99) mg/dL POC Glucose (mg/dL) 223 H (70-110) mg/dL Magnesium 1.5 L (1.6-2.3) mg/dL Total Protein 5.9 L (6.3-8.2) g/dL Albumin 2.6 L (3.5-5.0) g/dL
[2023-05-04 16:53] LABS: Glucose,Whole Blood 174 mg/dL (70-110)
[2023-05-04 20:48] LABS: Glucose,Whole Blood 192 mg/dL (70-110)
[2023-05-05 05:34] LABS: Glucose,Whole Blood 165 mg/dL (70-110)
[2023-05-05] MEDS: ONDANSETRON 4 MG/2 ML VIAL IVP PRN (06:45)
[2023-05-05] MEDS: ZINC OXIDE PASTE (Z-GUARD) 1 APPLIC TOPICAL PRN (06:53)
--- NOTE | 2023-05-05 08:14 | P.CONS ---
History of Present Illness - Reason for Consult Consult date: 05/04/23 Back infection Requesting physician: Lily Muniz - Chief Complaint Mental status changes confusion x 1 day - History of Present Illness Patient is a 67-year-old male with a past medical his significant for diabetes mellitus hypertension COPD atrial fibrillation patient was recently admitted at this facility concerning for lumbar surgical site infection in this patient who is status post I&D of the lumbar surgical site and drainage of the epidural abscess and decompression culture positive for Proteus patient did get a PICC line and patient was advised a 6-week course of Rocephin 2 g daily with the patient was currently receiving at the halfway since 04/23/2023, patient has been brought back to the hospital yesterday morning for evaluation of i ncreasing confusion and mental status changes patient did not recall the circumstances of coming to the hospital at the time of evaluation this afternoon patient did have improvement in his mentation per nursing staff patient know that he is in the hospital patient denies having any headache or URI symptoms but denies having any chest pain shortness of breath or cough patient denies having any nausea no vomiting no abdominal pain or any diarrhea has been complaining of pain to the lower back area but denies any worsening pain no drainage has been noticed patient denies any weakness in the lower extremity on presentation to the hospital patient was afebrile and no fever has been recorded subsequently patient was not tachycardic hypotensive or hypoxic white count is 4.0 creatinine is normal liver enzymes are normal drug screen was positive for opiates serum alcohol less than 10 blood culture obtained currently pending patient has been continue Rocephin infectious disease was consulted today for further management of antibiotic therapy, patient unfortunately has pulled out his PICC line however the patient did not recall the circumstances of why he pulled out his PICC line Review of Systems Positive point and negatives has been mentioned in the HPI, complete review of systems was performed and all other systems are negative Past Medical History Past Medical History: Atrial Fibrillation, COPD, Diabetes Mellitus, Hypertension Additional Past Medical History / Comment(s): herniated discs, TIA History of Any Multi-Drug Resistant Organisms: None Reported Past Surgical History: Orthopedic Surgery Additional Past Surgical History / Comment(s): Knee surgery Past Anesthesia/Blood Transfusion Reactions: Unable to Obtain Past Psychological History: Depression Smoking Status: Current some day smoker Past Alcohol Use History: Daily Past Drug Use History: None Reported, Heroin Medications and Allergies Home Medications Medication Instructions Recorded Confirmed Type Albuterol Sulfate [Ventolin HFA] 2 puff INHALATION RT-Q6H PRN 03/21/23 05/03/23 History Aspirin EC [Ecotrin Low Dose] 81 mg PO DAILY@0800 03/21/23 05/03/23 History Dulaglutide [Trulicity] 0.75 mg SQ TU@0800 03/21/23 05/03/23 History Empagliflozin [Jardiance] 10 mg PO DAILY@0800 03/21/23 05/03/23 History Insulin Glargine,Hum.rec.anlog 10 units SQ DAILY 04/11/23 05/03/23 History [Lantus Solostar Pen] Apixaban [Eliquis] 5 mg PO BID@0800,199905/03/23 05/03/23 History Ferrous Sulfate [Feosol] 325 mg PO BID@0800,199905/03/23 05/03/23 History Insulin Lispro [humaLOG Kwikpen] See Protocol SQ ACHS 05/03/23 05/03/23 History Lactobacillus Acidophilus 1 cap PO BID@0800,1600 05/03/23 05/03/23 History [Acidophilus Probiotic] Sennosides/Docusate Sodium [Senna 1 tab PO DAILY PRN 05/03/23 05/03/23 History Plus 8.6-50 mg Tablet] carvediloL [Coreg] 25 mg PO BID@0800,199905/03/23 05/03/23 History HYDROcodone/APAP 7.5-325MG [[place] 1 tab PO Q6H PRN #7 tab 05/06/23 Rx 7.5-325] cefTRIAXone [Rocephin] 2 gm IVPB Q24HR 33 Days each 05/06/23 05/03/23 Rx Allergies Allergy/AdvReac Type Severity Reaction Status Date / Time No Known Allergies Allergy Verified 05/03/23 16:33 Physical Exam Vitals: Vital Signs Temp Pulse Resp BP Pulse Ox 05/04/23 14:00 97.9 F 78 17 113/65 99 05/04/23 08:07 99 05/04/23 08:00 98.2 F 84 18 147/79 99 05/04/23 06:45 87 132/85 05/04/23 00:20 98.6 F 92 13 151/82 96 05/03/23 19:50 98.1 F 74 13 145/71 97 Intake and Output 05/04/23 05/04/23 05/04/23 06:59 14:59 22:59 Intake Total 236 Output Total 900 Balance -900 236 Intake: Oral 236 Output: Urine 900 Other: Voiding Method Urinal Diaper Incontinent GENERAL DESCRIPTION: Elderly male lying in bed, no distress. No tachypnea or accessory muscle of respiration use. HEENT: Shows Pallor , no scleral icterus. Oral mucous membrane is dry. No pharyngeal erythema or thrush NECK: Trachea central, no thyromegaly. LUNGS: Unlabored breathing. Clear to auscultation anteriorly. No wheeze or crackle. HEART: S1, S2, regular rate and rhythm. No loud murmur ABDOMEN: Soft, no tenderness , guarding or rigidity, no organomegaly EXTREMITIES: No edema of feet. SKIN: No rash, no masses palpable. Examination of the spine incision is intact did have few stitches but no redness or drainage NEUROLOGICAL: The patient is awake, alert, oriented x2, mood and affect normal. Results CBC & Chem 7: 05/06/23 05:34 05/06/23 05:34 Labs: Abnormal Lab Results - Last 24 Hours (Table) 05/04/23 05/04/23 05/04/23 Range/Units 05:34 08:55 08:55 RBC 3.05 L (4.30-5.90) m/uL Hgb 9.1 L (13.0-17.5) gm/dL Hct 28.4 L (39.0-53.0) % Lymphocytes # 0.8 L (1.0-4.8) k/uL Chloride 108 H (98-107) mmol/L BUN 21 H (9-20) mg/dL Glucose 149 H (74-99) mg/dL POC Glucose (mg/dL) 144 H (70-110) mg/dL Magnesium 1.5 L (1.6-2.3) mg/dL Total Protein 5.9 L (6.3-8.2) g/dL Albumin 2.6 L (3.5-5.0) g/dL 05/04/23 05/04/23 Range/Units 11:38 16:52 RBC (4.30-5.90) m/uL Hgb (13.0-17.5) gm/dL Hct (39.0-53.0) % Lymphocytes # (1.0-4.8) k/uL Chloride (98-107) mmol/L BUN (9-20) mg/dL Glucose (74-99) mg/dL POC Glucose (mg/dL) 223 H 174 H (70-110) mg/dL Magnesium (1.6-2.3) mg/dL Total Protein (6.3-8.2) g/dL Albumin (3.5-5.0) g/dL Assessment and Plan (1) Abscess in epidural space of lumbar spine Current Visit: Yes Status: Acute Code(s): G06.1 - INTRASPINAL ABSCESS AND GRANULOMA SNOMED Code(s): 125414252 Plan: 1patient with a recent mission to the hospital with abscess to the lumbar araseli gical site this patient was status post drainage of the abscess decompression culture positive for Proteus and the patient also have Proteus bacteremia with repeat blood culture negative, patient currently with no fever or elevated white count and the lumbar surgical site seems to be healing well with no evidence of any cellulitis noticed clinically patient became to the hospital for mental status changes per the patient is currently being worked up by neurology 2unfortunately the patient has pulled off his PICC line we will request for a second PICC line placement detailed discussion with the patient regarding importance of the PICC line and to make sure he does not pull it out again 3we will check inflammatory markers 4Rocephin 2 g daily to continue We will follow on clinical condition and cultures to further adjust medication if needed Thank you for this consultation we will follow the patient along with you Dictation was produced using [employer] dictation software. please excuse any grammatical, word or spelling errors. Time with Patient: Greater than 30
--- NOTE | 2023-05-05 11:04 | P.PN ---
Subjective Progress Note Date: 05/05/23 No new complaints. Mental status has improved. He does complain of back pain. PICC line order placed by ID. ID and ortho seeing patient today. Back evaluated with ortho PA and does not appear infected. Gen: In NAD, non-toxic HEENT: normocephalic, atraumatic, hearing acuity is intant, mucous membranes moist CVS: perfusing all extremities well, no pitting edema, Respiratory: symmetric chest expansion, no accessory muscle use, GI: soft, NTTP, ND, : no suprapubic tenderness, no CVA tenderness MSK/Derm: no rashes, cyanosis Neuro: CN II-XII intact, no motor weakness, Psych: cooperative, euthymic mood, judgment and insight is intact Hospital course: 67-year-old male with diabetes mellitus hypertension He is currently confused unable to provide any meaningful history, he believes that he never left the hospital he tells me about his back surgery. Patient had recent surgery on his back for L3-S1 decompression and fusion however this was complicated by wound dehiscence and abscess formation he was recently seen in our hospital had his surgical site cleaned and was placed on antibiotics to be continued for about 6 weeks he was discharged about 10 days ago to [facility]. Seems like he was sent back in here due to concerns regarding ongoing drainage from his wound and worsening mental status. Patient seems to be awake and alert during my evaluation however he is extremely disoriented and unable to provide any meaningful information 67-year-old male diabetes mellitus hypertension A-fib on Eliquis coming in for evaluation of altered mental status patient was recently had L3/S1 decompression and fusion complicated by wound dehiscence and abscess formation which was surgically cleaned and drained patient was placed on antibiotics to be continued for another 6 weeks after discharge which was 10 days ago I discussed the case with ED doctor accepted the admission for acute metabolic encephalopathy with anticipated length of stay more than 2 midnights Assessment/plan: Acute metabolic encephalopathy secondary to polypharmacy Fall precautions Neurochecks Supportive care Patient is coming from [facility] where he is getting rehab and IV medications Acute kidney injury, resolved Avoid nephrotoxic meds Continue with IV fluid hydration normal saline 130 cc/h Recent surgical site wound dehiscence and abscess formation status post drainage Continue with IV antibiotics Rocephin 2 g daily to be continued for 6 weeks after discharge which was 10 days ago Cultures at the time grew Proteus bacteremia Patient has a left PICC line that he pulled yesterday night, this will need to be replaced prior to discharge Tylenol for fever as needed Anemia stable compared to last discharge Hemoglobin 8.7 no report of bleeding Continue to monitor Chronic conditions A-fib on Eliquis Continue with Coreg Diabetes mellitus Continue with insulin sliding scale DVT prophylaxis on Eliquis for A-fib Full code Objective - Vital Signs Vital signs: Vital Signs Temp 98.1 F 05/05/23 07:10 Pulse 79 05/05/23 07:10 Resp 16 05/05/23 07:10 BP 123/81 05/05/23 07:10 Pulse Ox 94 L 05/05/23 07:10 FiO2 Intake & Output 05/04/23 05/05/23 05/05/23 18:59 06:59 18:59 Intake Total 1270 Output Total 650 650 Balance 620 -650 Intake: Oral 1270 Output: Urine 650 650 Other: Voiding Method Urinal Urinal Diaper Diaper Incontinent - Labs CBC & Chem 7: 05/04/23 08:55 05/04/23 08:55 Labs: Abnormal Lab Results - Last 24 Hours (Table) 05/04/23 05/04/23 05/04/23 Range/Units 08:55 11:38 16:52 ESR (0-20) mm/Hr POC Glucose (mg/dL) 223 H 174 H (70-110) mg/dL Hemoglobin A1c 8.4 H (<=6.0) % C-Reactive Protein (0.00-0.80) mg/dL 05/04/23 05/05/23 05/05/23 Range/Units 20:47 05:11 05:11 ESR 50 H (0-20) mm/Hr POC Glucose (mg/dL) 192 H (70-110) mg/dL Hemoglobin A1c (<=6.0) % C-Reactive Protein 4.20 H (0.00-0.80) mg/dL 05/05/23 Range/Units 05:33 ESR (0-20) mm/Hr POC Glucose (mg/dL) 165 H (70-110) mg/dL Hemoglobin A1c (<=6.0) % C-Reactive Protein (0.00-0.80) mg/dL Microbiology - Last 24 Hours (Table) 05/03/23 14:25 Blood Culture - Preliminary Blood
[2023-05-05 11:30] LABS: Glucose,Whole Blood 207 mg/dL (70-110)
[2023-05-05] MEDS ORDERED: SENNOSIDES 8.6 MG TAB PO PRN (12:20)
--- NOTE | 2023-05-05 12:21 | P.CNOR ---
History of Present Illness - HPI Consult date: 05/05/23 Requesting physician: Lily Muniz Consult reason: other (f/u back infection) History of present illness: Patient is a 67-year-old male who presented to the emergency department on due to weakness and altered mental status. Orthopedics was consulted for follow-up from surgery. Dr. Zimmerman did perform surgery on 04/17/2023 for open treatment of L2-L3 fracture and L1 to L3 posterior lateral interbody fusion. Patient was seen this morning of bedside lying semirecumbent position and there was concern for nonhealing incision. Patient says he was at rehab and states that his family and himself were not happy with how care was going at rehab. Patient denies any falls at rehab for any significant weakness or lumbar radiculopathy. Patient did have a PICC line and was on IV antibiotics at rehab and over the past couple days since being admitted to the hospital he removed PICC line on his own. Infectious disease and neurology as well as medicine or following the patient. Patient states he thinks there is a little bit of drainage while he was at rehab. Per nursing, doctor Ran attempted to express some fluid from incision, however, no fluid was expressed. I did see patient at bedside with medicine. Incision appears to be doing well at this time. There are several sutures left in place. Patient says he is having some back pain at this time. However, patient states that he has been able to walk around using walker on his own and is hoping to go home upon discharge from the hospital. Patient does seem alert, however, when asked questions about rehab patient seems to be somewhat confused in regards to location and length of stay. She denies any significant chest pain, fever, shortness breath, nausea, vomiting, change in vision, loss/bladder control. Past Medical History Past Medical History: Atrial Fibrillation, COPD, Diabetes Mellitus, Hypertension Additional Past Medical History / Comment(s): herniated discs, TIA History of Any Multi-Drug Resistant Organisms: None Reported Past Surgical History: Orthopedic Surgery Additional Past Surgical History / Comment(s): Knee surgery Past Anesthesia/Blood Transfusion Reactions: Unable to Obtain Past Psychological History: Depression Smoking Status: Current some day smoker Past Alcohol Use History: Daily Past Drug Use History: None Reported, Heroin Medications and Allergies Home Medications Medication Instructions Recorded Confirmed Type Albuterol Sulfate [Ventolin HFA] 2 puff INHALATION RT-Q6H PRN 03/21/23 05/03/23 History Aspirin EC [Ecotrin Low Dose] 81 mg PO DAILY@0800 03/21/23 05/03/23 History DULoxetine HCL [Cymbalta] 30 mg PO DAILY@79903/21/23 05/03/23 History Dulaglutide [Trulicity] 0.75 mg SQ TU@79903/21/23 05/03/23 History Empagliflozin [Jardiance] 10 mg PO DAILY@79903/21/23 05/03/23 History Insulin Glargine,Hum.rec.anlog 10 units SQ DAILY 04/11/23 05/03/23 History [Lantus Solostar Pen] cefTRIAXone [Rocephin] 2 gm IVPB Q24HR 31 Days each 04/22/23 05/03/23 Rx Apixaban [Eliquis] 5 mg PO BID@08,199905/03/23 05/03/23 History Cyclobenzaprine [Flexeril] 5 mg PO Q8H PRN 05/03/23 05/03/23 History Ferrous Sulfate [Feosol] 325 mg PO BID@08,199905/03/23 05/03/23 History HYDROcodone/APAP 7.5-325MG [[place] 1 tab PO Q6H PRN 05/03/23 05/03/23 History 7.5-325] Insulin Lispro [humaLOG Kwikpen] See Protocol SQ ACHS 05/03/23 05/03/23 History Lactobacillus Acidophilus 1 cap PO BID@0800,1600 05/03/23 05/03/23 History [Acidophilus Probiotic] Sennosides/Docusate Sodium [Senna 1 tab PO DAILY PRN 05/03/23 05/03/23 History Plus 8.6-50 mg Tablet] carvediloL [Coreg] 25 mg PO BID@799,199905/03/23 05/03/23 History Allergies Allergy/AdvReac Type Severity Reaction Status Date / Time No Known Allergies Allergy Verified 05/03/23 16:33 Physical Examination Inspection: Incision over the thoracolumbar spine appears to be healing well. Negative for any active drainage. Negative for any wound dehiscence. No fluid was able to be expressed. Negative for ecchymosis. Sensation: Equal, symmetric, bilaterally intact throughout the upper and lower extremities on exam. Palpation: Fair amount of tenderness patient is diffusely surrounding the incision and lumbar spine. Nontender to palpation throughout rest exam. Range of motion: Patient does have full range of motion throughout bilateral upper extremity exam. Some limited range of motion in bilateral hips in flexion/extension secondary to referred pain and stiffness of the back. Full range of motion throughout bilateral ankles and knees in flexion//extension and dorsi/plantar flexion. Motor: 4+/5 in all major motor groups in bilateral upper extremities. 4/5 in all major motor exam bilateral lower extremities. Neurovascular: Refill pulse intact, 2+. Cap refill under 3 seconds in digits of upper extremities. Special tests: Negative Homans bilaterally. Negative clonus bilaterally. Negative Tiesha 's bilaterally. Results - Labs Labs: Abnormal Lab Results - Last 24 Hours (Table) 05/04/23 05/04/23 05/04/23 Range/Units 08:55 11:38 16:52 ESR (0-20) mm/Hr POC Glucose (mg/dL) 223 H 174 H (70-110) mg/dL Hemoglobin A1c 8.4 H (<=6.0) % C-Reactive Protein (0.00-0.80) mg/dL 05/04/23 05/05/23 05/05/23 Range/Units 20:47 05:11 05:11 ESR 50 H (0-20) mm/Hr POC Glucose (mg/dL) 192 H (70-110) mg/dL Hemoglobin A1c (<=6.0) % C-Reactive Protein 4.20 H (0.00-0.80) mg/dL 05/05/23 Range/Units 05:33 ESR (0-20) mm/Hr POC Glucose (mg/dL) 165 H (70-110) mg/dL Hemoglobin A1c (<=6.0) % C-Reactive Protein (0.00-0.80) mg/dL Microbiology - Last 24 Hours (Table) 05/03/23 14:25 Blood Culture - Preliminary Blood H & H 05/03/23 05/04/23 Range/Units 02:00 08:55 Hgb 8.7 L 9.1 L (13.0-17.5) gm/dL Hct 26.9 L 28.4 L (39.0-53.0) % Coagulation 05/03/23 Range/Units 02:00 INR 1.2 H (<1.2) Result Diagrams: 05/04/23 08:55 05/04/23 08:55 Assessment and Plan Assessment: 1. Altered mental status; weakness 2. History of Open treatment L2-3 fracture; Posteriolateral and interbody fusion L2-3; L1-2 posterolateral instrumented fusion; Revision L1-S1 instrumentation; L1-3 bilateral laminectomy, facetectomy and foraminotomy with epidural abscess evacuation, neural element decompression Plan: 1. Altered mental status; weakness; History of Open treatment L2-3 fracture; Posteriolateral and interbody fusion L2-3; L1-2 posterolateral instrumented fusion; Revision L1-S1 instrumentation; L1-3 bilateral laminectomy, facetectomy and foraminotomy with epidural abscess evacuation, neural element decompression - patient stable at bedside this morning. Negative for any active drainage from incision. Appears to be healing well at this time. Patient does have elevated ESR and CRP. I discussed the findings of the exam with my attending, Dr. Zimmerman. At this time we are not recommending any emergent or urgent orthopedic surgical intervention. We will continue to follow patient during a standard hospital. Recommend PT/OT daily. Pain medication as needed. We will assess incision daily. We'll continue to follow patient during a standard hospital. 2. Appreciate medical, ID, neurology management 3. Pain management - [employer] [place] 4. DVT prophylaxis - Eliquis; aspirin 5. GI prophylaxis - senna 6. PT/OT - weightbearing as tolerated with walker and assistance as needed 7. Encourage incentive spirometer use 8. Appreciate consult Time with Patient: Less than 30
[2023-05-05 16:41] LABS: Glucose,Whole Blood 195 mg/dL (70-110)
[2023-05-05 20:41] LABS: Glucose,Whole Blood 248 mg/dL (70-110)
[2023-05-05] MEDS: MORPHINE SULFATE 4 MG/ML SYRINGE IV PRN (22:14)
--- NOTE | 2023-05-05 22:22 | P.PN ---
Subjective Progress Note Date: 05/05/23 Principal diagnosis: Reason for follow-up is lumbar surgical site infectionProteus Patient is a 67-year-old male with a past medical his significant for diabetes mellitus hypertension COPD atrial fibrillation patient was recently admitted at this facility concerning for lumbar surgical site infection in this patient who is status post I&D of the lumbar surgical site and drainage of the epidural abscess and decompression culture positive for Proteus patient did get a PICC line and patient was advised a 6-week course of Rocephin 2 g daily, patient to present to the hospital with mental status changes no fever or elevated white count. On today's evaluation that is 05/05/2023,the patient is afebrile he is breathing comfortably on room air in no distress patient is sleepy lethargic today and did not answer any question vomiting diarrhea or urinary changes reported by the nursing staff. Patient did have a sed rate of 50 which is down from initial high of 95 and CRP is 4.20 down from initial value of 19.4 Objective - Vital Signs Vital signs: Vital Signs Temp 98.1 F 05/05/23 07:10 Pulse 79 05/05/23 07:10 Resp 16 05/05/23 07:10 BP 123/81 05/05/23 07:10 Pulse Ox 94 L 05/05/23 07:10 FiO2 Intake & Output 05/04/23 05/05/23 05/05/23 18:59 06:59 18:59 Intake Total 1270 Output Total 650 650 Balance 620 -650 Intake: Oral 1270 Output: Urine 650 650 Other: Voiding Method Urinal Urinal Diaper Diaper Incontinent - Exam GENERAL DESCRIPTION: An elderly male lying in bed in no distress RESPIRATORY SYSTEM: Unlabored breathing , decreased breath sounds at bases HEART: S1 S2 regular rate and rhythm , ABDOMEN: Soft , no tenderness EXTREMITIES: No edema feet - Labs CBC & Chem 7: 05/04/23 08:55 05/04/23 08:55 Labs: Abnormal Lab Results - Last 24 Hours (Table) 05/04/23 05/04/23 05/04/23 Range/Units 08:55 16:52 20:47 ESR (0-20) mm/Hr POC Glucose (mg/dL) 174 H 192 H (70-110) mg/dL Hemoglobin A1c 8.4 H (<=6.0) % C-Reactive Protein (0.00-0.80) mg/dL 05/05/23 05/05/23 05/05/23 Range/Units 05:11 05:11 05:33 ESR 50 H (0-20) mm/Hr POC Glucose (mg/dL) 165 H (70-110) mg/dL Hemoglobin A1c (<=6.0) % C-Reactive Protein 4.20 H (0.00-0.80) mg/dL 05/05/23 Range/Units 11:29 ESR (0-20) mm/Hr POC Glucose (mg/dL) 207 H (70-110) mg/dL Hemoglobin A1c (<=6.0) % C-Reactive Protein (0.00-0.80) mg/dL Microbiology - Last 24 Hours (Table) 05/03/23 14:25 Blood Culture - Preliminary Blood Assessment and Plan (1) Abscess in epidural space of lumbar spine Current Visit: Yes Status: Acute Code(s): G06.1 - INTRASPINAL ABSCESS AND GRANULOMA SNOMED Code(s): 681528494 Plan: 1patient with a recent mission to the hospital with abscess to the lumbar surgical site this patient was status post drainage of the abscess decompression culture positive for Proteus and the patient also have Proteus bacteremia with repeat blood culture negative, patient currently with no fever or elevated white count and the lumbar surgical site seems to be healing well with no evidence of any cellulitis noticed clinically patient became to the hospital for mental status changes per the patient is currently being worked up by neurology 2unfortunately the patient has pulled off his PICC line, currently waiting for placement of the PICC line by vascular surgery 3patient inflammatory markers are trending down from initial high and we will continue the patient on Rocephin 2 g daily and monitor clinical course closely Dictation was produced using [employer] dictation software. please excuse any grammatical, word or spelling errors. Time with Patient: Less than 30
[2023-05-06 02:33] VITALS: RESP 20
[2023-05-06 05:20] LABS: Glucose,Whole Blood 219 mg/dL (70-110)
[2023-05-06] MEDS: LIDOCAINE 1% INJ 10MG/ML (20 ML MDV) SQ ONE (07:48)
--- NOTE | 2023-05-06 08:08 | P.PCN ---
Date of Procedure: 05/06/23 Preoperative Diagnosis: Lumbar epidural abscess Postoperative Diagnosis: Same Procedure(s) Performed: Left upper extremity basilic vein PICC line placement under ultrasound and fluoroscopic guidance Left upper extremity selective venogram Anesthesia: local Surgeon: Lawrence Doyle Estimated Blood Loss (ml): 2 Pathology: none sent Condition: stable Disposition: floor Indications for Procedure: 67-year-old gentleman with history of lumbar epidural abscess in need of IV antibiotics for an extended period of time presents for PICC line placement Description of Procedure: After written and informed consent was obtained the patient and all risks, benefits and competitions were described the patient was brought to the [facility] and laid in a supine position with his left arm outstretched on an armboard. The area of the left arm was prepped and draped in usual sterile fashion. Timeout was performed in normal fashion. Utilizing ultrasound the basilic vein was visualized and shown to be compressible without any visible thrombus. Under ultrasound guidance the basilic vein was then cannulated with a micropuncture needle and wire was placed under direct visualization of fluoroscopy. Introducer sheath was then placed. The catheter was measured and cut to the appropriate length which was 51 cm. The catheter was then guided through the breakaway sheath, but the catheter was unable to be passed at the axillary aspect of the vein and therefore venogram was performed demonstrating a acute angle into the larger deep system. Utilizing an 018 Glidewire this was traversed and the wire was placed into the deeper system and the catheter was placed over the wire into the appropriate position and the sheath was removed with good positioning was visualized under fluoroscopy. The catheter was pulled and flushed easily. It was then secured in place in normal fashion. Patient tolerated the procedure well was sent back to his room for recovery.
[2023-05-06 08:24] LABS: Basophils # (A) 0.02 X 10*3/uL (0.00-0.10); Basophils % (A) 0.4 %; Eosinophils # (A) 0.33 X 10*3/uL (0.04-0.35); Eosinophils % (A) 7.1 %; HCT 25.6 % (39.6-50.0); HGB 8.3 g/dL (13.0-17.0); Lymphocytes # (A) 1.16 X 10*3/uL (0.90-5.00); Lymphocytes % (A) 24.8 %; MCH 29.9 pg (27.0-32.0); MCHC 32.4 g/dL (32.0-37.0); MCV 92.1 FL (80.0-97.0); Mean Platelet Volume 9.4 FL (9.5-12.2); Monocytes # (A) 0.54 X 10*3/uL (0.20-1.00); Monocytes % (A) 11.6 %; NRBC Per 100 WBC 0 X 10*3/uL (0.00-0.01); Neutrophils # (A) 2.58 X 10*3/uL (1.80-7.70); Neutrophils % (A) 55.2 %; Platelet Count 226 X 10*3/uL (140-440); RBC 2.78 X 10*6/uL (4.40-5.60); RDW 15.3 % (11.5-14.5); WBC 4.67 X 10*3/uL (4.50-10.00)
[2023-05-06 09:04] LABS: BUN/Creat Ratio 19.17 Ratio (12.00-20.00); Calcium 9.7 mg/dL (8.7-10.3); Carbon Dioxide 25.8 mmol/L (21.6-31.8); Chloride 103 mmol/L (96-109); Glucose 201 mg/dL (70-110); Magnesium 1.7 mg/dL (1.5-2.4); Potassium 4.9 mmol/L (3.5-5.5); Sodium 139 mmol/L (135-145)
--- NOTE | 2023-05-06 09:28 | P.PN ---
Subjective Progress Note Date: 05/06/23 Principal diagnosis: Altered mental status, generalized weakness, history of Q1ytnkml decompression and fusion, history of L2-L3 fracture with revision L1-S1 decompression and fus ion, epidural abscess evacuation Patient was evaluated today at bedside, he is resting in his hospital bed. Patient seems with that today, he answers most of my questions accurately, he does not well with timeframe from his previous surgeries. Patient is very adamant on being discharged home. Patient has needed quite a bit of assistance with ambulation and other ADLs during his hospital stay. Patient has remained on IV morphine, he also is taking Holland 10 mg / 325 mg. He is eager to work with physical therapy. He denies headaches, lightheadedness, chest pain or shortness of breath. Objective - Vital Signs Vital signs: Vital Signs Temp 98.2 F 05/06/23 08:22 Pulse 75 05/06/23 08:22 Resp 20 05/06/23 08:22 BP 123/78 05/06/23 08:22 Pulse Ox 97 05/06/23 08:22 FiO2 Intake & Output 05/05/23 05/06/23 05/06/23 18:59 06:59 18:59 Intake Total 1500 Output Total 1500 Balance -1500 1500 Intake: Oral 1500 Output: Urine 1500 Other: Voiding Method Urinal Urinal Diaper Diaper Incontinent Incontinent # Voids 4 - Exam Gen: AOx3, NAD VSS stable at this time Integument: Foam dressing is present over the incision, there is no active drainage, there is no areas of erythema or soft tissue swelling Palpation: Mild tenderness with palpation to the lumbar paraspinal region ROM: Full range of motion in all major muscle groups of the bilateral upper and lower extremities, no focal deficits Sensory Exam: Senory exam to light touch is intact C5-T1 Senosry exam to light touch is intact L2-S1 Motor: 4/5 strength appreciated in the bilateral lower extremities with hip flexion, knee extension, knee flexion, plantarflexion, dorsiflexion, EHL, FHL Reflexes: 2/4 in all UE and LE Negative Tiesha's, Babinski, clonus bilaterally - Labs CBC & Chem 7: 05/06/23 05:34 05/06/23 05:34 Labs: Abnormal Lab Results - Last 24 Hours (Table) 05/05/23 05/05/2324 Range/Units 11:29 16:39 20:40 RBC (4.40-5.60) X 10*6/uL Hgb (13.0-17.0) g/dL Hct (39.6-50.0) % RDW (11.5-14.5) % MPV (9.5-12.2) FL Glucose (70-110) mg/dL POC Glucose (mg/dL) 207 H 195 H 248 H (70-110) mg/dL 05/06/23 05/06/23 05/06/23 Range/Units 05:18 05:34 05:34 RBC 2.78 L (4.40-5.60) X 10*6/uL Hgb 8.3 L (13.0-17.0) g/dL Hct 25.6 L (39.6-50.0) % RDW 15.3 H (11.5-14.5) % MPV 9.4 L (9.5-12.2) FL Glucose 201 H (70-110) mg/dL POC Glucose (mg/dL) 219 H (70-110) mg/dL Microbiology - Last 24 Hours (Table) 05/03/23 14:25 Blood Culture - Preliminary Blood Assessment and Plan Assessment: Generalized weakness History of [id number] decompression and posterior lateral fusion History of falls resulting in L2-L3 fracture, epidural abscess resulting in revision L1-S1 decompression and posterior lateral fusion Altered mental status Plan: Had a long discussion today with the patient regarding pain medication use. Will be stopping IV pain medication at this time. I feel that some of the altered mental status is due to the amount of medication he has been taking. Patient's incision is healing well at this time, leave remaining nylon sutures i n until follow-up in office with Dr. Hernandez sent. Recommend Optifoam dressing at all times to help keep clean skin barrier. Can utilize basic antibacterial soap and water over the incision during dressing changes every 2 to 3 days Patient did have new PICC line placed today, he will continue to follow with infectious disease and the recommendations DVT prophylaxis, primary medical service recommendations PT/OT, weight-bear as tolerated with walker Other medical specialty recommendations appreciated Will continue to follow during hospital stay
[2023-05-06 11:37] LABS: Glucose,Whole Blood 231 mg/dL (70-110)
--- NOTE | 2023-05-06 12:58 | P.DS ---
Providers Date of admission: 05/03/23 04:40 Expected date of discharge: 05/06/23 Attending physician: Rashel Amezcua MD Consults: 05/03/23 04:39 Consult Physician Routine Consulting Provider: Ashok Moreno Consult Reason/Comments: ams Do you want consulting provider notified?: Yes 05/04/23 16:01 Consult Physician Routine Consulting Provider: Tim Tong Consult Reason/Comments: back infection Do you want consulting provider notified?: Yes Consult Physician Urgent Consulting Provider: Gregory Zimmerman Consult Reason/Comments: f/u back infection Do you want consulting provider notified?: Yes Primary care physician: Lise Anguiano DO Hospital Course: Discharge Diagnosis: Acute metabolic encephalopathy secondary to polypharmacy Acute kidney injury Status post recent L3-S1 decompression and fusion Recent surgical site wound dehiscence and abscess formation status post I&D, on IV antibiotics Chronic anemia Atrial fibrillation on [facility] Hypertension Type 2 diabetes Hospital Course: 67-year-old male with history of type 2 diabetes, hypertension, A-fib on [facility], recent L3-S1 decompression and fusion complicated by wound dehiscence and abscess formation, and subsequent I&D presenting with acute encephalopathy. Vital signs remained within normal limits. Laboratory workup showed creatinine of 1.27 elevated from baseline, urine toxicology positive for opiates. ID, Ortho spine surgery, and neurology consulted. Acute metabolic encephalopathy likely in the setting of multiple medications, Flexeril was discontinued. [facility] surgery does not think any further intervention is needed with regards to surgical wound. ID followed patient while inpatient, no changes on IV antibiotics. Patient did pull out his PICC line, which had to be replaced. He will be discharged back to rehab facility, continue IV antibiotics for total of 6 weeks. Narcotics limited. Renal function improved at the time of discharge. Patient seen and examined at bedside. Vital signs reviewed and stable. General: Nontoxic, no distress, appears at stated age Derm: Warm, dry, back wound not observed Head: Atraumatic, normocephalic, symmetric Eyes: EOMI, no lid lag, anicteric sclera Mouth: No lip lesion, mucus membranes moist Cardiovascular: S1S2 reg, no murmur Lungs: CTA bilateral, no rhonchi, no rales, no accessory muscle use Abdominal: Soft, nontender to palpation, no guarding, no appreciable organomegaly Ext: No gross muscle atrophy, no edema, no contractures Neuro: CN II-XI grossly intact, no focal neuro deficits Psych: Alert, oriented, appropriate affect A total of 33 minutes of time were spent preparing this complex discharge summary. Patient was discharged on 05/06/2023 at 1146. Patient Condition at Discharge: Stable Plan - Discharge Summary Discharge Rx Participant: Yes New Discharge Prescriptions: Continue Apixaban [Eliquis] 5 mg PO BID@0800,1999 carvediloL [Coreg] 25 mg PO BID@0800,1999 Insulin Lispro [humaLOG Kwikpen] See Protocol SQ ACHS Lactobacillus Acidophilus [Acidophilus Probiotic] 1 cap PO BID@0800,1600 Ferrous Sulfate [Feosol] 325 mg PO BID@0800,1999 Sennosides/Docusate Sodium [Senna Plus 8.6-50 mg Tablet] 1 tab PO DAILY PRN PRN Reason: Constipation HYDROcodone/APAP 7.5-325MG [Galt 7.5-325] 1 tab PO Q6H PRN #7 tab PRN Reason: Pain cefTRIAXone [Rocephin] 2 gm IVPB Q24HR 33 Days each Aspirin EC [Ecotrin Low Dose] 81 mg PO DAILY@0800 Albuterol Sulfate [Ventolin HFA] 2 puff INHALATION RT-Q6H PRN PRN Reason: Shortness Of Breath Dulaglutide [Trulicity] 0.75 mg SQ TU@0800 Empagliflozin [Jardiance] 10 mg PO DAILY@0800 Insulin Glargine,Hum.rec.anlog [Lantus Solostar Pen] 10 units SQ DAILY Discontinued DULoxetine HCL [Cymbalta] 30 mg PO DAILY@0800 Cyclobenzaprine [Flexeril] 5 mg PO Q8H PRN PRN Reason: Pain Discharge Medication List Albuterol Sulfate [Ventolin HFA] 2 puff INHALATION RT-Q6H PRN 03/21/23 [History] Aspirin EC [Ecotrin Low Dose] 81 mg PO DAILY@0800 03/21/23 [History] Dulaglutide [Trulicity] 0.75 mg SQ TU@0800 03/21/23 [History] Empagliflozin [Jardiance] 10 mg PO DAILY@0800 03/21/23 [History] Insulin Glargine,Hum.rec.anlog [Lantus Solostar Pen] 10 units SQ DAILY 04/11/23 [History] Apixaban [Eliquis] 5 mg PO BID@0800,199905/03/23 [History] Ferrous Sulfate [Feosol] 325 mg PO BID@799,199905/03/23 [History] Insulin Lispro [humaLOG Kwikpen] See Protocol SQ ACHS 05/03/23 [History] Lactobacillus Acidophilus [Acidophilus Probiotic] 1 cap PO BID@0800,1600 05/03/23 [History] Sennosides/Docusate Sodium [Senna Plus 8.6-50 mg Tablet] 1 tab PO DAILY PRN 05/03/23 [History] carvediloL [Coreg] 25 mg PO BID@799,199905/03/23 [History] HYDROcodone/APAP 7.5-325MG [Galt 7.5-325] 1 tab PO Q6H PRN #7 tab 05/06/23 [Rx] cefTRIAXone [Rocephin] 2 gm IVPB Q24HR 33 Days each 05/06/23 [Rx] Follow up Appointment(s)/Referral(s): Lise Anguiano DO [Primary Care Provider] - 1-2 days [facility], [NON-STAFF] - As Needed Gregory Zimmerman DO [Doctor of Osteopathic Medicine] - 1 Week Patient Instructions/Handouts: Encephalopathy (DC) Activity/Diet/Wound Care/Special Instructions: Recommend Optifoam dressing at all times to help keep clean skin barrier. Can utilize basic antibacterial soap and water over the incision during dressing changes every 2 to 3 days Discharge Disposition: TRANSFER TO SNF/ECF
[2023-05-06 15:08] VITALS: BP 110/69; PULSE 84; TEMP 98.1
--- NOTE | 2023-05-06 15:42 | P.PN ---
Subjective Progress Note Date: 05/06/23 Principal diagnosis: Reason for follow-up is lumbar surgical site infectionProteus Patient is a 67-year-old male with a past medical his significant for diabetes mellitus hypertension COPD atrial fibrillation patient was recently admitted at this facility concerning for lumbar surgical site infection in this patient who is status post I&D of the lumbar surgical site and drainage of the epidural abscess and decompression culture positive for Proteus patient did get a PICC line and patient was advised a 6-week course of Rocephin 2 g daily, patient to present to the hospital with mental status changes no fever or elevated white count. On today's evaluation that is 05/06/2023,the patient remains to be afebrile, patient is on room air not requiring supplemental oxygen and denies any shortness of breath no chest pain or cough.Patient denies having any nausea or vomiting, no abdominal pain and no diarrhea has been reported patient is back to his baseline mentation rdz feeling better wants to go home. The patient white count is 4.67 creatinine is 1.2 Objective - Vital Signs Vital signs: Vital Signs Temp 98.1 F 05/06/23 13:09 Pulse 84 05/06/23 13:09 Resp 20 05/06/23 13:09 BP 110/69 05/06/23 13:09 Pulse Ox 94 L 05/06/23 13:09 FiO2 Intake & Output 05/05/23 05/06/23 05/06/23 18:59 06:59 18:59 Intake Total 1500 Output Total 1500 Balance -1500 1500 Intake: Oral 1500 Output: Urine 1500 Other: Voiding Method Urinal Urinal Diaper Diaper Incontinent Incontinent # Voids 4 - Exam GENERAL DESCRIPTION: An elderly male lying in bed in no distress RESPIRATORY SYSTEM: Unlabored breathing , decreased breath sounds at bases HEART: S1 S2 regular rate and rhythm , ABDOMEN: Soft , no tenderness EXTREMITIES: No edema feet - Labs CBC & Chem 7: 05/06/23 05:34 05/06/23 05:34 Labs: Abnormal Lab Results - Last 24 Hours (Table) 05/05/23 05/05/23 05/06/23 Range/Units 16:39 20:40 05:18 RBC (4.40-5.60) X 10*6/uL Hgb (13.0-17.0) g/dL Hct (39.6-50.0) % RDW (11.5-14.5) % MPV (9.5-12.2) FL Glucose (70-110) mg/dL POC Glucose (mg/dL) 195 H 248 H 219 H (70-110) mg/dL 05/06/23 05/06/23 05/06/23 Range/Units 05:34 05:34 11:35 RBC 2.78 L (4.40-5.60) X 10*6/uL Hgb 8.3 L (13.0-17.0) g/dL Hct 25.6 L (39.6-50.0) % RDW 15.3 H (11.5-14.5) % MPV 9.4 L (9.5-12.2) FL Glucose 201 H (70-110) mg/dL POC Glucose (mg/dL) 231 H (70-110) mg/dL Microbiology - Last 24 Hours (Table) 05/03/23 14:25 Blood Culture - Preliminary Blood Assessment and Plan (1) Abscess in epidural space of lumbar spine Current Visit: Yes Status: Acute Code(s): G06.1 - INTRASPINAL ABSCESS AND GRANULOMA SNOMED Code(s): 547092737 Plan: 1patient with a recent mission to the hospital with abscess to the lumbar surgical site this patient was status post drainage of the abscess decompression culture positive for Proteus and the patient also have Proteus bacteremia with repeat blood culture negative, patient currently with no fever or elevated white count and the lumbar surgical site seems to be healing well with no evidence of any cellulitis noticed clinically patient became to the hospital for mental status changes per the patient is currently being worked up by neurology 2patient did get a new PICC line placed this morning he will continue with Rocephin 2 g daily to finish his 6-week course of therapy and close outpatient follow-up question concern answered Dictation was produced using [employer] dictation software. please excuse any grammatical, word or spelling errors. Time with Patient: Less than 30
--- NOTE | 2023-05-06 16:44 | IR ---
EXAMINATION TYPE: IR cvc insert >=5 years Intraoperative/procedural fluoroscopic services were provid ed. CLINICAL INDICATION:Male, 67 years old with history of Abx, 3.1m/2.9184DAP, 4F 50cm lt basilic PICC l ine.; , [facility] Total fluoroscopy time is 3.1 min. DAP: 291 uGym2 Please see the operative/procedural note for further details.
== END 2023-05-06 16:31 ==
LOC: EC 23:17 → 4SSUR 05-03 04:40
PROVIDERS: ADMIT Internal Medicine; ATTEND Internal Medicine
DX: G92.8 Other toxic encephalopathy (principal); T50.915A Adverse effect of multiple unspecified drugs, medicaments and biological substances, initial encounter; N17.9 Acute kidney failure, unspecified; G06.1 Intraspinal abscess and granuloma; F05 Delirium due to known physiological condition; R53.1 Weakness; D64.9 Anemia, unspecified; I48.91 Unspecified atrial fibrillation; J44.9 Chronic obstructive pulmonary disease, unspecified; E11.9 Type 2 diabetes mellitus without complications; I10 Essential (primary) hypertension; F32.A Depression, unspecified; F17.200 Nicotine dependence, unspecified, uncomplicated; Z86.73 Personal history of transient ischemic attack (TIA), and cerebral infarction without residual deficits; Z91.81 History of falling; Z79.01 Long term (current) use of anticoagulants; Z79.4 Long term (current) use of insulin; Z79.82 Long term (current) use of aspirin; Z79.84 Long term (current) use of oral hypoglycemic drugs; Z79.85 Long-term (current) use of injectable non-insulin antidiabetic drugs; Z79.899 Other long term (current) drug therapy
CPT/HCPCS: 96376; 96365; 96366 ×4; 96375; 96361; 99285; 36415; 94760; 97162; 97166; 36573; 80053 ×2; 80048; 85652; 82140; 83735 ×2; 84100; 84484; 85025 ×3; 85610; 85730; 86140; 87040; 80306; 83036; 71045; 70450; G0378 ×4; C1751; C1769 ×2; G0480; J2270 ×2; J2405; J0696 ×4; J2001; 80320

== ENCOUNTER → 2024-04-02 | Outpatient (CLI) | payer OTHER ==
--- NOTE | 2024-04-02 15:01 | US ---
EXAMINATION TYPE: US arterial LE multi level DATE OF EXAM: 04/02/2024 2:36 PM COMPARISONS: None. CLINICAL INDICATION: Male, 68 years old with history of L97.522NON-PRESSURE CHRONIC ULCER OF OTHER PA RT OF; wound on left foot TECHNIQUE: Systolic pressures were taken of the upper and lower extremity arteries with ankle-brachia l indices and toe brachial indices calculated bilaterally. History of: Smoker: yes Hypertension: yes Diabetic: yes Hyperlipidemia: unsure TIA/CVA: yes Previous Vascular Surgery: no CAD: no WI: yes Vascular Ulcers: left Claudication: no Gangrene: no FINDINGS: Doppler Waveforms: Right: Multiphasic Left: Biphasic Pulse Volume Recording: Pressure Gradients: Brachial Artery systolic pressure: Right: 124 Left: 141 (rechecked bilaterally) Posterior Tibial artery systolic pressure: Right: 117 Left: cno Dorsalis Pedis artery systolic pressure: Right: 128 Left: 186 Toe artery systolic pressure: Right: 86 Left: 92 Ankle-Brachial Indices: Right: 0.91 Left: 1.32 Toe Brachial Indices: Right: 0.61 Left: 0.65 (Normal > 0.6; Mild 0.35 - 0.59, Moderate 0.12 - 0.34, Severe <0.12) IMPRESSION: ADRIEL: Right: Normal 0.9 - 1.4, Recommendation: None Left: Normal 0.9 - 1.4, Recommendation: None [facility], , 04/02/2024 2:59 PM
== END | disposition home or self-care (01) ==
LOC: RADUSWWP 13:43
PROVIDERS: ATTEND Thoracic Surgery (Cardiothoracic Vascular Surgery)
DX: L97.522 Non-pressure chronic ulcer of other part of left foot with fat layer exposed (principal); K70.31 Alcoholic cirrhosis of liver with ascites
CPT/HCPCS: 82140; 93923